=== PATIENT | female | born 1965 | race Caucasian/White ===

== ENCOUNTER 2018-02-24 09:19 | Inpatient (IN) | payer SELFPAY ==
[2018-02-24] MEDS ORDERED: NORMAL SALINE 1000 ML 2,000 ML IV ONE (09:58)
[2018-02-24 10:05] LABS: APPEARANCE,URINE CLOUDY; BILIRUBIN,URINE NEGATIVE (NEGATIVE); GLUCOSE, URINE NEGATIVE (NEGATIVE); KETONES,URINE NEGATIVE (NEGATIVE); LEUKOCYTE ESTERASE,URINE MODERATE (NEGATIVE); NITRITE,URINE POSITIVE (NEGATIVE); PROTEIN,URINE NEGATIVE (NEGATIVE); URINE SPECIFIC GRAVITY 1.016
[2018-02-24 10:06] LABS: COLOR,URINE YELLOW
--- NOTE | 2018-02-24 10:29 | RADIOLOGY REPORT (SQ) ---
EXAM DESCRIPTION: CHEST SINGLE VIEW COMPLETED DATE/TIME: 02/24/2018 10:13 am REASON FOR STUDY: Dizziness COMPARISON: None. EXAM PARAMETERS: NUMBER OF VIEWS: One view. TECHNIQUE: Single frontal radiographic view of the chest acquired. RADIATION DOSE: NA LIMITATIONS: None. FINDINGS: LUNGS AND PLEURA: No opacities, masses or pneumothorax. No pleural effusion. MEDIASTINUM AND HILAR STRUCTURES: No masses. Contour normal. HEART AND VASCULAR STRUCTURES: Heart normal in size. Normal vasculature. BONES: No acute findings. HARDWARE: None in the chest. OTHER: No other significant finding. IMPRESSION: NO ACUTE RADIOGRAPHIC FINDING IN THE CHEST. TECHNICAL DOCUMENTATION: JOB ID: [id number] [employer]- All Rights Reserved Reading location - IP/workstation name: [email or web address]
[2018-02-24 10:33] LABS: HEMATOCRIT 17.6 % (36.0-47.0); MEAN CORPUSCULAR HEMOGLOBIN 47.7 pg (27.0-33.4); MEAN CORPUSCULAR HGB CONC 34.6 g/dL (32.0-36.0); PLATELET COUNT 104 10^3/uL (150-450); RED BLOOD COUNT 1.27 10^6/uL (3.72-5.28); RED CELL DISTRIBUTION WIDTH 18.1 % (11.5-14.0); WHITE BLOOD COUNT 4.2 10^3/uL (4.0-10.5)
[2018-02-24 10:40] LABS: HEMOGLOBIN 6.1 g/dL (12.0-15.5); MEAN CORPUSCULAR VOLUME 138 fl (80-97)
[2018-02-24 10:42] LABS: ALANINE AMINOTRANSFERASE 24 U/L (9-52); ALBUMIN 3.4 g/dL (3.5-5.0); ALKALINE PHOSPHATASE 86 U/L (38-126); ANION GAP 8 (5-19); ASPARTATE AMINO TRANSFERASE 50 U/L (14-36); BILIRUBIN,TOTAL 1.9 mg/dL (0.2-1.3); BLOOD UREA NITROGEN 33 mg/dL (7-20); CALCIUM 9.3 mg/dL (8.4-10.2); CARBON DIOXIDE 28 mmol/L (22-30); CHLORIDE 105 mmol/L (98-107); GLUCOSE 117 mg/dL (75-110); POTASSIUM 4.2 mmol/L (3.6-5.0); SODIUM 141.4 mmol/L (137-145)
[2018-02-24 10:43] LABS: ALCOHOL < 10 mg/dL (NONE DETECTED)
[2018-02-24] MEDS ORDERED: NORMAL SALINE 250 ML IV PRN ×2 (10:49)
[2018-02-24] MEDS ORDERED: CEFTRIAXONE INJ 1000 MG VIAL IV ONE (10:50)
--- NOTE | 2018-02-24 10:51 | ER Document Report ---
ED Dizziness/Weakness - General Chief Complaint: General Weakness Stated Complaint: DEHYDRATED/PAINFUL TO WALK Time Seen by Provider: 02/24/18 09:56 - HPI Notes: Patient is a 52-year-old female that presents to the emergency department for chief complaint of fatigue. Patient states she drinks a significant amount of alcohol daily. She is not sure how many glasses of wine she is drinking. Patient endorses over the last 6-7 days she has been so fatigued she has been a unable to stand up. She denies any lightheadedness and near syncope but states she feels too tired to move. She is having friends move her into a chair and assist her around the house. She denies any fall with head injury. She denies any black or bloody stools. She denies any nausea, vomiting, abdominal pain, and numbness. Patient does states she has intermittent chest pain. The pain has been on and off for the last 10 years. She states it lasts for 1-2 seconds at a time and then completely resolves. She denies any change in her chest pain recently compared to over the last 10 years. She has no known history of CAD and denies any history of stress test. Patient lives in [place] and is here visiting with no primary care in the area. She denies history of GI bleeding in the past or ever needing a blood transfusion. Past Medical History: Negative Past Surgical History: Negative Social History: Heavy daily alcohol abuse. Denies drugs and tobacco use. Family History: Reviewed and noncontributory for presenting illness Allergies: Reviewed, see documented allergy list. REVIEW OF SYSTEMS: CONSTITUTIONAL : Fatigue No fever No chills No diaphoresis No recent illness EENT: No vision changes No congestion No sore throat CARDIOVASCULAR: chest pain No palpitations RESPIRATORY: No shortness of breath No cough No difficulty breathing GASTROINTESTINAL: No abdominal pain No nausea No vomiting No diarrhea GENITOURINARY: No dysuria No hematuria No difficulty urinating MUSCULOSKELETAL: No back pain No leg pain No arm pain SKIN: No rashes No lesions LYMPHATIC: No swollen, enlarged glands. NEUROLOGICAL: No lightheadedness No headache No weakness No paresthesias PSYCHIATRIC: No anxiety No depression PHYSICAL EXAMINATION: Vital signs reviewed, nursing noted reviewed. GENERAL: Well-appearing, well-nourished and in no acute distress. HEAD: Atraumatic, normocephalic. EYES: extraocular movements intact, sclera anicteric, conjunctival paler ENT: nares patent, oropharynx clear without exudates. Dry mucous membranes. NECK: Normal range of motion, supple without lymphadenopathy LUNGS: Breath sounds clear to auscultation bilaterally and equal. No wheezes rales or rhonchi. HEART: Regular rate and rhythm without murmurs ABDOMEN: Soft, nontender, normoactive bowel sounds. No rebound, guarding, or rigidity. No masses appreciated. EXTREMITIES: Nontender, good range of motion, no pitting or edema. NEUROLOGICAL: No focal neurological deficits. Moves all extremities spontaneously Motor and sensory grossly intact on exam. PSYCH: Normal mood, normal affect. SKIN: Warm, Dry, normal turgor, pale Past Medical History - Social History Smoking Status: Never Smoker Family History: Reviewed & Not Pertinent Physical Exam - Vital signs Vitals: Temp Pulse Resp BP Pulse Ox 97.4 F 97 16 62/48 L 91 L 02/24/18 09:40 02/24/18 09:40 02/24/18 09:40 02/24/18 09:40 02/24/18 09:40 Course - Re-evaluation Re-evalutation: 02/24/18 11:14 Vitals reviewed. Nursing notes reviewed. Patient is not tachycardic but does have mild hypotension. She was started on IV hydration which improved her blood pressure. She states she has chronically low blood pressure and usually is in the 90s. She is not feeling lightheaded or near syncopal. Patient's hemoglobin is 6 and she will be started on packed red blood cells transfusion. Rectal exam shows brown stool, Hemoccult is pending. Urinalysis is positive for infection. Patient started on IV Rocephin. Lactate and blood cultures have been obtained and are pending. 02/24/18 12:29 Patient reevaluated. Her blood pressure has been low however she is mentating appropriately. Patient's blood pressure is currently 83/61 and she is not feeling lightheaded. Her heart rate is 74. She has no signs of active bleeding. Blood transfusion has not yet been initiated, we are still waiting on type and screen. Patient is Hemoccult negative. Her anemia is likely related to chronic disease from her alcoholism. Patient's lactate is normal and she is not septic. She did receive antibiotics. She will be admitted to the ICU for her anemia with low blood pressures. Case discussed with Yon Salcido [facility] who accepted admission. Patient in agreement with this plan. Laboratory 02/24/18 02/24/18 02/24/18 08:30 08:30 09:55 WBC 4.2 RBC 1.27 L Hgb 6.1 L Hct 17.6 L MCV 138 H MCH 47.7 H MCHC 34.6 RDW 18.1 H Plt Count 104 L Total Counted 100 Seg Neutrophils % Not Reportable Seg Neuts % (Manual) 24 L Lymphocytes % Not Reportable Lymphocytes % (Manual) 67 H Monocytes % Not Reportable Monocytes % (Manual) 3 Eosinophils % Not Reportable Eosinophils % (Manual) 5 Basophils % Not Reportable Basophils % (Manual) 1 Absolute Neutrophils Not Reportable Abs Neuts (Manual) 1.0 L Absolute Lymphocytes Not Reportable Abs Lymphs (Manual) 2.8 Absolute Monocytes Not Reportable Abs Monocytes (Manual) 0.1 Absolute Eosinophils Not Reportable Absolute Eos (Manual) 0.2 Absolute Basophils Not Reportable Abs Basophils (Manual) 0.0 Hypersegmented Neuts PRESENT Toxic Granulation 2+ Toxic Vacuolation PRESENT Platelet Comment DECREASED Hypochromasia SLIGHT Poikilocytosis 2+ Macrocytosis 4+ Target Cells SLIGHT Tear Drop Cells SLIGHT Ovalocytes 2+ Sodium Potassium Chloride Carbon Dioxide Anion Gap BUN Creatinine Est GFR ( Amer) Est GFR (Non-Af Amer) Glucose Lactic Acid Calcium Total Bilirubin Direct Bilirubin Neonat Total Bilirubin Neonat Direct Bilirubin Neonat Indirect Bili AST ALT Alkaline Phosphatase Ammonia Troponin I Total Protein Albumin Urine Color YELLOW Urine Appearance CLOUDY Urine pH 6.0 Ur Specific Macy 1.016 Urine Protein NEGATIVE Urine Glucose (UA) NEGATIVE Urine Ketones NEGATIVE Urine Blood NEGATIVE Urine Nitrite POSITIVE H Urine Bilirubin NEGATIVE Urine Urobilinogen 4.0 H Ur Leukocyte Esterase MODERATE H Urine WBC (Auto) 21 Urine RBC (Auto) 1 U Hyaline Cast (Auto) 1 Urine Bacteria (Auto) 3+ Squamous Epi Cells Auto <1 Urine Mucus (Auto) RARE Urine Ascorbic Acid NEGATIVE Stool Occult Blood Urine Opiates Screen NEGATIVE Urine Methadone Screen NEGATIVE Ur Barbiturates Screen NEGATIVE Ur Phencyclidine Scrn NEGATIVE Ur Amphetamines Screen NEGATIVE U Benzodiazepines Scrn NEGATIVE Urine Cocaine Screen NEGATIVE U Marijuana (THC) Screen NEGATIVE Serum Alcohol Crossmatch 02/24/18 02/24/18 02/24/18 09:55 09:55 09:55 WBC RBC Hgb Hct MCV MCH MCHC RDW Plt Count Total Counted Seg Neutrophils % Seg Neuts % (Manual) Lymphocytes % Lymphocytes % (Manual) Monocytes % Monocytes % (Manual) Eosinophils % Eosinophils % (Manual) Basophils % Basophils % (Manual) Absolute Neutrophils Abs Neuts (Manual) Absolute Lymphocytes Abs Lymphs (Manual) Absolute Monocytes Abs Monocytes (Manual) Absolute Eosinophils Absolute Eos (Manual) Absolute Basophils Abs Basophils (Manual) Hypersegmented Neuts Toxic Granulation Toxic Vacuolation Platelet Comment Hypochromasia Poikilocytosis Macrocytosis Target Cells Tear Drop Cells Ovalocytes Sodium 141.4 Potassium 4.2 Chloride 105 Carbon Dioxide 28 Anion Gap 8 BUN 33 H Creatinine 0.95 Est GFR ( Amer) > 60 Est GFR (Non-Af Amer) > 60 Glucose 117 H Lactic Acid 1.6 Calcium 9.3 Total Bilirubin 1.9 H Direct Bilirubin 1.0 H Neonat Total Bilirubin Not Reportable Neonat Direct Bilirubin Not Reportable Neonat Indirect Bili Not Reportable AST 50 H ALT 24 Alkaline Phosphatase 86 Ammonia Troponin I < 0.012 Total Protein 7.0 Albumin 3.4 L Urine Color Urine Appearance Urine pH Ur Specific Macy Urine Protein Urine Glucose (UA) Urine Ketones Urine Blood Urine Nitrite Urine Bilirubin Urine Urobilinogen Ur Leukocyte Esterase Urine WBC (Auto) Urine RBC (Auto) U Hyaline Cast (Auto) Urine Bacteria (Auto) Squamous Epi Cells Auto Urine Mucus (Auto) Urine Ascorbic Acid Stool Occult Blood Urine Opiates Screen Urine Methadone Screen Ur Barbiturates Screen Ur Phencyclidine Scrn Ur Amphetamines Screen U Benzodiazepines Scrn Urine Cocaine Screen U Marijuana (THC) Screen Serum Alcohol < 10 Crossmatch 02/24/18 02/24/18 02/24/18 11:08 11:08 11:15 WBC RBC Hgb Hct MCV MCH MCHC RDW Plt Count Total Counted Seg Neutrophils % Seg Neuts % (Manual) Lymphocytes % Lymphocytes % (Manual) Monocytes % Monocytes % (Manual) Eosinophils % Eosinophils % (Manual) Basophils % Basophils % (Manual) Absolute Neutrophils Abs Neuts (Manual) Absolute Lymphocytes Abs Lymphs (Manual) Absolute Monocytes Abs Monocytes (Manual) Absolute Eosinophils Absolute Eos (Manual) Absolute Basophils Abs Basophils (Manual) Hypersegmented Neuts Toxic Granulation Toxic Vacuolation Platelet Comment Hypochromasia Poikilocytosis Macrocytosis Target Cells Tear Drop Cells Ovalocytes Sodium Potassium Chloride Carbon Dioxide Anion Gap BUN Creatinine Est GFR ( Amer) Est GFR (Non-Af Amer) Glucose Lactic Acid Calcium Total Bilirubin Direct Bilirubin Neonat Total Bilirubin Neonat Direct Bilirubin Neonat Indirect Bili AST ALT Alkaline Phosphatase Ammonia < 8.7 L Troponin I Total Protein Albumin Urine Color Urine Appearance Urine pH Ur Specific Macy Urine Protein Urine Glucose (UA) Urine Ketones Urine Blood Urine Nitrite Urine Bilirubin Urine Urobilinogen Ur Leukocyte Esterase Urine WBC (Auto) Urine RBC (Auto) U Hyaline Cast (Auto) Urine Bacteria (Auto) Squamous Epi Cells Auto Urine Mucus (Auto) Urine Ascorbic Acid Stool Occult Blood NEGATIVE Urine Opiates Screen Urine Methadone Screen Ur Barbiturates Screen Ur Phencyclidine Scrn Ur Amphetamines Screen U Benzodiazepines Scrn Urine Cocaine Screen U Marijuana (THC) Screen Serum Alcohol Crossmatch See Detail Chest X-Ray 02/24/18 09:59 IMPRESSION: NO ACUTE RADIOGRAPHIC FINDING IN THE CHEST. - Vital Signs Vital signs: Temp Pulse Resp BP Pulse Ox 97.4 F 97 16 62/48 L 91 L 02/24/18 09:40 02/24/18 09:40 02/24/18 09:40 02/24/18 09:40 02/24/18 09:40 - Laboratory Result Diagrams: 02/24/18 09:55 02/24/18 09:55 Laboratory results interpreted by me: 02/24/18 02/24/18 02/24/18 08:30 09:55 09:55 RBC 1.27 L Hgb 6.1 L Hct 17.6 L MCV 138 H MCH 47.7 H RDW 18.1 H Plt Count 104 L Seg Neuts % (Manual) 24 L Lymphocytes % (Manual) 67 H Abs Neuts (Manual) 1.0 L BUN 33 H Glucose 117 H Total Bilirubin 1.9 H Direct Bilirubin 1.0 H AST 50 H Ammonia Albumin 3.4 L Urine Nitrite POSITIVE H Urine Urobilinogen 4.0 H Ur Leukocyte Esterase MODERATE H Crossmatch 02/24/18 02/24/18 11:08 11:15 RBC Hgb Hct MCV MCH RDW Plt Count Seg Neuts % (Manual) Lymphocytes % (Manual) Abs Neuts (Manual) BUN Glucose Total Bilirubin Direct Bilirubin AST Ammonia < 8.7 L Albumin Urine Nitrite Urine Urobilinogen Ur Leukocyte Esterase Crossmatch See Detail Critical Care Note - Critical Care Note Total time excluding time spent on procedures (mins): 45 Comments: Anemia with hypotension, management of hemodynamics. Required blood transfusion. Admitted to ICU. Scheduled for further cardiovascular decompensation. Discharge - Discharge Clinical Impression: Anemia Qualifiers: Anemia type: other cause Other causes of anemia: other cause, not classified Qualified Code(s): D64.89 - Other specified anemias UTI (urinary tract infection) Qualifiers: Urinary tract infection type: site unspecified Hematuria presence: without hematuria Qualified Code(s): N39.0 - Urinary tract infection, site not specified Fatigue Qualifiers: Fatigue type: unspecified Qualified Code(s): R53.83 - Other fatigue Condition: Stable Disposition: ADMITTED INPATIENT Admitting Provider: Hospitalist Unit Admitted: ICU
[2018-02-24 11:05] LABS: ABSOLUTE LYMPHOCYTES# (MANUAL) 2.8 10^3/uL (0.5-4.7); ABSOLUTE MONOCYTES # (MANUAL) 0.1 10^3/uL (0.1-1.4); BASOPHILS % (MANUAL) 1 % (0-2); EOSINOPHILS % (MANUAL) 5 % (0-6); LYMPHOCYTES % (MANUAL) 67 % (13-45); MONOCYTES % (MANUAL) 3 % (3-13); SEGMENTED NEUTROPHILS % (MAN) 24 % (42-78); TOTAL CELLS COUNTED 100
[2018-02-24 11:06] LABS: OVALOCYTES 2+; POIKILOCYTOSIS 2+; TARGET CELLS SLIGHT; TEAR DROP CELLS SLIGHT; TOXIC GRANULATION 2+; TOXIC VACUOLATION PRESENT
[2018-02-24 11:07] LABS: HYPERSEGMENTED NEUTROPHILS PRESENT; HYPOCHROMASIA SLIGHT; PLATELET COMMENT DECREASED
[2018-02-24 11:19] LABS: URINE AMPHETAMINES SCREEN NEGATIVE; URINE BARBITURATES SCREEN NEGATIVE; URINE BENZODIAZEPINES SCREEN NEGATIVE; URINE COCAINE SCREEN NEGATIVE; URINE MARIJUANA (THC) SCREEN NEGATIVE; URINE METHADONE SCREEN NEGATIVE; URINE PHENCYCLIDINE SCREEN NEGATIVE
--- NOTE | 2018-02-24 13:19 | EKG REPORT ---
SEVERITY:- DEFECTIVE ECG - SINUS RHYTHM 67 BASELINE TERMORS : Confirmed by: Lazaro Galvez MD 24-Feb-2018 13:19:28
[2018-02-24 14:05] LABS: INTERNATIONAL RATION (INR) 1.35; PROTHROMBIN TIME 17.4 SEC (11.4-15.4)
[2018-02-24 14:15] LABS: ABSOLUTE RETICS # 0.033 10^6/uL (0.028-0.122); RETICULOCYTE COUNT (AUTO) 2.61 % (0.66-2.85)
[2018-02-24] MEDS ORDERED: LORAZEPAM 1 MG TABLET PO SCH (14:15)
[2018-02-24] MEDS: LORAZEPAM 1 MG TABLET PO SCH ×2 (15:18→21:56)
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
[2018-02-24] MEDS: FOLIC ACID 1 MG TABLET PO SCH (15:46)
[2018-02-24] MEDS: NORMAL SALINE 100 ML with PANTOPRAZOLE SODIUM 80 MG IV PRN ×2 (15:46)
[2018-02-24] MEDS: PIPERACILLIN SODIUM/TAZOBACTAM 4.5 GM in NORMAL SALINE 100 ML IV SCH ×2 (17:30→21:53)
[2018-02-24] MEDS: MAGNESIUM SULFATE/D5W 1 GM/100 ML RTUPB IV SCH ×2 (18:00→20:21)
[2018-02-24 18:15] LABS: FOLATE 3.59 ng/mL (>2.76)
--- NOTE | 2018-02-24 19:03 | EKG REPORT ---
SEVERITY:- BORDERLINE ECG - SINUS RHYTHM BORDERLINE R WAVE PROGRESSION, ANTERIOR LEADS BORDERLINE T ABNORMALITIES, ANT-LAT LEADS : Confirmed by: Lazaro aGlvez MD 24-Feb-2018 19:02:20
[2018-02-24] MEDS ORDERED: MAGNESIUM SULFATE/D5W 1 GM/100 ML RTUPB IV ONE (20:12)
[2018-02-24 20:15] LABS: HEMATOCRIT 21.6 % (36.0-47.0); MEAN CORPUSCULAR HEMOGLOBIN 39.9 pg (27.0-33.4); MEAN CORPUSCULAR HGB CONC 35.4 g/dL (32.0-36.0); RED BLOOD COUNT 1.92 10^6/uL (3.72-5.28); RED CELL DISTRIBUTION WIDTH 31.3 % (11.5-14.0)
[2018-02-24] MEDS: THIAMINE HCL 500 MG in NORMAL SALINE 250 ML IV SCH (20:25)
[2018-02-24 20:29] LABS: MEAN CORPUSCULAR VOLUME 113 fl (80-97)
[2018-02-24 20:32] LABS: PLATELET COUNT 59 10^3/uL (150-450)
[2018-02-24 20:34] LABS: HEMOGLOBIN 7.7 g/dL (12.0-15.5)
[2018-02-25] MEDS: NORMAL SALINE 100 ML with PANTOPRAZOLE SODIUM 80 MG IV PRN ×4 (00:35→10:06)
[2018-02-25] MEDS: THIAMINE HCL 500 MG in NORMAL SALINE 250 ML IV SCH ×3 (01:42→19:28)
[2018-02-25] MEDS: PIPERACILLIN SODIUM/TAZOBACTAM 4.5 GM in NORMAL SALINE 100 ML IV SCH ×4 (04:00→21:33)
[2018-02-25 04:12] LABS: HEMATOCRIT 24.9 % (36.0-47.0); HEMOGLOBIN 8.8 g/dL (12.0-15.5); MEAN CORPUSCULAR HEMOGLOBIN 38.3 pg (27.0-33.4); MEAN CORPUSCULAR HGB CONC 35.3 g/dL (32.0-36.0); RED CELL DISTRIBUTION WIDTH 29.5 % (11.5-14.0); WHITE BLOOD COUNT 4.1 10^3/uL (4.0-10.5)
[2018-02-25 04:13] LABS: INTERNATIONAL RATION (INR) 1.33; PROTHROMBIN TIME 17.1 SEC (11.4-15.4)
[2018-02-25 04:16] LABS: PLATELET COUNT 58 10^3/uL (150-450)
[2018-02-25 04:17] LABS: MEAN CORPUSCULAR VOLUME 108 fl (80-97)
[2018-02-25] MEDS: ACETAMINOPHEN 325 MG TABLET PO PRN (04:22)
[2018-02-25] MEDS: LORAZEPAM INJ 2 MG/1 ML VIAL IV PRN ×2 (04:22→23:30)
[2018-02-25 04:27] LABS: ANION GAP 8 (5-19); BLOOD UREA NITROGEN 23 mg/dL (7-20); CALCIUM 8.3 mg/dL (8.4-10.2); CARBON DIOXIDE 25 mmol/L (22-30); CHLORIDE 110 mmol/L (98-107); GLUCOSE 93 mg/dL (75-110); POTASSIUM 3.5 mmol/L (3.6-5.0); SODIUM 142.5 mmol/L (137-145)
[2018-02-25] MEDS: LORAZEPAM 1 MG TABLET PO SCH ×3 (06:34→21:32)
[2018-02-25] MEDS ORDERED: POTASSIUM CHLORIDE 10 MEQ CAPSULE.ER PO ONE (06:57)
--- NOTE | 2018-02-25 08:50 | RADIOLOGY REPORT (SQ) ---
EXAM DESCRIPTION: U/S ABDOMEN LIMITED W/O DOP COMPLETED DATE/TIME: 02/25/2018 6:29 am REASON FOR STUDY: elevated LFTs COMPARISON: None. TECHNIQUE: Dynamic and static grayscale images acquired of the abdomen and recorded on PACS. Additio nal selected color Doppler and spectral images recorded. LIMITATIONS: Study is limited somewhat due to overlying bowel gas. FINDINGS: PANCREAS: The pancreas was not well visualized due to overlying bowel gas. LIVER: Echotexture is coarse with increased echogenicity consistent with fatty infiltration. LIVER VASCULATURE: Normal directional flow of the main portal vein. GALLBLADDER: Gallbladder could not visualized. ULTRASOUND-DETECTED BETH'S SIGN: Negative. INTRAHEPATIC DUCTS AND COMMON DUCT: Intrahepatic ducts normal caliber. The common bile duct is promi nent. No filling defects. INFERIOR VENA CAVA: Normal flow. AORTA: No aneurysm. RIGHT KIDNEY: 10.4 cm in length Normal echogenicity. No solid or suspicious masses. No hydrone phrosis. No calcifications. PERITONEAL AND RIGHT PLEURAL SPACE: No ascites or effusions. OTHER: No other significant finding. IMPRESSION: Limited study as noted above. Gallbladder was not visualized. FATTY INFILTRATION OF TH E LIVER. Other findings as noted above TECHNICAL DOCUMENTATION: JOB ID: [id number] [employer]- All Rights Reserved Reading location - IP/workstation name: [email or web address]
[2018-02-25 09:26] LABS: HEMATOCRIT 27.9 % (36.0-47.0); HEMOGLOBIN 9.9 g/dL (12.0-15.5); MEAN CORPUSCULAR HGB CONC 35.7 g/dL (32.0-36.0); MEAN CORPUSCULAR VOLUME 109 fl (80-97); RED BLOOD COUNT 2.55 10^6/uL (3.72-5.28); RED CELL DISTRIBUTION WIDTH 31.2 % (11.5-14.0); WHITE BLOOD COUNT 4.2 10^3/uL (4.0-10.5)
[2018-02-25 09:40] LABS: ALANINE AMINOTRANSFERASE 22 U/L (9-52); ALBUMIN 2.9 g/dL (3.5-5.0); ALKALINE PHOSPHATASE 68 U/L (38-126); ASPARTATE AMINO TRANSFERASE 41 U/L (14-36); BILIRUBIN,DIRECT 1.4 mg/dL (0.0-0.4); BILIRUBIN,TOTAL 2.8 mg/dL (0.2-1.3); TOTAL PROTEIN 6.1 g/dL (6.3-8.2)
[2018-02-25] MEDS: 1/2 NORMAL SALINE 1,000 ML IV PRN ×2 (09:53→22:28)
[2018-02-25 10:01] LABS: PLATELET COUNT 61 10^3/uL (150-450)
[2018-02-25] MEDS: FOLIC ACID 1 MG TABLET PO SCH (10:02)
[2018-02-25] MEDS ORDERED: POTASSIUM CHLORIDE 20 MEQ/50 ML RTU IV ONE (10:15)
[2018-02-25 12:19] LABS: PATH REVIEW PATHOLOGIST REVIEWED
--- NOTE | 2018-02-25 16:26 | PDOC PROGRESS REPORT ---
Subjective Progress Note for:: 02/25/18 Subjective:: Ms. Mora was found to be sleeping in bed on assessment. The patient eventually awoke to verbal and tactile stimulation. The patient expressed much gratitude to the nursing and medical staff for helping her. The patient also stated that she "wanted to know what happened, damnit". The patient denied any pain, shortness of breath, fever or chills. Reason For Visit: ANEMIA,HYPOTENSION,UTI Physical Exam Vital Signs: Temp Pulse Resp BP Pulse Ox 98.1 F 59 L 16 106/70 95 02/25/18 06:00 02/25/18 03:26 02/25/18 06:04 02/25/18 06:04 02/25/18 06:04 Intake & Output 02/23/18 02/24/18 02/25/18 23:59 23:59 23:59 Intake Total 3495 823 Output Total 100 Balance 3395 823 Weight 59.3 kg General appearance: PRESENT: no acute distress, disheveled Head exam: PRESENT: atraumatic, normocephalic Eye exam: PRESENT: conjunctiva pink, scleral icterus, other - right pupil noted to be larger than left pupil. Both pupils are reactive. Sluggish accomidation noted. Ear exam: PRESENT: normal external ear exam Mouth exam: PRESENT: dry mucosa, neck supple, tongue midline Teeth exam: PRESENT: poor dentation Neck exam: PRESENT: full ROM Respiratory exam: PRESENT: rhonchi - Pt does still have rhoncorus breath sounds ; however, this has improved compared to admission. Cardiovascular exam: PRESENT: +S1, +S2 Pulses: PRESENT: normal radial pulses, +1 pedal pulses bilateral Vascular exam: PRESENT: normal capillary refill GI/Abdominal exam: PRESENT: normal bowel sounds, soft Rectal exam: PRESENT: deferred Musculoskeletal exam: PRESENT: full ROM Neurological exam: PRESENT: altered, awake, oriented to person Psychiatric exam: PRESENT: unusual affect Skin exam: PRESENT: abrasion, jaundice, warm Additional comments: Patient had received ativan prior to assessment. The patient was unable to answer any sort of complex or detailed questions, but did attempt to participate in the examination and interview. Results Laboratory Results: 02/25/18 03:53 02/25/18 03:53 02/24/18 02/25/18 02/25/18 20:00 03:53 03:53 WBC 4.0 4.1 RBC 1.92 L 2.30 L Hgb 7.7 L 8.8 L Hct 21.6 L 24.9 L MCV 113 H D 108 H D MCH 39.9 H 38.3 H MCHC 35.4 35.3 RDW 31.3 H 29.5 H Plt Count 59 L 58 L Sodium 142.5 Potassium 3.5 L Chloride 110 H Carbon Dioxide 25 Anion Gap 8 BUN 23 H Creatinine 1.00 Est GFR ( Amer) > 60 Est GFR (Non-Af Amer) 58 L Glucose 93 Calcium 8.3 L Impressions: Chest X-Ray 02/24/18 09:59 IMPRESSION: NO ACUTE RADIOGRAPHIC FINDING IN THE CHEST. Assessment & Plan - Diagnosis (1) Anemia Qualifiers: Anemia type: other cause Is this a current diagnosis for this admission?: Yes Plan: Further classification could not be entirly worked up as sample that was drawn on ED admission hemolysed and new sample could not be obtained due to blood transfusion. Ferrtin level was able to be obtained, which was high. Possible anemia of chronic disease. Patient was typed and screened in ED. Transfuse 2 units of PRBC was given after admission to the ICU and CBC rechecked. Due to H/ H still being low, the patient received an additional unit, making it the patient's third unit of PRBCs. Will repeat CBC. Protonix gtt continued. Will repeat labs in AM. If drop in H&H noted after transfusion of third unit, will consult surgery for further evaluation and work-up of bleeding source. (2) Hypotension Is this a current diagnosis for this admission?: Yes Plan: Most likely secondary to the above. Patient received 2L NS bolus in ED. The patient has recieved at total of three units PRBCs. Repeat CBC pending. Blood cultures pending. Blood pressures have been stable after receiving blood infusion. Will continue to monitor. (3) UTI (urinary tract infection) Qualifiers: Urinary tract infection type: site unspecified Hematuria presence: without hematuria Qualified Code(s): N39.0 - Urinary tract infection, site not specified Is this a current diagnosis for this admission?: Yes Plan: Patient received 1 gram IV rocephin in ED. Patient now receiving IV zosyn. Urine culture pending. (4) Alcohol dependence, continuous Is this a current diagnosis for this admission?: Yes Plan: Toxicology resulted serum alcohol less less than 10. MCV on admission was 138. [place] protocol. Obtain magnesium level. IV thiamine. PO Folic acid. After acute issues have been resolved, encourage patient to stop using alcohol. High suspicion of cirrhosis. RUQ US obtained. Fatty infiltration of liver noted in US report. (5) Metabolic encephalopathy Is this a current diagnosis for this admission?: Yes Plan: Mostly likely secondary to the above. TSH was within an acceptable range. Unfortunately, B12 could not be obtained due to hemolysed blood sample prior to blood transfusion. Ammonia was less than 8.7. Toxicology was negative. Treat UTI. (6) Tobacco abuse Is this a current diagnosis for this admission?: Yes Plan: After acute issues have resolved, educate patient to stop smoking. (7) Paroxysmal atrial fibrillation Is this a current diagnosis for this admission?: Yes Plan: EKG obtained on admission and then repeated. Patient to be admitted to the ICU and monitored continuously. At time of assessment remote telemetry revealed sinus bradycardia. Defer anticoagulation given the patient's profound anemia with hypovolemia. (8) Do not resuscitate Is this a current diagnosis for this admission?: Yes Plan: The patient has voiced her wishes for a natural and understand that DNR does not mean that she will not be treated. (9) LFTs abnormal Is this a current diagnosis for this admission?: Yes Plan: RUQ ultrasound showed fatty infiltration in liver. LFTs ordered, will continue to follow. (10) Hypokalemia Is this a current diagnosis for this admission?: Yes Plan: Magnesium and potassium repleated yesterday by IV administration. Repeat magnesium was satisfactory. Patient is still hypokalemic. Repleated with PO potassium. Will repeat labs in AM. - Time Time Spent with patient: Time spent with the patient including review of records, assessment and formulation of plan was 20 mins. Medications reviewed and adjusted accordingly: Yes Anticipated discharge: Home Within: within 36 hours - Plan Summary Plan Summary: Pending patient's hemodynamic stability and whether or not the patient's H&H results are stable, the patient may be able to move out of ICU. I discussed the patient with her boyfriend, Guicho. The patient designated him the parts counter sales person upon admission. According to Guicho, the patient has been "going downhill all year". He stated she did not like hospitals and healthcare. Both of them had suspicion of cirrhosis.
[2018-02-25] MEDS ORDERED: THIAMINE HCL INJ 200 MG/2 ML VIAL ONE (19:03)
[2018-02-25] MEDS: PANTOPRAZOLE SODIUM 40 MG VIAL IV SCH (21:33)
[2018-02-26] MEDS: THIAMINE HCL 500 MG in NORMAL SALINE 250 ML IV SCH ×3 (02:17→18:40)
[2018-02-26] MEDS: PIPERACILLIN SODIUM/TAZOBACTAM 4.5 GM in NORMAL SALINE 100 ML IV SCH ×3 (04:11→15:13)
[2018-02-26] MEDS: LORAZEPAM 1 MG TABLET PO SCH ×3 (05:41→21:25)
[2018-02-26] MEDS: ACETAMINOPHEN 325 MG TABLET PO PRN (05:49)
[2018-02-26 07:29] LABS: ALANINE AMINOTRANSFERASE 20 U/L (9-52); ALBUMIN 2.6 g/dL (3.5-5.0); ALKALINE PHOSPHATASE 61 U/L (38-126); ANION GAP 12 (5-19); ASPARTATE AMINO TRANSFERASE 36 U/L (14-36); BILIRUBIN,DIRECT 1.2 mg/dL (0.0-0.4); BILIRUBIN,TOTAL 2.3 mg/dL (0.2-1.3); BLOOD UREA NITROGEN 18 mg/dL (7-20); CALCIUM 8.4 mg/dL (8.4-10.2); CARBON DIOXIDE 21 mmol/L (22-30); CHLORIDE 111 mmol/L (98-107); GLUCOSE 80 mg/dL (75-110); HEMATOCRIT 24.9 % (36.0-47.0); MEAN CORPUSCULAR HEMOGLOBIN 39.9 pg (27.0-33.4); MEAN CORPUSCULAR HGB CONC 36.2 g/dL (32.0-36.0); MEAN CORPUSCULAR VOLUME 110 fl (80-97); POTASSIUM 3.8 mmol/L (3.6-5.0); RED BLOOD COUNT 2.26 10^6/uL (3.72-5.28); RED CELL DISTRIBUTION WIDTH 29.7 % (11.5-14.0); SODIUM 143.7 mmol/L (137-145); TOTAL PROTEIN 5.7 g/dL (6.3-8.2); WHITE BLOOD COUNT 4.4 10^3/uL (4.0-10.5)
[2018-02-26 07:51] LABS: PLATELET COUNT 51 10^3/uL (150-450)
[2018-02-26] MEDS: PANTOPRAZOLE SODIUM 40 MG VIAL IV SCH ×2 (09:45→21:25)
[2018-02-26] MEDS: FOLIC ACID 1 MG TABLET PO SCH (09:45)
[2018-02-26] MEDS: 1/2 NORMAL SALINE 1,000 ML IV PRN (15:53)
--- NOTE | 2018-02-26 16:27 | PDOC PROGRESS REPORT ---
Subjective Progress Note for:: 02/26/18 Subjective:: Patient to be found lying in bed, sleeping. Patient woke to verbal and tactile stimulation. When asked how she was feeling the patient stated, "eight". When asked if she was in pain the patient did not answer and went back to sleep. Subjective information difficult to obtain due to patient's inability or disinterest to participate in interview/examination; however, the patient does follow simple commands. Brief history: The patient is a 52-year-old female with a past medical history of significant alcohol abuse and cirrhosis. Patient was brought into the emergency department due to preceding weakness and confusion. She was found to be profoundly anemic and required 3 units of packed red blood cells for transfusion. The patient who has no children verbally designated her boyfriend in [place] as her surrogate decision-maker. The patient made it clear that she does not like healthcare and would want a natural and minimal procedures. The patient and all status waxed and waned during this admission but overall this afternoon she sees improved in comparison. Patient was found to have a UTI and was covered with Zosyn for 2 days before transitioning back to Rocephin. Reason For Visit: ANEMIA,HYPOTENSION,UTI Physical Exam Vital Signs: Temp Pulse Resp BP Pulse Ox 98.3 F 66 12 103/64 97 02/26/18 03:38 02/26/18 03:38 02/26/18 03:38 02/26/18 03:38 02/26/18 03:38 Intake & Output 02/24/18 02/25/18 02/26/18 23:59 23:59 23:59 Intake Total 3495 2983 474 Output Total 100 0 0 Balance 3395 2983 474 Weight 59.3 kg 61.4 kg General appearance: PRESENT: no acute distress, disheveled, thin Head exam: PRESENT: atraumatic, normocephalic Eye exam: PRESENT: conjunctiva pink, conjunctiva pale, EOMI, scleral icterus, other - right pupil size greater than left pupil size. This has been presented since admission. Pupils are round and reactive to light. Accomidation is slow, but present. Ear exam: PRESENT: normal external ear exam Mouth exam: PRESENT: dry mucosa Teeth exam: PRESENT: poor dentation Neck exam: PRESENT: full ROM - Supple Respiratory exam: PRESENT: rhonchi - Left lower posterior and later lobe during inspiration., symmetrical, unlabored Cardiovascular exam: PRESENT: +S1, +S2, other - Sinus rhythm. Pulses: PRESENT: +1 pedal pulses bilateral, other - + 1 radial pulses palpated. Vascular exam: PRESENT: normal capillary refill GI/Abdominal exam: PRESENT: normal bowel sounds, soft, other - Non tender with palapation. Rectal exam: PRESENT: deferred Extremities exam: PRESENT: full ROM, other - No edema. Musculoskeletal exam: PRESENT: full ROM Neurological exam: PRESENT: altered, oriented to person Psychiatric exam: PRESENT: flat affect, unusual affect Skin exam: PRESENT: jaundice, warm, other - Scabed over abrasion noted to right lower left leg. Dressing in place. Results Laboratory Results: 02/26/18 06:13 02/26/18 06:13 02/25/18 02/25/18 02/26/18 09:03 09:03 06:13 WBC 4.2 4.4 RBC 2.55 L 2.26 L Hgb 9.9 L 9.0 L Hct 27.9 L 24.9 L MCV 109 H 110 H MCH 39.0 H 39.9 H MCHC 35.7 36.2 H RDW 31.2 H 29.7 H Plt Count 61 L 51 L Sodium Potassium Chloride Carbon Dioxide Anion Gap BUN Creatinine Est GFR ( Amer) Est GFR (Non-Af Amer) Glucose Calcium Magnesium 2.1 Total Bilirubin 2.8 H AST 41 H ALT 22 Alkaline Phosphatase 68 Total Protein 6.1 L Albumin 2.9 L 02/26/18 06:13 WBC RBC Hgb Hct MCV MCH MCHC RDW Plt Count Sodium 143.7 Potassium 3.8 Chloride 111 H Carbon Dioxide 21 L Anion Gap 12 BUN 18 Creatinine 0.96 Est GFR ( Amer) > 60 Est GFR (Non-Af Amer) > 60 Glucose 80 Calcium 8.4 Magnesium 1.8 Total Bilirubin 2.3 H AST 36 ALT 20 Alkaline Phosphatase 61 Total Protein 5.7 L Albumin 2.6 L Impressions: Chest X-Ray 02/24/18 09:59 IMPRESSION: NO ACUTE RADIOGRAPHIC FINDING IN THE CHEST. Abdomen Ultrasound 02/25/18 00:00 IMPRESSION: Limited study as noted above. Gallbladder was not visualized. FATTY INFILTRATION OF THE LIVER. Other findings as noted above Assessment & Plan - Diagnosis (1) UTI (urinary tract infection) Qualifiers: Urinary tract infection type: site unspecified Hematuria presence: without hematuria Qualified Code(s): N39.0 - Urinary tract infection, site not specified Is this a current diagnosis for this admission?: Yes Plan: Patient's antibiotics will be changed to IV rocpehin. Urine culture shows pansensitive E.Coli. (2) Anemia Qualifiers: Anemia type: other cause Is this a current diagnosis for this admission?: Yes Plan: Further classification could not be entirely worked up as sample that was drawn on ED admission hemolysed and new sample could not be obtained due to blood transfusion. Ferrtin level was able to be obtained, which was high. Possible anemia of chronic disease. Patient was typed and screened in ED. Transfuse 2 units of PRBC was given after admission to the ICU and CBC rechecked. Due to H/ H still being low, the patient received an additional unit, making it the patient's third unit of PRBCs. CBC repeated with stable H/H. Protonix gtt transitioned to IV protonix Q12H. Will repeat labs in AM. She had no evidence of overt bleed. (3) Alcoholic cirrhosis Qualifiers: Ascites presence: unspecified Qualified Code(s): K70.30 - Alcoholic cirrhosis of liver without ascites Is this a current diagnosis for this admission?: Yes Plan: Patient states that she has been diagnosed with this in the past. Boyfriend is aware of this. (4) Hypotension Is this a current diagnosis for this admission?: Yes Plan: Most likely secondary to the above. The patient has recieved at total of three units PRBCs. Blood cultures have shown no growth so far. Urine cultures positive for E.Coli, which is pansensitive. On IV rocephin. IFV 1/2 NS with 20 KCL at 75 ml/hr. Blood pressures have been stable after receiving blood infusion. Will continue to monitor. (5) Alcohol dependence, continuous Is this a current diagnosis for this admission?: Yes Plan: Toxicology resulted serum alcohol less less than 10. MCV on admission was 138. CIWA protocol. IV thiamine. PO Folic acid. Encourage patient to stop using alcohol. High suspicion of cirrhosis. RUQ US obtained. Fatty infiltration of liver noted in US report. (6) Metabolic encephalopathy Is this a current diagnosis for this admission?: Yes Plan: Possibly an element of alcohol withdrawal as well. The patient has been on high dose and 500 mg IV every 8 hours for 3 days. Mostly likely secondary to the above. TSH was within an acceptable range. Unfortunately, B12 could not be obtained due to hemolysed blood sample prior to blood transfusion. Ammonia was less than 8.7. Toxicology was negative. Treat UTI. (7) Paroxysmal atrial fibrillation Is this a current diagnosis for this admission?: Yes Plan: EKG obtained on admission and then repeated. At time of assessment remote telemetry revealed sinus rhythm. Rate and rhythm the past 24 hours have been acceptable. Defer anticoagulation given the patient's profound anemia. (8) Hypokalemia Is this a current diagnosis for this admission?: Yes Plan: Magnesium was replaced. Stable. Will repeat labs in AM. (9) Tobacco abuse Is this a current diagnosis for this admission?: Yes Plan: Educate patient to stop smoking. (10) Do not resuscitate Is this a current diagnosis for this admission?: Yes Plan: The patient has voiced her wishes for a natural and understand that DNR does not mean that she will not be treated. - Time Time Spent with patient: Time spent with the patient including review of records, assessment, formulation of plan of care and phone update with patient's boyfriend, [place], was 35 mins. Time Spent with patient: 35 or more minutes Medications reviewed and adjusted accordingly: Yes Anticipated discharge: Home Within: within 36 hours
[2018-02-26] MEDS ORDERED: CEFTRIAXONE INJ 1000 MG VIAL ONE (21:25)
[2018-02-26] MEDS: POTASSI CL 20 MEQ/1/2NS 1L 20 MEQ/1,000 ML RTUINJ IV PRN (21:25)
[2018-02-26] MEDS: CEFTRIAXONE SODIUM 1,000 MG in DEXTROSE 5%-WATER 50 ML IV SCH (21:42)
[2018-02-27] MEDS: THIAMINE HCL 500 MG in NORMAL SALINE 250 ML IV SCH ×2 (01:10→11:07)
[2018-02-27] MEDS: LORAZEPAM 1 MG TABLET PO SCH ×3 (05:39→22:30)
[2018-02-27] MEDS: PANTOPRAZOLE SODIUM 40 MG VIAL IV SCH ×2 (11:06→22:31)
[2018-02-27] MEDS: FOLIC ACID 1 MG TABLET PO SCH (11:07)
[2018-02-27] MEDS: POTASSI CL 20 MEQ/1/2NS 1L 20 MEQ/1,000 ML RTUINJ IV PRN (11:14)
[2018-02-27] MEDS: LORAZEPAM INJ 2 MG/1 ML VIAL IV PRN (15:18)
--- NOTE | 2018-02-27 17:11 | PDOC PROGRESS REPORT ---
Subjective Progress Note for:: 02/27/18 Subjective:: No adverse events overnight. She was a little bit tremulous when I saw her but not excessively so. She was disoriented and asked if I could get her an application for a permanent driving license. Reason For Visit: ANEMIA,HYPOTENSION,UTI Physical Exam Vital Signs: Temp Pulse Resp BP Pulse Ox 98.2 F 69 20 117/81 99 02/27/18 16:00 02/27/18 16:00 02/27/18 16:00 02/27/18 16:00 02/27/18 16:00 Intake & Output 02/26/18 02/27/18 02/28/18 06:59 06:59 06:59 Intake Total 2634 3415 1000 Output Total 0 50 Balance 2634 3365 1000 Weight 61.4 kg 64 kg General appearance: PRESENT: cooperative, disheveled, mild distress, thin Eye exam: PRESENT: scleral icterus Respiratory exam: PRESENT: clear to auscultation jake, symmetrical, unlabored. ABSENT: chest wall tenderness, rales, rhonchi, tachypnea, wheezes Cardiovascular exam: PRESENT: RRR, +S1, +S2. ABSENT: diastolic murmur, systolic murmur GI/Abdominal exam: PRESENT: normal bowel sounds, soft. ABSENT: distended, guarding, rebound, tenderness Extremities exam: ABSENT: clubbing Musculoskeletal exam: ABSENT: tenderness Neurological exam: PRESENT: alert, altered, oriented to person. ABSENT: oriented to place, oriented to time, oriented to situation Skin exam: PRESENT: jaundice Results Laboratory Results: 02/26/18 06:13 02/26/18 06:13 Impressions: Chest X-Ray 02/24/18 09:59 IMPRESSION: NO ACUTE RADIOGRAPHIC FINDING IN THE CHEST. Abdomen Ultrasound 02/25/18 00:00 IMPRESSION: Limited study as noted above. Gallbladder was not visualized. FATTY INFILTRATION OF THE LIVER. Other findings as noted above Assessment & Plan - Diagnosis (1) Metabolic encephalopathy Is this a current diagnosis for this admission?: Yes Plan: She has a urinary tract infection is being treated. Her ammonia level is not elevated. I do not know what her baseline mental status is. We are keeping a close eye on her for withdrawal. (2) Alcohol dependence, continuous Is this a current diagnosis for this admission?: Yes Plan: She is on medication for withdrawal. (3) Alcoholic cirrhosis Qualifiers: Ascites presence: without ascites Qualified Code(s): K70.30 - Alcoholic cirrhosis of liver without ascites Is this a current diagnosis for this admission?: Yes Plan: I do not know how much of a role this is playing in her mental status, but her ammonia levels not elevated. watching her closely for signs of liver decompensation. - Time Time Spent with patient: 25-34 minutes
[2018-02-27] MEDS ORDERED: CEFTRIAXONE 1 GM/D5W RTU 1 GM/50 ML RTUPB IV SCH (22:00)
[2018-02-27] MEDS: CEFTRIAXONE SODIUM 1,000 MG in DEXTROSE 5%-WATER 50 ML IV SCH (22:31)
[2018-02-28] MEDS: POTASSI CL 20 MEQ/1/2NS 1L 20 MEQ/1,000 ML RTUINJ IV PRN ×2 (01:33→14:30)
[2018-02-28] MEDS: LORAZEPAM INJ 2 MG/1 ML VIAL IV PRN ×2 (03:10→09:24)
[2018-02-28] MEDS: LORAZEPAM 1 MG TABLET PO SCH ×3 (05:42→22:21)
[2018-02-28] MEDS: PANTOPRAZOLE SODIUM 40 MG VIAL IV SCH (09:26)
[2018-02-28] MEDS: FOLIC ACID 1 MG TABLET PO SCH (09:27)
--- NOTE | 2018-02-28 11:03 | PDOC PROGRESS REPORT ---
Subjective Progress Note for:: 02/28/18 Subjective:: Ms. Mora is a 52 year-old women who has a history of atrial fibrillation and alcohol dependency. The patient stated that she presented to the ED today because she had not left the house in over one year and she is bored. When asked specifically if the patient came to the ED for any medical reason the patient states that she did not come to the ED for any reason other than being bored. The patient denies having any chest pain, heart fluttering or heart palpitations. The patient denies any landry loss of blood, including not bloody or coffee ground colored vomit, no black, tarry or bright red stools. Post- menopausal without bleeding in 10 years. Admits to taking ibuprofen three times a day. The patient denies any abdominal pain, but did state that she has some abdominal cramping from time to time. The patient also admits to having feelings of heart burn. The patient denies any falls or recent traumas. The patient stated that she drinks about of a large bottle of wine each day, with her last drink being approximately one week ago. The patient also admits to smoking less than one pack of cigarettes per day. In the ED, labs were obtained and the patient was found to be anemic with a hemoglobin of 6.1. The patient was typed and crossed. Chest x-ray obtained, which was negative for any acute processes. The patient was also found to be profoundly hypotension with a BP reading of 62/48 and was given 2L NS bolus. 12 lead EKG revealed that the patient is in atrial fibrillation with a controlled rate. Blood cultures drawn and pending. Urine sample should positive leukocytes and nitrites, urine culture pending. The patient was given 1 gram IV rocephin. Toxicology was negative and serum alcohol less than 10. Occult stool was negative for blood. 02/28/2018. No acute events overnight. Patient is comfortably resting in her bed in no acute distress patient is awake however very inattentive, and different and disoriented, she moves all her extremities and cranial nerves seems to be intact by observation however she does not follow any commands. When addressed she just looks another way without being any attention. Reason For Visit: ANEMIA,HYPOTENSION,UTI Physical Exam Vital Signs: Temp Pulse Resp BP Pulse Ox 97.8 F 84 17 120/85 99 02/28/18 08:00 02/28/18 08:00 02/28/18 08:00 02/28/18 08:00 02/28/18 08:00 Intake & Output 02/27/18 02/28/18 03/01/18 06:59 06:59 06:59 Intake Total 3415 2775 Output Total 50 160 Balance 3365 2615 Weight 64 kg 63.6 kg General appearance: PRESENT: no acute distress Cardiovascular exam: PRESENT: RRR. ABSENT: diastolic murmur, rubs, systolic murmur Pulses: PRESENT: normal dorsalis pedis pul GI/Abdominal exam: PRESENT: normal bowel sounds, soft. ABSENT: distended, guarding, mass, organolmegaly, rebound, tenderness Neurological exam: PRESENT: alert, awake, CN II-XII grossly intact, other - Patient is awake, moves all extremities however does not follow any commands.. ABSENT: motor sensory deficit Results Laboratory Results: 02/26/18 06:13 02/26/18 06:13 Impressions: Chest X-Ray 02/24/18 09:59 IMPRESSION: NO ACUTE RADIOGRAPHIC FINDING IN THE CHEST. Abdomen Ultrasound 02/25/18 00:00 IMPRESSION: Limited study as noted above. Gallbladder was not visualized. FATTY INFILTRATION OF THE LIVER. Other findings as noted above Assessment & Plan - Diagnosis (1) Wernicke-Korsakoff syndrome (alcoholic) Is this a current diagnosis for this admission?: Yes Plan: Likely due to thiamine and positive autoimmune deficiency due to history of alcohol abuse. B12 level on admission 347, folic acid 3.59, TSH 1.87. Started on thiamine, B12, folic acid daily. Supportive measures. (2) Metabolic encephalopathy Is this a current diagnosis for this admission?: Yes Plan: Multifactorial. Likely due to Warnicke encephalopathy, alcohol withdrawal and UTI. (3) Megaloblastic anemia due to alcoholism Is this a current diagnosis for this admission?: Yes Plan: Secondary to alcohol abuse and nutritional deficiency. Pathology positive for megaloblastic anemia. B12 level 347 which may not be reliable due to being an acute phase reactant. Folic acid 3.59, TSH 1.87, ferritin 409. Status 2 PRBC on admission. Continue supportive transfusion. Start on B12, folic acid, thiamine. (4) Alcohol dependence, continuous Is this a current diagnosis for this admission?: Yes Plan: Continue DT prophylaxis. (5) Tobacco abuse Is this a current diagnosis for this admission?: Yes Plan: Start on nicotine patch. (6) UTI (urinary tract infection) Qualifiers: Urinary tract infection type: site unspecified Hematuria presence: without hematuria Qualified Code(s): N39.0 - Urinary tract infection, site not specified Is this a current diagnosis for this admission?: Yes Plan: Due to E. coli pansensitive. Day 4 of IV antibiotics. DC antibiotics. (7) Hepatic steatosis Is this a current diagnosis for this admission?: Yes Plan: Likely secondary to alcohol abuse. Was advised on quitting alcohol. Outpatient GI follow-up.
[2018-02-28] MEDS: CYANOCOBALAMIN (VITAMIN B-12) INJ 1000 MCG/1 ML VIAL IM SCH (13:13)
[2018-02-28] MEDS: THIAMINE HCL 100 MG TABLET PO SCH (18:37)
[2018-03-01] MEDS: LORAZEPAM 1 MG TABLET PO SCH ×3 (05:47→21:00)
[2018-03-01 06:58] LABS: ABSOLUTE EOSINOPHILS # (AUTO) 0.2 10^3/uL (0.0-0.6); ABSOLUTE LYMPHOCYTES (AUTO) 1.3 10^3/uL (0.5-4.7); ABSOLUTE MONOCYTES (AUTO) 0.9 10^3/uL (0.1-1.4); ABSOLUTE NEUT (AUTO) 5.9 10^3/uL (1.7-8.2); BASOPHILS % (AUTO) 0.3 % (0-2); EOSINOPHILS % (AUTO) 2.1 % (0-6); HEMATOCRIT 23.9 % (36.0-47.0); HEMOGLOBIN 8.4 g/dL (12.0-15.5); LYMPHOCYTES % (AUTO) 15.5 % (13-45); MEAN CORPUSCULAR HEMOGLOBIN 39.3 pg (27.0-33.4); MEAN CORPUSCULAR HGB CONC 34.9 g/dL (32.0-36.0); MONOCYTES % (AUTO) 10.7 % (3-13); RED BLOOD COUNT 2.13 10^6/uL (3.72-5.28); RED CELL DISTRIBUTION WIDTH 29.3 % (11.5-14.0); SEGMENTED NEUTROPHILS % (AUTO) 71.4 % (42-78); TOTAL CELLS COUNTED % (AUTO) 100 %; WHITE BLOOD COUNT 8.2 10^3/uL (4.0-10.5)
[2018-03-01 07:15] LABS: ALANINE AMINOTRANSFERASE 20 U/L (9-52); ALBUMIN 2.5 g/dL (3.5-5.0); ALKALINE PHOSPHATASE 65 U/L (38-126); ANION GAP 9 (5-19); ASPARTATE AMINO TRANSFERASE 26 U/L (14-36); BILIRUBIN,DIRECT 0.7 mg/dL (0.0-0.4); BILIRUBIN,TOTAL 1.4 mg/dL (0.2-1.3); BLOOD UREA NITROGEN 10 mg/dL (7-20); CALCIUM 8.5 mg/dL (8.4-10.2); CARBON DIOXIDE 18 mmol/L (22-30); CHLORIDE 111 mmol/L (98-107); GLUCOSE 80 mg/dL (75-110); POTASSIUM 4.2 mmol/L (3.6-5.0); SODIUM 138.3 mmol/L (137-145); TOTAL PROTEIN 5.7 g/dL (6.3-8.2)
[2018-03-01 07:28] LABS: MEAN CORPUSCULAR VOLUME 112 fl (80-97)
[2018-03-01 07:29] LABS: PLATELET COUNT 75 10^3/uL (150-450)
[2018-03-01 07:32] LABS: ANISOCYTOSIS 3+; BURR CELLS SLIGHT; OVALOCYTES 1+; PLATELET COMMENT DECREASED; POIKILOCYTOSIS 1+; SCHISTOCYTES 1+
[2018-03-01 09:35] LABS: PATH REVIEW PATHOLOGIST REVIEWED
[2018-03-01] MEDS: FOLIC ACID 1 MG TABLET PO SCH (11:27)
[2018-03-01] MEDS: CYANOCOBALAMIN (VITAMIN B-12) INJ 1000 MCG/1 ML VIAL IM SCH (11:27)
--- NOTE | 2018-03-01 12:48 | PDOC PROGRESS REPORT ---
Subjective Progress Note for:: 03/01/18 Subjective:: Ms. Mora is a 52 year-old women who has a history of atrial fibrillation and alcohol dependency. The patient stated that she presented to the ED today because she had not left the house in over one year and she is bored. When asked specifically if the patient came to the ED for any medical reason the patient states that she did not come to the ED for any reason other than being bored. The patient denies having any chest pain, heart fluttering or heart palpitations. The patient denies any landry loss of blood, including not bloody or coffee ground colored vomit, no black, tarry or bright red stools. Post- menopausal without bleeding in 10 years. Admits to taking ibuprofen three times a day. The patient denies any abdominal pain, but did state that she has some abdominal cramping from time to time. The patient also admits to having feelings of heart burn. The patient denies any falls or recent traumas. The patient stated that she drinks about of a large bottle of wine each day, with her last drink being approximately one week ago. The patient also admits to smoking less than one pack of cigarettes per day. In the ED, labs were obtained and the patient was found to be anemic with a hemoglobin of 6.1. The patient was typed and crossed. Chest x-ray obtained, which was negative for any acute processes. The patient was also found to be profoundly hypotension with a BP reading of 62/48 and was given 2L NS bolus. 12 lead EKG revealed that the patient is in atrial fibrillation with a controlled rate. Blood cultures drawn and pending. Urine sample should positive leukocytes and nitrites, urine culture pending. The patient was given 1 gram IV rocephin. Toxicology was negative and serum alcohol less than 10. Occult stool was negative for blood. 02/28/2018. No acute events overnight. Patient is comfortably resting in her bed in no acute distress patient is awake however very inattentive, indifferent and disoriented, she moves all her extremities and cranial nerves seems to be intact by observation however she does not follow any commands. When addressed she just looks another way without being any attention. 03/01/2018. Acute events overnight. Unchanged mental status except for having less hallucinations. Patient still inattentive and indifferent. Awake and alert but ignores questions. Reason For Visit: ANEMIA,HYPOTENSION,UTI Physical Exam Vital Signs: Temp Pulse Resp BP Pulse Ox 98.4 F 81 16 126/75 H 98 03/01/18 07:43 03/01/18 07:43 03/01/18 07:43 03/01/18 07:43 03/01/18 07:43 Intake & Output 02/28/18 03/01/18 03/02/18 06:59 06:59 06:59 Intake Total 2775 2761 Output Total 160 50 Balance 2615 2711 Weight 63.6 kg 66 kg General appearance: PRESENT: no acute distress, well-developed, well-nourished Respiratory exam: PRESENT: clear to auscultation jake. ABSENT: rales, rhonchi, wheezes Cardiovascular exam: PRESENT: RRR. ABSENT: diastolic murmur, rubs, systolic murmur GI/Abdominal exam: PRESENT: normal bowel sounds, soft. ABSENT: distended, guarding, mass, organolmegaly, rebound, tenderness Extremities exam: PRESENT: full ROM. ABSENT: calf tenderness, clubbing, pedal edema Neurological exam: PRESENT: awake, CN II-XII grossly intact - Intact by observation. Psychiatric exam: PRESENT: unusual affect Skin exam: PRESENT: dry, intact, warm. ABSENT: cyanosis, rash Results Laboratory Results: 03/01/18 05:44 03/01/18 05:44 03/01/18 03/01/18 05:44 05:44 WBC 8.2 RBC 2.13 L Hgb 8.4 L Hct 23.9 L MCV 112 H MCH 39.3 H MCHC 34.9 RDW 29.3 H Plt Count 75 L Seg Neutrophils % 71.4 Lymphocytes % 15.5 Monocytes % 10.7 Eosinophils % 2.1 Basophils % 0.3 Absolute Neutrophils 5.9 Absolute Lymphocytes 1.3 Absolute Monocytes 0.9 Absolute Eosinophils 0.2 Absolute Basophils 0.0 Sodium 138.3 Potassium 4.2 Chloride 111 H Carbon Dioxide 18 L Anion Gap 9 BUN 10 Creatinine 0.71 Est GFR ( Amer) > 60 Est GFR (Non-Af Amer) > 60 Glucose 80 Calcium 8.5 Total Bilirubin 1.4 H AST 26 ALT 20 Alkaline Phosphatase 65 Total Protein 5.7 L Albumin 2.5 L Impressions: Chest X-Ray 02/24/18 09:59 IMPRESSION: NO ACUTE RADIOGRAPHIC FINDING IN THE CHEST. Abdomen Ultrasound 02/25/18 00:00 IMPRESSION: Limited study as noted above. Gallbladder was not visualized. FATTY INFILTRATION OF THE LIVER. Other findings as noted above Assessment & Plan - Diagnosis (1) Wernicke-Korsakoff syndrome (alcoholic) Is this a current diagnosis for this admission?: Yes Plan: Likely due to thiamine and positive autoimmune deficiency due to history of alcohol abuse. B12 level on admission 347, folic acid 3.59, TSH 1.87. Started on thiamine, B12, folic acid daily. Pending brain MRI. Supportive measures. (2) Metabolic encephalopathy Is this a current diagnosis for this admission?: Yes Plan: Multifactorial. Likely due to Warnicke encephalopathy, alcohol withdrawal and UTI. (3) Megaloblastic anemia due to alcoholism Is this a current diagnosis for this admission?: Yes Plan: Secondary to alcohol abuse and nutritional deficiency. Pathology positive for megaloblastic anemia. B12 level 347 which may not be reliable due to being an acute phase reactant. Folic acid 3.59, TSH 1.87, ferritin 409. Status 2 PRBC on admission. Continue supportive transfusion. Start on B12, folic acid, thiamine. (4) Alcohol dependence, continuous Is this a current diagnosis for this admission?: Yes Plan: Continue DT prophylaxis. (5) Tobacco abuse Is this a current diagnosis for this admission?: Yes Plan: Start on nicotine patch. (6) UTI (urinary tract infection) Qualifiers: Urinary tract infection type: site unspecified Hematuria presence: without hematuria Qualified Code(s): N39.0 - Urinary tract infection, site not specified Is this a current diagnosis for this admission?: Yes Plan: Due to E. coli pansensitive. Day 4 of IV antibiotics. DC antibiotics. (7) Hepatic steatosis Is this a current diagnosis for this admission?: Yes Plan: Likely secondary to alcohol abuse. Was advised on quitting alcohol. Outpatient GI follow-up.
--- NOTE | 2018-03-01 14:54 | RADIOLOGY REPORT (SQ) ---
EXAM DESCRIPTION: MRI HEAD WITHOUT COMPLETED DATE/TIME: 03/01/2018 2:21 pm REASON FOR STUDY: Rule out Warnicke encephalopathy altered level of consciousness COMPARISON: None. TECHNIQUE: Multiplanar imaging includes non-contrasted T1, T2, FLAIR, and diffusion with ADC map seq uences. Images stored on PACS. LIMITATIONS: Motion artifact on multiple pulse sequences FINDINGS: Study is degraded by patient motion artifact. Motion attenuation sequences were utilized. No MR evidence of acute large territory ischemic change, acute intracranial hemorrhage, mass effect, or midline shift. No abnormal FLAIR signal in the medial thalamus or brainstem to suggest Wernicke encephalopathy at th is time. IMPRESSION: No acute findings. Very limited study EVIDENCE OF ACUTE STROKE: NO. TECHNICAL DOCUMENTATION: JOB ID: [id number] [employer]- All Rights Reserved Reading location - IP/workstation name: [email or web address]
[2018-03-01] MEDS: THIAMINE HCL 100 MG TABLET PO SCH (17:51)
[2018-03-01] MEDS: POTASSI CL 20 MEQ/1/2NS 1L 20 MEQ/1,000 ML RTUINJ IV PRN (18:30)
[2018-03-01] MEDS: ACETAMINOPHEN 325 MG TABLET PO PRN (21:00)
[2018-03-02] MEDS: LORAZEPAM 1 MG TABLET PO SCH ×3 (05:50→21:32)
[2018-03-02] MEDS: POTASSI CL 20 MEQ/1/2NS 1L 20 MEQ/1,000 ML RTUINJ IV PRN ×2 (07:26→21:36)
[2018-03-02] MEDS: FOLIC ACID 1 MG TABLET PO SCH (09:31)
[2018-03-02] MEDS: CYANOCOBALAMIN (VITAMIN B-12) INJ 1000 MCG/1 ML VIAL IM SCH (09:32)
[2018-03-02] MEDS: NICOTINE 7 MG/24 HR PATCH.TD24 TD SCH (09:32)
--- NOTE | 2018-03-02 11:38 | PDOC PROGRESS REPORT ---
Subjective Progress Note for:: 03/02/18 Subjective:: Ms. Mora is a 52 year-old women who has a history of atrial fibrillation and alcohol dependency. The patient stated that she presented to the ED today because she had not left the house in over one year and she is bored. When asked specifically if the patient came to the ED for any medical reason the patient states that she did not come to the ED for any reason other than being bored. The patient denies having any chest pain, heart fluttering or heart palpitations. The patient denies any landry loss of blood, including not bloody or coffee ground colored vomit, no black, tarry or bright red stools. Post- menopausal without bleeding in 10 years. Admits to taking ibuprofen three times a day. The patient denies any abdominal pain, but did state that she has some abdominal cramping from time to time. The patient also admits to having feelings of heart burn. The patient denies any falls or recent traumas. The patient stated that she drinks about of a large bottle of wine each day, with her last drink being approximately one week ago. The patient also admits to smoking less than one pack of cigarettes per day. In the ED, labs were obtained and the patient was found to be anemic with a hemoglobin of 6.1. The patient was typed and crossed. Chest x-ray obtained, which was negative for any acute processes. The patient was also found to be profoundly hypotension with a BP reading of 62/48 and was given 2L NS bolus. 12 lead EKG revealed that the patient is in atrial fibrillation with a controlled rate. Blood cultures drawn and pending. Urine sample should positive leukocytes and nitrites, urine culture pending. The patient was given 1 gram IV rocephin. Toxicology was negative and serum alcohol less than 10. Occult stool was negative for blood. 02/28/2018. No acute events overnight. Patient is comfortably resting in her bed in no acute distress patient is awake however very inattentive, indifferent and disoriented, she moves all her extremities and cranial nerves seems to be intact by observation however she does not follow any commands. When addressed she just looks another way without being any attention. 03/01/2018. No acute events overnight. Unchanged mental status except for having less hallucinations. Patient still inattentive and indifferent. Awake and alert but ignores questions. 03/02/2018. No acute events overnight. On my encounter patient is comfortably resting in her bed enjoying her breakfast. Patient has significant improvement of her encephalopathy she is able to hold a conversation she is alert and oriented x2 and she stating that she is here because of alcohol intoxication. She has not any bowel movement since yesterday otherwise she is denying any fever, nausea, vomiting, diarrhea, or any urinary symptoms. She is not hallucinating anymore. During that she is living with her [id number] however she could not provide me with her name or phone number. Reason For Visit: ANEMIA,HYPOTENSION,UTI Physical Exam Vital Signs: Temp Pulse Resp BP Pulse Ox 97.8 F 73 20 119/89 H 98 03/02/18 11:31 03/02/18 11:31 03/02/18 11:31 03/02/18 11:31 03/02/18 11:31 Intake & Output 03/01/18 03/02/18 03/03/18 06:59 06:59 06:59 Intake Total 2761 240 970 Output Total 50 Balance 2711 240 970 Weight 66 kg 66.9 kg General appearance: PRESENT: no acute distress, well-developed, well-nourished Respiratory exam: PRESENT: clear to auscultation jake. ABSENT: rales, rhonchi, wheezes Cardiovascular exam: PRESENT: RRR. ABSENT: diastolic murmur, rubs, systolic murmur GI/Abdominal exam: PRESENT: normal bowel sounds, soft. ABSENT: distended, guarding, mass, organolmegaly, rebound, tenderness Neurological exam: PRESENT: alert, awake, oriented to person, oriented to time, oriented to situation, CN II-XII grossly intact. ABSENT: motor sensory deficit Results Laboratory Results: 03/01/18 05:44 03/01/18 05:44 Impressions: Chest X-Ray 02/24/18 09:59 IMPRESSION: NO ACUTE RADIOGRAPHIC FINDING IN THE CHEST. Abdomen Ultrasound 02/25/18 00:00 IMPRESSION: Limited study as noted above. Gallbladder was not visualized. FATTY INFILTRATION OF THE LIVER. Other findings as noted above Head MRI 03/01/18 00:00 IMPRESSION: No acute findings. Very limited study EVIDENCE OF ACUTE STROKE: NO. Assessment & Plan - Diagnosis (1) Wernicke-Korsakoff syndrome (alcoholic) Is this a current diagnosis for this admission?: Yes Plan: Improving. Likely due to thiamine and positive autoimmune deficiency due to history of alcohol abuse. B12 level on admission 347, folic acid 3.59, TSH 1.87. Started on thiamine, B12, folic acid daily. 03/01/2018 MRI brain done but not optimal. Did not show any acute abnormalities. Pending brain MRI. Supportive measures. If mental status recover patient can be safely discharged home or preferably to a rehab center for alcohol abuse. (2) Metabolic encephalopathy Is this a current diagnosis for this admission?: Yes Plan: Improving. Multifactorial. Likely due to Warnicke encephalopathy, alcohol withdrawal and UTI. (3) Megaloblastic anemia due to alcoholism Is this a current diagnosis for this admission?: Yes Plan: Secondary to alcohol abuse and nutritional deficiency. Pathology positive for megaloblastic anemia. B12 level 347 which may not be reliable due to being an acute phase reactant. Folic acid 3.59, TSH 1.87, ferritin 409. Status 2 PRBC on admission. Continue supportive transfusion. Start on B12, folic acid, thiamine. (4) Alcohol dependence, continuous Is this a current diagnosis for this admission?: Yes Plan: Continue DT prophylaxis. (5) Tobacco abuse Is this a current diagnosis for this admission?: Yes Plan: Start on nicotine patch. (6) UTI (urinary tract infection) Qualifiers: Urinary tract infection type: site unspecified Hematuria presence: without hematuria Qualified Code(s): N39.0 - Urinary tract infection, site not specified Is this a current diagnosis for this admission?: Yes Plan: Due to E. coli pansensitive. Day 4 of IV antibiotics. DC antibiotics. (7) Hepatic steatosis Is this a current diagnosis for this admission?: Yes Plan: Likely secondary to alcohol abuse. Was advised on quitting alcohol. Outpatient GI follow-up.
[2018-03-02] MEDS: THIAMINE HCL 100 MG TABLET PO SCH (17:10)
[2018-03-03 05:56] LABS: ABSOLUTE EOSINOPHILS # (AUTO) 0.3 10^3/uL (0.0-0.6); ABSOLUTE LYMPHOCYTES (AUTO) 1.4 10^3/uL (0.5-4.7); ABSOLUTE MONOCYTES (AUTO) 1.3 10^3/uL (0.1-1.4); ABSOLUTE NEUT (AUTO) 8.5 10^3/uL (1.7-8.2); BASOPHILS % (AUTO) 0.4 % (0-2); EOSINOPHILS % (AUTO) 2.5 % (0-6); HEMATOCRIT 24.3 % (36.0-47.0); HEMOGLOBIN 8.3 g/dL (12.0-15.5); LYMPHOCYTES % (AUTO) 11.9 % (13-45); MEAN CORPUSCULAR HEMOGLOBIN 38.8 pg (27.0-33.4); MEAN CORPUSCULAR HGB CONC 34.1 g/dL (32.0-36.0); MEAN CORPUSCULAR VOLUME 114 fl (80-97); MONOCYTES % (AUTO) 11.4 % (3-13); PLATELET COUNT 133 10^3/uL (150-450); RED BLOOD COUNT 2.13 10^6/uL (3.72-5.28); RED CELL DISTRIBUTION WIDTH 28.1 % (11.5-14.0); SEGMENTED NEUTROPHILS % (AUTO) 73.8 % (42-78); TOTAL CELLS COUNTED % (AUTO) 100 %; WHITE BLOOD COUNT 11.4 10^3/uL (4.0-10.5)
[2018-03-03 06:19] LABS: ALANINE AMINOTRANSFERASE 20 U/L (9-52); ALBUMIN 2.7 g/dL (3.5-5.0); ALKALINE PHOSPHATASE 74 U/L (38-126); ANION GAP 10 (5-19); ASPARTATE AMINO TRANSFERASE 33 U/L (14-36); BILIRUBIN,DIRECT 0.8 mg/dL (0.0-0.4); BILIRUBIN,TOTAL 1.5 mg/dL (0.2-1.3); BLOOD UREA NITROGEN 10 mg/dL (7-20); CALCIUM 8.7 mg/dL (8.4-10.2); CARBON DIOXIDE 18 mmol/L (22-30); CHLORIDE 111 mmol/L (98-107); GLUCOSE 73 mg/dL (75-110); POTASSIUM 4.7 mmol/L (3.6-5.0); SODIUM 139.1 mmol/L (137-145)
[2018-03-03] MEDS: LORAZEPAM 1 MG TABLET PO SCH ×2 (06:21→13:05)
[2018-03-03] MEDS: POTASSI CL 20 MEQ/1/2NS 1L 20 MEQ/1,000 ML RTUINJ IV PRN ×2 (06:23→09:55)
[2018-03-03 06:29] LABS: ANISOCYTOSIS 3+; BURR CELLS SLIGHT; OVALOCYTES SLIGHT; PLATELET COMMENT DECREASED; POIKILOCYTOSIS SLIGHT; TEAR DROP CELLS SLIGHT; TOXIC GRANULATION SLIGHT
[2018-03-03] MEDS: CYANOCOBALAMIN (VITAMIN B-12) INJ 1000 MCG/1 ML VIAL IM SCH (09:24)
[2018-03-03] MEDS: FOLIC ACID 1 MG TABLET PO SCH (09:24)
[2018-03-03] MEDS: NICOTINE 7 MG/24 HR PATCH.TD24 TD SCH (09:24)
[2018-03-03] MEDS ORDERED: BENZTROPINE MESYLATE 1 MG TABLET PO ONE (13:30)
[2018-03-03] MEDS: THIAMINE HCL 100 MG TABLET PO SCH (17:16)
--- NOTE | 2018-03-03 17:40 | PDOC PROGRESS REPORT ---
Subjective Progress Note for:: 03/03/18 Subjective:: Ms. Mora is a 52 year-old women who has a history of atrial fibrillation and alcohol dependency. The patient stated that she presented to the ED today because she had not left the house in over one year and she is bored. When asked specifically if the patient came to the ED for any medical reason the patient states that she did not come to the ED for any reason other than being bored. The patient denies having any chest pain, heart fluttering or heart palpitations. The patient denies any landry loss of blood, including not bloody or coffee ground colored vomit, no black, tarry or bright red stools. Post- menopausal without bleeding in 10 years. Admits to taking ibuprofen three times a day. The patient denies any abdominal pain, but did state that she has some abdominal cramping from time to time. The patient also admits to having feelings of heart burn. The patient denies any falls or recent traumas. The patient stated that she drinks about of a large bottle of wine each day, with her last drink being approximately one week ago. The patient also admits to smoking less than one pack of cigarettes per day. In the ED, labs were obtained and the patient was found to be anemic with a hemoglobin of 6.1. The patient was typed and crossed. Chest x-ray obtained, which was negative for any acute processes. The patient was also found to be profoundly hypotension with a BP reading of 62/48 and was given 2L NS bolus. 12 lead EKG revealed that the patient is in atrial fibrillation with a controlled rate. Blood cultures drawn and pending. Urine sample should positive leukocytes and nitrites, urine culture pending. The patient was given 1 gram IV rocephin. Toxicology was negative and serum alcohol less than 10. Occult stool was negative for blood. 02/28/2018. No acute events overnight. Patient is comfortably resting in her bed in no acute distress patient is awake however very inattentive, indifferent and disoriented, she moves all her extremities and cranial nerves seems to be intact by observation however she does not follow any commands. When addressed she just looks another way without being any attention. 03/01/2018. No acute events overnight. Unchanged mental status except for having less hallucinations. Patient still inattentive and indifferent. Awake and alert but ignores questions. 03/02/2018. No acute events overnight. On my encounter patient is comfortably resting in her bed enjoying her breakfast. Patient has significant improvement of her encephalopathy she is able to hold a conversation she is alert and oriented x2 and she stating that she is here because of alcohol intoxication. She has not any bowel movement since yesterday otherwise she is denying any fever, nausea, vomiting, diarrhea, or any urinary symptoms. She is not hallucinating anymore. During that she is living with her [id number] however she could not provide me with her name or phone number. 03/03/2018. No acute events overnight. On my encounter patient is resting comfortably in her bed in no apparent distress she answers most of my questions appropriately but also she says that she is hallucinating and seeing animals. All of so noted that she has a resting tremor which raises a question of Parkinson disease with hallucination or Lewy body dementia unfortunately no prior history available. Unfortunately no neurology consult available which patient may greatly benefit from an evaluation. Reason For Visit: ANEMIA,HYPOTENSION,UTI Physical Exam Vital Signs: Temp Pulse Resp BP Pulse Ox 98.0 F 87 14 115/70 99 03/03/18 15:50 03/03/18 15:50 03/03/18 15:50 03/03/18 15:50 03/03/18 15:50 Intake & Output 03/02/18 03/03/18 03/04/18 06:59 06:59 06:59 Intake Total 240 3758 537 Output Total 2 Balance 240 3756 537 Weight 66.9 kg 67.7 kg General appearance: PRESENT: no acute distress, well-developed, well-nourished Respiratory exam: PRESENT: clear to auscultation jake. ABSENT: rales, rhonchi, wheezes Cardiovascular exam: PRESENT: RRR. ABSENT: diastolic murmur, rubs, systolic murmur Extremities exam: PRESENT: full ROM. ABSENT: calf tenderness, clubbing, pedal edema Neurological exam: PRESENT: alert, awake, oriented to person, oriented to place , CN II-XII grossly intact, other - Resting tremor.. ABSENT: motor sensory deficit Psychiatric exam: PRESENT: flat affect Results Laboratory Results: 03/03/18 05:16 03/03/18 05:16 03/03/18 03/03/18 05:16 05:16 WBC 11.4 H RBC 2.13 L Hgb 8.3 L Hct 24.3 L MCV 114 H MCH 38.8 H MCHC 34.1 RDW 28.1 H Plt Count 133 L Seg Neutrophils % 73.8 Lymphocytes % 11.9 L Monocytes % 11.4 Eosinophils % 2.5 Basophils % 0.4 Absolute Neutrophils 8.5 H Absolute Lymphocytes 1.4 Absolute Monocytes 1.3 Absolute Eosinophils 0.3 Absolute Basophils 0.0 Sodium 139.1 Potassium 4.7 Chloride 111 H Carbon Dioxide 18 L Anion Gap 10 BUN 10 Creatinine 0.77 Est GFR ( Amer) > 60 Est GFR (Non-Af Amer) > 60 Glucose 73 L Calcium 8.7 Total Bilirubin 1.5 H AST 33 ALT 20 Alkaline Phosphatase 74 Total Protein 6.0 L Albumin 2.7 L Impressions: Chest X-Ray 02/24/18 09:59 IMPRESSION: NO ACUTE RADIOGRAPHIC FINDING IN THE CHEST. Abdomen Ultrasound 02/25/18 00:00 IMPRESSION: Limited study as noted above. Gallbladder was not visualized. FATTY INFILTRATION OF THE LIVER. Other findings as noted above Head MRI 03/01/18 00:00 IMPRESSION: No acute findings. Very limited study EVIDENCE OF ACUTE STROKE: NO. Assessment & Plan - Diagnosis (1) Hallucination Is this a current diagnosis for this admission?: Yes Plan: Patient is having auditory and visual hallucinations. She has been here for 7 days unlikely this is due to alcohol intoxication. She also have resting tremor, cogwheel rigidity, flat affect which question of possible neuro degenerative disorder such as Lewy body dementia or Parkinson with hallucinations. Pain MRI not optimal due to motion artifact however no acute abnormalities was observed. Unfortunately neurology consult not available if patient has oxygenation persist try to transfer to a tertiary care where she could be seen by neurologist. (2) Wernicke-Korsakoff syndrome (alcoholic) Is this a current diagnosis for this admission?: Yes Plan: Mild improvement. Likely due to thiamine and positive autoimmune deficiency due to history of alcohol abuse. B12 level on admission 347, folic acid 3.59, TSH 1.87. Started on thiamine, B12, folic acid daily. 03/01/2018 MRI brain done but not optimal. Did not show any acute abnormalities. Supportive measures. (3) Metabolic encephalopathy Is this a current diagnosis for this admission?: Yes Plan: Improving. Multifactorial. Likely due to Warnicke encephalopathy, alcohol withdrawal and UTI. (4) Megaloblastic anemia due to alcoholism Is this a current diagnosis for this admission?: Yes Plan: Secondary to alcohol abuse and nutritional deficiency. Pathology positive for megaloblastic anemia. B12 level 347 which may not be reliable due to being an acute phase reactant. Folic acid 3.59, TSH 1.87, ferritin 409. Status 2 PRBC on admission. Continue supportive transfusion. Start on B12, folic acid, thiamine. (5) Alcohol dependence, continuous Is this a current diagnosis for this admission?: Yes Plan: Continue DT prophylaxis. (6) Tobacco abuse Is this a current diagnosis for this admission?: Yes Plan: Start on nicotine patch. (7) UTI (urinary tract infection) Qualifiers: Urinary tract infection type: site unspecified Hematuria presence: without hematuria Qualified Code(s): N39.0 - Urinary tract infection, site not specified Is this a current diagnosis for this admission?: Yes Plan: Due to E. coli pansensitive. Day 4 of IV antibiotics. DC antibiotics. (8) Hepatic steatosis Is this a current diagnosis for this admission?: Yes Plan: Likely secondary to alcohol abuse. Was advised on quitting alcohol. Outpatient GI follow-up.
[2018-03-04] MEDS: POTASSI CL 20 MEQ/1/2NS 1L 20 MEQ/1,000 ML RTUINJ IV PRN ×2 (01:13→17:15)
[2018-03-04 05:19] LABS: ABSOLUTE EOSINOPHILS # (AUTO) 0.2 10^3/uL (0.0-0.6); ABSOLUTE LYMPHOCYTES (AUTO) 1.4 10^3/uL (0.5-4.7); ABSOLUTE NEUT (AUTO) 8.1 10^3/uL (1.7-8.2); ABSOLUTE RETICS # 0.033 10^6/uL (0.028-0.122); BASOPHILS % (AUTO) 0.4 % (0-2); EOSINOPHILS % (AUTO) 2.2 % (0-6); HEMATOCRIT 23.5 % (36.0-47.0); HEMOGLOBIN 8.2 g/dL (12.0-15.5); LYMPHOCYTES % (AUTO) 12.9 % (13-45); MEAN CORPUSCULAR HEMOGLOBIN 39.2 pg (27.0-33.4); MEAN CORPUSCULAR HGB CONC 34.9 g/dL (32.0-36.0); MEAN CORPUSCULAR VOLUME 112 fl (80-97); MONOCYTES % (AUTO) 9.2 % (3-13); PLATELET COUNT 159 10^3/uL (150-450); RED BLOOD COUNT 2.09 10^6/uL (3.72-5.28); RED CELL DISTRIBUTION WIDTH 27.6 % (11.5-14.0); RETICULOCYTE COUNT (AUTO) 1.59 % (0.66-2.85); SEGMENTED NEUTROPHILS % (AUTO) 75.3 % (42-78); TOTAL CELLS COUNTED % (AUTO) 100 %; WHITE BLOOD COUNT 10.7 10^3/uL (4.0-10.5)
[2018-03-04 05:32] LABS: ALANINE AMINOTRANSFERASE 21 U/L (9-52); ALBUMIN 2.5 g/dL (3.5-5.0); ALKALINE PHOSPHATASE 75 U/L (38-126); ANION GAP 13 (5-19); ASPARTATE AMINO TRANSFERASE 38 U/L (14-36); BILIRUBIN,DIRECT 0.7 mg/dL (0.0-0.4); BILIRUBIN,TOTAL 1.2 mg/dL (0.2-1.3); BLOOD UREA NITROGEN 9 mg/dL (7-20); CALCIUM 8.6 mg/dL (8.4-10.2); CARBON DIOXIDE 18 mmol/L (22-30); CHLORIDE 111 mmol/L (98-107); GLUCOSE 77 mg/dL (75-110); IRON(TIBC) 36.1 ug/dL (37-170); POTASSIUM 4.3 mmol/L (3.6-5.0); SODIUM 141.7 mmol/L (137-145); TOTAL PROTEIN 5.8 g/dL (6.3-8.2)
[2018-03-04 06:01] LABS: BURR CELLS SLIGHT; POIKILOCYTOSIS SLIGHT
[2018-03-04 06:02] LABS: ANISOCYTOSIS 4+; HYPOCHROMASIA 2+; PLATELET COMMENT ADEQUATE
[2018-03-04 06:38] LABS: FOLATE 9.78 ng/mL (>2.76)
[2018-03-04] MEDS: ACETAMINOPHEN 325 MG TABLET PO PRN ×2 (08:54→21:54)
[2018-03-04] MEDS: CYANOCOBALAMIN (VITAMIN B-12) INJ 1000 MCG/1 ML VIAL IM SCH (09:08)
[2018-03-04] MEDS: FOLIC ACID 1 MG TABLET PO SCH (09:08)
[2018-03-04] MEDS: NICOTINE 7 MG/24 HR PATCH.TD24 TD SCH (09:09)
[2018-03-04] MEDS ORDERED: HALOPERIDOL 1 MG TABLET PO ONE (10:00)
[2018-03-04] MEDS ORDERED: BENZTROPINE MESYLATE 1 MG TABLET PO ONE (10:00)
--- NOTE | 2018-03-04 16:14 | PDOC PROGRESS REPORT ---
Subjective Progress Note for:: 03/04/18 Subjective:: Ms. Mora is a 52 year-old women who has a history of atrial fibrillation and alcohol dependency. The patient stated that she presented to the ED today because she had not left the house in over one year and she is bored. When asked specifically if the patient came to the ED for any medical reason the patient states that she did not come to the ED for any reason other than being bored. The patient denies having any chest pain, heart fluttering or heart palpitations. The patient denies any landry loss of blood, including not bloody or coffee ground colored vomit, no black, tarry or bright red stools. Post- menopausal without bleeding in 10 years. Admits to taking ibuprofen three times a day. The patient denies any abdominal pain, but did state that she has some abdominal cramping from time to time. The patient also admits to having feelings of heart burn. The patient denies any falls or recent traumas. The patient stated that she drinks about of a large bottle of wine each day, with her last drink being approximately one week ago. The patient also admits to smoking less than one pack of cigarettes per day. In the ED, labs were obtained and the patient was found to be anemic with a hemoglobin of 6.1. The patient was typed and crossed. Chest x-ray obtained, which was negative for any acute processes. The patient was also found to be profoundly hypotension with a BP reading of 62/48 and was given 2L NS bolus. 12 lead EKG revealed that the patient is in atrial fibrillation with a controlled rate. Blood cultures drawn and pending. Urine sample should positive leukocytes and nitrites, urine culture pending. The patient was given 1 gram IV rocephin. Toxicology was negative and serum alcohol less than 10. Occult stool was negative for blood. 02/28/2018. No acute events overnight. Patient is comfortably resting in her bed in no acute distress patient is awake however very inattentive, indifferent and disoriented, she moves all her extremities and cranial nerves seems to be intact by observation however she does not follow any commands. When addressed she just looks another way without being any attention. 03/01/2018. No acute events overnight. Unchanged mental status except for having less hallucinations. Patient still inattentive and indifferent. Awake and alert but ignores questions. 03/02/2018. No acute events overnight. On my encounter patient is comfortably resting in her bed enjoying her breakfast. Patient has significant improvement of her encephalopathy she is able to hold a conversation she is alert and oriented x2 and she stating that she is here because of alcohol intoxication. She has not any bowel movement since yesterday otherwise she is denying any fever, nausea, vomiting, diarrhea, or any urinary symptoms. She is not hallucinating anymore. During that she is living with her [id number] however she could not provide me with her name or phone number. 03/03/2018. No acute events overnight. On my encounter patient is resting comfortably in her bed in no apparent distress she answers most of my questions appropriately but also she says that she is hallucinating and seeing animals. All of so noted that she has a resting tremor which raises the question of Parkinson disease with hallucination or Lewy body dementia. Unfortunately no neurology consult available which patient may greatly benefit from an evaluation. 03/04/2018. No acute events overnight as per nursing staff patient still hallucinating constantly and sometimes trying to get out of bed. On my encounter patient is comfortably resting in her bed however she is not engaging and indifferent to some of the question. She is alert and oriented x2, she still thinks it is February 12. When asked about hallucinations she denies it but when she was reminded of it she says yes I remember that I am hallucinating. She is also complaining of generalized achy joint pains. On my examination there is a focal neurological deficit however she is too unsteady to check for gait abnormalities. She is denying any fever, nausea, vomiting, diarrhea, chest pain, no constipation or any urinary symptoms. Reason For Visit: ANEMIA,HYPOTENSION,UTI Physical Exam Vital Signs: Temp Pulse Resp BP Pulse Ox 97.4 F 79 16 117/82 100 03/04/18 07:43 03/04/18 07:43 03/04/18 07:43 03/04/18 07:43 03/04/18 07:43 Intake & Output 03/03/18 03/04/18 03/05/18 06:59 06:59 06:59 Intake Total 3758 1537 Output Total 2 Balance 3756 1537 Weight 67.7 kg 67.1 kg General appearance: PRESENT: no acute distress, well-developed, well-nourished Head exam: PRESENT: atraumatic, normocephalic Respiratory exam: PRESENT: clear to auscultation jake. ABSENT: rales, rhonchi, wheezes Cardiovascular exam: PRESENT: RRR. ABSENT: diastolic murmur, rubs, systolic murmur GI/Abdominal exam: PRESENT: normal bowel sounds, soft. ABSENT: distended, guarding, mass, organolmegaly, rebound, tenderness Extremities exam: PRESENT: full ROM. ABSENT: calf tenderness, clubbing, pedal edema Neurological exam: PRESENT: alert, altered, awake, oriented to person, oriented to place, CN II-XII grossly intact, motor sensory deficit Skin exam: PRESENT: dry, intact, warm. ABSENT: cyanosis, rash Results Laboratory Results: 03/04/18 04:41 03/04/18 04:41 03/03/18 03/04/18 03/04/18 20:40 04:41 04:41 WBC 10.7 H RBC 2.09 L Hgb 8.2 L Hct 23.5 L MCV 112 H MCH 39.2 H MCHC 34.9 RDW 27.6 H Plt Count 159 Seg Neutrophils % 75.3 Lymphocytes % 12.9 L Monocytes % 9.2 Eosinophils % 2.2 Basophils % 0.4 Absolute Neutrophils 8.1 Absolute Lymphocytes 1.4 Absolute Monocytes 1.0 Absolute Eosinophils 0.2 Absolute Basophils 0.0 Retic Count (auto) 1.59 Absolute Retic 0.033 Sodium 141.7 Potassium 4.3 Chloride 111 H Carbon Dioxide 18 L Anion Gap 13 BUN 9 Creatinine 0.75 Est GFR ( Amer) > 60 Est GFR (Non-Af Amer) > 60 Glucose 77 Calcium 8.6 Iron 36.1 L TIBC 174 L % Saturation 21 Ferritin 512.00 H Total Bilirubin 1.2 AST 38 H ALT 21 Alkaline Phosphatase 75 Total Protein 5.8 L Albumin 2.5 L Vitamin B12 > 1000.0 H Folate 9.78 Stool Occult Blood NEGATIVE Impressions: Chest X-Ray 02/24/18 09:59 IMPRESSION: NO ACUTE RADIOGRAPHIC FINDING IN THE CHEST. Abdomen Ultrasound 02/25/18 00:00 IMPRESSION: Limited study as noted above. Gallbladder was not visualized. FATTY INFILTRATION OF THE LIVER. Other findings as noted above Head MRI 03/01/18 00:00 IMPRESSION: No acute findings. Very limited study EVIDENCE OF ACUTE STROKE: NO. Assessment & Plan - Diagnosis (1) Hallucination Is this a current diagnosis for this admission?: Yes Plan: Patient is having auditory and visual hallucinations. She has been here for 8 days unlikely this is due to alcohol intoxication unlikely due to this is due to alcohol intoxication. She also have resting tremor, cogwheel rigidity, flat affect which question of possible neuro degenerative disorder such as Lewy body dementia or Parkinson with hallucinations. Pain MRI not optimal due to motion artifact however no acute abnormalities was observed. Unfortunately neurology consult not available if patient has oxygenation persist try to transfer to a tertiary care where she could be seen by neurologist. (2) Wernicke-Korsakoff syndrome (alcoholic) Is this a current diagnosis for this admission?: Yes Plan: Mild improvement. Likely due to thiamine and positive autoimmune deficiency due to history of alcohol abuse. B12 level on admission 347, folic acid 3.59, TSH 1.87. Started on thiamine, B12, folic acid daily. 03/01/2018 MRI brain done but not optimal. Did not show any acute abnormalities. Supportive measures. (3) Metabolic encephalopathy Is this a current diagnosis for this admission?: Yes Plan: Multifactorial. Likely due to Warnicke encephalopathy/neurodegenerative disorder. Unlikely this is alcohol withdrawal or UTI. UTI was successfully treated with IV antibiotics and she is already in the 8 of admission. (4) Megaloblastic anemia due to alcoholism Is this a current diagnosis for this admission?: Yes Plan: Secondary to alcohol abuse and nutritional deficiency. Pathology positive for megaloblastic anemia. B12 level 347 which may not be reliable due to being an acute phase reactant. Folic acid 3.59, TSH 1.87. Hemoccult negative. Iron panel suggestive of anemia of chronic disease. Status 2 PRBC on admission. Continue supportive transfusion. Start on B12, folic acid, thiamine. (5) Alcohol dependence, continuous Is this a current diagnosis for this admission?: Yes Plan: Continue DT prophylaxis. (6) Tobacco abuse Is this a current diagnosis for this admission?: Yes Plan: Start on nicotine patch. (7) UTI (urinary tract infection) Qualifiers: Urinary tract infection type: site unspecified Hematuria presence: without hematuria Qualified Code(s): N39.0 - Urinary tract infection, site not specified Is this a current diagnosis for this admission?: Yes Plan: Due to E. coli pansensitive. Day 4 of IV antibiotics. DC antibiotics. (8) Hepatic steatosis Is this a current diagnosis for this admission?: Yes Plan: Likely secondary to alcohol abuse. Was advised on quitting alcohol. Outpatient GI follow-up.
[2018-03-04] MEDS: THIAMINE HCL 100 MG TABLET PO SCH (17:15)
[2018-03-05] MEDS: POTASSI CL 20 MEQ/1/2NS 1L 20 MEQ/1,000 ML RTUINJ IV PRN ×2 (05:58→22:10)
--- NOTE | 2018-03-05 09:25 | PDOC PROGRESS REPORT ---
Subjective Progress Note for:: 03/05/18 Subjective:: Ms. Mora is a 52 year-old women who has a history of atrial fibrillation and alcohol dependency. The patient stated that she presented to the ED today because she had not left the house in over one year and she is bored. When asked specifically if the patient came to the ED for any medical reason the patient states that she did not come to the ED for any reason other than being bored. The patient denies having any chest pain, heart fluttering or heart palpitations. The patient denies any landry loss of blood, including not bloody or coffee ground colored vomit, no black, tarry or bright red stools. Post- menopausal without bleeding in 10 years. Admits to taking ibuprofen three times a day. The patient denies any abdominal pain, but did state that she has some abdominal cramping from time to time. The patient also admits to having feelings of heart burn. The patient denies any falls or recent traumas. The patient stated that she drinks about of a large bottle of wine each day, with her last drink being approximately one week ago. The patient also admits to smoking less than one pack of cigarettes per day. In the ED, labs were obtained and the patient was found to be anemic with a hemoglobin of 6.1. The patient was typed and crossed. Chest x-ray obtained, which was negative for any acute processes. The patient was also found to be profoundly hypotension with a BP reading of 62/48 and was given 2L NS bolus. 12 lead EKG revealed that the patient is in atrial fibrillation with a controlled rate. Blood cultures drawn and pending. Urine sample should positive leukocytes and nitrites, urine culture pending. The patient was given 1 gram IV rocephin. Toxicology was negative and serum alcohol less than 10. Occult stool was negative for blood. 02/28/2018. No acute events overnight. Patient is comfortably resting in her bed in no acute distress patient is awake however very inattentive, indifferent and disoriented, she moves all her extremities and cranial nerves seems to be intact by observation however she does not follow any commands. When addressed she just looks another way without being any attention. 03/01/2018. No acute events overnight. Unchanged mental status except for having less hallucinations. Patient still inattentive and indifferent. Awake and alert but ignores questions. 03/02/2018. No acute events overnight. On my encounter patient is comfortably resting in her bed enjoying her breakfast. Patient has significant improvement of her encephalopathy she is able to hold a conversation she is alert and oriented x2 and she stating that she is here because of alcohol intoxication. She has not any bowel movement since yesterday otherwise she is denying any fever, nausea, vomiting, diarrhea, or any urinary symptoms. She is not hallucinating anymore. During that she is living with her [id number] however she could not provide me with her name or phone number. 03/03/2018. No acute events overnight. On my encounter patient is resting comfortably in her bed in no apparent distress she answers most of my questions appropriately but also she says that she is hallucinating and seeing animals. All of so noted that she has a resting tremor which raises the question of Parkinson disease with hallucination or Lewy body dementia. Unfortunately no neurology consult available which patient may greatly benefit from an evaluation. 03/04/2018. No acute events overnight as per nursing staff patient still hallucinating constantly and sometimes trying to get out of bed. On my encounter patient is comfortably resting in her bed however she is not engaging and indifferent to some of the question. She is alert and oriented x2, she still thinks it is February 12. When asked about hallucinations she denies it but when she was reminded of it she says yes I remember that I am hallucinating. She is also complaining of generalized achy joint pains. On my examination there is a focal neurological deficit however she is too unsteady to check for gait abnormalities. She is denying any fever, nausea, vomiting, diarrhea, chest pain, no constipation or any urinary symptoms. 03/05/2018. No acute events overnight. As per nursing staff patient has been hallucinating all night otherwise she has been stable. On my encounter patient is comfortably sitting in her bed in no apparent distress and having her breakfast. She stating that she is still hallucinating and on physical examination she is still not engaging and indifferent. She knows her name but she thinks she is living in [place] and this is 2016. She still has resting and intention tremor. Plan is to transfer her to tertiary center where she could be hopefully seen by neurology if not possible the next plan will be to transfer her to inpatient rehab but unfortunately patient is not funded which will make this a difficult option. We will consult discharge planning. Received physical therapy on 03/02/2000 p 18 and sniff rehab has been recommended. She has been normotensive, afebrile, pulse rate within normal limits, saturating 100% on room air, she is still has anemia likely anemia is stable, CBC within normal limits. Reason For Visit: ANEMIA,HYPOTENSION,UTI Physical Exam Vital Signs: Temp Pulse Resp BP Pulse Ox 97.8 F 84 12 118/71 100 03/05/18 07:32 03/05/18 07:32 03/05/18 07:32 03/05/18 07:32 03/05/18 07:32 Intake & Output 03/04/18 03/05/18 03/06/18 06:59 06:59 06:59 Intake Total 1537 2356 Balance 1537 2356 Weight 67.1 kg 68.3 kg General appearance: PRESENT: no acute distress, well-developed, well-nourished Head exam: PRESENT: atraumatic, normocephalic Respiratory exam: PRESENT: clear to auscultation jake. ABSENT: rales, rhonchi, wheezes Cardiovascular exam: PRESENT: RRR. ABSENT: diastolic murmur, rubs, systolic murmur Extremities exam: PRESENT: full ROM. ABSENT: calf tenderness, clubbing, pedal edema Neurological exam: PRESENT: alert, awake, oriented to person, CN II-XII grossly intact, motor sensory deficit Psychiatric exam: PRESENT: unusual affect Focused psych exam: PRESENT: restlessness Results Impressions: Chest X-Ray 02/24/18 09:59 IMPRESSION: NO ACUTE RADIOGRAPHIC FINDING IN THE CHEST. Abdomen Ultrasound 02/25/18 00:00 IMPRESSION: Limited study as noted above. Gallbladder was not visualized. FATTY INFILTRATION OF THE LIVER. Other findings as noted above Head MRI 03/01/18 00:00 IMPRESSION: No acute findings. Very limited study EVIDENCE OF ACUTE STROKE: NO. Assessment & Plan - Diagnosis (1) Hallucination Is this a current diagnosis for this admission?: Yes Plan: Patient is having auditory and visual hallucinations. She has been here for 9 days unlikely this is due to alcohol intoxication unlikely due to this is due to alcohol intoxication. She also have resting tremor, cogwheel rigidity, flat affect which raise question of possible neuro degenerative disorder such as Lewy body dementia or Parkinson with hallucinations. Pain MRI not optimal due to motion artifact however no acute abnormalities was observed. Unfortunately neurology consult not available if patient has oxygenation persist try to transfer to a tertiary care where she could be seen by neurologist. (2) Wernicke-Korsakoff syndrome (alcoholic) Is this a current diagnosis for this admission?: Yes Plan: Mild improvement. Likely due to thiamine and positive autoimmune deficiency due to history of alcohol abuse. B12 level on admission 347, folic acid 3.59, TSH 1.87. Started on thiamine, B12, folic acid daily. 03/01/2018 MRI brain done but not optimal. Did not show any acute abnormalities. Supportive measures. (3) Metabolic encephalopathy Is this a current diagnosis for this admission?: Yes Plan: Multifactorial. Likely due to Warnicke encephalopathy/possible neurodegenerative disorder such as lower body dementia or Parkinson's with hallucinations. Unlikely this is alcohol withdrawal or UTI. UTI was successfully treated with IV antibiotics and she is already in the 8 of admission. (4) Megaloblastic anemia due to alcoholism Is this a current diagnosis for this admission?: Yes Plan: Secondary to alcohol abuse and nutritional deficiency. Pathology positive for megaloblastic anemia. B12 level 347 which may not be reliable due to being an acute phase reactant. Folic acid 3.59, TSH 1.87. Hemoccult negative. Low iron with normal iron stores. Could be a combination of iron deficiency anemia and megaloblastic anemia. Hemoglobin today is 7.8. Transfuse another unit. Status post a transfusion on admission, 1 unit and transfusion today. Total of 3 units of hemoglobin since admission. Start on B12, folic acid, thiamine and ferrous sulfate. (5) Alcohol dependence, continuous Is this a current diagnosis for this admission?: Yes Plan: Continue DT prophylaxis. (6) Tobacco abuse Is this a current diagnosis for this admission?: Yes Plan: Start on nicotine patch. (7) UTI (urinary tract infection) Qualifiers: Urinary tract infection type: site unspecified Hematuria presence: without hematuria Qualified Code(s): N39.0 - Urinary tract infection, site not specified Is this a current diagnosis for this admission?: Yes Plan: Due to E. coli pansensitive. Day 4 of IV antibiotics. DC antibiotics. (8) Hepatic steatosis Is this a current diagnosis for this admission?: Yes Plan: Likely secondary to alcohol abuse. Was advised on quitting alcohol. Outpatient GI follow-up.
[2018-03-05 09:32] LABS: ALANINE AMINOTRANSFERASE 25 U/L (9-52); ALBUMIN 2.7 g/dL (3.5-5.0); ALKALINE PHOSPHATASE 81 U/L (38-126); ANION GAP 11 (5-19); ASPARTATE AMINO TRANSFERASE 56 U/L (14-36); BILIRUBIN,DIRECT 0.6 mg/dL (0.0-0.4); BILIRUBIN,TOTAL 1.3 mg/dL (0.2-1.3); BLOOD UREA NITROGEN 8 mg/dL (7-20); CALCIUM 8.7 mg/dL (8.4-10.2); CARBON DIOXIDE 18 mmol/L (22-30); CHLORIDE 112 mmol/L (98-107); GLUCOSE 78 mg/dL (75-110); POTASSIUM 4.4 mmol/L (3.6-5.0); SODIUM 141.4 mmol/L (137-145)
[2018-03-05] MEDS: FOLIC ACID 1 MG TABLET PO SCH (09:34)
[2018-03-05] MEDS: NICOTINE 7 MG/24 HR PATCH.TD24 TD SCH (09:35)
[2018-03-05] MEDS: CYANOCOBALAMIN (VITAMIN B-12) INJ 1000 MCG/1 ML VIAL IM SCH (09:35)
[2018-03-05 09:42] LABS: ABSOLUTE BASOPHILS # (AUTO) 0.1 10^3/uL (0.0-0.2); ABSOLUTE EOSINOPHILS # (AUTO) 0.2 10^3/uL (0.0-0.6); ABSOLUTE LYMPHOCYTES (AUTO) 1.2 10^3/uL (0.5-4.7); BASOPHILS % (AUTO) 0.6 % (0-2); EOSINOPHILS % (AUTO) 2.1 % (0-6); HEMATOCRIT 22.4 % (36.0-47.0); LYMPHOCYTES % (AUTO) 11.3 % (13-45); MEAN CORPUSCULAR HEMOGLOBIN 39.6 pg (27.0-33.4); MEAN CORPUSCULAR HGB CONC 34.9 g/dL (32.0-36.0); MEAN CORPUSCULAR VOLUME 113 fl (80-97); MONOCYTES % (AUTO) 9.9 % (3-13); PLATELET COUNT 177 10^3/uL (150-450); RED BLOOD COUNT 1.97 10^6/uL (3.72-5.28); RED CELL DISTRIBUTION WIDTH 27.9 % (11.5-14.0); SEGMENTED NEUTROPHILS % (AUTO) 76.1 % (42-78); TOTAL CELLS COUNTED % (AUTO) 100 %; WHITE BLOOD COUNT 10.5 10^3/uL (4.0-10.5)
[2018-03-05 10:03] LABS: HEMOGLOBIN 7.8 g/dL (12.0-15.5)
[2018-03-05 10:14] LABS: ANISOCYTOSIS 3+
[2018-03-05 10:15] LABS: BURR CELLS 1+; OVALOCYTES SLIGHT; PLATELET COMMENT ADEQUATE; POIKILOCYTOSIS 1+
[2018-03-05] MEDS: FERROUS SULFATE 325 MG TABLET PO SCH (13:53)
[2018-03-05] MEDS: THIAMINE HCL 100 MG TABLET PO SCH (17:47)
[2018-03-05 18:06] LABS: HEMATOCRIT 25.7 % (36.0-47.0); MEAN CORPUSCULAR HEMOGLOBIN 37.6 pg (27.0-33.4); MEAN CORPUSCULAR HGB CONC 35.1 g/dL (32.0-36.0); RED CELL DISTRIBUTION WIDTH 27.9 % (11.5-14.0); WHITE BLOOD COUNT 10.8 10^3/uL (4.0-10.5)
[2018-03-05 18:07] LABS: MEAN CORPUSCULAR VOLUME 107 fl (80-97)
[2018-03-05 18:24] LABS: PLATELET COUNT 176 10^3/uL (150-450)
[2018-03-05] MEDS: LORAZEPAM INJ 2 MG/1 ML VIAL IV PRN (22:10)
[2018-03-06 05:52] LABS: ABSOLUTE BASOPHILS # (AUTO) 0.1 10^3/uL (0.0-0.2); ABSOLUTE EOSINOPHILS # (AUTO) 0.2 10^3/uL (0.0-0.6); ABSOLUTE LYMPHOCYTES (AUTO) 1.7 10^3/uL (0.5-4.7); ABSOLUTE NEUT (AUTO) 5.3 10^3/uL (1.7-8.2); BASOPHILS % (AUTO) 1.1 % (0-2); EOSINOPHILS % (AUTO) 2.8 % (0-6); HEMATOCRIT 25.2 % (36.0-47.0); HEMOGLOBIN 8.8 g/dL (12.0-15.5); LYMPHOCYTES % (AUTO) 20.5 % (13-45); MEAN CORPUSCULAR HEMOGLOBIN 37.4 pg (27.0-33.4); MEAN CORPUSCULAR HGB CONC 34.9 g/dL (32.0-36.0); MEAN CORPUSCULAR VOLUME 107 fl (80-97); PLATELET COUNT 161 10^3/uL (150-450); RED BLOOD COUNT 2.35 10^6/uL (3.72-5.28); RED CELL DISTRIBUTION WIDTH 27.8 % (11.5-14.0); SEGMENTED NEUTROPHILS % (AUTO) 63.6 % (42-78); TOTAL CELLS COUNTED % (AUTO) 100 %; WHITE BLOOD COUNT 8.4 10^3/uL (4.0-10.5)
[2018-03-06 06:14] LABS: ALANINE AMINOTRANSFERASE 28 U/L (9-52); ALBUMIN 2.3 g/dL (3.5-5.0); ALKALINE PHOSPHATASE 66 U/L (38-126); ANION GAP 9 (5-19); ASPARTATE AMINO TRANSFERASE 58 U/L (14-36); BILIRUBIN,DIRECT 0.6 mg/dL (0.0-0.4); BILIRUBIN,TOTAL 1.1 mg/dL (0.2-1.3); BLOOD UREA NITROGEN 7 mg/dL (7-20); CALCIUM 8.4 mg/dL (8.4-10.2); CARBON DIOXIDE 18 mmol/L (22-30); CHLORIDE 115 mmol/L (98-107); GLUCOSE 82 mg/dL (75-110); POTASSIUM 4.7 mmol/L (3.6-5.0); SODIUM 141.8 mmol/L (137-145); TOTAL PROTEIN 5.5 g/dL (6.3-8.2)
[2018-03-06 07:06] LABS: ANISOCYTOSIS 3+; BURR CELLS 3+; HELMET CELLS SLIGHT; OVALOCYTES 2+; PLATELET COMMENT ADEQUATE; POIKILOCYTOSIS 3+; TEAR DROP CELLS 1+; TOXIC GRANULATION 1+; TOXIC VACUOLATION PRESENT
--- NOTE | 2018-03-06 09:48 | PDOC PROGRESS REPORT ---
Subjective Progress Note for:: 03/06/18 Subjective:: Ms. Mora is a 52 year-old women who has a history of atrial fibrillation and alcohol dependency. The patient stated that she presented to the ED today because she had not left the house in over one year and she is bored. When asked specifically if the patient came to the ED for any medical reason the patient states that she did not come to the ED for any reason other than being bored. The patient denies having any chest pain, heart fluttering or heart palpitations. The patient denies any landry loss of blood, including not bloody or coffee ground colored vomit, no black, tarry or bright red stools. Post- menopausal without bleeding in 10 years. Admits to taking ibuprofen three times a day. The patient denies any abdominal pain, but did state that she has some abdominal cramping from time to time. The patient also admits to having feelings of heart burn. The patient denies any falls or recent traumas. The patient stated that she drinks about of a large bottle of wine each day, with her last drink being approximately one week ago. The patient also admits to smoking less than one pack of cigarettes per day. In the ED, labs were obtained and the patient was found to be anemic with a hemoglobin of 6.1. The patient was typed and crossed. Chest x-ray obtained, which was negative for any acute processes. The patient was also found to be profoundly hypotension with a BP reading of 62/48 and was given 2L NS bolus. 12 lead EKG revealed that the patient is in atrial fibrillation with a controlled rate. Blood cultures drawn and pending. Urine sample should positive leukocytes and nitrites, urine culture pending. The patient was given 1 gram IV rocephin. Toxicology was negative and serum alcohol less than 10. Occult stool was negative for blood. 02/28/2018. No acute events overnight. Patient is comfortably resting in her bed in no acute distress patient is awake however very inattentive, indifferent and disoriented, she moves all her extremities and cranial nerves seems to be intact by observation however she does not follow any commands. When addressed she just looks another way without being any attention. 03/01/2018. No acute events overnight. Unchanged mental status except for having less hallucinations. Patient still inattentive and indifferent. Awake and alert but ignores questions. 03/02/2018. No acute events overnight. On my encounter patient is comfortably resting in her bed enjoying her breakfast. Patient has significant improvement of her encephalopathy she is able to hold a conversation she is alert and oriented x2 and she stating that she is here because of alcohol intoxication. She has not any bowel movement since yesterday otherwise she is denying any fever, nausea, vomiting, diarrhea, or any urinary symptoms. She is not hallucinating anymore. During that she is living with her [id number] however she could not provide me with her name or phone number. 03/03/2018. No acute events overnight. On my encounter patient is resting comfortably in her bed in no apparent distress she answers most of my questions appropriately but also she says that she is hallucinating and seeing animals. All of so noted that she has a resting tremor which raises the question of Parkinson disease with hallucination or Lewy body dementia. Unfortunately no neurology consult available which patient may greatly benefit from an evaluation. 03/04/2018. No acute events overnight as per nursing staff patient still hallucinating constantly and sometimes trying to get out of bed. On my encounter patient is comfortably resting in her bed however she is not engaging and indifferent to some of the question. She is alert and oriented x2, she still thinks it is February 12. When asked about hallucinations she denies it but when she was reminded of it she says yes I remember that I am hallucinating. She is also complaining of generalized achy joint pains. On my examination there is a focal neurological deficit however she is too unsteady to check for gait abnormalities. She is denying any fever, nausea, vomiting, diarrhea, chest pain, no constipation or any urinary symptoms. 03/05/2018. No acute events overnight. As per nursing staff patient has been hallucinating all night otherwise she has been stable. On my encounter patient is comfortably sitting in her bed in no apparent distress and having her breakfast. She stating that she is still hallucinating and on physical examination she is still not engaging and indifferent. She knows her name but she thinks she is living in [place] and this is 2016. She still has resting and intention tremor. Plan is to transfer her to tertiary center where she could be hopefully seen by neurology if not possible the next plan will be to transfer her to inpatient rehab but unfortunately patient is not funded which will make this a difficult option. We will consult discharge planning. Received physical therapy on 03/02/2000 p 18 and sniff rehab has been recommended. She has been normotensive, afebrile, pulse rate within normal limits, saturating 100% on room air, she is still has anemia likely anemia is stable, CBC within normal limits. 03/06/2018. At the beginning of the night patient was hallucinating and agitated while trying to try to get out of bed, she was given 2 mg of Ativan and she has been sleeping since then. On my encounter patient is alert oriented x1, still hallucinating but answers my questions appropriately. Denies any fever, chills, nausea, vomiting, diarrhea or constipation. Reason For Visit: ANEMIA,HYPOTENSION,UTI Physical Exam Vital Signs: Temp Pulse Resp BP Pulse Ox 97.4 F 80 20 108/72 99 03/06/18 07:36 03/06/18 07:36 03/06/18 07:36 03/06/18 07:36 03/06/18 07:36 Intake & Output 03/05/18 03/06/18 03/07/18 06:59 06:59 06:59 Intake Total 2356 1536 Balance 2356 1536 Weight 68.3 kg 68.2 kg General appearance: PRESENT: no acute distress, well-developed, well-nourished Head exam: PRESENT: atraumatic, normocephalic Respiratory exam: PRESENT: clear to auscultation jake. ABSENT: rales, rhonchi, wheezes GI/Abdominal exam: PRESENT: normal bowel sounds, soft. ABSENT: distended, guarding, mass, organolmegaly, rebound, tenderness Neurological exam: PRESENT: alert, awake, oriented to person, CN II-XII grossly intact, motor sensory deficit Results Laboratory Results: 03/06/18 05:28 03/06/18 05:28 03/05/18 03/05/18 03/05/18 08:29 08:29 11:15 WBC 10.5 RBC 1.97 L Hgb 7.8 L Hct 22.4 L MCV 113 H MCH 39.6 H MCHC 34.9 RDW 27.9 H Plt Count 177 Seg Neutrophils % 76.1 Lymphocytes % 11.3 L Monocytes % 9.9 Eosinophils % 2.1 Basophils % 0.6 Absolute Neutrophils 8.0 Absolute Lymphocytes 1.2 Absolute Monocytes 1.0 Absolute Eosinophils 0.2 Absolute Basophils 0.1 Sodium 141.4 Potassium 4.4 Chloride 112 H Carbon Dioxide 18 L Anion Gap 11 BUN 8 Creatinine 0.72 Est GFR ( Amer) > 60 Est GFR (Non-Af Amer) > 60 Glucose 78 Calcium 8.7 Total Bilirubin 1.3 AST 56 H ALT 25 Alkaline Phosphatase 81 Total Protein 6.0 L Albumin 2.7 L Stool Occult Blood NEGATIVE Blood Type Antibody Screen 03/05/18 03/05/18 03/06/18 11:20 17:58 05:28 WBC 10.8 H 8.4 RBC 2.40 L 2.35 L Hgb 9.0 L 8.8 L Hct 25.7 L 25.2 L MCV 107 H D 107 H MCH 37.6 H 37.4 H MCHC 35.1 34.9 RDW 27.9 H 27.8 H Plt Count 176 161 Seg Neutrophils % 63.6 Lymphocytes % 20.5 Monocytes % 12.0 Eosinophils % 2.8 Basophils % 1.1 Absolute Neutrophils 5.3 Absolute Lymphocytes 1.7 Absolute Monocytes 1.0 Absolute Eosinophils 0.2 Absolute Basophils 0.1 Sodium Potassium Chloride Carbon Dioxide Anion Gap BUN Creatinine Est GFR ( Amer) Est GFR (Non-Af Amer) Glucose Calcium Total Bilirubin AST ALT Alkaline Phosphatase Total Protein Albumin Stool Occult Blood Blood Type O POSITIVE Antibody Screen NEGATIVE 03/06/18 05:28 WBC RBC Hgb Hct MCV MCH MCHC RDW Plt Count Seg Neutrophils % Lymphocytes % Monocytes % Eosinophils % Basophils % Absolute Neutrophils Absolute Lymphocytes Absolute Monocytes Absolute Eosinophils Absolute Basophils Sodium 141.8 Potassium 4.7 Chloride 115 H Carbon Dioxide 18 L Anion Gap 9 BUN 7 Creatinine 0.76 Est GFR ( Amer) > 60 Est GFR (Non-Af Amer) > 60 Glucose 82 Calcium 8.4 Total Bilirubin 1.1 AST 58 H ALT 28 Alkaline Phosphatase 66 Total Protein 5.5 L Albumin 2.3 L Stool Occult Blood Blood Type Antibody Screen Impressions: Chest X-Ray 02/24/18 09:59 IMPRESSION: NO ACUTE RADIOGRAPHIC FINDING IN THE CHEST. Abdomen Ultrasound 02/25/18 00:00 IMPRESSION: Limited study as noted above. Gallbladder was not visualized. FATTY INFILTRATION OF THE LIVER. Other findings as noted above Head MRI 03/01/18 00:00 IMPRESSION: No acute findings. Very limited study EVIDENCE OF ACUTE STROKE: NO. Assessment & Plan - Diagnosis (1) Hallucination Is this a current diagnosis for this admission?: Yes Plan: Patient is having auditory and visual hallucinations. She has been here for 10 days unlikely this is due to alcohol intoxication unlikely due to this is due to alcohol intoxication. She also have resting tremor, cogwheel rigidity, flat affect which raise question of possible neuro degenerative disorder such as Lewy body dementia or Parkinson with hallucinations. Brain MRI not optimal due to motion artifact however no acute abnormalities was observed. I talked to Dr. Beltran neurologist from [facility] he stated that it would be hard to say for sure if patient has any underlying neurodegenerative disorder without any pre-hospital history. Unfortunately patient does not have a family and according to the boyfriend he has stated that she was alert and oriented before hospitalization however I have not been able to talk to him myself. Dr Beltran the next thing to do would be a LP and EEG to rule out any underlying meningitis or seizure. He also mentioned that she will not be transferred under under neurology care but we could attempt to transfer under hospitalist care to another hospital where a neurology could be consulted. Order EEG and lumbar puncture. (2) Wernicke-Korsakoff syndrome (alcoholic) Is this a current diagnosis for this admission?: Yes Plan: Mild improvement. Likely due to thiamine and positive autoimmune deficiency due to history of alcohol abuse. B12 level on admission 347, folic acid 3.59, TSH 1.87. Started on thiamine, B12, folic acid daily. 03/01/2018 MRI brain done but not optimal. Did not show any acute abnormalities. Supportive measures. (3) Metabolic encephalopathy Is this a current diagnosis for this admission?: Yes Plan: Multifactorial. Likely due to Warnicke encephalopathy/possible neurodegenerative disorder such as lower body dementia or Parkinson's with hallucinations. Unlikely this is alcohol withdrawal or UTI. UTI was successfully treated with IV antibiotics and she is already in the 8 of admission. (4) Megaloblastic anemia due to alcoholism Is this a current diagnosis for this admission?: Yes Plan: Secondary to alcohol abuse and nutritional deficiency. Pathology positive for megaloblastic anemia. B12 level 347 which may not be reliable due to being an acute phase reactant. Folic acid 3.59, TSH 1.87. Hemoccult negative. Low iron with normal iron stores. Could be a combination of iron deficiency anemia and megaloblastic anemia. Status post a transfusion on admission 3 PRBC since admission. Continue B12, folic acid, thiamine and ferrous sulfate. Vitals: SBP 99-135, afebrile, RR 12-16, HR 75-102, SPO2 99% RA Labs: WBC 8.4, HBG 8.8, platelet 161, sodium 141.8, potassium 4.7, anion gap 9, creatinine 0.76 Weight: 68.2 kg up 8 kg from admission. (5) Alcohol dependence, continuous Is this a current diagnosis for this admission?: Yes Plan: Continue DT prophylaxis. (6) Tobacco abuse Is this a current diagnosis for this admission?: Yes Plan: Start on nicotine patch. (7) UTI (urinary tract infection) Qualifiers: Urinary tract infection type: site unspecified Hematuria presence: without hematuria Qualified Code(s): N39.0 - Urinary tract infection, site not specified Is this a current diagnosis for this admission?: Yes Plan: Due to E. coli pansensitive. Day 4 of IV antibiotics. DC antibiotics. (8) Hepatic steatosis Is this a current diagnosis for this admission?: Yes Plan: Likely secondary to alcohol abuse. Was advised on quitting alcohol. Outpatient GI follow-up.
[2018-03-06] MEDS: FOLIC ACID 1 MG TABLET PO SCH (09:49)
[2018-03-06] MEDS: NICOTINE 7 MG/24 HR PATCH.TD24 TD SCH (09:49)
[2018-03-06] MEDS: FERROUS SULFATE 325 MG TABLET PO SCH (09:49)
[2018-03-06] MEDS: CYANOCOBALAMIN (VITAMIN B-12) INJ 1000 MCG/1 ML VIAL IM SCH (09:49)
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
[2018-03-06] MEDS: DEXTROSE 5%-WATER 1000 ML 1,000 ML with POTASSIUM CHLORIDE 20 MEQ IV PRN ×2 (14:38)
[2018-03-06] MEDS: THIAMINE HCL 100 MG TABLET PO SCH (18:59)
[2018-03-06] MEDS: LORAZEPAM INJ 2 MG/1 ML VIAL IV PRN (20:12)
[2018-03-07] MEDS: LORAZEPAM INJ 2 MG/1 ML VIAL IV PRN ×2 (00:11→21:26)
[2018-03-07 06:20] LABS: INTERNATIONAL RATION (INR) 1.23; PROTHROMBIN TIME 16.1 SEC (11.4-15.4)
[2018-03-07 06:33] LABS: ABSOLUTE BASOPHILS # (AUTO) 0.1 10^3/uL (0.0-0.2); ABSOLUTE EOSINOPHILS # (AUTO) 0.2 10^3/uL (0.0-0.6); ABSOLUTE LYMPHOCYTES (AUTO) 1.5 10^3/uL (0.5-4.7); ABSOLUTE MONOCYTES (AUTO) 0.8 10^3/uL (0.1-1.4); ABSOLUTE NEUT (AUTO) 4.5 10^3/uL (1.7-8.2); BASOPHILS % (AUTO) 1.4 % (0-2); EOSINOPHILS % (AUTO) 3.2 % (0-6); HEMATOCRIT 24.6 % (36.0-47.0); HEMOGLOBIN 8.5 g/dL (12.0-15.5); LYMPHOCYTES % (AUTO) 20.7 % (13-45); MEAN CORPUSCULAR HEMOGLOBIN 36.9 pg (27.0-33.4); MEAN CORPUSCULAR HGB CONC 34.4 g/dL (32.0-36.0); MEAN CORPUSCULAR VOLUME 107 fl (80-97); MONOCYTES % (AUTO) 11.7 % (3-13); PLATELET COUNT 161 10^3/uL (150-450); RED BLOOD COUNT 2.29 10^6/uL (3.72-5.28); RED CELL DISTRIBUTION WIDTH 27.4 % (11.5-14.0); TOTAL CELLS COUNTED % (AUTO) 100 %; WHITE BLOOD COUNT 7.1 10^3/uL (4.0-10.5)
[2018-03-07 06:44] LABS: ALANINE AMINOTRANSFERASE 29 U/L (9-52); ALBUMIN 2.3 g/dL (3.5-5.0); ALKALINE PHOSPHATASE 67 U/L (38-126); ANION GAP 9 (5-19); ASPARTATE AMINO TRANSFERASE 65 U/L (14-36); BILIRUBIN,DIRECT 0.3 mg/dL (0.0-0.4); BILIRUBIN,TOTAL 0.7 mg/dL (0.2-1.3); BLOOD UREA NITROGEN 7 mg/dL (7-20); CALCIUM 8.5 mg/dL (8.4-10.2); CARBON DIOXIDE 16 mmol/L (22-30); CHLORIDE 116 mmol/L (98-107); GLUCOSE 88 mg/dL (75-110); POTASSIUM 4.6 mmol/L (3.6-5.0); SODIUM 141.3 mmol/L (137-145); TOTAL PROTEIN 5.4 g/dL (6.3-8.2)
[2018-03-07 06:54] LABS: ANISOCYTOSIS 3+; BURR CELLS 2+; OVALOCYTES 2+; POIKILOCYTOSIS 3+; SCHISTOCYTES 1+; TEAR DROP CELLS 1+; TOXIC GRANULATION SLIGHT; TOXIC VACUOLATION PRESENT
[2018-03-07 06:55] LABS: PLATELET COMMENT ADEQUATE
--- NOTE | 2018-03-07 08:09 | PDOC PROGRESS REPORT ---
Subjective Progress Note for:: 03/07/18 Subjective:: Hemoglobin stable, no acute changes overnight Reason For Visit: ENCEPHALOPATHY,UTI Physical Exam Vital Signs: Temp Pulse Resp BP Pulse Ox 97.9 F 73 17 111/89 H 99 03/07/18 04:16 03/07/18 04:16 03/07/18 04:16 03/07/18 04:16 03/07/18 04:16 Intake & Output 03/06/18 03/07/18 03/08/18 06:59 06:59 06:59 Intake Total 1536 1390 Output Total 0 Balance 1536 1390 Weight 68.2 kg 68.6 kg General appearance: PRESENT: no acute distress, well-developed, well-nourished Head exam: PRESENT: atraumatic, normocephalic Eye exam: PRESENT: conjunctiva pink, EOMI, PERRLA. ABSENT: scleral icterus Ear exam: PRESENT: normal external ear exam Mouth exam: PRESENT: moist, tongue midline Neck exam: ABSENT: carotid bruit, JVD, lymphadenopathy, thyromegaly Respiratory exam: PRESENT: clear to auscultation jake. ABSENT: rales, rhonchi, wheezes Cardiovascular exam: PRESENT: RRR. ABSENT: diastolic murmur, rubs, systolic murmur Pulses: PRESENT: normal dorsalis pedis pul Vascular exam: PRESENT: normal capillary refill GI/Abdominal exam: PRESENT: normal bowel sounds, soft. ABSENT: distended, guarding, mass, organolmegaly, rebound, tenderness Rectal exam: PRESENT: deferred Extremities exam: PRESENT: full ROM. ABSENT: calf tenderness, clubbing, pedal edema Neurological exam: PRESENT: alert, awake, oriented to person, oriented to place , oriented to time, oriented to situation, CN II-XII grossly intact. ABSENT: motor sensory deficit Psychiatric exam: PRESENT: appropriate affect, normal mood. ABSENT: homicidal ideation, suicidal ideation Skin exam: PRESENT: dry, intact, warm. ABSENT: cyanosis, rash Results Laboratory Results: 03/07/18 05:39 03/07/18 05:39 03/07/18 03/07/18 05:39 05:39 WBC 7.1 RBC 2.29 L Hgb 8.5 L Hct 24.6 L MCV 107 H MCH 36.9 H MCHC 34.4 RDW 27.4 H Plt Count 161 Seg Neutrophils % 63.0 Lymphocytes % 20.7 Monocytes % 11.7 Eosinophils % 3.2 Basophils % 1.4 Absolute Neutrophils 4.5 Absolute Lymphocytes 1.5 Absolute Monocytes 0.8 Absolute Eosinophils 0.2 Absolute Basophils 0.1 Sodium 141.3 Potassium 4.6 Chloride 116 H Carbon Dioxide 16 L Anion Gap 9 BUN 7 Creatinine 0.82 Est GFR ( Amer) > 60 Est GFR (Non-Af Amer) > 60 Glucose 88 Calcium 8.5 Total Bilirubin 0.7 AST 65 H ALT 29 Alkaline Phosphatase 67 Total Protein 5.4 L Albumin 2.3 L Impressions: Chest X-Ray 02/24/18 09:59 IMPRESSION: NO ACUTE RADIOGRAPHIC FINDING IN THE CHEST. Abdomen Ultrasound 02/25/18 00:00 IMPRESSION: Limited study as noted above. Gallbladder was not visualized. FATTY INFILTRATION OF THE LIVER. Other findings as noted above Head MRI 03/01/18 00:00 IMPRESSION: No acute findings. Very limited study EVIDENCE OF ACUTE STROKE: NO. Assessment & Plan - Diagnosis (1) Anemia Qualifiers: Anemia type: other cause Other causes of anemia: nutritional, other megaloblastic Qualified Code(s): D53.1 - Other megaloblastic anemias, not elsewhere classified Is this a current diagnosis for this admission?: Yes Plan: Hemoglobin stable, anemia of chronic disease secondary to cirrhosis most likely , alcohol toxicity, would transfuse if hemoglobin gets under 7 but otherwise would only monitor. - Time Time Spent with patient: 35 or more minutes - Inpatient Certification Based on my medical assessment, after consideration of the patient's comorbidities, presenting symptoms, or acuity I expect that the services needed warrant INPATIENT care.: Yes I certify that my determination is in accordance with my understanding of Medicare's requirements for reasonable and necessary INPATIENT services [42 CFR 412.3e].: Yes Medical Necessity: Risk of Complication if Not Cared For in Hospital
--- NOTE | 2018-03-07 09:59 | PDOC PROGRESS REPORT ---
Subjective Progress Note for:: 03/07/18 Subjective:: Ms. Mora is a 52 year-old women who has a history of atrial fibrillation and alcohol dependency. The patient stated that she presented to the ED today because she had not left the house in over one year and she is bored. When asked specifically if the patient came to the ED for any medical reason the patient states that she did not come to the ED for any reason other than being bored. The patient denies having any chest pain, heart fluttering or heart palpitations. The patient denies any landry loss of blood, including not bloody or coffee ground colored vomit, no black, tarry or bright red stools. Post- menopausal without bleeding in 10 years. Admits to taking ibuprofen three times a day. The patient denies any abdominal pain, but did state that she has some abdominal cramping from time to time. The patient also admits to having feelings of heart burn. The patient denies any falls or recent traumas. The patient stated that she drinks about of a large bottle of wine each day, with her last drink being approximately one week ago. The patient also admits to smoking less than one pack of cigarettes per day. In the ED, labs were obtained and the patient was found to be anemic with a hemoglobin of 6.1. The patient was typed and crossed. Chest x-ray obtained, which was negative for any acute processes. The patient was also found to be profoundly hypotension with a BP reading of 62/48 and was given 2L NS bolus. 12 lead EKG revealed that the patient is in atrial fibrillation with a controlled rate. Blood cultures drawn and pending. Urine sample should positive leukocytes and nitrites, urine culture pending. The patient was given 1 gram IV rocephin. Toxicology was negative and serum alcohol less than 10. Occult stool was negative for blood. 02/28/2018. No acute events overnight. Patient is comfortably resting in her bed in no acute distress patient is awake however very inattentive, indifferent and disoriented, she moves all her extremities and cranial nerves seems to be intact by observation however she does not follow any commands. When addressed she just looks another way without being any attention. 03/01/2018. No acute events overnight. Unchanged mental status except for having less hallucinations. Patient still inattentive and indifferent. Awake and alert but ignores questions. 03/02/2018. No acute events overnight. On my encounter patient is comfortably resting in her bed enjoying her breakfast. Patient has significant improvement of her encephalopathy she is able to hold a conversation she is alert and oriented x2 and she stating that she is here because of alcohol intoxication. She has not any bowel movement since yesterday otherwise she is denying any fever, nausea, vomiting, diarrhea, or any urinary symptoms. She is not hallucinating anymore. During that she is living with her [id number] however she could not provide me with her name or phone number. 03/03/2018. No acute events overnight. On my encounter patient is resting comfortably in her bed in no apparent distress she answers most of my questions appropriately but also she says that she is hallucinating and seeing animals. All of so noted that she has a resting tremor which raises the question of Parkinson disease with hallucination or Lewy body dementia. Unfortunately no neurology consult available which patient may greatly benefit from an evaluation. 03/04/2018. No acute events overnight as per nursing staff patient still hallucinating constantly and sometimes trying to get out of bed. On my encounter patient is comfortably resting in her bed however she is not engaging and indifferent to some of the question. She is alert and oriented x2, she still thinks it is February 12. When asked about hallucinations she denies it but when she was reminded of it she says yes I remember that I am hallucinating. She is also complaining of generalized achy joint pains. On my examination there is a focal neurological deficit however she is too unsteady to check for gait abnormalities. She is denying any fever, nausea, vomiting, diarrhea, chest pain, no constipation or any urinary symptoms. 03/05/2018. No acute events overnight. As per nursing staff patient has been hallucinating all night otherwise she has been stable. On my encounter patient is comfortably sitting in her bed in no apparent distress and having her breakfast. She stating that she is still hallucinating and on physical examination she is still not engaging and indifferent. She knows her name but she thinks she is living in [place] and this is 2016. She still has resting and intention tremor. Plan is to transfer her to tertiary center where she could be hopefully seen by neurology if not possible the next plan will be to transfer her to inpatient rehab but unfortunately patient is not funded which will make this a difficult option. We will consult discharge planning. Received physical therapy on 03/02/2000 p 18 and sniff rehab has been recommended. She has been normotensive, afebrile, pulse rate within normal limits, saturating 100% on room air, she is still has anemia likely anemia is stable, CBC within normal limits. 03/06/2018. At the beginning of the night patient was hallucinating and agitated while trying to try to get out of bed, she was given 2 mg of Ativan and she has been sleeping since then. On my encounter patient is alert oriented x1, still hallucinating but answers my questions appropriately. Denies any fever, chills, nausea, vomiting, diarrhea or constipation. 03/07/2018. Overnight patient has been trying to get out of bed and still hallucinating. She was given 1 dose of benzos and slept all night. On my encounter patient is in no apparent distress and getting her EEG. She is telling me that she had a great night sleep and she is alert oriented oriented x2 still thinks that Jayden Gonzalez is the president. Denies any fever, chills, nausea, vomiting, diarrhea, constipation, shortness of breath or any chest pain. Reason For Visit: ENCEPHALOPATHY,UTI Physical Exam Vital Signs: Temp Pulse Resp BP Pulse Ox 97.9 F 73 17 111/89 H 99 03/07/18 04:16 03/07/18 04:16 03/07/18 04:16 03/07/18 04:16 03/07/18 04:16 Intake & Output 03/06/18 03/07/18 03/08/18 06:59 06:59 06:59 Intake Total 1536 1390 Output Total 0 Balance 1536 1390 Weight 68.2 kg 68.6 kg Results Laboratory Results: 03/07/18 05:39 03/07/18 05:39 03/07/18 03/07/18 05:39 05:39 WBC 7.1 RBC 2.29 L Hgb 8.5 L Hct 24.6 L MCV 107 H MCH 36.9 H MCHC 34.4 RDW 27.4 H Plt Count 161 Seg Neutrophils % 63.0 Lymphocytes % 20.7 Monocytes % 11.7 Eosinophils % 3.2 Basophils % 1.4 Absolute Neutrophils 4.5 Absolute Lymphocytes 1.5 Absolute Monocytes 0.8 Absolute Eosinophils 0.2 Absolute Basophils 0.1 Sodium 141.3 Potassium 4.6 Chloride 116 H Carbon Dioxide 16 L Anion Gap 9 BUN 7 Creatinine 0.82 Est GFR ( Amer) > 60 Est GFR (Non-Af Amer) > 60 Glucose 88 Calcium 8.5 Total Bilirubin 0.7 AST 65 H ALT 29 Alkaline Phosphatase 67 Total Protein 5.4 L Albumin 2.3 L Impressions: Chest X-Ray 02/24/18 09:59 IMPRESSION: NO ACUTE RADIOGRAPHIC FINDING IN THE CHEST. Abdomen Ultrasound 02/25/18 00:00 IMPRESSION: Limited study as noted above. Gallbladder was not visualized. FATTY INFILTRATION OF THE LIVER. Other findings as noted above Head MRI 03/01/18 00:00 IMPRESSION: No acute findings. Very limited study EVIDENCE OF ACUTE STROKE: NO. Assessment & Plan - Diagnosis (1) Hallucination Is this a current diagnosis for this admission?: Yes Plan: Patient is having auditory and visual hallucinations. She has been here for 11 days unlikely this is due to alcohol intoxication unlikely due to this is due to alcohol intoxication. Brain MRI not optimal due to motion artifact however no acute abnormalities was observed. Getting EEG and lumbar puncture today. If EEG and lumbar puncture inconclusive plan would be to patient transfer patient to inpatient rehab or SNIF I talked to Dr. Beltran neurologist from [facility] he stated that it would be hard to say for sure if patient has any underlying neurodegenerative disorder without any pre-hospital history. Unfortunately patient does not have a family and according to the boyfriend he has stated that she was alert and oriented before hospitalization however I have not been able to talk to him myself. Also mentioned that she will not be transferred under under neurology care but we could attempt to transfer under hospitalist care to another hospital where a neurology could be consulted. (2) Wernicke-Korsakoff syndrome (alcoholic) Is this a current diagnosis for this admission?: Yes Plan: Mild improvement. Likely due to thiamine and positive autoimmune deficiency due to history of alcohol abuse. B12 level on admission 347, folic acid 3.59, TSH 1.87. Started on thiamine, B12, folic acid daily. Lumbar puncture and EEG done today. Pending results 03/01/2018 MRI brain done but not optimal. Did not show any acute abnormalities. Supportive measures. (3) Metabolic encephalopathy Is this a current diagnosis for this admission?: Yes Plan: Multifactorial. Likely due to Warnicke encephalopathy/possible neurodegenerative disorder such as lower body dementia or Parkinson's with hallucinations. Unlikely this is alcohol withdrawal or UTI. UTI was successfully treated with IV antibiotics and she is already in the 11 days of admission. Lumbar puncture and EEG done today. Pending results (4) Megaloblastic anemia due to alcoholism Is this a current diagnosis for this admission?: Yes Plan: Secondary to alcohol abuse and nutritional deficiency. Pathology positive for megaloblastic anemia. B12 level 347 which may not be reliable due to being an acute phase reactant. Folic acid 3.59, TSH 1.87. Hemoccult negative. Low iron with normal iron stores. Could be a combination of iron deficiency anemia and megaloblastic anemia. Status post a transfusion on admission 3 PRBC since admission. Continue B12, folic acid, thiamine and ferrous sulfate. Vitals: SBP 123-97, temperature 97.9, pulse 73-101, SPO2 99% on RA Labs: WBC 7.1, Hgb 8.5, MCV 107, platelet 161 Weight: 68.2 kg up 8 kg from admission. (5) Alcohol dependence, continuous Is this a current diagnosis for this admission?: Yes Plan: Continue DT prophylaxis. (6) Tobacco abuse Is this a current diagnosis for this admission?: Yes Plan: Start on nicotine patch. (7) UTI (urinary tract infection) Qualifiers: Urinary tract infection type: site unspecified Hematuria presence: without hematuria Qualified Code(s): N39.0 - Urinary tract infection, site not specified Is this a current diagnosis for this admission?: Yes Plan: Due to E. coli pansensitive. Day 4 of IV antibiotics. DC antibiotics. (8) Hepatic steatosis Is this a current diagnosis for this admission?: Yes Plan: Likely secondary to alcohol abuse. Was advised on quitting alcohol. Outpatient GI follow-up.
[2018-03-07] MEDS: FERROUS SULFATE 325 MG TABLET PO SCH (11:14)
[2018-03-07] MEDS: FOLIC ACID 1 MG TABLET PO SCH (11:14)
[2018-03-07] MEDS: NICOTINE 7 MG/24 HR PATCH.TD24 TD SCH (11:29)
[2018-03-07] MEDS: CYANOCOBALAMIN (VITAMIN B-12) INJ 1000 MCG/1 ML VIAL IM SCH (11:29)
[2018-03-07] MEDS: DEXTROSE 5%-WATER 1000 ML 1,000 ML with POTASSIUM CHLORIDE 20 MEQ IV PRN ×2 (11:33)
--- NOTE | 2018-03-07 13:59 | RADIOLOGY REPORT (SQ) ---
EXAM DESCRIPTION: LUMBAR PUNCTURE; FLUORO/NEEDLE PLACEMENT/SPINE COMPLETED DATE/TIME: 03/07/2018 1:36 pm REASON FOR STUDY: MEGALOBLASTIC ANEMIA, ETOH ENCEPHALOPATHY; ENCEPHALOPATHY COMPARISON: None. FLUOROSCOPY TIME: 7 seconds 2 digital radiographic images saved to PACS. TECHNIQUE: Fluoroscopic guided lumbar puncture. LIMITATIONS: None. PROCEDURE: After written consent and assessment were obtained, the patient was brought into the fluo roscopy room and placed prone on the table. The patient's lower back was prepped in a sterile fashio n and an entry site was selected under live fluoroscopic guidance. The entry site was anesthetized wi th 4 mL of 1% lidocaine. A 22 gauge needle was advanced through the skin and into the thecal sac at t he right paracentral L3-4 level. After approximately 8 ml was drained, the needle was removed and a sterile bandage was placed of the site. Specimens were sent to the lab for testing. A fluoroscopic spot image was saved to PACS confirming level access. FINDINGS: Clear CSF, normal opening pressure 15 cm of water IMPRESSION: Lumbar puncture under fluoroscopy. No immediate complication. COMMENT: Patient medication list reviewed: Yes- Quality ID# [id number]:Eligible professional attests to doc umenting in the medical record they obtained, updated, or reviewed the patient's current medications. . Quality ID 145: Final reports for procedures using fluoroscopy that document radiation exposure eldon hugo, or exposure time and number of fluorographic images (if radiation exposure indices are not avail able) TECHNICAL DOCUMENTATION: JOB ID: [id number] [employer]- All Rights Reserved Reading location - IP/workstation name: [email or web address]
--- NOTE | 2018-03-07 13:59 | RADIOLOGY REPORT (SQ) ---
EXAM DESCRIPTION: LUMBAR PUNCTURE; FLUORO/NEEDLE PLACEMENT/SPINE COMPLETED DATE/TIME: 03/07/2018 1:36 pm REASON FOR STUDY: MEGALOBLASTIC ANEMIA, ETOH ENCEPHALOPATHY; ENCEPHALOPATHY COMPARISON: None. FLUOROSCOPY TIME: 7 seconds 2 digital radiographic images saved to PACS. TECHNIQUE: Fluoroscopic guided lumbar puncture. LIMITATIONS: None. PROCEDURE: After written consent and assessment were obtained, the patient was brought into the fluo roscopy room and placed prone on the table. The patient's lower back was prepped in a sterile fashio n and an entry site was selected under live fluoroscopic guidance. The entry site was anesthetized wi th 4 mL of 1% lidocaine. A 22 gauge needle was advanced through the skin and into the thecal sac at t he right paracentral L3-4 level. After approximately 8 ml was drained, the needle was removed and a sterile bandage was placed of the site. Specimens were sent to the lab for testing. A fluoroscopic spot image was saved to PACS confirming level access. FINDINGS: Clear CSF, normal opening pressure 15 cm of water IMPRESSION: Lumbar puncture under fluoroscopy. No immediate complication. COMMENT: Patient medication list reviewed: Yes- Quality ID# [id number]:Eligible professional attests to doc umenting in the medical record they obtained, updated, or reviewed the patient's current medications. . Quality ID 145: Final reports for procedures using fluoroscopy that document radiation exposure eldon hugo, or exposure time and number of fluorographic images (if radiation exposure indices are not avail able) TECHNICAL DOCUMENTATION: JOB ID: [id number] [employer]- All Rights Reserved Reading location - IP/workstation name: [facility]-[email or web address]
[2018-03-07 14:17] LABS: COLOR TUBE 1 COLORLESS; COLOR TUBE 2 COLORLESS; COLOR TUBE 3 RED; CSF TUBE NUMBER 2
[2018-03-07 14:18] LABS: APPEARANCE TUBE 1 CLEAR; APPEARANCE TUBE 2 CLEAR; APPEARANCE TUBE 3 HAZY; CSF TOTAL VOLUME 2.3 CC; VOLUME TUBE 3 0.3 CC
[2018-03-07 14:19] LABS: RED BLOOD CELL,CSF 5 /uL (0-10)
[2018-03-07 14:20] LABS: WHITE BLOOD CELL,CSF 3 /uL (0-5)
[2018-03-07 14:28] LABS: GLUCOSE,CSF 51 mg/dL (40-70); PROTEIN,CSF 50 mg/dL (12-60)
[2018-03-07 15:00] LABS: H. INFLUENZAE TYPE B AG NEGATIVE (NEGATIVE); S. PNEUMONIAE AG NEGATIVE (NEGATIVE); STREP. GROUP B AG NEGATIVE (NEGATIVE)
[2018-03-07] MEDS: THIAMINE HCL 100 MG TABLET PO SCH (17:41)
[2018-03-08] MEDS: LORAZEPAM INJ 2 MG/1 ML VIAL IV PRN (01:38)
[2018-03-08 05:33] LABS: ABSOLUTE BASOPHILS # (AUTO) 0.1 10^3/uL (0.0-0.2); ABSOLUTE EOSINOPHILS # (AUTO) 0.2 10^3/uL (0.0-0.6); ABSOLUTE LYMPHOCYTES (AUTO) 1.5 10^3/uL (0.5-4.7); ABSOLUTE MONOCYTES (AUTO) 0.9 10^3/uL (0.1-1.4); ABSOLUTE NEUT (AUTO) 4.2 10^3/uL (1.7-8.2); EOSINOPHILS % (AUTO) 3.2 % (0-6); HEMATOCRIT 25.7 % (36.0-47.0); HEMOGLOBIN 8.9 g/dL (12.0-15.5); LYMPHOCYTES % (AUTO) 22.3 % (13-45); MEAN CORPUSCULAR HEMOGLOBIN 37.3 pg (27.0-33.4); MEAN CORPUSCULAR HGB CONC 34.7 g/dL (32.0-36.0); MEAN CORPUSCULAR VOLUME 107 fl (80-97); MONOCYTES % (AUTO) 12.6 % (3-13); PLATELET COUNT 149 10^3/uL (150-450); RED BLOOD COUNT 2.39 10^6/uL (3.72-5.28); RED CELL DISTRIBUTION WIDTH 27.7 % (11.5-14.0); SEGMENTED NEUTROPHILS % (AUTO) 60.9 % (42-78); TOTAL CELLS COUNTED % (AUTO) 100 %; WHITE BLOOD COUNT 6.8 10^3/uL (4.0-10.5)
[2018-03-08 06:23] LABS: ANISOCYTOSIS 2+; BURR CELLS SLIGHT; OVALOCYTES SLIGHT; PLATELET COMMENT DECREASED; POIKILOCYTOSIS SLIGHT
--- NOTE | 2018-03-08 08:14 | EEG PRO FEE REPORT ---
EEG INTERPRETATION [id number] RO[facility]#: 319 ORDER#: [id number] DATE OF STUDY: 03/07/2018 : 1965 REFERRING MD: DEION LYON M.D. MEDICATIONS: Tylenol, Vitamin B12 injections, Feosol, Folvite, Ativan, Nicoderm, Thiamine History This is a 52 year old right handed woman admitted with anemia, UTI, fatigue with a history of atrial fibrillation and alcoholism. This EEG was requested for altered mental status and possible seizures. EEG Interpretation This greater than one hour EEG was recorded in the awake and drowsy states. The EEG was impaired by significant muscle artifact throughout most of the recording. The awake EEG was briefly visualized and characterized by a well organized background without a definite posterior dominant rhythm. The remainder of the background consisted of a mix of alpha and theta activity. Drowsiness was characterized by slowing of the background rhythms. Photic stimulation resulted in no significant changes. The EKG showed a regular rhythm briefly but was not visible due to significant artifact throughout much of the recording. EEG Classification 1. Generalized background slowing 2. Technically poor study EEG Impression This EEG is abnormal. The generalized background slowing is consistent with diffuse cerebral dysfunction. However, this study was severely limited due to significant artifact. INTERPRETING PHYSICIAN: NATALIE CONTRERAS M.D. /: KOBE TT: [id number] ID: [id number] /: [id number] TD: [id number] JOB: [id number] cc:Fareed SANDOVAL M.D. LUTF SROUSH, M.D. > MTDD
[2018-03-08] MEDS: FERROUS SULFATE 325 MG TABLET PO SCH (10:11)
[2018-03-08] MEDS: FOLIC ACID 1 MG TABLET PO SCH (10:11)
[2018-03-08] MEDS: DEXTROSE 5%-WATER 1000 ML 1,000 ML with POTASSIUM CHLORIDE 20 MEQ IV PRN ×2 (10:11)
[2018-03-08] MEDS: NICOTINE 7 MG/24 HR PATCH.TD24 TD SCH (10:11)
[2018-03-08] MEDS: CYANOCOBALAMIN (VITAMIN B-12) 1,000 MCG TABLET PO SCH (10:11)
[2018-03-08] MEDS ORDERED: LORAZEPAM INJ 2 MG/1 ML VIAL IV PRN (14:05)
--- NOTE | 2018-03-08 14:14 | PDOC PROGRESS REPORT ---
Subjective Progress Note for:: 03/08/18 Subjective:: The patient is a 52-year-old female with a past medical history of atrial fibrillation and alcohol dependence who was admitted 02/24/2018 for anemia, hypotension, UTI, and metabolic encephalopathy. The patient is seen on morning rounds. She is found resting in bed comfortably on room air. She is awake and alert to self only. She speaks in non-sensible sentences and is repetitive; does not follow commands. ROS is limited secondary to mental status; however, patient does deny pain, difficulty breathing, and nausea. She appears to be comfortable and is not in any acute distress. No concerns per nursing. Reason For Visit: ENCEPHALOPATHY,UTI Physical Exam Vital Signs: Temp Pulse Resp BP Pulse Ox 97.3 F 72 16 117/85 100 03/07/18 23:32 03/08/18 11:00 03/08/18 11:00 03/08/18 11:00 03/08/18 11:00 Intake & Output 03/07/18 03/08/18 03/09/18 06:59 06:59 06:59 Intake Total 1390 1625 1050 Output Total 0 Balance 1390 1625 1050 Weight 68.6 kg 67.7 kg General appearance: PRESENT: no acute distress, thin, well-developed, well- nourished Head exam: PRESENT: atraumatic, normocephalic Eye exam: PRESENT: conjunctiva pink, EOMI, PERRLA. ABSENT: scleral icterus Ear exam: PRESENT: normal external ear exam Mouth exam: PRESENT: moist, tongue midline Neck exam: ABSENT: carotid bruit, JVD, lymphadenopathy, thyromegaly Respiratory exam: PRESENT: clear to auscultation jake, symmetrical, unlabored. ABSENT: rales, rhonchi, wheezes Cardiovascular exam: PRESENT: RRR. ABSENT: diastolic murmur, rubs, systolic murmur Pulses: PRESENT: normal dorsalis pedis pul Vascular exam: PRESENT: normal capillary refill GI/Abdominal exam: PRESENT: normal bowel sounds, soft. ABSENT: distended, guarding, mass, organolmegaly, rebound, tenderness Rectal exam: PRESENT: deferred Extremities exam: ABSENT: calf tenderness, clubbing, pedal edema Neurological exam: PRESENT: alert, awake, oriented to person, CN II-XII grossly intact. ABSENT: oriented to place, oriented to time, oriented to situation, motor sensory deficit Skin exam: PRESENT: dry, intact, warm. ABSENT: cyanosis, rash Results Laboratory Results: 03/08/18 04:44 03/07/18 05:39 03/07/18 03/07/18 03/07/18 13:25 13:25 13:25 WBC RBC Hgb Hct MCV MCH MCHC RDW Plt Count Seg Neutrophils % Lymphocytes % Monocytes % Eosinophils % Basophils % Absolute Neutrophils Absolute Lymphocytes Absolute Monocytes Absolute Eosinophils Absolute Basophils Fluid Tube Number 2 CSF Volume 2.3 CSF WBC 3 CSF RBC 5 CSF Color (1) COLORLESS CSF Appearance (1) CLEAR CSF Color (2) COLORLESS CSF Appearance (2) CLEAR CSF Color (3) RED CSF Appearance (3) HAZY CSF Color (4) CSF Appearance (4) CSF Comment CSF CULTURE ORDERED CSF Glucose CSF Total Protein PEP Cancelled CSF Total Protein CSF Prealbumin Cancelled CSF Albumin Cancelled CSF Xkelq-8-Wxioitws Cancelled CSF Bwijl-0-Stplvbba Cancelled CSF Beta Globulin Cancelled CSF Gamma Globulin Cancelled CSF PEP M-Ja Cancelled 03/07/18 03/08/18 13:25 04:44 WBC 6.8 RBC 2.39 L Hgb 8.9 L Hct 25.7 L MCV 107 H MCH 37.3 H MCHC 34.7 RDW 27.7 H Plt Count 149 L Seg Neutrophils % 60.9 Lymphocytes % 22.3 Monocytes % 12.6 Eosinophils % 3.2 Basophils % 1.0 Absolute Neutrophils 4.2 Absolute Lymphocytes 1.5 Absolute Monocytes 0.9 Absolute Eosinophils 0.2 Absolute Basophils 0.1 Fluid Tube Number CSF Volume CSF WBC CSF RBC CSF Color (1) CSF Appearance (1) CSF Color (2) CSF Appearance (2) CSF Color (3) CSF Appearance (3) CSF Color (4) CSF Appearance (4) CSF Comment CSF Glucose 51 CSF Total Protein PEP CSF Total Protein 50 CSF Prealbumin CSF Albumin CSF Mvhgw-0-Guljeoja CSF Tdxew-9-Htipsqww CSF Beta Globulin CSF Gamma Globulin CSF PEP M-Ja 03/03/18 09:35 Blood Blood Culture - Final NO GROWTH IN 5 DAYS 03/03/18 09:46 Blood Blood Culture - Final NO GROWTH IN 5 DAYS Impressions: Chest X-Ray 02/24/18 09:59 IMPRESSION: NO ACUTE RADIOGRAPHIC FINDING IN THE CHEST. Abdomen Ultrasound 02/25/18 00:00 IMPRESSION: Limited study as noted above. Gallbladder was not visualized. FATTY INFILTRATION OF THE LIVER. Other findings as noted above Head MRI 03/01/18 00:00 IMPRESSION: No acute findings. Very limited study EVIDENCE OF ACUTE STROKE: NO. Guidance Fluoroscopy 03/07/18 00:00 IMPRESSION: Lumbar puncture under fluoroscopy. No immediate complication. Lumbar Puncture 03/07/18 09:00 IMPRESSION: Lumbar puncture under fluoroscopy. No immediate complication. Assessment & Plan - Diagnosis (1) Megaloblastic anemia due to alcoholism Is this a current diagnosis for this admission?: Yes Plan: Secondary to alcohol abuse and nutritional deficiency. Iron and TIBC both low, B12 level 347, Folic acid 3.59, folate 9.78 TSH 1.87. Occult stools negative x3 Now status post transfusion of 4 units packed red blood cells. Hemoglobin appears stable and trending up; 8.9 today The patient is placed on B12, folic acid, thiamine, multivitamin and iron supplements. Registered dietitian is consulted; appreciate their assistance. (2) Hallucination Is this a current diagnosis for this admission?: Yes Plan: Unclear etiology; underlying mental health disorder versus neurodegenerative disorder. Likely Wenicke-korsakoff. Patient continues to have auditory and visual hallucinations. She has been here for 12 days; it is unlikely to be related to alcohol intoxication/ withdrawal. She has had an extensive workup including a brain MRI which was suboptimal but did not show acute abnormalities Negative HIV, RPR. HSV pending Negative UDS and serum EtOH EEG was technically poor secondary to artifact; does demonstrate generalized background slowing consistent with diffuse cerebral dysfunction. LP completed 02/05/2018; Gram stain and cultures have no growth at 1 day. No evidence of active infection; afebrile, normal WBC The previous provider spoke with neurologist at [facility]; he stated that it would be difficult to diagnose any underlying neuro degenerative disorders without prehospital history. Unfortunately, the patient does not have a reliable family member or friend to provide this background information. Noted that the patient continues to receive IV Ativan 1-2 times daily for agitation; will decrease from 1 mg to 0.5 mg IV every 4 hours as needed. (3) Alcohol dependence, continuous Is this a current diagnosis for this admission?: Yes Plan: Continue multivitamin, thiamine, folic acid, ferrous sulfate supplementation. Registered dietitian is consulted. Discharge planning is consulted. (4) Hepatic steatosis Is this a current diagnosis for this admission?: Yes Plan: Secondary to alcohol abuse. Outpatient GI follow-up. (5) Metabolic encephalopathy Is this a current diagnosis for this admission?: Yes Plan: Multifactorial. Likely due to Warnicke encephalopathy/possible neurodegenerative disorder such as lower body dementia or Parkinson's with hallucinations. Evaluation and plan as above. (6) Tobacco abuse Is this a current diagnosis for this admission?: Yes Plan: Smoking cessation is advised; nicotine replacement therapies are provided. (7) UTI (urinary tract infection) Qualifiers: Urinary tract infection type: site unspecified Hematuria presence: without hematuria Qualified Code(s): N39.0 - Urinary tract infection, site not specified Is this a current diagnosis for this admission?: Yes Plan: Resolved. Patient received 4-day course of IV antibiotics for pansensitive E. coli. (8) Wernicke-Korsakoff syndrome (alcoholic) Is this a current diagnosis for this admission?: Yes Plan: Likely secondary to thiamine and folic acid deficiency in the setting of chronic alcoholism. 03/01/2018 MRI brain done but not optimal. Did not show any acute abnormalities. B12 level on admission 347, folic acid 3.59, TSH 1.87. Continue on thiamine, B12, folic acid daily. Fall, aspiration precautions. Discharge planning is consulted; will require SNF for snf placement. - Time Time Spent with patient: 15-24 minutes Anticipated discharge: SNF - Will require long-term placement. Within: when bed available
[2018-03-08] MEDS: THIAMINE HCL 100 MG TABLET PO SCH (17:14)
[2018-03-09] MEDS: DEXTROSE 5%-WATER 1000 ML 1,000 ML with POTASSIUM CHLORIDE 20 MEQ IV PRN ×2 (09:09)
[2018-03-09] MEDS: FOLIC ACID 1 MG TABLET PO SCH (09:10)
[2018-03-09] MEDS: FERROUS SULFATE 325 MG TABLET PO SCH (09:10)
[2018-03-09] MEDS: CYANOCOBALAMIN (VITAMIN B-12) 1,000 MCG TABLET PO SCH (09:10)
[2018-03-09] MEDS: NICOTINE 7 MG/24 HR PATCH.TD24 TD SCH (09:10)
[2018-03-09] MEDS: MULTIVITAMIN TABLET PO SCH (09:11)
[2018-03-09] MEDS ORDERED: THIAMINE HCL 100 MG in NORMAL SALINE 50 ML IV SCH (10:00)
[2018-03-09] MEDS ORDERED: THIAMINE HCL 100 MG TABLET PO SCH (10:00)
--- NOTE | 2018-03-09 12:47 | PROGRESS NOTE E ---
Progress Note NAME: LAUREANO WOOD : 1965 AGE: 52Y DATE: 03/09/2018 ROOM: 319 SUBJECTIVE: The patient is lying in bed. The patient mumbles and says things nonsensically. The patient is unable to voice any particular concerns. There have been no reported episodes of vomiting nor diarrhea. The patient has been afebrile, her blood pressure has been in a good range, and the patient is unable to voice any concerns. REVIEW OF SYSTEMS: Unobtainable. MEDICATIONS: Reviewed. OBJECTIVE: GENERAL: The patient is a 52-year-old female who is awake, alert, unable to fully assess orientation. She does not appear to be distressed. VITAL SIGNS: As follows: Temperature is 97.3, pulse 61, respirations 14, blood pressure is 122/78, oxygen saturation 99% on room air. SKIN: Warm, dry. No rash. She is not diaphoretic. HEENT: Her pupils are reactive. No evidence of JVP. CARDIOVASCULAR: Heart is regular. There is no murmur or rub. CHEST: Clear, symmetrical, unlabored. ABDOMEN: Soft, nontender. EXTREMITIES: No clubbing, cyanosis, edema. PSYCHIATRIC: Unable to fully assess. DIAGNOSTICS: Lab values are as follows. Hematology obtained on 03/08/2018: WBCs are 6.8, hemoglobin is 8.9, hematocrit is 25.7, platelet count is 249,000. Chemistry obtained on 03/07/2018: Sodium is 141, potassium 4.6, chloride is 116, carbon dioxide 16, BUN 7, creatinine is 0.82, glucose 88, calcium is 8.5, bilirubin 0.7, AST 65, ALT is 29, alk phos 67, total protein 5.4, albumin 2.3. IMPRESSION AND PLAN: 1. 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 Will transition the patient for yet another cycle of high-dose thiamine as the patient is not taking p.o. and follow. 2. URINARY TRACT INFECTION. The patient completed treatment for pansensitive E. coli. 3. ALCOHOL DEPENDENCY, CONTINUOUS. The patient's MCV was 138 on admission. Does not appear she is in withdrawal at this time. 4. ALCOHOLIC CIRRHOSIS. The patient was diagnosed with this in the past and has evidence of significant steatosis on current imaging. 5. MEGALOBLASTIC ANEMIA DUE TO ALCOHOLISM. The patient has been appropriately supplemented. 6. PAROXYSMAL ATRIAL FIBRILLATION. Anticoagulation has been deferred given the patient's profound anemia. The patient is currently rate controlled. 7. HYPOKALEMIA. This was replaced. 8. HYPOMAGNESEMIA. This has been replaced. 9. TOBACCO DEPENDENCY, CONTINUOUS. The patient did receive nicotine patch. DISPOSITION: THE PATIENT IS A DO NOT RESUSCITATE/DO NOT INTUBATE. Pending the patient's symptomatology and diagnostic findings, will re-evaluate in the a.m. The patient has been downgraded to a medical bed. Time spent on this followup, including assessment/plan, physical examination, patient education, review of records, is 40 minutes. DICTATING PHYSICIAN: VIRGINIE FORD NP [id number] PHY#: [id number] ID: [id number] JOB#: [id number] ACCT: [id number] cc: >
[2018-03-09] MEDS: THIAMINE HCL 500 MG in NORMAL SALINE 250 ML IV SCH ×2 (14:30→21:20)
[2018-03-09 22:36] LABS: HSV I DNA Negative (Negative)
[2018-03-10] MEDS: DEXTROSE 5%-WATER 1000 ML 1,000 ML with POTASSIUM CHLORIDE 20 MEQ IV PRN ×2 (03:19)
[2018-03-10] MEDS: THIAMINE HCL 500 MG in NORMAL SALINE 250 ML IV SCH ×3 (06:29→21:38)
[2018-03-10 07:41] LABS: HSV II DNA Negative (Negative)
[2018-03-10] MEDS: MULTIVITAMIN TABLET PO SCH (10:37)
[2018-03-10] MEDS: NICOTINE 7 MG/24 HR PATCH.TD24 TD SCH (10:37)
[2018-03-10] MEDS: FERROUS SULFATE 325 MG TABLET PO SCH (10:37)
[2018-03-10] MEDS: CYANOCOBALAMIN (VITAMIN B-12) 1,000 MCG TABLET PO SCH (10:37)
[2018-03-10] MEDS: FOLIC ACID 1 MG TABLET PO SCH (10:37)
--- NOTE | 2018-03-10 13:47 | PROGRESS NOTE E ---
Progress Note NAME: LAUREANO WOOD : 1965 AGE: 52Y DATE: 03/10/2018 ROOM: 430 SUBJECTIVE: The patient is lying in bed. The patient is awake. She is somewhat conversational. I asked the patient the year; she said "18." I asked the patient who the president was; she said "18." I asked the patient where she was, and she said "Outside a marathon." The patient denies any pain. Appears relatively comfortable at this time. OBJECTIVE: VITAL SIGNS: Temperature is 97.6, pulse 73, respirations 17, blood pressure 130/84, oxygen saturation 100% on room air. SKIN: Warm and dry. No rash. Not diaphoretic. HEENT: Pupils are reactive. Conjunctivae are pink. No evidence of JVP. CVS: Heart is regular. No rub. CHEST: Clear. Symmetrical. Unlabored. ABDOMEN: Soft, nontender. EXTREMITIES: There is no edema. PSYCHIATRIC: The patient is generally confused. DIAGNOSTICS: Lab values are as follows: Hematology obtained on 03/08/2018: WBC 6.8, hemoglobin is 8.9, hematocrit is 25.7, platelet count is 149,000. Chemistry obtained on 03/07/2018: Sodium is 141, potassium 4.6, chloride is 116, carbon dioxide 16, BUN 7, creatinine 0.2, glucose 88, calcium is 8.5. Bilirubin 0.7, AST 65, ALT is 29, alk phos 67, total protein 5.4, albumin 2.3. IMPRESSION AND PLAN: 1. WERNICKE'S VERSUS KORSAKOFF DEMENTIA. The patient has been transitioned back to IV high dose thiamine, as she is not taking p.o. very well. Will follow. 2. ESCHERICHIA COLI URINARY TRACT INFECTION. Treatment completed. 3. ALCOHOL DEPENDENCY, CONTINUOUS. MCV was 138 on admission. Does not appear to be in withdrawal. 4. ALCOHOLIC CIRRHOSIS. The patient was diagnosed with this in the past. She does have evidence of significant steatosis on current imaging. 5. MEGABLASTIC ANEMIA DUE TO ALCOHOLISM. The patient has been supplemented and transfused a total of 3 units. 6. PAROXYSMAL ATRIAL FIBRILLATION. Anticoagulation has been deferred, given the patient's profound anemia, currently rate-controlled. 7. HYPOKALEMIA. This was replaced. 8. HYPOMAGNESEMIA. This is being replaced. 9. TOBACCO DEPENDENCY, CONTINUOUS. The patient can have a p.r.n. nicotine patch. DISPOSITION: The patient is DO NOT RESUSCITATE/DO NOT INTUBATE. Pending patient's symptomatology and diagnostic findings, will reevaluate in the a.m. Will call again and discuss the case with Neurology. The patient has had a pretty exhaustive workup. Pending further recommendations, will then consult Psych for competency evaluation. ADDENDUM: Called and discussed the case with [facility] Neurology. No further work-up is recommended at this time. Agreeable to #1. Time spent on this followup, including assessment, plan, physical examination, patient education and review of records, is 35 minutes. DICTATING PHYSICIAN: VIRGINIE FORD NP [id number] PHY#: [id number] ID: [id number] JOB#: [id number] ACCT: [id number] cc: > MTDD
[2018-03-11] MEDS: DEXTROSE 5%-WATER 1000 ML 1,000 ML with POTASSIUM CHLORIDE 20 MEQ IV PRN ×2 (01:02)
[2018-03-11] MEDS: THIAMINE HCL 500 MG in NORMAL SALINE 250 ML IV SCH ×3 (05:55→23:08)
[2018-03-11] MEDS: FERROUS SULFATE 325 MG TABLET PO SCH (11:57)
[2018-03-11] MEDS: FOLIC ACID 1 MG TABLET PO SCH (11:57)
[2018-03-11] MEDS: MULTIVITAMIN TABLET PO SCH (11:57)
[2018-03-11] MEDS: NICOTINE 7 MG/24 HR PATCH.TD24 TD SCH (11:57)
[2018-03-11] MEDS: CYANOCOBALAMIN (VITAMIN B-12) 1,000 MCG TABLET PO SCH (11:58)
[2018-03-11] MEDS ORDERED: TAMSULOSIN HCL 0.4 MG CAP.SR.24H PO ONE (12:00)
[2018-03-11 12:16] LABS: HEMOGLOBIN 8.3 g/dL (12.0-15.5); MEAN CORPUSCULAR HEMOGLOBIN 36.9 pg (27.0-33.4); MEAN CORPUSCULAR HGB CONC 34.4 g/dL (32.0-36.0); MEAN CORPUSCULAR VOLUME 107 fl (80-97); PLATELET COUNT 122 10^3/uL (150-450); RED BLOOD COUNT 2.24 10^6/uL (3.72-5.28); RED CELL DISTRIBUTION WIDTH 26.3 % (11.5-14.0); WHITE BLOOD COUNT 6.8 10^3/uL (4.0-10.5)
[2018-03-11 12:36] LABS: ANION GAP 7 (5-19); BLOOD UREA NITROGEN 9 mg/dL (7-20); CALCIUM 8.5 mg/dL (8.4-10.2); CARBON DIOXIDE 19 mmol/L (22-30); CHLORIDE 114 mmol/L (98-107); GLUCOSE 82 mg/dL (75-110); POTASSIUM 5.2 mmol/L (3.6-5.0)
[2018-03-11] MEDS ORDERED: MAGNESIUM SULFATE 4 GM/100 ML RTUPB IV ONE (15:30)
--- NOTE | 2018-03-11 19:47 | PROGRESS NOTE E ---
Progress Note NAME: LAUREANO WOOD : 1965 AGE: 52Y DATE: 03/11/2018 ROOM: 430 SUBJECTIVE: The patient is currently lying in bed. The patient states, "I just had a 20 minute conversation with you and I don't why you are mad with me." This is the first time that I have entered the room today. The patient denies any symptoms, but I do not know how reliable this is. The patient has had some urinary retention, which has required in and out catheterization twice in the last 24 hours. The patient has been afebrile. Her blood pressures have been in a good range and the patient does not voice any other concerns at this time. REVIEW OF SYSTEMS: The rest of the review of systems is negative. MEDICATIONS: Have been reviewed. OBJECTIVE: GENERAL: The patient is a 52-year-old female who is awake, alert, unable to fully assess oriented. Does not appear to be distressed. VITAL SIGNS: Temperature is 98.2, pulse 98, respirations 14, blood pressure is 114/60, oxygen saturation is 98% on room air. SKIN: Warm and dry. No rash. She is not diaphoretic. HEENT: Pupils equal, round, and reactive to light and accommodation. Conjunctivae are pink. No evidence of JVP. CARDIOVASCULAR: Heart is regular, no rub. CHEST: Clear, symmetrical, unlabored. ABDOMEN: Has a mildly palpable bladder but she is quite thin. EXTREMITIES: No clubbing, cyanosis, edema. PSYCHIATRIC: The patient is the same as she has been for about the past 10 days. DIAGNOSTICS: Lab values are as follows - Hematology obtained on 03/08/2018; WBC is 6.8, hemoglobin 8.9, hematocrit is 25.7, platelet count is 149,000. Chemistry obtained on 03/07/2018; sodium is 141, potassium 4.6, chloride is 116, carbon dioxide is 16, BUN 7, creatinine is 0.82, glucose 88, calcium is 8.5. IMPRESSION AND PLAN: 1. WERNICKE'S VERSUS A KORSAKOFF'S DEMENTIA. The patient continues on high dose thiamine. I had a lengthy discussion with neurology at [facility] and it does appear this may be the patient's new baseline. No further workup has been recommended at this time. Only recommendation has been for continued supportive therapy and will have the patient evaluated for competency given she is going to be a placement issue. 2. E. COLI URINARY TRACT INFECTION. Treatment has been completed. 3. ALCOHOL DEPENDENCY CONTINUOUS. The patient's MCV was 138 on admission. She is no longer in alcohol withdrawal. 4. ALCOHOLIC CIRRHOSIS. The patient stated she was diagnosed with this in the past. The patient does have a significant steatosis on current imaging. 5. MEGALOBLASTIC ANEMIA DUE TO ALCOHOLISM. The patient had to be transfused a total of 3 units of packed red blood cells. 6. PAROXYSMAL ATRIAL FIBRILLATION. Anticoagulation has been deferred given the patient's profound anemia. She is currently rate controlled. 7. HYPOKALEMIA. This was replaced. 8. HYPOMAGNESEMIA. This was replaced. 9. TOBACCO DEPENDENCY CONTINUOUS. Continue on p.r.n. nicotine patch. CODE STATUS: The patient is a DNR/DNI. DISPOSITION: Depending on the patient's symptomatology and diagnostic findings will reevaluate as needed. TIME SPENT: On this follow up, including assessment and plan, physical examination, patient education, review of records is 35 minutes. DICTATING PHYSICIAN: VIRGINIE FORD NP [id number] PHY#: [id number] ID: [id number] JOB#: [id number] ACCT: [id number] cc: > MTDD
[2018-03-12] MEDS: TAMSULOSIN HCL 0.4 MG CAP.SR.24H PO SCH ×2 (07:41→17:26)
[2018-03-12] MEDS: NICOTINE 7 MG/24 HR PATCH.TD24 TD SCH (09:15)
[2018-03-12] MEDS: THIAMINE HCL 500 MG in NORMAL SALINE 250 ML IV SCH (09:15)
[2018-03-12] MEDS: FOLIC ACID 1 MG TABLET PO SCH (09:15)
[2018-03-12] MEDS: MULTIVITAMIN TABLET PO SCH (09:15)
[2018-03-12] MEDS: CYANOCOBALAMIN (VITAMIN B-12) 1,000 MCG TABLET PO SCH (09:15)
[2018-03-12] MEDS: FERROUS SULFATE 325 MG TABLET PO SCH (09:15)
[2018-03-12 13:52] LABS: ANION GAP 8 (5-19); BLOOD UREA NITROGEN 9 mg/dL (7-20); CALCIUM 8.7 mg/dL (8.4-10.2); CARBON DIOXIDE 17 mmol/L (22-30); CHLORIDE 114 mmol/L (98-107); GLUCOSE 76 mg/dL (75-110); POTASSIUM 4.7 mmol/L (3.6-5.0); SODIUM 138.7 mmol/L (137-145)
[2018-03-12] MEDS: THIAMINE HCL 100 MG TABLET PO SCH (17:26)
--- NOTE | 2018-03-12 20:12 | PROGRESS NOTE E ---
Progress Note NAME: LAUREANO WOOD : 1965 AGE: 52Y DATE: 03/12/2018 ROOM: 430 SUBJECTIVE: The patient is lying in bed. She is awake, alert, unable to really articulate any symptoms. The patient herself denies any pain. The patient did require a Will insertion given the urinary retention assumed from her immobility and the patient is unable to articulate any concerns. BRIEF HISTORY: The patient is a 52-year-old female with a past medical history of chronic alcoholism. The patient presented to the emergency department and was found to be profoundly anemia. As the patient's stay has been complicated by her persistent encephalopathy. The patient initially had a pansensitive E. coli urinary tract infection which responded very well to ceftriaxone and she has completed treatment for this. The patient has had an extensive workup, which has included LP, MRI of the brain, as well as EEG. 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 Currently awaiting psychiatric input on this case as well. The patient's stay has been complicated by her immobility which has subsequently led to some urinary retention. The patient did have consecutive bladder scans with high volumes of urine and the patient has required Will catheter insertion. I have started Flomax and on the can remove Will and resume voiding trials, possibly. It does need to be noted that when the patient initially presented her mental status was better than it was now. The patient was 24 hours from her last drink and although had a bizarre affect she was able to answer most questions appropriately including year, president, her address, date of , and so forth. At this time the patient is not able to do that, she just mutters nonsensically. REVIEW OF SYSTEMS: Unobtainable. MEDICATIONS: Have been reviewed. OBJECTIVE: GENERAL: The patient is a 52-year-old female who is awake, alert, unable to fully assess orientation. She does not appear to be distressed. VITAL SIGNS: Temperature is 97.5, pulse 93, respirations 20, blood pressure is 131/70, oxygen saturation is 98% on room air. SKIN: Warm and dry. No rash. She is not diaphoretic. HEENT: Pupils are reactive. Conjunctivae are pink. No JVP. CARDIOVASCULAR: Heart is regular. There is no rub. CHEST: Clear, symmetrical, unlabored. ABDOMEN: Soft, nontender. EXTREMITIES: There is no edema. DIAGNOSTICS: Lab values are as follows - Hematology obtained on 03/11/2018; WBC is 6.8, hemoglobin 8.3, hematocrit is 24.0, platelet count is 123,000. Chemistry obtained on 03/11/2018; sodium is 140, potassium 5.2, chloride is 114, carbon dioxide 19, BUN 9, creatinine is 0.97, glucose 82, calcium is 8.5, magnesium is 0.9. IMPRESSION AND PLAN: 1. 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 The patient is again on a cycle of high dose thiamine. Had a lengthy discussion with [facility]. The only part of this workup that is pending is psychiatric input. At this time the patient is going to be evaluated for competency as she is going to be a placement issue. She has no family. No children. All she has is a boyfriend who can no longer take care of her. 2. E. COLI URINARY TRACT INFECTION. Treatment has been completed. 3. ALCOHOL DEPENDENCY CONTINUOUS. MCV was 138 on admission, the patient is no longer in alcohol withdrawal. 4. ALCOHOLIC CIRRHOSIS. The patient stated that this was a diagnosis in the past. The patient has significant steatosis on current imaging. 5. MEGALOBLASTIC ANEMIA DUE TO ALCOHOLISM. The patient had to be transfused a total of 3 units of packed red blood cells. 6. PAROXYSMAL ATRIAL FIBRILLATION. Anticoagulation has been deferred given the patient's profound anemia. She is rate controlled. 7. HYPOKALEMIA. This was replaced. 8. HYPOMAGNESEMIA. This is being repleted. Repeat chemistry is pending. 9. TOBACCO DEPENDENCY CONTINUOUS. Will continue p.r.n. nicotine patch. 10. URINARY RETENTION. The patient's Will was placed on 03/11/2018. The patient was started on Flomax and possibly can begin voiding trials either on 03/19/2018. Most likely this is due to the patient's complete immobility. CODE STATUS: The patient is a DO NOT RESUSCITATE/DO NOT INTUBATE. DISPOSITION: Depending on the patient's symptomatology and diagnostic findings will reevaluate in the a.m. TIME SPENT: On this follow up, including assessment and plan, physical examination, patient education, review of records is 35 minutes. DICTATING PHYSICIAN: VIRGINIE FORD NP [id number] PHY#: [id number] [id number] JOB#: [id number] ACCT: [id number] cc: >
[2018-03-13] MEDS: THIAMINE HCL 100 MG TABLET PO SCH ×2 (09:31→17:32)
[2018-03-13] MEDS: FOLIC ACID 1 MG TABLET PO SCH (09:31)
[2018-03-13] MEDS: NICOTINE 7 MG/24 HR PATCH.TD24 TD SCH (09:31)
[2018-03-13] MEDS: FERROUS SULFATE 325 MG TABLET PO SCH (09:31)
[2018-03-13] MEDS: CYANOCOBALAMIN (VITAMIN B-12) 1,000 MCG TABLET PO SCH (09:31)
[2018-03-13] MEDS: MULTIVITAMIN TABLET PO SCH (09:31)
--- NOTE | 2018-03-13 16:51 | PDOC PROGRESS REPORT ---
Subjective Progress Note for:: 03/13/18 Subjective:: No adverse events overnight. Vital signs been stable. Her appetite has been poor. She did not eat any of her breakfast. She has had no behavioral disturbances. Reason For Visit: ENCEPHALOPATHY,UTI Physical Exam Vital Signs: Temp Pulse Resp BP Pulse Ox 97.9 F 89 24 H 126/72 H 95 03/13/18 08:02 03/13/18 08:02 03/13/18 08:02 03/13/18 08:02 03/13/18 08:02 Intake & Output 03/12/18 03/13/18 03/14/18 06:59 06:59 06:59 Intake Total 910 355 Output Total 2250 1850 Balance -1340 -1495 Weight 68.6 kg 66.3 kg General appearance: PRESENT: no acute distress, cooperative, disheveled Respiratory exam: PRESENT: clear to auscultation jake, symmetrical, unlabored. ABSENT: rales, rhonchi, tachypnea, wheezes Cardiovascular exam: PRESENT: RRR, +S1, +S2 Vascular exam: PRESENT: normal capillary refill GI/Abdominal exam: PRESENT: normal bowel sounds, soft. ABSENT: distended, guarding, rebound, tenderness Extremities exam: ABSENT: clubbing, pedal edema Musculoskeletal exam: PRESENT: normal inspection. ABSENT: deformity Neurological exam: PRESENT: awake - Drowsy but arousable, oriented to person. ABSENT: oriented to place, oriented to time, oriented to situation Psychiatric exam: PRESENT: flat affect Skin exam: PRESENT: other - Her skin has a grayish yellow hue and she has an odd smell about her Results Laboratory Results: 03/11/18 11:58 03/12/18 12:34 Impressions: Chest X-Ray 02/24/18 09:59 IMPRESSION: NO ACUTE RADIOGRAPHIC FINDING IN THE CHEST. Abdomen Ultrasound 02/25/18 00:00 IMPRESSION: Limited study as noted above. Gallbladder was not visualized. FATTY INFILTRATION OF THE LIVER. Other findings as noted above Head MRI 03/01/18 00:00 IMPRESSION: No acute findings. Very limited study EVIDENCE OF ACUTE STROKE: NO. Guidance Fluoroscopy 03/07/18 00:00 IMPRESSION: Lumbar puncture under fluoroscopy. No immediate complication. Lumbar Puncture 03/07/18 09:00 IMPRESSION: Lumbar puncture under fluoroscopy. No immediate complication. Assessment & Plan - Diagnosis (1) Metabolic encephalopathy Is this a current diagnosis for this admission?: Yes (2) Alcohol dependence, continuous Is this a current diagnosis for this admission?: Yes (3) Alcoholic cirrhosis Qualifiers: Ascites presence: without ascites Qualified Code(s): K70.30 - Alcoholic cirrhosis of liver without ascites Is this a current diagnosis for this admission?: Yes
[2018-03-13] MEDS: TAMSULOSIN HCL 0.4 MG CAP.SR.24H PO SCH (17:32)
[2018-03-14] MEDS: MULTIVITAMIN TABLET PO SCH (09:29)
[2018-03-14] MEDS: NICOTINE 7 MG/24 HR PATCH.TD24 TD SCH (09:29)
[2018-03-14] MEDS: THIAMINE HCL 100 MG TABLET PO SCH ×2 (09:29→17:25)
[2018-03-14] MEDS: FOLIC ACID 1 MG TABLET PO SCH (09:29)
[2018-03-14] MEDS: CYANOCOBALAMIN (VITAMIN B-12) 1,000 MCG TABLET PO SCH (09:29)
[2018-03-14] MEDS: FERROUS SULFATE 325 MG TABLET PO SCH (09:32)
[2018-03-14] MEDS: TAMSULOSIN HCL 0.4 MG CAP.SR.24H PO SCH (17:25)
--- NOTE | 2018-03-14 18:45 | PDOC PROGRESS REPORT ---
Subjective Progress Note for:: 03/14/18 Subjective:: No adverse events overnight. She was apparently a little bit combative this morning and would not take her medications. When I came into the room to see her she had all of her close off and was messing with the blood pressure cuff that was attached to the bed rail. She told me that she wanted to get up and wander around because she has a "lot of leeway." Reason For Visit: ENCEPHALOPATHY,UTI Physical Exam Vital Signs: Temp Pulse Resp BP Pulse Ox 98.9 F 84 18 112/68 93 03/13/18 15:53 03/13/18 15:53 03/13/18 15:53 03/13/18 15:53 03/13/18 15:53 Intake & Output 03/13/18 03/14/18 03/15/18 06:59 06:59 06:59 Intake Total 355 455 Output Total 1850 1000 Balance -1495 -545 Weight 66.3 kg General appearance: PRESENT: no acute distress, cooperative, disheveled, fetor hepaticus readily apparent Respiratory exam: PRESENT: clear to auscultation jake, symmetrical, unlabored. ABSENT: rales, rhonchi, tachypnea, wheezes Cardiovascular exam: PRESENT: RRR, +S1, +S2 Vascular exam: PRESENT: normal capillary refill GI/Abdominal exam: PRESENT: normal bowel sounds, soft. ABSENT: distended, guarding, rebound, tenderness Extremities exam: ABSENT: clubbing, pedal edema Musculoskeletal exam: PRESENT: normal inspection. ABSENT: deformity Neurological exam: PRESENT: awake - awake, oriented to person. ABSENT: oriented to place, oriented to time, oriented to situation Psychiatric exam: PRESENT: flat affect Skin exam: PRESENT: other - Her skin has a grayish yellow hue Results Laboratory Results: 03/11/18 11:58 03/12/18 12:34 Impressions: Chest X-Ray 02/24/18 09:59 IMPRESSION: NO ACUTE RADIOGRAPHIC FINDING IN THE CHEST. Abdomen Ultrasound 02/25/18 00:00 IMPRESSION: Limited study as noted above. Gallbladder was not visualized. FATTY INFILTRATION OF THE LIVER. Other findings as noted above Head MRI 03/01/18 00:00 IMPRESSION: No acute findings. Very limited study EVIDENCE OF ACUTE STROKE: NO. Guidance Fluoroscopy 03/07/18 00:00 IMPRESSION: Lumbar puncture under fluoroscopy. No immediate complication. Lumbar Puncture 03/07/18 09:00 IMPRESSION: Lumbar puncture under fluoroscopy. No immediate complication. Assessment & Plan - Diagnosis (1) Metabolic encephalopathy Is this a current diagnosis for this admission?: Yes Plan: She has a urinary tract infection is being treated. Her ammonia level is not elevated. I do not know what her baseline mental status is but I suspect this is it. We are keeping a close eye on her for withdrawal but I do think she is far enough away from her last drink that it is not much of a concern at this time. (2) Alcohol dependence, continuous Is this a current diagnosis for this admission?: Yes Plan: She is on medication for withdrawal. (3) Alcoholic cirrhosis Qualifiers: Ascites presence: without ascites Qualified Code(s): K70.30 - Alcoholic cirrhosis of liver without ascites Is this a current diagnosis for this admission?: Yes Plan: I do not know how much of a role this is playing in her mental status, but her ammonia levels not elevated. watching her closely for signs of liver decompensation. She has been getting thiamine but I do not think her mental status is going to get any better. - Time Time Spent with patient: 15-24 minutes
[2018-03-15] MEDS: FOLIC ACID 1 MG TABLET PO SCH (09:49)
[2018-03-15] MEDS: MULTIVITAMIN TABLET PO SCH (09:49)
[2018-03-15] MEDS: NICOTINE 7 MG/24 HR PATCH.TD24 TD SCH (09:49)
[2018-03-15] MEDS: THIAMINE HCL 100 MG TABLET PO SCH ×2 (09:49→17:02)
[2018-03-15] MEDS: CYANOCOBALAMIN (VITAMIN B-12) 1,000 MCG TABLET PO SCH (09:49)
[2018-03-15] MEDS: FERROUS SULFATE 325 MG TABLET PO SCH (09:49)
[2018-03-15] MEDS: TAMSULOSIN HCL 0.4 MG CAP.SR.24H PO SCH (17:02)
--- NOTE | 2018-03-15 20:01 | PDOC PROGRESS REPORT ---
Subjective Progress Note for:: 03/15/18 Subjective:: She had taken off all her clothes and kept Trying to pull the sheets and blankets off of herself. She is not eating. She is refusing all of her medications. She is not allowing any blood test to be drawn but will intermittently allow us to check her vital signs. She will sometimes get hostile if staff gets too close to her. She does not display this type of behavior all the time. Reason For Visit: ENCEPHALOPATHY,UTI Physical Exam Vital Signs: Temp Pulse Resp BP Pulse Ox 97.3 F 60 17 128/68 H 98 03/15/18 07:33 03/15/18 07:33 03/15/18 07:33 03/15/18 07:33 03/15/18 07:33 Intake & Output 03/14/18 03/15/18 03/16/18 06:59 06:59 06:59 Intake Total 455 50 Output Total 1000 410 320 Balance -545 -360 -320 Weight 65.1 kg General appearance: PRESENT: no acute distress, disheveled, thin, other - Fetor hepaticus. ABSENT: cooperative Skin exam: PRESENT: other - Grayish yellow in color Results Laboratory Results: 03/11/18 11:58 03/12/18 12:34 Impressions: Chest X-Ray 02/24/18 09:59 IMPRESSION: NO ACUTE RADIOGRAPHIC FINDING IN THE CHEST. Abdomen Ultrasound 02/25/18 00:00 IMPRESSION: Limited study as noted above. Gallbladder was not visualized. FATTY INFILTRATION OF THE LIVER. Other findings as noted above Head MRI 03/01/18 00:00 IMPRESSION: No acute findings. Very limited study EVIDENCE OF ACUTE STROKE: NO. Guidance Fluoroscopy 03/07/18 00:00 IMPRESSION: Lumbar puncture under fluoroscopy. No immediate complication. Lumbar Puncture 03/07/18 09:00 IMPRESSION: Lumbar puncture under fluoroscopy. No immediate complication. Assessment & Plan - Diagnosis (1) Metabolic encephalopathy Is this a current diagnosis for this admission?: Yes Plan: She has a urinary tract infection is being treated. Her ammonia level is not elevated. I do not know what her baseline mental status is but I suspect this is it. We are keeping a close eye on her for withdrawal but I do think she is far enough away from her last drink that it is not much of a concern at this time. (2) Alcohol dependence, continuous Is this a current diagnosis for this admission?: Yes Plan: She is through any sort of withdrawal. (3) Alcoholic cirrhosis Qualifiers: Ascites presence: without ascites Qualified Code(s): K70.30 - Alcoholic cirrhosis of liver without ascites Is this a current diagnosis for this admission?: Yes Plan: I do not know how much of a role this is playing in her mental status, but her ammonia levels not elevated. watching her closely for signs of liver decompensation. She has been getting thiamine but I do not think her mental status is going to get any better. (4) Alcoholic Korsakoff syndrome Is this a current diagnosis for this admission?: Yes Plan: She is gotten high-dose thiamine for some time with no real response to it. I think her mental status is at its baseline now. We are awaiting Medicaid approval so we can seek long-term placement. - Time Time Spent with patient: 15-24 minutes
[2018-03-16] MEDS: NICOTINE 7 MG/24 HR PATCH.TD24 TD SCH (09:01)
[2018-03-16] MEDS: MULTIVITAMIN TABLET PO SCH (09:01)
[2018-03-16] MEDS: FOLIC ACID 1 MG TABLET PO SCH (09:01)
[2018-03-16] MEDS: FERROUS SULFATE 325 MG TABLET PO SCH (09:01)
[2018-03-16] MEDS: CYANOCOBALAMIN (VITAMIN B-12) 1,000 MCG TABLET PO SCH (09:02)
[2018-03-16] MEDS: THIAMINE HCL 100 MG TABLET PO SCH ×2 (09:02→17:00)
[2018-03-16] MEDS: TAMSULOSIN HCL 0.4 MG CAP.SR.24H PO SCH (17:00)
--- NOTE | 2018-03-16 22:45 | PDOC PROGRESS REPORT ---
Subjective Progress Note for:: 03/16/18 Subjective:: Resting in bed. Does not appear to be in acute distress. Limited interaction today. Reason For Visit: ENCEPHALOPATHY,UTI Physical Exam Vital Signs: Temp Pulse Resp BP Pulse Ox 97.1 F 59 L 16 88/47 L 91 L 03/16/18 16:47 03/16/18 16:47 03/16/18 16:47 03/16/18 16:47 03/16/18 16:47 Intake & Output 03/15/18 03/16/18 03/17/18 06:59 06:59 06:59 Intake Total 50 50 740 Output Total 410 545 200 Balance -360 -495 540 Weight 65.1 kg 62.3 kg General appearance: PRESENT: no acute distress, thin, other - Very frail Head exam: PRESENT: atraumatic, normocephalic Respiratory exam: PRESENT: symmetrical, unlabored. ABSENT: accessory muscle use, rales, rhonchi, tachypnea, wheezes Cardiovascular exam: PRESENT: RRR, +S1, +S2 GI/Abdominal exam: PRESENT: normal bowel sounds, soft. ABSENT: tenderness Neurological exam: PRESENT: awake, other - Not verbalize or interact much during this encounter Psychiatric exam: PRESENT: flat affect Results Laboratory Results: 03/11/18 11:58 03/12/18 12:34 02/24/18 09:55 Troponin I < 0.012 Impressions: Chest X-Ray 02/24/18 09:59 IMPRESSION: NO ACUTE RADIOGRAPHIC FINDING IN THE CHEST. Abdomen Ultrasound 02/25/18 00:00 IMPRESSION: Limited study as noted above. Gallbladder was not visualized. FATTY INFILTRATION OF THE LIVER. Other findings as noted above Head MRI 03/01/18 00:00 IMPRESSION: No acute findings. Very limited study EVIDENCE OF ACUTE STROKE: NO. Guidance Fluoroscopy 03/07/18 00:00 IMPRESSION: Lumbar puncture under fluoroscopy. No immediate complication. Lumbar Puncture 03/07/18 09:00 IMPRESSION: Lumbar puncture under fluoroscopy. No immediate complication. Assessment & Plan - Diagnosis (1) Metabolic encephalopathy Is this a current diagnosis for this admission?: Yes Plan: This is likely from the her chronic alcoholism. She was not very interactive today. This may be her new baseline. (2) Alcoholic Korsakoff syndrome Is this a current diagnosis for this admission?: Yes Plan: She has had aggressive thiamine treatment. There was no significant improvement. She will need long-term placement. (3) Alcoholic cirrhosis Qualifiers: Ascites presence: without ascites Qualified Code(s): K70.30 - Alcoholic cirrhosis of liver without ascites Is this a current diagnosis for this admission?: Yes Plan: She does not have ascites. She does not have an elevated ammonia level. This is likely her baseline. - Time Time Spent with patient: 15-24 minutes Anticipated discharge: SNF
--- NOTE | 2018-03-17 09:21 | PDOC PROGRESS REPORT ---
Subjective Progress Note for:: 03/17/18 Subjective:: Resting in bed. She appears somewhat tremulous today. She is still somnolent. Reason For Visit: ENCEPHALOPATHY,UTI Physical Exam Vital Signs: Temp Pulse Resp BP Pulse Ox 96.3 F L 89 22 H 159/97 H 94 03/17/18 00:00 03/17/18 00:00 03/17/18 00:00 03/17/18 00:00 03/17/18 00:00 Intake & Output 03/16/18 03/17/18 03/18/18 06:59 06:59 06:59 Intake Total 50 740 Output Total 545 950 Balance -495 -210 Weight 62.3 kg 62 kg General appearance: PRESENT: no acute distress, thin, other - Tremulous Respiratory exam: PRESENT: symmetrical, unlabored. ABSENT: accessory muscle use, prolonged expiratory phas, rales, rhonchi, wheezes Cardiovascular exam: PRESENT: RRR, +S1, +S2 GI/Abdominal exam: PRESENT: normal bowel sounds, soft. ABSENT: tenderness Musculoskeletal exam: PRESENT: other - Decreased muscle mass Neurological exam: PRESENT: altered - Lethargic Psychiatric exam: PRESENT: flat affect Focused psych exam: PRESENT: catatonic Skin exam: PRESENT: dry, normal color, warm Results Laboratory Results: 03/11/18 11:58 03/12/18 12:34 02/24/18 09:55 Troponin I < 0.012 Impressions: Chest X-Ray 02/24/18 09:59 IMPRESSION: NO ACUTE RADIOGRAPHIC FINDING IN THE CHEST. Abdomen Ultrasound 02/25/18 00:00 IMPRESSION: Limited study as noted above. Gallbladder was not visualized. FATTY INFILTRATION OF THE LIVER. Other findings as noted above Head MRI 03/01/18 00:00 IMPRESSION: No acute findings. Very limited study EVIDENCE OF ACUTE STROKE: NO. Guidance Fluoroscopy 03/07/18 00:00 IMPRESSION: Lumbar puncture under fluoroscopy. No immediate complication. Lumbar Puncture 03/07/18 09:00 IMPRESSION: Lumbar puncture under fluoroscopy. No immediate complication. Assessment & Plan - Diagnosis (1) Metabolic encephalopathy Is this a current diagnosis for this admission?: Yes Plan: Likely the result of chronic alcohol use. This is probably her new baseline. It is unlikely that she is experiencing withdrawal since we have monitored her (2) Alcoholic Korsakoff syndrome Is this a current diagnosis for this admission?: Yes Plan: Ongoing B vitamins and folic acid (3) Alcoholic cirrhosis Qualifiers: Ascites presence: without ascites Qualified Code(s): K70.30 - Alcoholic cirrhosis of liver without ascites Is this a current diagnosis for this admission?: Yes Plan: Recheck serum chemistries today including ammonia level to see if these have changed at all with her change in mental status. - Time Time Spent with patient: 15-24 minutes Medications reviewed and adjusted accordingly: Yes
[2018-03-17 10:40] LABS: HEMATOCRIT 23.3 % (36.0-47.0); HEMOGLOBIN 8.1 g/dL (12.0-15.5); MEAN CORPUSCULAR HEMOGLOBIN 36.5 pg (27.0-33.4); MEAN CORPUSCULAR HGB CONC 34.8 g/dL (32.0-36.0); MEAN CORPUSCULAR VOLUME 105 fl (80-97); PLATELET COUNT 105 10^3/uL (150-450); RED BLOOD COUNT 2.22 10^6/uL (3.72-5.28); RED CELL DISTRIBUTION WIDTH 25.5 % (11.5-14.0); WHITE BLOOD COUNT 13.4 10^3/uL (4.0-10.5)
[2018-03-17 11:00] LABS: ALANINE AMINOTRANSFERASE 35 U/L (9-52); ALBUMIN 2.4 g/dL (3.5-5.0); ALKALINE PHOSPHATASE 70 U/L (38-126); ASPARTATE AMINO TRANSFERASE 89 U/L (14-36); BILIRUBIN,DIRECT 0.3 mg/dL (0.0-0.4); BILIRUBIN,TOTAL 0.5 mg/dL (0.2-1.3)
[2018-03-17] MEDS: CYANOCOBALAMIN (VITAMIN B-12) 1,000 MCG TABLET PO SCH (12:57)
[2018-03-17] MEDS: FERROUS SULFATE 325 MG TABLET PO SCH (12:57)
[2018-03-17] MEDS: FOLIC ACID 1 MG TABLET PO SCH (12:57)
[2018-03-17] MEDS: MULTIVITAMIN TABLET PO SCH (12:58)
[2018-03-17] MEDS: THIAMINE HCL 100 MG TABLET PO SCH ×2 (12:58→17:36)
[2018-03-17] MEDS: NICOTINE 7 MG/24 HR PATCH.TD24 TD SCH (12:58)
[2018-03-17] MEDS: TAMSULOSIN HCL 0.4 MG CAP.SR.24H PO SCH (17:36)
[2018-03-18 09:08] LABS: WEST NILE VIRUS RNA PCR RSLT Negative (.)
[2018-03-18] MEDS: CYANOCOBALAMIN (VITAMIN B-12) 1,000 MCG TABLET PO SCH ×2 (09:25→14:05)
[2018-03-18] MEDS: MULTIVITAMIN TABLET PO SCH ×2 (09:26→14:05)
[2018-03-18] MEDS: THIAMINE HCL 100 MG TABLET PO SCH ×3 (09:26→18:57)
[2018-03-18] MEDS: FERROUS SULFATE 325 MG TABLET PO SCH ×2 (09:26→10:04)
[2018-03-18] MEDS: FOLIC ACID 1 MG TABLET PO SCH ×2 (09:26→10:00)
[2018-03-18] MEDS: NICOTINE 7 MG/24 HR PATCH.TD24 TD SCH (14:02)
[2018-03-18] MEDS: HALOPERIDOL LACTATE INJ 5 MG/1 ML VIAL IM PRN (14:38)
--- NOTE | 2018-03-18 15:42 | PSYCHOLOGICAL NOTE ---
Psych Note - Psych Note Date seen by psych provider: 03/11/18 Time seen by psych provider: 14:09 Psych Note: Reason for Consult: Capacity Ms. Mora is a 52 year-old women who has a history of atrial fibrillation and alcohol dependency. Patient received evaluation for capacity on 03/11/2018. At this time she lacked capacity. Full report will be submitted.
--- NOTE | 2018-03-18 16:32 | PDOC PROGRESS REPORT ---
Subjective Progress Note for:: 03/18/18 Subjective:: Psychologically the patient is hallucinating today. She is quite agitated earlier. She in fact refused to let me examine her. Reason For Visit: ENCEPHALOPATHY,UTI Physical Exam Vital Signs: Temp Pulse Resp BP Pulse Ox 97.6 F 61 18 128/60 H 99 03/18/18 08:00 03/18/18 08:00 03/18/18 08:00 03/18/18 08:00 03/18/18 08:00 Intake & Output 03/17/18 03/18/18 03/19/18 06:59 06:59 06:59 Intake Total 740 0 Output Total 950 300 Balance -210 -300 Weight 62 kg 61.4 kg General appearance: PRESENT: no acute distress, thin, other - The patient refused any hands on examination.. ABSENT: cooperative Head exam: PRESENT: atraumatic, normocephalic Musculoskeletal exam: PRESENT: other - Decreased muscle mass Neurological exam: PRESENT: alert, awake. ABSENT: oriented to person, oriented to place, oriented to time, oriented to situation Psychiatric exam: PRESENT: flat affect Focused psych exam: PRESENT: delusional Results Laboratory Results: 03/17/18 10:27 03/12/18 12:34 02/24/18 09:55 Troponin I < 0.012 Impressions: Chest X-Ray 02/24/18 09:59 IMPRESSION: NO ACUTE RADIOGRAPHIC FINDING IN THE CHEST. Abdomen Ultrasound 02/25/18 00:00 IMPRESSION: Limited study as noted above. Gallbladder was not visualized. FATTY INFILTRATION OF THE LIVER. Other findings as noted above Head MRI 03/01/18 00:00 IMPRESSION: No acute findings. Very limited study EVIDENCE OF ACUTE STROKE: NO. Guidance Fluoroscopy 03/07/18 00:00 IMPRESSION: Lumbar puncture under fluoroscopy. No immediate complication. Lumbar Puncture 03/07/18 09:00 IMPRESSION: Lumbar puncture under fluoroscopy. No immediate complication. Assessment & Plan - Diagnosis (1) Metabolic encephalopathy Is this a current diagnosis for this admission?: Yes Plan: The patient is worse today. There is no obvious change in her condition. I will check labs. Her white cell count did go up and so I will look for possible infection. She clearly is hallucinating. (2) Alcoholic Korsakoff syndrome Is this a current diagnosis for this admission?: Yes Plan: Continue current regimen. (3) Alcoholic cirrhosis Qualifiers: Ascites presence: without ascites Qualified Code(s): K70.30 - Alcoholic cirrhosis of liver without ascites Is this a current diagnosis for this admission?: Yes Plan: No acute changes. The patient has been refusing liquids and food. I am starting IV fluids and I will check laboratory studies. - Time Time Spent with patient: 15-24 minutes Medications reviewed and adjusted accordingly: Yes
[2018-03-18] MEDS: DEXTROSE 5%-NORMAL SALINE 1,000 ML IV PRN (18:56)
[2018-03-18] MEDS: TAMSULOSIN HCL 0.4 MG CAP.SR.24H PO SCH (18:57)
[2018-03-19 04:10] LABS: ABSOLUTE BASOPHILS # (AUTO) 0.1 10^3/uL (0.0-0.2); ABSOLUTE EOSINOPHILS # (AUTO) 0.2 10^3/uL (0.0-0.6); ABSOLUTE LYMPHOCYTES (AUTO) 1.7 10^3/uL (0.5-4.7); ABSOLUTE MONOCYTES (AUTO) 0.8 10^3/uL (0.1-1.4); ABSOLUTE NEUT (AUTO) 6.1 10^3/uL (1.7-8.2); BASOPHILS % (AUTO) 0.6 % (0-2); EOSINOPHILS % (AUTO) 2.5 % (0-6); HEMATOCRIT 24.1 % (36.0-47.0); HEMOGLOBIN 8.2 g/dL (12.0-15.5); LYMPHOCYTES % (AUTO) 18.8 % (13-45); MEAN CORPUSCULAR HEMOGLOBIN 36.1 pg (27.0-33.4); MEAN CORPUSCULAR VOLUME 106 fl (80-97); MONOCYTES % (AUTO) 8.8 % (3-13); PLATELET COUNT 100 10^3/uL (150-450); RED BLOOD COUNT 2.27 10^6/uL (3.72-5.28); RED CELL DISTRIBUTION WIDTH 25.2 % (11.5-14.0); SEGMENTED NEUTROPHILS % (AUTO) 69.3 % (42-78); TOTAL CELLS COUNTED % (AUTO) 100 %; WHITE BLOOD COUNT 8.8 10^3/uL (4.0-10.5)
[2018-03-19 04:28] LABS: ALANINE AMINOTRANSFERASE 41 U/L (9-52); ALBUMIN 2.6 g/dL (3.5-5.0); ALKALINE PHOSPHATASE 66 U/L (38-126); ANION GAP 7 (5-19); ANISOCYTOSIS 3+; ASPARTATE AMINO TRANSFERASE 78 U/L (14-36); BILIRUBIN,DIRECT 0.5 mg/dL (0.0-0.4); BILIRUBIN,TOTAL 0.8 mg/dL (0.2-1.3); BLOOD UREA NITROGEN 17 mg/dL (7-20); BURR CELLS 2+; CALCIUM 8.4 mg/dL (8.4-10.2); CARBON DIOXIDE 24 mmol/L (22-30); CHLORIDE 116 mmol/L (98-107); GLUCOSE 106 mg/dL (75-110); HELMET CELLS SLIGHT; OVALOCYTES 2+; PHOSPHORUS 3.3 mg/dL (2.5-4.5); PLATELET COMMENT ADEQUATE; POIKILOCYTOSIS 3+; POTASSIUM 3.6 mmol/L (3.6-5.0); SODIUM 147.3 mmol/L (137-145); TARGET CELLS 1+; TEAR DROP CELLS 1+; TOTAL PROTEIN 5.7 g/dL (6.3-8.2); TOXIC GRANULATION 1+
[2018-03-19] MEDS: DEXTROSE 5%-NORMAL SALINE 1,000 ML IV PRN (04:40)
[2018-03-19] MEDS: NICOTINE 7 MG/24 HR PATCH.TD24 TD SCH (10:00)
[2018-03-19] MEDS: MAGNESIUM OXIDE 400 MG TABLET PO SCH ×2 (13:57→19:30)
[2018-03-19] MEDS: CYANOCOBALAMIN (VITAMIN B-12) 1,000 MCG TABLET PO SCH (13:59)
[2018-03-19] MEDS: FERROUS SULFATE 325 MG TABLET PO SCH (13:59)
[2018-03-19] MEDS: MULTIVITAMIN TABLET PO SCH (13:59)
[2018-03-19] MEDS: THIAMINE HCL 100 MG TABLET PO SCH (13:59)
[2018-03-19] MEDS: FOLIC ACID 1 MG TABLET PO SCH (13:59)
[2018-03-19] MEDS: ACETAMINOPHEN 325 MG TABLET PO PRN (13:59)
--- NOTE | 2018-03-19 15:23 | PDOC PROGRESS REPORT ---
Subjective Progress Note for:: 03/19/18 Subjective:: The patient is a 52-year-old female with a past medical history of atrial fibrillation and alcohol dependence who was admitted 02/24/2018 for anemia, hypotension, UTI, and metabolic encephalopathy. The patient is seen on morning rounds. She is found resting in bed comfortably on room air. She is awake and alert to self only. She speaks in non-sensible sentences; does not follow commands. ROS is limited secondary to mental status. No concerns per nursing. Reason For Visit: ENCEPHALOPATHY,UTI Physical Exam Vital Signs: Temp Pulse Resp BP Pulse Ox 98.4 F 60 18 111/70 98 03/19/18 12:00 03/19/18 12:00 03/19/18 12:00 03/19/18 12:00 03/19/18 12:00 Intake & Output 03/18/18 03/19/18 03/20/18 06:59 06:59 06:59 Intake Total 0 1718 Output Total 300 400 Balance -300 1318 Weight 61.4 kg 61.7 kg General appearance: PRESENT: no acute distress, thin, well-developed Head exam: PRESENT: atraumatic, normocephalic Eye exam: PRESENT: conjunctiva pink, EOMI, PERRLA. ABSENT: scleral icterus Ear exam: PRESENT: normal external ear exam Mouth exam: PRESENT: moist, tongue midline Neck exam: ABSENT: carotid bruit, JVD, lymphadenopathy, thyromegaly Respiratory exam: PRESENT: clear to auscultation jake, symmetrical, unlabored. ABSENT: rales, rhonchi, wheezes Cardiovascular exam: PRESENT: RRR. ABSENT: diastolic murmur, rubs, systolic murmur Rectal exam: PRESENT: deferred Extremities exam: PRESENT: full ROM - Spontaneous movements of all extremities but does not participate in exam. ABSENT: calf tenderness, clubbing, pedal edema Neurological exam: PRESENT: alert, awake, oriented to person, CN II-XII grossly intact, other - Word salad. ABSENT: motor sensory deficit Psychiatric exam: PRESENT: appropriate affect, normal mood. ABSENT: homicidal ideation, suicidal ideation Focused psych exam: PRESENT: other - Appears to have intermittent visual hallucinations Skin exam: PRESENT: dry, intact, warm. ABSENT: cyanosis, rash Results Laboratory Results: 03/19/18 03:48 03/19/18 03:48 03/19/18 03/19/18 03:48 03:48 WBC 8.8 RBC 2.27 L Hgb 8.2 L Hct 24.1 L MCV 106 H MCH 36.1 H MCHC 34.0 RDW 25.2 H Plt Count 100 L Seg Neutrophils % 69.3 Lymphocytes % 18.8 Monocytes % 8.8 Eosinophils % 2.5 Basophils % 0.6 Absolute Neutrophils 6.1 Absolute Lymphocytes 1.7 Absolute Monocytes 0.8 Absolute Eosinophils 0.2 Absolute Basophils 0.1 Sodium 147.3 H Potassium 3.6 Chloride 116 H Carbon Dioxide 24 Anion Gap 7 BUN 17 Creatinine 0.88 Est GFR ( Amer) > 60 Est GFR (Non-Af Amer) > 60 Glucose 106 Calcium 8.4 Phosphorus 3.3 Magnesium 1.4 L Total Bilirubin 0.8 AST 78 H ALT 41 Alkaline Phosphatase 66 Total Protein 5.7 L Albumin 2.6 L 02/24/18 09:55 Troponin I < 0.012 Impressions: Chest X-Ray 02/24/18 09:59 IMPRESSION: NO ACUTE RADIOGRAPHIC FINDING IN THE CHEST. Abdomen Ultrasound 02/25/18 00:00 IMPRESSION: Limited study as noted above. Gallbladder was not visualized. FATTY INFILTRATION OF THE LIVER. Other findings as noted above Head MRI 03/01/18 00:00 IMPRESSION: No acute findings. Very limited study EVIDENCE OF ACUTE STROKE: NO. Guidance Fluoroscopy 03/07/18 00:00 IMPRESSION: Lumbar puncture under fluoroscopy. No immediate complication. Lumbar Puncture 03/07/18 09:00 IMPRESSION: Lumbar puncture under fluoroscopy. No immediate complication. Assessment & Plan - Diagnosis (1) Megaloblastic anemia due to alcoholism Is this a current diagnosis for this admission?: Yes Plan: Secondary to alcohol abuse and nutritional deficiency; hemoglobin is stable at 8.2 Iron and TIBC both low, B12 level 347, Folic acid 3.59, folate 9.78 TSH 1.87. Occult stools negative x3 Now status post transfusion of 4 units PRBCs earlier this admission Continue B12, folic acid, thiamine, multivitamin and iron supplements. Registered dietitian is consulted; appreciate their assistance. (2) Wernicke-Korsakoff syndrome (alcoholic) Is this a current diagnosis for this admission?: Yes Plan: 03/01/2018 MRI brain done but not optimal. Did not show any acute abnormalities. B12 level on admission 347, folic acid 3.59, TSH 1.87. Continue on thiamine, B12, folic acid daily. Fall, aspiration precautions. Discharge planning is consulted; will require SNF for buttermaker placement. (3) Hallucination Is this a current diagnosis for this admission?: Yes Plan: Secondary to acute metabolic encephalopathy in the setting of Korsakoff syndrome. Patient continues to have auditory and visual hallucinations. S She has had an extensive workup including a brain MRI which was suboptimal but did not show acute abnormalities Negative HIV, RPR, HSV Negative UDS and serum EtOH EEG was technically poor secondary to artifact; does demonstrate generalized background slowing consistent with diffuse cerebral dysfunction. LP completed 02/05/2018; Gram stain and cultures were negative. No evidence of active infection; afebrile, normal WBC A previous provider spoke with neurologist at [facility]; he stated that it would be difficult to diagnose any underlying neuro degenerative disorders without prehospital history. Unfortunately, the patient does not have a reliable family member or friend to provide this background information. The patient is no longer receiving benzodiazepines; scheduled Zyprexa with Haldol IM for acute agitation. Psychiatry has been consulted; have determined that the patient lacks capacity. Discharge planning is consulted to assist with difficult disposition. Provide for patient safety; fall precautions. (4) Metabolic encephalopathy Is this a current diagnosis for this admission?: Yes Plan: Multifactorial. Likely due to alcoholic Korsakoff syndrome. Evaluation and plan as above. (5) Alcohol dependence, continuous Is this a current diagnosis for this admission?: Yes Plan: Continue multivitamin, thiamine, folic acid, ferrous sulfate supplementation. Registered dietitian is consulted. Discharge planning is consulted. (6) Hepatic steatosis Is this a current diagnosis for this admission?: Yes Plan: Secondary to alcohol abuse. Outpatient GI follow-up. (7) Tobacco abuse Is this a current diagnosis for this admission?: Yes Plan: Smoking cessation is advised; nicotine replacement therapies are provided. (8) UTI (urinary tract infection) Qualifiers: Urinary tract infection type: site unspecified Hematuria presence: without hematuria Qualified Code(s): N39.0 - Urinary tract infection, site not specified Is this a current diagnosis for this admission?: Yes Plan: Resolved. (9) Alcoholic cirrhosis Qualifiers: Ascites presence: without ascites Qualified Code(s): K70.30 - Alcoholic cirrhosis of liver without ascites Is this a current diagnosis for this admission?: Yes Plan: Stable; no acute changes. The patient has been refusing medications, all liquids and food. We will continue maintenance IV fluids. Will supplement thiamine, folic acid via banana bag nightly. - Time Time Spent with patient: 15-24 minutes Medications reviewed and adjusted accordingly: Yes Anticipated discharge: SNF Within: when bed available
[2018-03-19 17:00] LABS: APPEARANCE,URINE SLIGHTLY-CLOUDY; BILIRUBIN,URINE NEGATIVE (NEGATIVE); COLOR,URINE YELLOW; GLUCOSE, URINE NEGATIVE (NEGATIVE); KETONES,URINE NEGATIVE (NEGATIVE); LEUKOCYTE ESTERASE,URINE SMALL (NEGATIVE); NITRITE,URINE NEGATIVE (NEGATIVE); PROTEIN,URINE 30 mg/dL (NEGATIVE); URINE SPECIFIC GRAVITY 1.016; UROBILINOGEN,URINE NEGATIVE mg/dL (<2.0)
[2018-03-19] MEDS: PREDNISONE 20 MG TABLET PO SCH (19:30)
[2018-03-19] MEDS: NORMAL SALINE 1000 ML 1,000 ML with POTASSIUM CHLORIDE 20 MEQ, MAGNESIUM SULFATE 8 MEQ,... IV SCH ×5 (19:30)
[2018-03-19] MEDS: OLANZAPINE 2.5 MG TABLET PO SCH (19:30)
[2018-03-19] MEDS: TAMSULOSIN HCL 0.4 MG CAP.SR.24H PO SCH (19:31)
[2018-03-20 05:49] LABS: HEMATOCRIT 25.9 % (36.0-47.0); HEMOGLOBIN 8.7 g/dL (12.0-15.5); MEAN CORPUSCULAR HEMOGLOBIN 35.8 pg (27.0-33.4); MEAN CORPUSCULAR HGB CONC 33.8 g/dL (32.0-36.0); MEAN CORPUSCULAR VOLUME 106 fl (80-97); PLATELET COUNT 116 10^3/uL (150-450); RED BLOOD COUNT 2.45 10^6/uL (3.72-5.28); RED CELL DISTRIBUTION WIDTH 25.2 % (11.5-14.0); WHITE BLOOD COUNT 7.3 10^3/uL (4.0-10.5)
[2018-03-20 06:01] LABS: ANION GAP 7 (5-19); BLOOD UREA NITROGEN 15 mg/dL (7-20); CALCIUM 8.6 mg/dL (8.4-10.2); CARBON DIOXIDE 24 mmol/L (22-30); CHLORIDE 116 mmol/L (98-107); GLUCOSE 115 mg/dL (75-110); PHOSPHORUS 3.7 mg/dL (2.5-4.5); POTASSIUM 4.1 mmol/L (3.6-5.0); SODIUM 146.5 mmol/L (137-145)
[2018-03-20] MEDS: NICOTINE 7 MG/24 HR PATCH.TD24 TD SCH (10:03)
[2018-03-20] MEDS: PREDNISONE 20 MG TABLET PO SCH (10:04)
[2018-03-20] MEDS: OLANZAPINE 2.5 MG TABLET PO SCH (10:04)
[2018-03-20] MEDS: FERROUS SULFATE 325 MG TABLET PO SCH (10:04)
[2018-03-20] MEDS: MAGNESIUM OXIDE 400 MG TABLET PO SCH (10:04)
--- NOTE | 2018-03-20 13:23 | PDOC PROGRESS REPORT ---
Subjective Progress Note for:: 03/20/18 Subjective:: The patient is a 52-year-old female with a past medical history of atrial fibrillation and alcohol dependence who was admitted 02/24/2018 for anemia, hypotension, UTI, and metabolic encephalopathy. The patient is seen on morning rounds. She is found resting in bed comfortably on room air. She is awake and alert to self only. She speaks in non-sensible sentences; does not follow commands, then spontaneously says, "I don't want to eat that." ROS is limited secondary to mental status. No concerns per nursing. Reason For Visit: ENCEPHALOPATHY,UTI Physical Exam Vital Signs: Temp Pulse Resp BP Pulse Ox 97.2 F 81 22 H 110/80 100 03/20/18 11:18 03/20/18 11:18 03/20/18 11:18 03/20/18 11:18 03/20/18 11:18 Intake & Output 03/19/18 03/20/18 03/21/18 06:59 06:59 06:59 Intake Total 1718 2156 Output Total 400 595 Balance 1318 1561 Weight 61.7 kg 75.2 kg General appearance: PRESENT: no acute distress, thin, well-developed, well- nourished Head exam: PRESENT: atraumatic, normocephalic Eye exam: PRESENT: conjunctiva pink, EOMI, PERRLA. ABSENT: scleral icterus Ear exam: PRESENT: normal external ear exam Mouth exam: PRESENT: moist, tongue midline Respiratory exam: PRESENT: clear to auscultation jake, symmetrical, unlabored. ABSENT: rales, rhonchi, wheezes Cardiovascular exam: PRESENT: RRR. ABSENT: diastolic murmur, rubs, systolic murmur Pulses: PRESENT: normal dorsalis pedis pul GI/Abdominal exam: PRESENT: normal bowel sounds, soft. ABSENT: distended, guarding, mass, organolmegaly, rebound, tenderness Rectal exam: PRESENT: deferred Extremities exam: PRESENT: full ROM - pontaneous movements of all extremities but does not participate in exam. ABSENT: calf tenderness, clubbing, pedal edema Neurological exam: PRESENT: alert, awake, oriented to person, CN II-XII grossly intact. ABSENT: oriented to place, oriented to time, oriented to situation, motor sensory deficit Skin exam: PRESENT: dry, intact, warm. ABSENT: cyanosis, rash Results Laboratory Results: 03/20/18 04:24 03/20/18 04:24 03/19/18 03/20/18 03/20/18 15:45 04:24 04:24 WBC 7.3 RBC 2.45 L Hgb 8.7 L Hct 25.9 L MCV 106 H MCH 35.8 H MCHC 33.8 RDW 25.2 H Plt Count 116 L Sodium 146.5 H Potassium 4.1 Chloride 116 H Carbon Dioxide 24 Anion Gap 7 BUN 15 Creatinine 0.86 Est GFR ( Amer) > 60 Est GFR (Non-Af Amer) > 60 Glucose 115 H Calcium 8.6 Phosphorus 3.7 Magnesium 1.9 Urine Color YELLOW Urine Appearance SLIGHTLY-CLOUDY Urine pH 7.0 Ur Specific Pierce 1.016 Urine Protein 30 H Urine Glucose (UA) NEGATIVE Urine Ketones NEGATIVE Urine Blood SMALL H Urine Nitrite NEGATIVE Ur Leukocyte Esterase SMALL H Urine WBC (Auto) 17 Urine RBC (Auto) 2 02/24/18 09:55 Troponin I < 0.012 Impressions: Chest X-Ray 02/24/18 09:59 IMPRESSION: NO ACUTE RADIOGRAPHIC FINDING IN THE CHEST. Abdomen Ultrasound 02/25/18 00:00 IMPRESSION: Limited study as noted above. Gallbladder was not visualized. FATTY INFILTRATION OF THE LIVER. Other findings as noted above Head MRI 03/01/18 00:00 IMPRESSION: No acute findings. Very limited study EVIDENCE OF ACUTE STROKE: NO. Guidance Fluoroscopy 03/07/18 00:00 IMPRESSION: Lumbar puncture under fluoroscopy. No immediate complication. Lumbar Puncture 03/07/18 09:00 IMPRESSION: Lumbar puncture under fluoroscopy. No immediate complication. Assessment & Plan - Diagnosis (1) Megaloblastic anemia due to alcoholism Is this a current diagnosis for this admission?: Yes Plan: Secondary to alcohol abuse and nutritional deficiency; hemoglobin is stable at 8.7 Iron and TIBC both low, B12 level 347, Folic acid 3.59, folate 9.78 TSH 1.87. Occult stools negative x3 Now status post transfusion of 4 units PRBCs earlier this admission Continue B12, folic acid, thiamine, multivitamin and iron supplements. Registered dietitian is consulted; appreciate their assistance. (2) Wernicke-Korsakoff syndrome (alcoholic) Is this a current diagnosis for this admission?: Yes Plan: 03/01/2018 MRI brain done but not optimal. Did not show any acute abnormalities. B12 level on admission 347, folic acid 3.59, TSH 1.87. Continue on thiamine, B12, folic acid daily. Fall, aspiration precautions. Discharge planning is consulted; will require SNF for rn long term care placement. (3) Hallucination Is this a current diagnosis for this admission?: Yes Plan: Secondary to acute metabolic encephalopathy in the setting of Korsakoff syndrome. Patient continues to have auditory and visual hallucinations. She has had an extensive workup including a brain MRI which was suboptimal but did not show acute abnormalities Negative HIV, RPR, HSV Negative UDS and serum EtOH EEG was technically poor secondary to artifact; does demonstrate generalized background slowing consistent with diffuse cerebral dysfunction. LP completed 02/05/2018; Gram stain and cultures were negative. No evidence of active infection; afebrile, normal WBC A previous provider spoke with neurologist at [facility]; he stated that it would be difficult to diagnose any underlying neuro degenerative disorders without prehospital history. Unfortunately, the patient does not have a reliable family member or friend to provide this background information. The patient is no longer receiving benzodiazepines; scheduled Zyprexa with Haldol IM for acute agitation. Psychiatry has been consulted; have determined that the patient lacks capacity. Discharge planning is consulted to assist with difficult disposition. Provide for patient safety; fall precautions. (4) Metabolic encephalopathy Is this a current diagnosis for this admission?: Yes Plan: Multifactorial. Likely due to alcoholic Korsakoff syndrome. Evaluation and plan as above. (5) Alcohol dependence, continuous Is this a current diagnosis for this admission?: Yes Plan: Continue multivitamin, thiamine, folic acid, ferrous sulfate supplementation. Registered dietitian is consulted. Discharge planning is consulted. (6) Tobacco abuse Is this a current diagnosis for this admission?: Yes Plan: Smoking cessation is advised; nicotine replacement therapies are provided. (7) UTI (urinary tract infection) Qualifiers: Urinary tract infection type: site unspecified Hematuria presence: without hematuria Qualified Code(s): N39.0 - Urinary tract infection, site not specified Is this a current diagnosis for this admission?: Yes Plan: Resolved. (8) Alcoholic cirrhosis Qualifiers: Ascites presence: without ascites Qualified Code(s): K70.30 - Alcoholic cirrhosis of liver without ascites Is this a current diagnosis for this admission?: Yes Plan: Stable; no acute changes. The patient has been refusing medications, all liquids and food. We will continue maintenance IV fluids. Will supplement thiamine, folic acid via banana bag nightly. - Time Time Spent with patient: Less than 15 minutes Medications reviewed and adjusted accordingly: Yes Anticipated discharge: Home Within: when bed available - Needs snf palcement
[2018-03-20] MEDS: TAMSULOSIN HCL 0.4 MG CAP.SR.24H PO SCH (17:15)
[2018-03-20] MEDS: NORMAL SALINE 1000 ML 1,000 ML with POTASSIUM CHLORIDE 20 MEQ, MAGNESIUM SULFATE 8 MEQ,... IV SCH ×5 (17:15)
[2018-03-20] MEDS ORDERED: PREDNISOLONE SOD PHOS 15 MG/5 ML ORAL SYRING ONE (17:59)
[2018-03-20] MEDS ORDERED: PREDNISOLONE SOD PHOS 15 MG/5 ML ORAL SYRING PO SCH (18:00)
[2018-03-20] MEDS: MIRTAZAPINE 15 MG TABLET PO SCH (21:07)
[2018-03-21 05:41] LABS: BLOOD UREA NITROGEN 17 mg/dL (7-20); CALCIUM 8.7 mg/dL (8.4-10.2); GLUCOSE 99 mg/dL (75-110); POTASSIUM 4.2 mmol/L (3.6-5.0)
[2018-03-21 05:46] LABS: ANION GAP 5 (5-19); CARBON DIOXIDE 24 mmol/L (22-30); CHLORIDE 117 mmol/L (98-107); SODIUM 146.3 mmol/L (137-145)
[2018-03-21 08:59] LABS: HEMATOCRIT 22.9 % (36.0-47.0); MEAN CORPUSCULAR HGB CONC 33.2 g/dL (32.0-36.0); MEAN CORPUSCULAR VOLUME 105 fl (80-97); PLATELET COUNT 105 10^3/uL (150-450); RED BLOOD COUNT 2.17 10^6/uL (3.72-5.28)
[2018-03-21 09:27] LABS: HEMOGLOBIN 7.6 g/dL (12.0-15.5)
[2018-03-21] MEDS ORDERED: COSYNTROPIN INJ 0.25 MG VIAL IV ONE (09:30)
[2018-03-21] MEDS ORDERED: CEFTRIAXONE SODIUM 1,000 MG in DEXTROSE 5%-WATER 50 ML IV SCH (10:00)
[2018-03-21] MEDS ORDERED: CEFTRIAXONE 1 GM/D5W RTU 1 GM/50 ML RTUPB IV SCH (10:00)
[2018-03-21] MEDS: OLANZAPINE 2.5 MG TABLET PO SCH (10:06)
[2018-03-21] MEDS: NICOTINE 7 MG/24 HR PATCH.TD24 TD SCH (10:07)
[2018-03-21] MEDS: FERROUS SULFATE 325 MG TABLET PO SCH (10:07)
[2018-03-21] MEDS ORDERED: PREDNISOLONE SOD PHOS 15 MG/5 ML ORAL SYRING PO SCH (11:30)
[2018-03-21] MEDS: AMOXICILLIN TRIHYD 250 MG/5 ML SUSP 80 ML PO SCH ×2 (12:40→21:27)
[2018-03-21] MEDS ORDERED: NORMAL SALINE 250 ML IV PRN ×2 (13:28)
[2018-03-21] MEDS ORDERED: HYDROCORTISONE SOD SUCCINATE INJ/PF 100 MG/2 ML SDV IV ONE (14:30)
[2018-03-21] MEDS: SODIUM CHLORIDE NASAL SPRAY 44 ML NASL SCH ×2 (15:08→21:28)
--- NOTE | 2018-03-21 15:56 | PDOC PROGRESS REPORT ---
Subjective Progress Note for:: 03/21/18 Subjective:: The patient is a 52-year-old female with a past medical history of atrial fibrillation and alcohol dependence who was admitted 02/24/2018 for anemia, hypotension, UTI, and metabolic encephalopathy. The patient is seen on morning rounds. She is found resting in bed comfortably on room air. She is awake and alert to self only. She answers a few questions appropriately; tells me she is cold and that she has a runny nose. She continues to talk, but her words become incomprehensible. ROS is limited secondary to mental status. She appears to be comfortable and not in any acute distress. No concerns per nursing; does report that she continues to eat only a few bites at each meals with strong encouragement and prompting. Reason For Visit: ENCEPHALOPATHY,UTI Physical Exam Vital Signs: Temp Pulse Resp BP Pulse Ox 97.8 F 71 20 93/56 L 96 03/21/18 11:28 03/21/18 11:28 03/21/18 11:28 03/21/18 11:28 03/21/18 11:28 Intake & Output 03/20/18 03/21/18 03/22/18 06:59 06:59 06:59 Intake Total 2156 1141 387 Output Total 595 550 Balance 1561 591 387 Weight 75.2 kg General appearance: PRESENT: no acute distress, thin, well-developed Head exam: PRESENT: atraumatic, normocephalic Eye exam: PRESENT: conjunctiva pink, EOMI, PERRLA. ABSENT: scleral icterus Ear exam: PRESENT: normal external ear exam Mouth exam: PRESENT: moist, tongue midline Neck exam: ABSENT: carotid bruit, JVD, lymphadenopathy, thyromegaly Respiratory exam: PRESENT: clear to auscultation jake, symmetrical, unlabored. ABSENT: rales, rhonchi, wheezes Cardiovascular exam: PRESENT: RRR, +S1, +S2. ABSENT: diastolic murmur, rubs, systolic murmur Pulses: PRESENT: normal dorsalis pedis pul GI/Abdominal exam: PRESENT: normal bowel sounds, soft. ABSENT: distended, guarding, mass, organolmegaly, rebound, tenderness Rectal exam: PRESENT: deferred Extremities exam: PRESENT: full ROM. ABSENT: calf tenderness, clubbing, pedal edema Neurological exam: PRESENT: alert, awake, oriented to person, CN II-XII grossly intact, other - Incoherent speech. ABSENT: oriented to place, oriented to time, oriented to situation, motor sensory deficit Psychiatric exam: PRESENT: appropriate affect, normal mood. ABSENT: homicidal ideation, suicidal ideation Skin exam: PRESENT: dry, intact, warm. ABSENT: cyanosis, rash Results Laboratory Results: 03/21/18 08:44 03/21/18 04:36 03/21/18 03/21/18 03/21/18 04:36 08:44 08:44 WBC 8.0 RBC 2.17 L Hgb 7.6 L Hct 22.9 L MCV 105 H MCH 35.0 H MCHC 33.2 RDW 25.0 H Plt Count 105 L Sodium 146.3 H Potassium 4.2 Chloride 117 H Carbon Dioxide 24 Anion Gap 5 BUN 17 Creatinine 0.77 Est GFR ( Amer) > 60 Est GFR (Non-Af Amer) > 60 Glucose 99 Lactic Acid 0.6 L Calcium 8.7 Blood Type Antibody Screen 03/21/18 13:42 WBC RBC Hgb Hct MCV MCH MCHC RDW Plt Count Sodium Potassium Chloride Carbon Dioxide Anion Gap BUN Creatinine Est GFR ( Amer) Est GFR (Non-Af Amer) Glucose Lactic Acid Calcium Blood Type O POSITIVE Antibody Screen NEGATIVE 03/19/18 02:57 Catheterized Urine Urine Culture - Final Enterococcus Faecalis(Group D) 02/24/18 09:55 Troponin I < 0.012 Impressions: Chest X-Ray 02/24/18 09:59 IMPRESSION: NO ACUTE RADIOGRAPHIC FINDING IN THE CHEST. Abdomen Ultrasound 02/25/18 00:00 IMPRESSION: Limited study as noted above. Gallbladder was not visualized. FATTY INFILTRATION OF THE LIVER. Other findings as noted above Head MRI 03/01/18 00:00 IMPRESSION: No acute findings. Very limited study EVIDENCE OF ACUTE STROKE: NO. Guidance Fluoroscopy 03/07/18 00:00 IMPRESSION: Lumbar puncture under fluoroscopy. No immediate complication. Lumbar Puncture 03/07/18 09:00 IMPRESSION: Lumbar puncture under fluoroscopy. No immediate complication. 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 Currently 7.6 Iron and TIBC both low, B12 level 347, Folic acid 3.59, folate 9.78 TSH 1.87. Occult stools negative x3 Now status post transfusion of 4 units PRBCs earlier this admission An additional 1 unit of PRBCs is ordered. Continue B12, folic acid, thiamine, multivitamin and iron supplements. Registered dietitian is consulted; appreciate their assistance. (2) Wernicke-Korsakoff syndrome (alcoholic) Is this a current diagnosis for this admission?: Yes Plan: 03/01/2018 MRI brain done but not optimal. Did not show any acute abnormalities. B12 level on admission 347, folic acid 3.59, TSH 1.87. Continue on thiamine, B12, folic acid daily. Fall, aspiration precautions. Discharge planning is consulted; will require SNF for terminal superintendent placement. (3) Hallucination Is this a current diagnosis for this admission?: Yes Plan: Appears improved; less report of emotional disturbance/anxiety regarding hallucinations per nursing. Secondary to acute metabolic encephalopathy in the setting of Korsakoff syndrome. Patient continues to have auditory and visual hallucinations. She has had an extensive workup including a brain MRI which was suboptimal but did not show acute abnormalities Negative HIV, RPR, HSV Negative UDS and serum EtOH EEG was technically poor secondary to artifact; does demonstrate generalized background slowing consistent with diffuse cerebral dysfunction. LP completed 02/05/2018; Gram stain and cultures were negative. No evidence of active infection; afebrile, normal WBC Continue Zyprexa 2.5 mg daily. Haldol 2 mg IM every 4 hours. Of note, the patient has been started on IV hydrocortisone for adrenal insufficiency; side effect may include steroid psychosis. Psychiatry has been consulted; have determined that the patient lacks capacity. Discharge planning is consulted to assist with difficult disposition. Provide for patient safety; fall precautions. (4) Metabolic encephalopathy Is this a current diagnosis for this admission?: Yes Plan: Multifactorial. Likely due to alcoholic Korsakoff syndrome and adrenal insufficiency. Evaluation and plan as above. (5) Alcohol dependence, continuous Is this a current diagnosis for this admission?: Yes Plan: Continue multivitamin, thiamine, folic acid, ferrous sulfate supplementation. Registered dietitian is consulted. Discharge planning is consulted. (6) Tobacco abuse Is this a current diagnosis for this admission?: Yes Plan: Smoking cessation is advised; nicotine replacement therapies are provided. (7) UTI (urinary tract infection) Qualifiers: Urinary tract infection type: site unspecified Hematuria presence: without hematuria Qualified Code(s): N39.0 - Urinary tract infection, site not specified Is this a current diagnosis for this admission?: Yes Plan: Recurrent. Urinalysis (03/19/2018) slightly suggestive of UTI. Urine culture (03/19/2018) >100,000 colonies of enterococcus. Will catheter is removed; monitor for urinary retention. The patient is placed on amoxicillin 500 mg/10mL's; liquid preparation chosen for increased patient compliance. Day #1 Continue IV fluids; encourage p.o. fluids. (8) Alcoholic cirrhosis Qualifiers: Ascites presence: without ascites Qualified Code(s): K70.30 - Alcoholic cirrhosis of liver without ascites Is this a current diagnosis for this admission?: Yes Plan: Stable; no acute changes. The patient has been refusing medications, all liquids and food. We will continue maintenance IV fluids. Will supplement thiamine, folic acid via banana bag nightly. (9) Hypothermia Is this a current diagnosis for this admission?: Yes Plan: The patient was noted to be hypothermic overnight (95.7 rectal). Likely secondary to a combination of adrenal insufficiency and acute illness (UTI). Patient does not appear to be septic. WBCs are normal, lactic acid normal. Urinalysis and urine culture are suggestive of urinary tract infection. She is placed on a Feng hugger. Amoxicillin as above. Have started IV hydrocortisone for adrenal insufficiency. (10) Adrenal insufficiency Is this a current diagnosis for this admission?: Yes Plan: Random cortisol (midnight) 9.86. Cosyntropin stimulating test is low at 16.3; indicates adrenal insufficiency. TSH is normal at 1.87 Prolactin was normal at 9.314 PTH is normal at 22.3. She is provided IV hydrocortisone 100 mg x1. Start hydrocortisone IV 50 mg every 8 hours; continue until vital signs stabilize (temperature regulation, normotensive) and patient is able to tolerate p.o. food/medications consistently. - Time Time Spent with patient: 25-34 minutes Medications reviewed and adjusted accordingly: Yes Anticipated discharge: SNF - Long-term care
[2018-03-21] MEDS: NORMAL SALINE 1000 ML 1,000 ML with POTASSIUM CHLORIDE 20 MEQ, MAGNESIUM SULFATE 8 MEQ,... IV SCH ×5 (18:48)
[2018-03-21] MEDS: TAMSULOSIN HCL 0.4 MG CAP.SR.24H PO SCH (18:48)
[2018-03-21 20:49] LABS: HEMATOCRIT 27.4 % (36.0-47.0); HEMOGLOBIN 9.3 g/dL (12.0-15.5); MEAN CORPUSCULAR HEMOGLOBIN 34.7 pg (27.0-33.4); MEAN CORPUSCULAR VOLUME 102 fl (80-97); PLATELET COUNT 107 10^3/uL (150-450); RED BLOOD COUNT 2.68 10^6/uL (3.72-5.28); RED CELL DISTRIBUTION WIDTH 25.7 % (11.5-14.0); WHITE BLOOD COUNT 9.9 10^3/uL (4.0-10.5)
[2018-03-21] MEDS: MIRTAZAPINE 15 MG TABLET PO SCH (21:28)
[2018-03-21] MEDS: HYDROCORTISONE SOD SUCCINATE INJ/PF 100 MG/2 ML SDV IV SCH (21:28)
[2018-03-22] MEDS: HALOPERIDOL LACTATE INJ 5 MG/1 ML VIAL IM PRN (03:48)
[2018-03-22] MEDS: HYDROCORTISONE SOD SUCCINATE INJ/PF 100 MG/2 ML SDV IV SCH ×3 (06:02→21:49)
[2018-03-22] MEDS: AMOXICILLIN TRIHYD 250 MG/5 ML SUSP 80 ML PO SCH ×3 (06:02→21:50)
[2018-03-22] MEDS: FERROUS SULFATE 325 MG TABLET PO SCH (10:46)
[2018-03-22] MEDS: OLANZAPINE 2.5 MG TABLET PO SCH (10:47)
[2018-03-22] MEDS: NICOTINE 7 MG/24 HR PATCH.TD24 TD SCH (10:47)
[2018-03-22] MEDS: SODIUM CHLORIDE NASAL SPRAY 44 ML NASL SCH ×4 (10:54→21:51)
--- NOTE | 2018-03-22 16:50 | PDOC PROGRESS REPORT ---
Subjective Progress Note for:: 03/22/18 Subjective:: The patient is a 52-year-old female with a past medical history of atrial fibrillation and alcohol dependence who was admitted 02/24/2018 for anemia, hypotension, UTI, and metabolic encephalopathy. Ms Mora is resting comfortably in bed at the time of my evaluation. She is AAO to self and month. She is pleasant and does recall my name at the end of the evaluations. She gives me facts about her when prompted/questioned, though its not certain if these are factual or confabulated. Nursing does not report any concerns. She continues to eat only small amounts of her food, and has been encouraged to increase po intake. She is agreeable to trying to increase po intake. She denies F/C/SOB/CP or any other acute issues. She does seem to be hallucinating, as she asks me if the two kittens laying on her bed can stay with her in the room. For a moment she strokes the air almost as if petting a cat. Reason For Visit: ENCEPHALOPATHY,UTI Physical Exam Vital Signs: Temp Pulse Resp BP Pulse Ox 97.6 F 54 L 19 119/58 L 97 03/22/18 12:13 03/22/18 12:13 03/22/18 12:13 03/22/18 12:13 03/22/18 12:13 Intake & Output 03/21/18 03/22/18 03/23/18 06:59 06:59 06:59 Intake Total 1141 2483 Output Total 550 Balance 591 2483 General appearance: PRESENT: no acute distress, disheveled, other - unkept Head exam: PRESENT: atraumatic Ear exam: PRESENT: normal external ear exam Mouth exam: PRESENT: moist, tongue midline Teeth exam: PRESENT: poor dentation Respiratory exam: PRESENT: clear to auscultation jake. ABSENT: rales, rhonchi, wheezes Cardiovascular exam: PRESENT: RRR. ABSENT: diastolic murmur, rubs, systolic murmur GI/Abdominal exam: PRESENT: soft - not TTP or distended. no hepatomegaly apperciated Rectal exam: PRESENT: deferred Extremities exam: PRESENT: pedal edema - 1+ BLLE Neurological exam: PRESENT: alert, altered, awake, oriented to person - gait not assessed Psychiatric exam: PRESENT: unusual affect, other - flat/blunted but pleasant. VH of kittens. Results Laboratory Results: 03/21/18 20:25 03/21/18 04:36 03/21/18 03/21/18 13:42 20:25 WBC 9.9 RBC 2.68 L Hgb 9.3 L Hct 27.4 L MCV 102 H MCH 34.7 H MCHC 34.0 RDW 25.7 H Plt Count 107 L Blood Type O POSITIVE Antibody Screen NEGATIVE 02/24/18 09:55 Troponin I < 0.012 Impressions: Chest X-Ray 02/24/18 09:59 IMPRESSION: NO ACUTE RADIOGRAPHIC FINDING IN THE CHEST. Abdomen Ultrasound 02/25/18 00:00 IMPRESSION: Limited study as noted above. Gallbladder was not visualized. F ATTY INFILTRATION OF THE LIVER. Other findings as noted above Head MRI 03/01/18 00:00 IMPRESSION: No acute findings. Very limited study EVIDENCE OF ACUTE STROKE: NO. Guidance Fluoroscopy 03/07/18 00:00 IMPRESSION: Lumbar puncture under fluoroscopy. No immediate complication. Lumbar Puncture 03/07/18 09:00 IMPRESSION: Lumbar puncture under fluoroscopy. No immediate complication. Assessment & Plan - Diagnosis (1) Adrenal insufficiency Is this a current diagnosis for this admission?: Yes (2) Alcohol dependence, continuous Is this a current diagnosis for this admission?: Yes (3) Alcoholic Korsakoff syndrome Is this a current diagnosis for this admission?: Yes (4) Alcoholic cirrhosis Qualifiers: Ascites presence: without ascites Qualified Code(s): K70.30 - Alcoholic cirrhosis of liver without ascites Is this a current diagnosis for this admission?: Yes (5) Do not resuscitate Is this a current diagnosis for this admission?: Yes (6) Hallucination Is this a current diagnosis for this admission?: Yes (7) Megaloblastic anemia due to alcoholism Is this a current diagnosis for this admission?: Yes (8) Metabolic encephalopathy Is this a current diagnosis for this admission?: Yes (9) Paroxysmal atrial fibrillation Is this a current diagnosis for this admission?: Yes (10) UTI (urinary tract infection) Qualifiers: Urinary tract infection type: site unspecified Hematuria presence: without hematuria Qualified Code(s): N39.0 - Urinary tract infection, site not specified Is this a current diagnosis for this admission?: Yes (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) Is this a current diagnosis for this admission?: Yes - Time Time Spent with patient: 25-34 minutes Medications reviewed and adjusted accordingly: Yes - Inpatient Certification Based on my medical assessment, after consideration of the patient's comorbidities, presenting symptoms, or acuity I expect that the services needed warrant INPATIENT care.: Yes I certify that my determination is in accordance with my understanding of Medicare's requirements for reasonable and necessary INPATIENT services [42 CFR 412.3e].: Yes - Plan Summary Plan Summary: (1) Megaloblastic anemia due to alcoholism Is this a current diagnosis for this admission?: Yes Plan: -Suspected to be secondary to alcohol abuse and nutritional deficiency; no acute signs of bleeding -Iron and TIBC both low, Normal tsh, b12, and folate -Occult stools negative x3 -s/p 5u PRBC. Last was 03/21. Hgb currently 9.3 -Continue B12, folic acid, thiamine, multivitamin and iron supplements. -RD involved. -monitoring (2) Wernicke-Korsakoff syndrome (alcoholic) Is this a current diagnosis for this admission?: Yes Plan: -03/01/2018 MRI brain done but not optimal. Did not show any acute abnormalities. -normal b12, folate, tsh -Continue on thiamine, B12, folic acid daily. -Fall and aspiration precautions. -Discharge planning involved. will require SNF for washery engineer placement. (3) Hallucination Is this a current diagnosis for this admission?: Yes Plan: -Appears to have improved; less report of emotional disturbance/anxiety regarding hallucinations per nursing. -Secondary to acute metabolic encephalopathy in the setting of Korsakoff syndrome. She has reported auditory and visual hallucinations. -She's had an extensive workup including a brain MRI which was suboptimal but did not show acute abnormalities -Negative HIV, RPR, HSV, UDS and serum EtOH -EEG was technically poor secondary to artifact; does demonstrate generalized background slowing consistent with diffuse cerebral dysfunction. -LP completed 02/05/2018; Gram stain and cultures were negative. -No evidence of active infection -Continue Zyprexa 2.5 mg daily. -Haldol 2 mg IM every 4 hours. -Of note, the patient has been started on IV hydrocortisone for adrenal insufficiency; side effect may include steroid psychosis. -Psychiatry reports she does not have capacity. discharge planning involved. (4) Metabolic encephalopathy Is this a current diagnosis for this admission?: Yes Plan: -Multifactorial. Likely due to alcoholic Korsakoff syndrome and adrenal insufficiency. Evaluation and plan as above. (5) Alcohol dependence, continuous Is this a current diagnosis for this admission?: Yes Plan: -Outside of window for acute issues (ie: seizure). Continue multivitamin, thiamine, folic acid, ferrous sulfate supplementation. (6) Tobacco abuse Is this a current diagnosis for this admission?: Yes Plan: -Smoking cessation has been advised; nicotine replacement therapies are provided. (7) UTI (urinary tract infection) Qualifiers: Urinary tract infection type: site unspecified Hematuria presence: without hematuria Qualified Code(s): N39.0 - Urinary tract infection, site not specified Is this a current diagnosis for this admission?: Yes Plan: -Recurrent. -Urine culture (03/19/2018) >100,000 colonies of enterococcus. -7 day course of amox started 03/21 -Will catheter is removed; monitor for urinary retention. -liquid preparation chosen for increased patient compliance -Continue IV fluids; encourage p.o. fluids. (8) Alcoholic cirrhosis Qualifiers: Ascites presence: without ascites Qualified Code(s): K70.30 - Alcoholic cirrhosis of liver without ascites Is this a current diagnosis for this admission?: Yes Plan: -Stable; no acute changes. -The patient has been refusing medications, all liquids and food. -We will continue maintenance IV fluids and vitamin supplementation. (9) Hypothermia Is this a current diagnosis for this admission?: Yes Plan: -improved/resolved -noted on 03/20-03/21 (95.7 rectal). Likely secondary to a combination of adrenal insufficiency and acute illness (UTI). Patient does not appear to be septic. Normal WBC and lactate -Feng esqueda. -Amoxicillin as above. -IV hydrocortisone for adrenal insufficiency. (10) Adrenal insufficiency Is this a current diagnosis for this admission?: Yes Plan: -Random cortisol (midnight) 9.86. Cosyntropin stimulating test is low at 16.3; indicates adrenal insufficiency. -TSH is normal at 1.87. Prolactin was normal at 9.314. PTH is normal at 22.3. Started off with IV hydrocortisone 100 mg x1, and has since moved to hydrocortisone IV 50 mg every 8 hours; continue until vital signs stabilize (temperature regulation, normotensive) and patient is able to tolerate p.o. food /medications consistently.
[2018-03-22] MEDS: TAMSULOSIN HCL 0.4 MG CAP.SR.24H PO SCH (17:40)
[2018-03-22] MEDS: NORMAL SALINE 1000 ML 1,000 ML with POTASSIUM CHLORIDE 20 MEQ, MAGNESIUM SULFATE 8 MEQ,... IV SCH ×5 (17:40)
[2018-03-22] MEDS: MIRTAZAPINE 15 MG TABLET PO SCH (21:50)
[2018-03-23] MEDS: AMOXICILLIN TRIHYD 250 MG/5 ML SUSP 80 ML PO SCH ×3 (05:46→21:58)
[2018-03-23] MEDS: HYDROCORTISONE SOD SUCCINATE INJ/PF 100 MG/2 ML SDV IV SCH ×3 (05:46→21:57)
[2018-03-23 06:30] LABS: ABSOLUTE MONOCYTES (AUTO) 0.5 10^3/uL (0.1-1.4); ABSOLUTE NEUT (AUTO) 7.2 10^3/uL (1.7-8.2); BASOPHILS % (AUTO) 0.1 % (0-2); HEMATOCRIT 24.9 % (36.0-47.0); HEMOGLOBIN 8.4 g/dL (12.0-15.5); LYMPHOCYTES % (AUTO) 11.7 % (13-45); MEAN CORPUSCULAR HEMOGLOBIN 34.5 pg (27.0-33.4); MEAN CORPUSCULAR HGB CONC 33.5 g/dL (32.0-36.0); MEAN CORPUSCULAR VOLUME 103 fl (80-97); MONOCYTES % (AUTO) 5.9 % (3-13); PLATELET COUNT 104 10^3/uL (150-450); RED BLOOD COUNT 2.42 10^6/uL (3.72-5.28); RED CELL DISTRIBUTION WIDTH 25.5 % (11.5-14.0); SEGMENTED NEUTROPHILS % (AUTO) 82.3 % (42-78); TOTAL CELLS COUNTED % (AUTO) 100 %; WHITE BLOOD COUNT 8.7 10^3/uL (4.0-10.5)
[2018-03-23 06:39] LABS: ANISOCYTOSIS 2+; HYPOCHROMASIA SLIGHT; PLATELET COMMENT ADEQUATE; POIKILOCYTOSIS SLIGHT; POLYCHROMASIA SLIGHT; TARGET CELLS SLIGHT
[2018-03-23 06:40] LABS: BURR CELLS SLIGHT; TEAR DROP CELLS SLIGHT
[2018-03-23] MEDS: SODIUM CHLORIDE NASAL SPRAY 44 ML NASL SCH ×4 (07:21→22:00)
[2018-03-23] MEDS: FERROUS SULFATE 325 MG TABLET PO SCH (10:08)
[2018-03-23] MEDS: OLANZAPINE 2.5 MG TABLET PO SCH (10:08)
[2018-03-23] MEDS: NICOTINE 7 MG/24 HR PATCH.TD24 TD SCH (10:08)
[2018-03-23 13:45] LABS: HEMATOCRIT 25.6 % (36.0-47.0); HEMOGLOBIN 8.6 g/dL (12.0-15.5); MEAN CORPUSCULAR HEMOGLOBIN 34.8 pg (27.0-33.4); MEAN CORPUSCULAR HGB CONC 33.6 g/dL (32.0-36.0); MEAN CORPUSCULAR VOLUME 104 fl (80-97); PLATELET COUNT 107 10^3/uL (150-450); RED BLOOD COUNT 2.47 10^6/uL (3.72-5.28); RED CELL DISTRIBUTION WIDTH 25.3 % (11.5-14.0)
[2018-03-23 13:56] LABS: BLOOD UREA NITROGEN 29 mg/dL (7-20); CALCIUM 9.2 mg/dL (8.4-10.2); CARBON DIOXIDE 25 mmol/L (22-30); CHLORIDE 117 mmol/L (98-107); GLUCOSE 108 mg/dL (75-110); POTASSIUM 3.7 mmol/L (3.6-5.0)
[2018-03-23 14:02] LABS: ANION GAP 4 (5-19); SODIUM 146.1 mmol/L (137-145)
[2018-03-23 14:19] LABS: ABSOLUTE LYMPHOCYTES# (MANUAL) 1.6 10^3/uL (0.5-4.7); ABSOLUTE MONOCYTES # (MANUAL) 0.1 10^3/uL (0.1-1.4); ABSOLUTE NEUTROPHILS# (MANUAL) 7.3 10^3/uL (1.7-8.2); BASOPHILS % (MANUAL) 0 % (0-2); EOSINOPHILS % (MANUAL) 0 % (0-6); LYMPHOCYTES % (MANUAL) 18 % (13-45); MONOCYTES % (MANUAL) 1 % (3-13); PLATELET COMMENT DECREASED; SEGMENTED NEUTROPHILS % (MAN) 81 % (42-78); TOTAL CELLS COUNTED 100; TOXIC GRANULATION 2+; TOXIC VACUOLATION PRESENT
[2018-03-23 14:20] LABS: OVALOCYTES 1+; POIKILOCYTOSIS 1+; POLYCHROMASIA 1+
--- NOTE | 2018-03-23 15:48 | PDOC PROGRESS REPORT ---
Subjective Progress Note for:: 03/23/18 Subjective:: The patient is a 52-year-old female with a past medical history of atrial fibrillation and alcohol dependence who was admitted 02/24/2018 for anemia, hypotension, UTI, and metabolic encephalopathy. Ms Mora seems to be more tired today than yesterday. Nursing confirms she was active this am. her boyfriend came to visit her, and reports a long standing heavy use of etoh by the patient. nursing also confirms she seems to be acting her "usual." she continues to have VH (primarily regarding cats). they do not appear distressing to her. her appetite is still limited. her vs appear stable, and no systemic symptoms of infection are apparent as she continues to be on AMOX for her UTI per c/s. Reason For Visit: ENCEPHALOPATHY,UTI Physical Exam Vital Signs: Temp Pulse Resp BP Pulse Ox 97.5 F 58 L 15 116/55 L 96 03/23/18 15:23 03/23/18 15:23 03/23/18 15:23 03/23/18 15:23 03/23/18 15:23 Intake & Output 03/22/18 03/23/18 03/24/18 06:59 06:59 06:59 Intake Total 2483 1459 Balance 2483 1459 General appearance: PRESENT: no acute distress, disheveled, thin Head exam: PRESENT: atraumatic, normocephalic Eye exam: PRESENT: PERRLA Ear exam: PRESENT: normal external ear exam Mouth exam: PRESENT: moist, neck supple, tongue midline Teeth exam: PRESENT: poor dentation Respiratory exam: PRESENT: unlabored, other - good air flow BL Cardiovascular exam: PRESENT: RRR, +S1, +S2 Pulses: PRESENT: normal dorsalis pedis pul Vascular exam: PRESENT: normal capillary refill GI/Abdominal exam: PRESENT: normal bowel sounds, soft. ABSENT: distended, guarding, mass, organolmegaly, rebound, tenderness Rectal exam: PRESENT: deferred Neurological exam: PRESENT: alert, altered, awake, oriented to person, CN II-XII grossly intact Psychiatric exam: PRESENT: flat affect, unusual affect Results Laboratory Results: 03/23/18 13:27 03/23/18 13:27 03/23/18 03/23/18 03/23/18 04:53 13:27 13:27 WBC 8.7 9.0 RBC 2.42 L 2.47 L Hgb 8.4 L 8.6 L Hct 24.9 L 25.6 L MCV 103 H 104 H MCH 34.5 H 34.8 H MCHC 33.5 33.6 RDW 25.5 H 25.3 H Plt Count 104 L 107 L Seg Neutrophils % 82.3 H Not Reportable Lymphocytes % 11.7 L Not Reportable Monocytes % 5.9 Not Reportable Eosinophils % 0.0 Not Reportable Basophils % 0.1 Not Reportable Absolute Neutrophils 7.2 Not Reportable Absolute Lymphocytes 1.0 Not Reportable Absolute Monocytes 0.5 Not Reportable Absolute Eosinophils 0.0 Not Reportable Absolute Basophils 0.0 Not Reportable Sodium 146.1 H Potassium 3.7 Chloride 117 H Carbon Dioxide 25 Anion Gap 4 L BUN 29 H Creatinine 0.77 Est GFR ( Amer) > 60 Est GFR (Non-Af Amer) > 60 Glucose 108 Calcium 9.2 02/24/18 09:55 Troponin I < 0.012 Impressions: Chest X-Ray 02/24/18 09:59 IMPRESSION: NO ACUTE RADIOGRAPHIC FINDING IN THE CHEST. Abdomen Ultrasound 02/25/18 00:00 IMPRESSION: Limited study as noted above. Gallbladder was not visualized. FATTY INFILTRATION OF THE LIVER. Other findings as noted above Head MRI 03/01/18 00:00 IMPRESSION: No acute findings. Very limited study EVIDENCE OF ACUTE STROKE: NO. Guidance Fluoroscopy 03/07/18 00:00 IMPRESSION: Lumbar puncture under fluoroscopy. No immediate complication. Lumbar Puncture 03/07/18 09:00 IMPRESSION: Lumbar puncture under fluoroscopy. No immediate complication. Assessment & Plan - Diagnosis (1) Adrenal insufficiency Is this a current diagnosis for this admission?: Yes (2) Alcohol dependence, continuous Is this a current diagnosis for this admission?: Yes (3) Alcoholic Korsakoff syndrome Is this a current diagnosis for this admission?: Yes (4) Alcoholic cirrhosis Qualifiers: Ascites presence: without ascites Qualified Code(s): K70.30 - Alcoholic cirrhosis of liver without ascites Is this a current diagnosis for this admission?: Yes (5) Do not resuscitate Is this a current diagnosis for this admission?: Yes (6) Hallucination Is this a current diagnosis for this admission?: Yes (7) Megaloblastic anemia due to alcoholism Is this a current diagnosis for this admission?: Yes (8) Metabolic encephalopathy Is this a current diagnosis for this admission?: Yes (9) Paroxysmal atrial fibrillation Is this a current diagnosis for this admission?: Yes (10) UTI (urinary tract infection) Qualifiers: Urinary tract infection type: site unspecified Hematuria presence: without hematuria Qualified Code(s): N39.0 - Urinary tract infection, site not specified Is this a current diagnosis for this admission?: Yes (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) Is this a current diagnosis for this admission?: Yes - Time Time Spent with patient: 15-24 minutes Medications reviewed and adjusted accordingly: Yes - Inpatient Certification Based on my medical assessment, after consideration of the patient's comorbidities, presenting symptoms, or acuity I expect that the services needed warrant INPATIENT care.: Yes I certify that my determination is in accordance with my understanding of Medic are's requirements for reasonable and necessary INPATIENT services [42 CFR 412.3e].: Yes - Plan Summary Plan Summary: (1) Megaloblastic anemia due to alcoholism Is this a current diagnosis for this admission?: Yes Plan: -Suspected to be secondary to alcohol abuse and nutritional deficiency; no acute signs of bleeding -Iron and TIBC both low, Normal tsh, b12, and folate -Occult stools negative x3 -s/p 5u PRBC. Last was 03/21. Hgb currently 9.3 -Continue B12, folic acid, thiamine, multivitamin and iron supplements. -RD involved. -monitoring (2) Wernicke-Korsakoff syndrome (alcoholic) Is this a current diagnosis for this admission?: Yes Plan: -03/01/2018 MRI brain done but not optimal. Did not show any acute abnormal ities. -normal b12, folate, tsh -Continue on thiamine, B12, folic acid daily. -Fall and aspiration precautions. -Discharge planning involved. will require SNF for buttermaker helper placement. (3) Hallucination Is this a current diagnosis for this admission?: Yes Plan: -Appears to have improved since earlier in admission; less report of emotional disturbance/anxiety regarding hallucinations per nursing. -Secondary to acute metabolic encephalopathy in the setting of Korsakoff syndrome. She has reported auditory and visual hallucinations. -She's had an extensive workup including a brain MRI which was suboptimal but did not show acute abnormalities -Negative HIV, RPR, HSV, UDS and serum EtOH. Chem labs WNL -EEG was technically poor secondary to artifact; does demonstrate generalized background slowing consistent with diffuse cerebral dysfunction. -LP completed 02/05/2018; Gram stain and cultures were negative. -No evidence of active infection -Continue Zyprexa 2.5 mg daily. -Haldol 2 mg IM every 4 hours. -Of note, the patient has been started on IV hydrocortisone for adrenal insufficiency; side effect may include steroid psychosis. -Psychiatry reports she does not have capacity. -discharge planning involved. (4) Metabolic encephalopathy Is this a current diagnosis for this admission?: Yes Plan: -Multifactorial. Likely due to alcoholic Korsakoff syndrome and adrenal insufficiency. Evaluation and plan as above. (5) Alcohol dependence, continuous. Long standing. Heavy. Chronic. Is this a current diagnosis for this admission?: Yes Plan: -Outside of window for acute issues (ie: seizure). Continue multivitamin, thiamine, folic acid, ferrous sulfate supplementation. (6) Tobacco abuse Is this a current diagnosis for this admission?: Yes Plan: -Smoking cessation has been advised; nicotine replacement therapies are provided. (7) UTI (urinary tract infection) Qualifiers: Urinary tract infection type: site unspecified Hematuria presence: without hematuria Qualified Code(s): N39.0 - Urinary tract infection, site not specified Is this a current diagnosis for this admission?: Yes Plan: -Recurrent issue. -Urine culture (03/19/2018) >100,000 colonies of enterococcus. -7 day course of amox started 03/21 -Will catheter is removed; monitor for urinary retention. -liquid preparation chosen for increased patient compliance -Continue IV fluids; encourage p.o. fluids. (8) Alcoholic cirrhosis Qualifiers: Ascites presence: without ascites Qualified Code(s): K70.30 - Alcoholic cirrhosis of liver without ascites Is this a current diagnosis for this admission?: Yes Plan: -Stable; no acute changes. -The patient has been refusing medications, all liquids and food. -We will continue maintenance IV fluids and vitamin supplementation. (9) Hypothermia Is this a current diagnosis for this admission?: Yes Plan: -improved/resolved -noted on 03/20-03/21 (95.7 rectal). Likely secondary to a combination of adrenal insufficiency and acute illness (UTI). Patient does not appear to be septic. Normal WBC and lactate -Feng esqueda. -Amoxicillin as above. -IV hydrocortisone for adrenal insufficiency. (10) Adrenal insufficiency Is this a current diagnosis for this admission?: Yes Plan: -Random cortisol (midnight) 9.86. Cosyntropin stimulating test is low at 16.3; indicates adrenal insufficiency. -TSH is normal at 1.87. Prolactin was normal at 9.314. PTH is normal at 22.3. -Started with IV hydrocortisone 100 mg x1, and has since moved to hydrocortisone IV 50 mg every 8 hours; continue until vital signs stabilize (temperature regulation, normotensive) and patient is able to tolerate p.o. food/medications consistently.
[2018-03-23] MEDS: TAMSULOSIN HCL 0.4 MG CAP.SR.24H PO SCH (17:49)
[2018-03-23] MEDS: NORMAL SALINE 1000 ML 1,000 ML with POTASSIUM CHLORIDE 20 MEQ, MAGNESIUM SULFATE 8 MEQ,... IV SCH ×5 (17:49)
[2018-03-23] MEDS: MIRTAZAPINE 15 MG TABLET PO SCH (21:57)
[2018-03-23] MEDS: HALOPERIDOL LACTATE INJ 5 MG/1 ML VIAL IM PRN (22:08)
[2018-03-24] MEDS: HYDROCORTISONE SOD SUCCINATE INJ/PF 100 MG/2 ML SDV IV SCH ×3 (05:51→22:42)
[2018-03-24] MEDS: NICOTINE 7 MG/24 HR PATCH.TD24 TD SCH (10:45)
[2018-03-24] MEDS: FERROUS SULFATE 325 MG TABLET PO SCH (10:45)
[2018-03-24] MEDS: OLANZAPINE 2.5 MG TABLET PO SCH (10:47)
[2018-03-24] MEDS: SODIUM CHLORIDE NASAL SPRAY 44 ML NASL SCH ×4 (10:48→22:43)
[2018-03-24] MEDS: AMOXICILLIN TRIHYD 250 MG/5 ML SUSP 80 ML PO SCH ×3 (10:53→22:43)
--- NOTE | 2018-03-24 18:12 | PDOC PROGRESS REPORT ---
Subjective Progress Note for:: 03/24/18 Subjective:: The patient is a 52-year-old female with a past medical history of atrial fibrillation and alcohol dependence who was admitted 02/24/2018 for anemia, hypotension, UTI, and metabolic encephalopathy. Ms Mora continues to seem confused. She is not very interactive this morning. It appears that she has been agitated and even aggressive at times towards nursing staff in the past 24-48 hours. Her sodium level continues to trend up so we will start IV fluids. Vital signs overall appears stable. case management continues to work on placement. No concerns reported by nursing. Reason For Visit: ENCEPHALOPATHY,UTI Physical Exam Vital Signs: Temp Pulse Resp BP Pulse Ox 97.4 F 42 L 17 141/78 H 98 03/24/18 16:13 03/24/18 16:13 03/24/18 16:13 03/24/18 16:13 03/24/18 16:13 Intake & Output 03/23/18 03/24/18 03/25/18 06:59 06:59 06:59 Intake Total 1459 1407 Output Total 1075 Balance 1459 332 Weight 65.7 kg General appearance: PRESENT: no acute distress, disheveled Head exam: PRESENT: atraumatic, normocephalic Eye exam: PRESENT: conjunctiva pink, EOMI, PERRLA. ABSENT: scleral icterus Ear exam: PRESENT: normal external ear exam Teeth exam: PRESENT: poor dentation Respiratory exam: PRESENT: clear to auscultation jake Cardiovascular exam: PRESENT: RRR, +S1, +S2 Pulses: PRESENT: normal dorsalis pedis pul GI/Abdominal exam: PRESENT: normal bowel sounds, soft. ABSENT: distended, guarding, mass, organolmegaly, rebound, tenderness Rectal exam: PRESENT: deferred Extremities exam: PRESENT: +1 edema - Bilateral lower extremities. Neurological exam: PRESENT: alert, awake, other - No obvious defects. Psychiatric exam: PRESENT: unusual affect Skin exam: PRESENT: other - Right upper extremity ecchymosis. Results Laboratory Results: 03/23/18 13:27 03/23/18 13:27 02/24/18 09:55 Troponin I < 0.012 Impressions: Chest X-Ray 02/24/18 09:59 IMPRESSION: NO ACUTE RADIOGRAPHIC FINDING IN THE CHEST. Abdomen Ultrasound 02/25/18 00:00 IMPRESSION: Limited study as noted above. Gallbladder was not visualized. FATTY INFILTRATION OF THE LIVER. Other findings as noted above Head MRI 03/01/18 00:00 IMPRESSION: No acute findings. Very limited study EVIDENCE OF ACUTE STROKE: NO. Guidance Fluoroscopy 03/07/18 00:00 IMPRESSION: Lumbar puncture under fluoroscopy. No immediate complication. Lumbar Puncture 03/07/18 09:00 IMPRESSION: Lumbar puncture under fluoroscopy. No immediate complication. Assessment & Plan - Diagnosis (1) Adrenal insufficiency Is this a current diagnosis for this admission?: Yes (2) Alcohol dependence, continuous Is this a current diagnosis for this admission?: Yes (3) Alcoholic Korsakoff syndrome Is this a current diagnosis for this admission?: Yes (4) Alcoholic cirrhosis Qualifiers: Ascites presence: without ascites Qualified Code(s): K70.30 - Alcoholic cirrhosis of liver without ascites Is this a current diagnosis for this admission?: Yes (5) Do not resuscitate Is this a current diagnosis for this admission?: Yes (6) Hallucination Is this a current diagnosis for this admission?: Yes (7) Megaloblastic anemia due to alcoholism Is this a current diagnosis for this admission?: Yes (8) Metabolic encephalopathy Is this a current diagnosis for this admission?: Yes (9) Paroxysmal atrial fibrillation Is this a current diagnosis for this admission?: Yes (10) UTI (urinary tract infection) Qualifiers: Urinary tract infection type: site unspecified Hematuria presence: without hematuria Qualified Code(s): N39.0 - Urinary tract infection, site not specified Is this a current diagnosis for this admission?: Yes (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) Is this a current diagnosis for this admission?: Yes (12) Urinary retention Is this a current diagnosis for this admission?: Yes - Plan Summary Plan Summary: (1) Megaloblastic anemia due to alcoholism Is this a current diagnosis for this admission?: Yes Plan: -no acute signs of bleeding -Iron and TIBC were low on admission, Normal tsh, b12, and folate -Occult stools negative x3 -s/p 5u PRBC. Last was 03/21. Hgb holding in 8-10 range -Continue B12, folic acid, thiamine, multivitamin and iron supplements. -RD involved. -monitoring (2) Wernicke-Korsakoff syndrome (alcoholic) Is this a current diagnosis for this admission?: Yes Plan: -03/01/2018 MRI brain done but not optimal. Did not show any acute abnormalities. -normal b12, folate, tsh -Continue on thiamine, B12, folic acid daily. -Fall and aspiration precautions. -Discharge planning involved. will require SNF for snf placement. (3) Hallucinations Is this a current diagnosis for this admission?: Yes Plan: -Appears to have improved since earlier in admission; less report of emotional disturbance/anxiety regarding hallucinations per nursing. -Secondary to acute metabolic encephalopathy in the setting of Korsakoff syndrome. She has reported auditory and visual hallucinations. -She's had an extensive workup including a brain MRI which was suboptimal but did not show acute abnormalities -Negative HIV, RPR, HSV, UDS and serum EtOH. Chem labs WNL -EEG was technically poor secondary to artifact; does demonstrate generalized background slowing consistent with diffuse cerebral dysfunction. -LP completed 02/05/2018; Gram stain and cultures were negative. -No vidence of active infection -Continue Zyprexa 2.5 mg daily. -Haldol 2 mg IM every 4 hours. -Of note, the patient has been started on IV hydrocortisone for adrenal insufficiency; side effect may include steroid psychosis. -Psychiatry reports she does not have capacity. -discharge planning involved. (4) Metabolic encephalopathy Is this a current diagnosis for this admission?: Yes Plan: -Multifactorial. Suspected to be due to alcoholic Korsakoff syndrome and adrenal insufficiency. Evaluation and plan as above. (5) Alcohol dependence, continuous. Long standing. Heavy. Chronic. Is this a current diagnosis for this admission?: Yes Plan: -Outside of window for acute issues (ie: seizure). Continue multivitamin, thiamine, folic acid, ferrous sulfate supplementation. (6) Tobacco abuse Is this a current diagnosis for this admission?: Yes Plan: -Smoking cessation has been advised; nicotine replacement therapies are provided. (7) UTI (urinary tract infection) Qualifiers: Urinary tract infection type: site unspecified Hematuria presence: without hematuria Qualified Code(s): N39.0 - Urinary tract infection, site not specified Is this a current diagnosis for this admission?: Yes Plan: -Recurrent issue. -Urine culture (03/19/2018) >100,000 colonies of enterococcus. -7 day course of amox started 03/21 -Marshall catheter is removed; monitor for urinary retention. -liquid preparation chosen for increased patient compliance -Continue IV fluids; encourage p.o. fluids. (8) Alcoholic cirrhosis Qualifiers: Ascites presence: without ascites Qualified Code(s): K70.30 - Alcoholic cirrhosis of liver without ascites Is this a current diagnosis for this admission?: Yes Plan: -Stable; no acute changes. -The patient has been refusing medications, all liquids and food. -We will continue maintenance IV fluids and vitamin supplementation. (9) Hypothermia Is this a current diagnosis for this admission?: Yes Plan: -improved/resolved -noted on 03/20-03/21 (95.7 rectal). Likely secondary to a combination of adrenal insufficiency and acute illness (UTI). Patient does not appear to be septic. -IV hydrocortisone for adrenal insufficiency. (10) Adrenal insufficiency Is this a current diagnosis for this admission?: Yes Plan: -Random cortisol (midnight) 9.86. Cosyntropin stimulating test is low at 16.3; indicates adrenal insufficiency. -TSH is normal at 1.87. Prolactin was normal at 9.314. PTH is normal at 22.3. -Started with IV hydrocortisone 100 mg x1, and has since moved to hydrocortisone IV 50 mg every 8 hours; continue until vital signs stabilize (temperature regulation, normotensive) and patient is able to tolerate p.o. food/medications consistently. (11) Urinary Retention -continues to be an intermittent issue. Will not replace marshall at this time due ongoing tx for UTI. -conitnue with bladder scans and straight caths or pur-wick catheter if available (12) hypernatremia -Suspect dehydration. Start IV fluids. Disposition:patient has limited resources and limited options. Case management continues to work on placement.
[2018-03-24] MEDS: NORMAL SALINE 1000 ML 1,000 ML with POTASSIUM CHLORIDE 20 MEQ, MAGNESIUM SULFATE 8 MEQ,... IV SCH ×5 (18:57)
[2018-03-24] MEDS: TAMSULOSIN HCL 0.4 MG CAP.SR.24H PO SCH (18:57)
[2018-03-24] MEDS: MIRTAZAPINE 15 MG TABLET PO SCH (22:42)
[2018-03-25] MEDS: HYDROCORTISONE SOD SUCCINATE INJ/PF 100 MG/2 ML SDV IV SCH ×3 (05:09→21:11)
[2018-03-25] MEDS: AMOXICILLIN TRIHYD 250 MG/5 ML SUSP 80 ML PO SCH ×3 (05:10→21:13)
[2018-03-25] MEDS: NORMAL SALINE 1000 ML 1,000 ML IV PRN ×2 (05:28→05:32)
[2018-03-25 06:37] LABS: ABSOLUTE LYMPHOCYTES (AUTO) 1.1 10^3/uL (0.5-4.7); ABSOLUTE MONOCYTES (AUTO) 0.4 10^3/uL (0.1-1.4); ABSOLUTE NEUT (AUTO) 5.8 10^3/uL (1.7-8.2); BASOPHILS % (AUTO) 0.5 % (0-2); HEMATOCRIT 25.9 % (36.0-47.0); HEMOGLOBIN 8.8 g/dL (12.0-15.5); LYMPHOCYTES % (AUTO) 14.5 % (13-45); MEAN CORPUSCULAR HEMOGLOBIN 35.2 pg (27.0-33.4); MEAN CORPUSCULAR HGB CONC 33.9 g/dL (32.0-36.0); MEAN CORPUSCULAR VOLUME 104 fl (80-97); MONOCYTES % (AUTO) 5.1 % (3-13); PLATELET COUNT 113 10^3/uL (150-450); RED BLOOD COUNT 2.49 10^6/uL (3.72-5.28); RED CELL DISTRIBUTION WIDTH 25.2 % (11.5-14.0); SEGMENTED NEUTROPHILS % (AUTO) 79.9 % (42-78); TOTAL CELLS COUNTED % (AUTO) 100 %; WHITE BLOOD COUNT 7.3 10^3/uL (4.0-10.5)
[2018-03-25 07:08] LABS: ANION GAP 6 (5-19); BLOOD UREA NITROGEN 34 mg/dL (7-20); CALCIUM 9.1 mg/dL (8.4-10.2); CARBON DIOXIDE 23 mmol/L (22-30); CHLORIDE 119 mmol/L (98-107); GLUCOSE 112 mg/dL (75-110); POTASSIUM 3.9 mmol/L (3.6-5.0); SODIUM 147.8 mmol/L (137-145)
[2018-03-25 07:16] LABS: ANISOCYTOSIS 3+; OVALOCYTES SLIGHT; PLATELET COMMENT DECREASED; POIKILOCYTOSIS SLIGHT
[2018-03-25] MEDS: SODIUM CHLORIDE NASAL SPRAY 44 ML NASL SCH ×4 (09:16→21:28)
[2018-03-25] MEDS: OLANZAPINE 2.5 MG TABLET PO SCH (09:16)
[2018-03-25] MEDS: NICOTINE 7 MG/24 HR PATCH.TD24 TD SCH (09:16)
[2018-03-25] MEDS: FERROUS SULFATE 325 MG TABLET PO SCH (09:16)
[2018-03-25] MEDS: 1/2 NORMAL SALINE 1,000 ML IV PRN ×2 (09:19→20:58)
--- NOTE | 2018-03-25 14:51 | EKG REPORT ---
SEVERITY:- BORDERLINE ECG - SINUS BRADYCARDIA BORDERLINE T ABNORMALITIES, ANT-LAT LEADS : Confirmed by: Edgar Goldstein 25-Mar-2018 14:51:11
--- NOTE | 2018-03-25 16:03 | PDOC PROGRESS REPORT ---
Subjective Progress Note for:: 03/25/18 Subjective:: The patient is a 52-year-old female with a past medical history of atrial fibrillation and alcohol dependence who was admitted 02/24/2018 for anemia, hypotension, UTI, and metabolic encephalopathy. Ms Mora is more interactive today, however she remains non-comprehensible. Nursing reports she is about at her baseline. Her strength is good in her bilateral upper extremities, but either she does not understand or is weak in her bilateral lower extremities. Attempts were made to elicit use out of all 4 extremities. She mumbles during much of the evaluation. She does follow commands at times. No nystagmus is noted. No recent reports of agitation per nursing. She seems to have slept well last night. She continues to display little in regards to appetite/food. Reason For Visit: ENCEPHALOPATHY,UTI Physical Exam Vital Signs: Temp Pulse Resp BP Pulse Ox 97.4 F 43 L 16 140/67 H 97 03/25/18 11:41 03/25/18 11:41 03/25/18 11:41 03/25/18 11:41 03/25/18 11:41 Intake & Output 03/24/18 03/25/18 03/26/18 06:59 06:59 06:59 Intake Total 1407 1059 1000 Output Total 1075 200 Balance 226 340 2658 Weight 65.7 kg 65.7 kg General appearance: PRESENT: no acute distress, thin Head exam: PRESENT: atraumatic, normocephalic Eye exam: PRESENT: conjunctiva pink, EOMI, PERRLA. ABSENT: scleral icterus Ear exam: PRESENT: normal external ear exam Mouth exam: PRESENT: moist, tongue midline Respiratory exam: PRESENT: other - Good airflow bilaterally. No wheeze or crackles or rhonchi appreciated. Cardiovascular exam: PRESENT: RRR - Bradycardia Pulses: PRESENT: normal dorsalis pedis pul Vascular exam: PRESENT: normal capillary refill GI/Abdominal exam: PRESENT: normal bowel sounds, soft. ABSENT: distended, guarding, mass, organolmegaly, rebound, tenderness Rectal exam: PRESENT: deferred Extremities exam: PRESENT: other - 1+ bilateral lower extremity edema. Neurological exam: PRESENT: alert, altered, awake, other - Gait not assessed Results Laboratory Results: 03/25/18 06:23 03/25/18 06:23 12/03/25/18 03/25/18 06:23 06:23 06:23 WBC 7.3 RBC 2.49 L Hgb 8.8 L Hct 25.9 L MCV 104 H MCH 35.2 H MCHC 33.9 RDW 25.2 H Plt Count 113 L Seg Neutrophils % 79.9 H Lymphocytes % 14.5 Monocytes % 5.1 Eosinophils % 0.0 Basophils % 0.5 Absolute Neutrophils 5.8 Absolute Lymphocytes 1.1 Absolute Monocytes 0.4 Absolute Eosinophils 0.0 Absolute Basophils 0.0 Sodium 147.8 H Potassium 3.9 Chloride 119 H Carbon Dioxide 23 Anion Gap 6 BUN 34 H Creatinine 0.69 Est GFR ( Amer) > 60 Est GFR (Non-Af Amer) > 60 Glucose 112 H Calcium 9.1 Magnesium 2.3 Ammonia 12.8 02/24/18 09:55 Troponin I < 0.012 Impressions: Chest X-Ray 02/24/18 09:59 IMPRESSION: NO ACUTE RADIOGRAPHIC FINDING IN THE CHEST. Abdomen Ultrasound 02/25/18 00:00 IMPRESSION: Limited study as noted above. Gallbladder was not visualized. FATTY INFILTRATION OF THE LIVER. Other findings as noted above Head MRI 03/01/18 00:00 IMPRESSION: No acute findings. Very limited study EVIDENCE OF ACUTE STROKE: NO. Guidance Fluoroscopy 03/07/18 00:00 IMPRESSION: Lumbar puncture under fluoroscopy. No immediate complication. Lumbar Puncture 03/07/18 09:00 IMPRESSION: Lumbar puncture under fluoroscopy. No immediate complication. Assessment & Plan - Diagnosis (1) Adrenal insufficiency Is this a current diagnosis for this admission?: Yes (2) Alcohol dependence, continuous Is this a current diagnosis for this admission?: Yes (3) Alcoholic Korsakoff syndrome Is this a current diagnosis for this admission?: Yes (4) Alcoholic cirrhosis Qualifiers: Ascites presence: without ascites Qualified Code(s): K70.30 - Alcoholic cirrhosis of liver without ascites Is this a current diagnosis for this admission?: Yes (5) Do not resuscitate Is this a current diagnosis for this admission?: Yes (6) Hallucination Is this a current diagnosis for this admission?: Yes (7) Megaloblastic anemia due to alcoholism Is this a current diagnosis for this admission?: Yes (8) Metabolic encephalopathy Is this a current diagnosis for this admission?: Yes (9) Paroxysmal atrial fibrillation Is this a current diagnosis for this admission?: Yes (10) UTI (urinary tract infection) Qualifiers: Urinary tract infection type: site unspecified Hematuria presence: without hematuria Qualified Code(s): N39.0 - Urinary tract infection, site not specified Is this a current diagnosis for this admission?: Yes (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) Is this a current diagnosis for this admission?: Yes (12) Urinary retention Is this a current diagnosis for this admission?: Yes - Time Time Spent with patient: 25-34 minutes Medications reviewed and adjusted accordingly: Yes - Inpatient Certification Based on my medical assessment, after consideration of the patient's comorbidities, presenting symptoms, or acuity I expect that the services needed warrant INPATIENT care.: Yes I certify that my determination is in accordance with my understanding of Medicare's requirements for reasonable and necessary INPATIENT services [42 CFR 412.3e].: Yes - Plan Summary Plan Summary: Megaloblastic anemia due to alcoholism Is this a current diagnosis for this admission?: Yes Plan: -no acute signs of bleeding. Occult stools negative x3 -Iron and TIBC were low on admission, Normal tsh, b12, and folate -s/p 5u PRBC. Last was 03/21. Hgb holding in 8-10 range -Continue B12, folic acid, thiamine, multivitamin and iron supplements. -RD involved. -monitoring Wernicke-Korsakoff syndrome (alcoholic)/Hallucinations Is this a current diagnosis for this admission?: Yes Plan: -03/01/2018 MRI brain done but not optimal. Did not show any acute abnormalities. -normal b12, folate, tsh. Continue on thiamine, B12, folic acid daily. -Fall and aspiration precautions. -Discharge planning involved. 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 -Secondary to acute metabolic encephalopathy in the setting of Korsakoff syndrome. She has reported auditory and visual hallucinations. -She's had an extensive workup including a brain MRI which was suboptimal but did not show acute abnormalities -Negative HIV, RPR, HSV, UDS and serum EtOH. Chem labs WNL -EEG was technically poor secondary to artifact; does demonstrate generalized background slowing consistent with diffuse cerebral dysfunction. -LP completed 02/05/2018; Gram stain and cultures were negative. No evidence of active infection -Continue Zyprexa 2.5 mg daily and Haldol 2 mg IM every 4 hours prn -Of note, the patient has been started on IV hydrocortisone for adrenal insufficiency; side effect may include steroid psychosis. -Psychiatry reports she does not have capacity. Metabolic encephalopathy Is this a current diagnosis for this admission?: Yes Plan: -Multifactorial. Suspected to be due to alcoholic Korsakoff syndrome and adrenal insufficiency. Evaluation and plan as above. Alcohol dependence, continuous. Long standing. Heavy. Chronic. Tobacco abuse Is this a current diagnosis for this admission?: Yes Plan: -Outside of window for acute issues (ie: seizure). Continue multivitamin, thiamine, folic acid, ferrous sulfate supplementation. - Smoking cessation unable to be provided. UTI (urinary tract infection) Qualifiers: Urinary tract infection type: site unspecified Hematuria presence: without hematuria Qualified Code(s): N39.0 - Urinary tract infection, site not specified Is this a current diagnosis for this admission?: Yes Plan: -Recurrent issue. -Urine culture (03/19/2018) >100,000 colonies of enterococcus. -7 day course of amox started 03/21 -Marshall catheter is removed; monitor for urinary retention. Alcoholic cirrhosis Qualifiers: Ascites presence: without ascites Qualified Code(s): K70.30 - Alcoholic cirrhosis of liver without ascites Is this a current diagnosis for this admission?: Yes Plan: -Stable; no acute changes. -The patient has been refusing medications, all liquids and food. -We will continue maintenance IV fluids and vitamin supplementation. Adrenal insufficiency Is this a current diagnosis for this admission?: Yes Plan: -Random cortisol (midnight) 9.86. Cosyntropin stimulating test is low at 16.3; indicates adrenal insufficiency. -TSH is normal at 1.87. Prolactin was normal at 9.314. PTH is normal at 22.3. -Started with IV hydrocortisone 100 mg x1, and has since moved to hydrocortisone IV 50 mg every 8 hours; continue until vital signs stabilize (temperature regulation, normotensive) and patient is able to tolerate p.o. food/medications consistently. -Likely the cause of hypothermia. Body temperature has been in acceptable range over the past few days. Urinary Retention -continues to be an intermittent issue. Will not replace marshall at this time due ongoing tx for UTI. -continue with bladder scans and straight caths or pur-wick catheter if available -Patient did have a spontaneous void in the last 24 hours. hypernatremia -Suspect dehydration secondary to poor oral intake -Increase IV fluids to 125 cc an hour and change to half-normal saline. Bradycardia -Asymptomatic. May be related to adrenal insufficiency. Nursing to get EKG next time she has a run in the 40s to evaluate for heart block Disposition:patient has limited resources and limited options. Case management continues to work on placement. If patient continues to demonstrate little interest in eating, we will have to consider insertion of an NGT or PEG tube to provide nutrition.
[2018-03-25] MEDS: TAMSULOSIN HCL 0.4 MG CAP.SR.24H PO SCH (17:05)
[2018-03-25] MEDS: THIAMINE HCL 100 MG TABLET PO SCH (17:05)
[2018-03-25] MEDS: MIRTAZAPINE 15 MG TABLET PO SCH (21:12)
[2018-03-26] MEDS: HYDROCORTISONE SOD SUCCINATE INJ/PF 100 MG/2 ML SDV IV SCH ×3 (05:27→22:09)
[2018-03-26] MEDS: AMOXICILLIN TRIHYD 250 MG/5 ML SUSP 80 ML PO SCH ×3 (05:27→22:09)
[2018-03-26] MEDS: 1/2 NORMAL SALINE 1,000 ML IV PRN (05:29)
[2018-03-26 05:53] LABS: HEMATOCRIT 25.3 % (36.0-47.0); HEMOGLOBIN 8.7 g/dL (12.0-15.5); MEAN CORPUSCULAR HEMOGLOBIN 35.8 pg (27.0-33.4); MEAN CORPUSCULAR HGB CONC 34.3 g/dL (32.0-36.0); MEAN CORPUSCULAR VOLUME 105 fl (80-97); PLATELET COUNT 132 10^3/uL (150-450); RED BLOOD COUNT 2.42 10^6/uL (3.72-5.28); RED CELL DISTRIBUTION WIDTH 25.3 % (11.5-14.0); WHITE BLOOD COUNT 8.6 10^3/uL (4.0-10.5)
[2018-03-26 06:12] LABS: ANION GAP 6 (5-19); BLOOD UREA NITROGEN 37 mg/dL (7-20); CALCIUM 8.9 mg/dL (8.4-10.2); CARBON DIOXIDE 22 mmol/L (22-30); CHLORIDE 116 mmol/L (98-107); GLUCOSE 106 mg/dL (75-110); POTASSIUM 3.4 mmol/L (3.6-5.0); SODIUM 143.9 mmol/L (137-145)
[2018-03-26] MEDS: SODIUM CHLORIDE NASAL SPRAY 44 ML NASL SCH ×4 (08:55→22:10)
[2018-03-26] MEDS: THIAMINE HCL 100 MG TABLET PO SCH ×2 (09:52→17:52)
[2018-03-26] MEDS: FOLIC ACID 1 MG TABLET PO SCH (09:52)
[2018-03-26] MEDS: MULTIVITAMIN TABLET PO SCH (09:52)
[2018-03-26] MEDS: NICOTINE 7 MG/24 HR PATCH.TD24 TD SCH (09:52)
[2018-03-26] MEDS: FERROUS SULFATE 325 MG TABLET PO SCH (09:52)
[2018-03-26] MEDS: CYANOCOBALAMIN (VITAMIN B-12) 1,000 MCG TABLET PO SCH (09:52)
[2018-03-26] MEDS: OLANZAPINE 2.5 MG TABLET PO SCH (09:54)
--- NOTE | 2018-03-26 14:54 | PDOC PROGRESS REPORT ---
Subjective Progress Note for:: 03/26/18 Subjective:: The patient is a 52-year-old female with a past medical history of atrial fibrillation and alcohol dependence who was admitted 02/24/2018 for anemia, hypotension, UTI, and metabolic encephalopathy. Ms Mora is more interactive today than she has been in the previous 3 days. She seems to be confabulating. She engages in conversation, but her answers are realistic, but do not seem to be accurate. She also has signs of ophthalmic plegia. Appears to be a cranial nerve palsy. Gait has still not been assessed. She does have spontaneous movement of all 4 extremities. Strength is good in all 4 extremities. She continues to straight appetite. She is unable to provide any useful information. She is also hallucinating. She continues to require straight cath with elevated bladder scan values. No overt signs of systemic infection. Seems to be resting comfortably. Reason For Visit: ENCEPHALOPATHY,UTI Physical Exam Vital Signs: Temp Pulse Resp BP Pulse Ox 97.3 F 65 16 139/75 H 95 03/26/18 11:20 03/26/18 07:00 03/26/18 11:20 03/26/18 11:20 03/26/18 07:00 Intake & Output 03/25/18 03/26/18 03/27/18 06:59 06:59 06:59 Intake Total 1059 3120 Output Total 200 600 Balance 859 2520 Weight 65.7 kg 65.7 kg General appearance: PRESENT: no acute distress, thin, other - Unkept Head exam: PRESENT: atraumatic, normocephalic Eye exam: PRESENT: conjunctiva pink, EOMI, PERRLA, other - Cranial nerve palsy. ABSENT: scleral icterus Ear exam: PRESENT: normal external ear exam Mouth exam: PRESENT: moist, tongue midline Teeth exam: PRESENT: poor dentation Neck exam: ABSENT: carotid bruit, JVD, lymphadenopathy, thyromegaly Respiratory exam: PRESENT: clear to auscultation jake. ABSENT: rales, rhonchi, wheezes Cardiovascular exam: PRESENT: diastolic murmur, RRR, systolic murmur. ABSENT: r ubs Pulses: PRESENT: normal dorsalis pedis pul Vascular exam: PRESENT: normal capillary refill GI/Abdominal exam: PRESENT: normal bowel sounds, soft. ABSENT: distended, guarding, mass, organolmegaly, rebound, tenderness Rectal exam: PRESENT: deferred Extremities exam: PRESENT: full ROM, other - 1-2+ bilateral lower extremity edema. ABSENT: calf tenderness, clubbing, pedal edema Musculoskeletal exam: PRESENT: full ROM, normal inspection Neurological exam: PRESENT: alert, altered, awake. ABSENT: motor sensory deficit Psychiatric exam: PRESENT: normal mood, unusual affect. ABSENT: homicidal i deation, suicidal ideation Skin exam: PRESENT: dry, intact, warm, other - Upper right extremity ecchymosis. circumferential in nature. ABSENT: cyanosis, rash Results Laboratory Results: 03/26/18 04:30 03/26/18 04:30 03/26/18 03/26/18 03/26/18 04:30 04:30 04:30 WBC 8.6 RBC 2.42 L Hgb 8.7 L Hct 25.3 L MCV 105 H MCH 35.8 H MCHC 34.3 RDW 25.3 H Plt Count 132 L Sodium 143.9 Potassium 3.4 L Chloride 116 H Carbon Dioxide 22 Anion Gap 6 BUN 37 H Creatinine 0.65 Est GFR ( Amer) > 60 Est GFR (Non-Af Amer) > 60 Glucose 106 Calcium 8.9 TSH 1.97 02/24/18 09:55 Troponin I < 0.012 Impressions: Chest X-Ray 02/24/18 09:59 IMPRESSION: NO ACUTE RADIOGRAPHIC FINDING IN THE CHEST. Abdomen Ultrasound 02/25/18 00:00 IMPRESSION: Limited study as noted above. Gallbladder was not visualized. FATTY INFILTRATION OF THE LIVER. Other findings as noted above Head MRI 03/01/18 00:00 IMPRESSION: No acute findings. Very limited study EVIDENCE OF ACUTE STROKE: NO. Guidance Fluoroscopy 03/07/18 00:00 IMPRESSION: Lumbar puncture under fluoroscopy. No immediate complication. Lumbar Puncture 03/07/18 09:00 IMPRESSION: Lumbar puncture under fluoroscopy. No immediate complication. Assessment & Plan - Diagnosis (1) Adrenal insufficiency Is this a current diagnosis for this admission?: Yes (2) Alcohol dependence, continuous Is this a current diagnosis for this admission?: Yes (3) Alcoholic Korsakoff syndrome Is this a current diagnosis for this admission?: Yes (4) Alcoholic cirrhosis Qualifiers: Ascites presence: without ascites Qualified Code(s): K70.30 - Alcoholic cirrhosis of liver without ascites Is this a current diagnosis for this admission?: Yes (5) Do not resuscitate Is this a current diagnosis for this admission?: Yes (6) Hallucination Is this a current diagnosis for this admission?: Yes (7) Megaloblastic anemia due to alcoholism Is this a current diagnosis for this admission?: Yes (8) Metabolic encephalopathy Is this a current diagnosis for this admission?: Yes (9) Paroxysmal atrial fibrillation Is this a current diagnosis for this admission?: Yes (10) UTI (urinary tract infection) Qualifiers: Urinary tract infection type: site unspecified Hematuria presence: without hematuria Qualified Code(s): N39.0 - Urinary tract infection, site not specified Is this a current diagnosis for this admission?: Yes (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) Is this a current diagnosis for this admission?: Yes (12) Urinary retention Is this a current diagnosis for this admission?: Yes - Time Time Spent with patient: 25-34 minutes - Inpatient Certification Based on my medical assessment, after consideration of the patient's comorbidities, presenting symptoms, or acuity I expect that the services needed warrant INPATIENT care.: Yes I certify that my determination is in accordance with my understanding of Medicare's requirements for reasonable and necessary INPATIENT services [42 CFR 412.3e].: Yes - Plan Summary Plan Summary: Plan Summary: Megaloblastic anemia due to alcoholism Is this a current diagnosis for this admission?: Yes Plan: -monitoring -no acute signs of bleeding. Occult stools negative x3 -Iron and TIBC were low on admission, Normal tsh, b12, and folate -s/p 5u PRBC. Last was 03/21. Hgb holding in 8-10 range -Continue B12, folic acid, thiamine, multivitamin and iron supplements. RD involved. Wernicke-Korsakoff syndrome (alcoholic)/Hallucinations Is this a current diagnosis for this admission?: Yes Plan: -Continue on thiamine, B12, folic acid daily. Fall and aspiration precautions. -Discharge planning involved. will require SNF for terminal block assembler placement. -Secondary to acute metabolic encephalopathy in the setting of Korsakoff synd mani. She has reported auditory and visual hallucinations. -She's had an extensive workup including: Negative HIV, RPR, HSV, UDS and serum EtOH. Chem labs WNL. EEG was technically poor secondary to artifact; does demonstrate generalized background slowing consistent with diffuse cerebral dysfunction. 03/01/MRI brain done but not optimal. Did not show any acute abnormalities. -normal b12, folate, tsh. LP completed 02/05/2018; Gram stain and cultures were negative. No evidence of active infection -Continue Zyprexa 2.5 mg daily and Haldol 2 mg IM every 4 hours prn -Of note, the patient has been started on IV hydrocortisone for adrenal insufficiency; side effect may include steroid psychosis. -Psychiatry reports she does not have capacity. Metabolic encephalopathy Is this a current diagnosis for this admission?: Yes Plan: -Multifactorial. Suspected to be due to alcoholic Korsakoff syndrome and adrenal insufficiency. Evaluation and plan as above. Alcohol dependence, continuous. Long standing. Heavy. Chronic. Tobacco abuse Is this a current diagnosis for this admission?: Yes Plan: -Outside of window for acute issues (ie: seizure). Continue multivitamin, thiamine, folic acid, ferrous sulfate supplementation. - Smoking cessation unable to be provided. UTI (urinary tract infection) Qualifiers: Urinary tract infection type: site unspecified Hematuria presence: without hematuria Qualified Code(s): N39.0 - Urinary tract infection, site not specified Is this a current diagnosis for this admission?: Yes Plan: -Recurrent issue. -Urine culture (03/19/2018) >100,000 colonies of enterococcus. 7 day course of amox started 03/21 -Marshall catheter is removed; continue bladder scans with straight cath instructions for results over 350 cc. If straight cath continues to be needed, consideration will need to be given to reinsert Marshall upon completion UTI treatment. Alcoholic cirrhosis Qualifiers: Ascites presence: without ascites Qualified Code(s): K70.30 - Alcoholic cirrhosis of liver without ascites Is this a current diagnosis for this admission?: Yes Plan: -Stable; no acute changes. We will continue judicious maintenance IV fluids, and vitamin supplementation. Adrenal insufficiency Is this a current diagnosis for this admission?: Yes Plan: -Random cortisol (midnight) 9.86. Cosyntropin stimulating test is low at 16.3; indicates adrenal insufficiency. -TSH is normal at 1.87. Prolactin was normal at 9.314. PTH is normal at 22.3. -Started with IV hydrocortisone 100 mg x1, and has since moved to hydrocortisone IV 50 mg every 8 hours; continue until vital signs stabilize (temperature regulation, normotensive) and patient is able to tolerate p.o. food/medications consistently. -Likely the cause of hypothermia. Body temperature has been in acceptable range over the past few days. Urinary Retention -continues to be an intermittent issue. Will not replace marshall at this time due ongoing tx for UTI. -continue with bladder scans and straight caths or pur-wick catheter if available -Patient did have a spontaneous void on 03/25 hypernatremia/hypokalemia -Suspect dehydration secondary to poor oral intake. Judiciously giving IVF. Sodium is back within normal limits. Decrease 1/2 normal saline to 85 cc an hour -Oral potassium 20 mEq x2 doses. Check mag. Bradycardia -Asymptomatic. May be related to adrenal insufficiency. Nursing to get EKG next time she has a run in the 40s to evaluate for heart block Disposition:patient has limited resources and limited options. Case management continues to work on placement. If patient continues to demonstrate little inte rest in eating, we will have to consider insertion of an NGT or PEG tube to provide nutrition.
[2018-03-26] MEDS: TAMSULOSIN HCL 0.4 MG CAP.SR.24H PO SCH (17:52)
[2018-03-26] MEDS: POTASSIUM CHLORIDE 10 MEQ CAPSULE.ER PO SCH (22:09)
[2018-03-26] MEDS: MIRTAZAPINE 15 MG TABLET PO SCH (22:10)
[2018-03-26] MEDS ORDERED: AMOXICILLIN TRIHYD 250 MG/5 ML SUSP 80 ML ONE (23:35)
[2018-03-27 06:02] LABS: HEMOGLOBIN 8.9 g/dL (12.0-15.5); MEAN CORPUSCULAR HEMOGLOBIN 35.5 pg (27.0-33.4); MEAN CORPUSCULAR VOLUME 104 fl (80-97); PLATELET COUNT 135 10^3/uL (150-450); RED CELL DISTRIBUTION WIDTH 25.2 % (11.5-14.0)
[2018-03-27 06:25] LABS: ALANINE AMINOTRANSFERASE 32 U/L (9-52); ALBUMIN 2.7 g/dL (3.5-5.0); ALKALINE PHOSPHATASE 59 U/L (38-126); ANION GAP 7 (5-19); ASPARTATE AMINO TRANSFERASE 52 U/L (14-36); BILIRUBIN,DIRECT 0.4 mg/dL (0.0-0.4); BILIRUBIN,TOTAL 0.6 mg/dL (0.2-1.3); BLOOD UREA NITROGEN 34 mg/dL (7-20); CALCIUM 8.7 mg/dL (8.4-10.2); CARBON DIOXIDE 24 mmol/L (22-30); CHLORIDE 111 mmol/L (98-107); GLUCOSE 107 mg/dL (75-110); POTASSIUM 3.2 mmol/L (3.6-5.0); SODIUM 141.9 mmol/L (137-145); TOTAL PROTEIN 5.6 g/dL (6.3-8.2)
[2018-03-27] MEDS: HYDROCORTISONE SOD SUCCINATE INJ/PF 100 MG/2 ML SDV IV SCH ×3 (06:34→22:23)
[2018-03-27] MEDS: AMOXICILLIN TRIHYD 250 MG/5 ML SUSP 80 ML PO SCH ×3 (06:34→22:25)
[2018-03-27] MEDS: 1/2 NORMAL SALINE 1,000 ML IV PRN ×2 (06:36→21:23)
[2018-03-27] MEDS: SODIUM CHLORIDE NASAL SPRAY 44 ML NASL SCH ×4 (08:37→22:24)
[2018-03-27] MEDS: NICOTINE 7 MG/24 HR PATCH.TD24 TD SCH (10:11)
[2018-03-27] MEDS: CYANOCOBALAMIN (VITAMIN B-12) 1,000 MCG TABLET PO SCH (10:14)
[2018-03-27] MEDS: FERROUS SULFATE 325 MG TABLET PO SCH (10:14)
[2018-03-27] MEDS: THIAMINE HCL 100 MG TABLET PO SCH ×2 (10:14→17:54)
[2018-03-27] MEDS: MULTIVITAMIN TABLET PO SCH (10:14)
[2018-03-27] MEDS: POTASSIUM CHLORIDE 10 MEQ CAPSULE.ER PO SCH (10:14)
[2018-03-27] MEDS: OLANZAPINE 2.5 MG TABLET PO SCH (10:18)
[2018-03-27] MEDS: MAGNESIUM SULFATE/D5W 1 GM/100 ML RTUPB IV SCH ×2 (12:49→14:51)
[2018-03-27] MEDS ORDERED: POTASSIUM CHLORIDE 20 MEQ/15 ML UDCUP PO ONE (13:00)
[2018-03-27] MEDS ORDERED: POTASSIUM CHLORIDE 10 MEQ CAPSULE.ER PO SCH (15:00)
--- NOTE | 2018-03-27 15:41 | PDOC PROGRESS REPORT ---
Subjective Progress Note for:: 03/27/18 Subjective:: The patient is a 52-year-old female with a past medical history of atrial fibrillation and alcohol dependence who was admitted 02/24/2018 for anemia, hypotension, UTI, and metabolic encephalopathy. Ms Mora again communicates well to me today. Her answers are however inappropriate. She answers quickly. It seems to be consistent with confabulation. She is oriented to herself, but nothing beyond that. She continues to have a slow heart rate in the 30s and 40s. She continues to remain asymptomatic during these time periods. Blood pressure remains just slightly higher than recommended. O2 saturations continue to be 9% and she sits on room air. Patient has no complaints. Nursing reports no other concerns Reason For Visit: ENCEPHALOPATHY,UTI Physical Exam Vital Signs: Temp Pulse Resp BP Pulse Ox 97.4 F 43 L 14 144/77 H 99 03/27/18 11:12 03/27/18 11:12 03/27/18 11:12 03/27/18 11:12 03/27/18 11:12 Intake & Output 03/26/18 03/27/18 03/28/18 06:59 06:59 06:59 Intake Total 3120 1316 200 Output Total 600 600 Balance 2520 716 200 Weight 65.7 kg General appearance: PRESENT: no acute distress, disheveled, thin Head exam: PRESENT: atraumatic, normocephalic Eye exam: PRESENT: PERRLA, other - Intermittently bilateral ocular movement pauses during H test. Ear exam: PRESENT: normal external ear exam Mouth exam: PRESENT: moist, tongue midline Teeth exam: PRESENT: poor dentation Respiratory exam: PRESENT: clear to auscultation jake Cardiovascular exam: PRESENT: bradycardia, +S1, +S2, other Pulses: PRESENT: normal dorsalis pedis pul Vascular exam: PRESENT: normal capillary refill GI/Abdominal exam: PRESENT: normal bowel sounds, soft. ABSENT: distended, guarding, mass, organolmegaly, rebound, tenderness Rectal exam: PRESENT: deferred Extremities exam: PRESENT: +1 edema, other - Bilateral lower extremities. Musculoskeletal exam: PRESENT: full ROM, normal inspection Neurological exam: PRESENT: alert, altered, awake, oriented to person, other - Gait not assessed Psychiatric exam: PRESENT: flat affect - Blunted., unusual affect Focused psych exam: PRESENT: other - Possible confabulation. Skin exam: PRESENT: other - Ecchymosis right upper extremity. Results Laboratory Results: 03/27/18 04:08 03/27/18 04:08 03/27/18 03/27/18 04:08 04:08 WBC 8.0 RBC 2.50 L Hgb 8.9 L Hct 26.0 L MCV 104 H MCH 35.5 H MCHC 34.0 RDW 25.2 H Plt Count 135 L Sodium 141.9 Potassium 3.2 L Chloride 111 H Carbon Dioxide 24 Anion Gap 7 BUN 34 H Creatinine 0.68 Est GFR ( Amer) > 60 Est GFR (Non-Af Amer) > 60 Glucose 107 Calcium 8.7 Magnesium 1.7 Total Bilirubin 0.6 AST 52 H ALT 32 Alkaline Phosphatase 59 Total Protein 5.6 L Albumin 2.7 L 02/24/18 09:55 Troponin I < 0.012 Impressions: Chest X-Ray 02/24/18 09:59 IMPRESSION: NO ACUTE RADIOGRAPHIC FINDING IN THE CHEST. Abdomen Ultrasound 02/25/18 00:00 IMPRESSION: Limited study as noted above. Gallbladder was not visualized. FATTY INFILTRATION OF THE LIVER. Other findings as noted above Head MRI 03/01/18 00:00 IMPRESSION: No acute findings. Very limited study EVIDENCE OF ACUTE STROKE: NO. Guidance Fluoroscopy 03/07/18 00:00 IMPRESSION: Lumbar puncture under fluoroscopy. No immediate complication. Lumbar Puncture 03/07/18 09:00 IMPRESSION: Lumbar puncture under fluoroscopy. No immediate complication. Assessment & Plan - Diagnosis (1) Adrenal insufficiency Is this a current diagnosis for this admission?: Yes (2) Alcohol dependence, continuous Is this a current diagnosis for this admission?: Yes (3) Alcoholic Korsakoff syndrome Is this a current diagnosis for this admission?: Yes (4) Alcoholic cirrhosis Qualifiers: Ascites presence: without ascites Qualified Code(s): K70.30 - Alcoholic cirrhosis of liver without ascites Is this a current diagnosis for this admission?: Yes (5) Do not resuscitate Is this a current diagnosis for this admission?: Yes (6) Hallucination Is this a current diagnosis for this admission?: Yes (7) Megaloblastic anemia due to alcoholism Is this a current diagnosis for this admission?: Yes (8) Metabolic encephalopathy Is this a current diagnosis for this admission?: Yes (9) Paroxysmal atrial fibrillation Is this a current diagnosis for this admission?: Yes (10) UTI (urinary tract infection) Qualifiers: Urinary tract infection type: site unspecified Hematuria presence: without hematuria Qualified Code(s): N39.0 - Urinary tract infection, site not specified Is this a current diagnosis for this admission?: Yes (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) Is this a current diagnosis for this admission?: Yes (12) Urinary retention Is this a current diagnosis for this admission?: Yes - Time Time Spent with patient: 25-34 minutes Medications reviewed and adjusted accordingly: Yes - Inpatient Certification Based on my medical assessment, after consideration of the patient's comorbidities, presenting symptoms, or acuity I expect that the services needed warrant INPATIENT care.: Yes I certify that my determination is in accordance with my understanding of Medicare's requirements for reasonable and necessary INPATIENT services [42 CFR 412.3e].: Yes - Plan Summary Plan Summary: Megaloblastic anemia due to alcoholism Is this a current diagnosis for this admission?: Yes Plan: -monitoring -no acute signs of bleeding. Occult stools negative x3 -Iron and TIBC were low on admission, Normal tsh, b12, and folate -s/p 5u PRBC. Last was 03/21. Hgb holding in 8-10 range -Continue B12, folic acid, thiamine, multivitamin and iron supplements. RD involved. Wernicke-Korsakoff syndrome (alcoholic)/Hallucinations Is this a current diagnosis for this admission?: Yes Plan: -Continue on thiamine, B12, folic acid daily. Fall and aspiration precautions. -Discharge planning involved. will require SNF for date pitter placement. -Secondary to acute metabolic encephalopathy in the setting of Korsakoff syndrome. She has reported auditory and visual hallucinations. -She's had an extensive workup including: Negative HIV, RPR, HSV, UDS and serum EtOH. Chem labs WNL. EEG was technically poor secondary to artifact; does demonstrate generalized background slowing consistent with diffuse cerebral dysfunction. 03/01/MRI brain done but not optimal. Did not show any acute abnormalities. -normal b12, folate, tsh. LP completed 02/05/2018; Gram stain and cultures were negative. No evidence of active infection. Heavy metal screen ordered for completeness. -Continue Zyprexa 2.5 mg daily and Haldol 2 mg IM every 4 hours prn -Of note, the patient has been started on IV hydrocortisone for adrenal insufficiency; side effect may include steroid psychosis. -Psychiatry reports she does not have capacity. Metabolic encephalopathy Is this a current diagnosis for this admission?: Yes Plan: -Multifactorial. Suspected to be due to alcoholic Korsakoff syndrome and adrena l insufficiency. Evaluation and plan as above. Alcohol dependence, continuous. Long standing. Heavy. Chronic. Tobacco abuse Is this a current diagnosis for this admission?: Yes Plan: -Outside of window for acute issues (ie: seizure). Continue multivitamin, thiamine, folic acid, ferrous sulfate supplementation. - Smoking cessation unable to be provided. UTI (urinary tract infection) Qualifiers: Urinary tract infection type: site unspecified Hematuria presence: without hematuria Qualified Code(s): N39.0 - Urinary tract infection, site not specified Is this a current diagnosis for this admission?: Yes Plan: -Recurrent issue. -Urine culture (03/19/2018) >100,000 colonies of enterococcus. 7 day course of amox started 03/21 -Marshall catheter has been removed; continue bladder scans with straight cath instructions for results over 350 cc. If straight cath continues to be needed, consideration will need to be given to reinsert Marshall upon completion UTI treatment. Alcoholic cirrhosis Qualifiers: Ascites presence: without ascites Qualified Code(s): K70.30 - Alcoholic cirrhosis of liver without ascites Is this a current diagnosis for this admission?: Yes Plan: -Stable; no acute changes. We will continue judicious maintenance IV fluids, and vitamin supplementation. Adrenal insufficiency Is this a current diagnosis for this admission?: Yes Plan: -Random cortisol (midnight) 9.86. Cosyntropin stimulating test is low at 16.3; indicates adrenal insufficiency. -TSH is normal at 1.87. Prolactin was normal at 9.314. PTH is normal at 22.3. -Started with IV hydrocortisone 100 mg x1, and has since moved to hydrocortisone IV 50 mg every 8 hours; continue until vital signs stabilize (temperature regulation, normotensive) and patient is able to tolerate p.o. food/medications consistently. -Likely the cause of hypothermia. Body temperature has been in acceptable range over the past few days. Urinary Retention -continues to be an intermittent issue. Will not replace marshall at this time due ongoing tx for UTI. -continue with bladder scans and straight caths or pur-wick catheter if available -Patient did have a spontaneous void on 03/25 hypernatremia/hypokalemia -Suspect dehydration secondary to poor oral intake. Judiciously giving IVF. Sodium is back within normal limits. Decrease 1/2 normal saline to 85 cc an hour -Oral potassium 20 mEq x2 doses. Check mag. Bradycardia -Asymptomatic. May be related to adrenal insufficiency. -EKG shows no signs of heart block. -Replace hypokalemia and low magnesium. Disposition:patient has limited resources and limited options. Case management continues to work on placement. If patient continues to demonstrate little interest in eating, we will have to consider insertion of an NGT or PEG tube to provide nutrition.
[2018-03-27] MEDS: TAMSULOSIN HCL 0.4 MG CAP.SR.24H PO SCH (17:54)
[2018-03-27] MEDS: MIRTAZAPINE 15 MG TABLET PO SCH (22:23)
[2018-03-28 05:07] LABS: HEMATOCRIT 27.9 % (36.0-47.0); HEMOGLOBIN 9.4 g/dL (12.0-15.5); MEAN CORPUSCULAR HEMOGLOBIN 34.9 pg (27.0-33.4); MEAN CORPUSCULAR HGB CONC 33.7 g/dL (32.0-36.0); MEAN CORPUSCULAR VOLUME 103 fl (80-97); PLATELET COUNT 158 10^3/uL (150-450); WHITE BLOOD COUNT 11.5 10^3/uL (4.0-10.5)
[2018-03-28] MEDS: HYDROCORTISONE SOD SUCCINATE INJ/PF 100 MG/2 ML SDV IV SCH ×3 (05:11→21:24)
[2018-03-28] MEDS: AMOXICILLIN TRIHYD 250 MG/5 ML SUSP 80 ML PO SCH (05:12)
[2018-03-28 05:15] LABS: RED CELL DISTRIBUTION WIDTH 24.4 % (11.5-14.0)
[2018-03-28 05:29] LABS: ANION GAP 5 (5-19); BLOOD UREA NITROGEN 29 mg/dL (7-20); CALCIUM 8.7 mg/dL (8.4-10.2); CARBON DIOXIDE 26 mmol/L (22-30); CHLORIDE 111 mmol/L (98-107); GLUCOSE 116 mg/dL (75-110); SODIUM 142.4 mmol/L (137-145)
[2018-03-28 05:37] LABS: POTASSIUM 2.9 mmol/L (3.6-5.0)
[2018-03-28] MEDS: POTASSIUM CHLORIDE 20 MEQ/50 ML RTU IV SCH ×2 (06:14→09:30)
[2018-03-28] MEDS: POTASSIUM CHLORIDE 10 MEQ CAPSULE.ER PO SCH ×3 (09:31→18:47)
[2018-03-28] MEDS: SODIUM CHLORIDE NASAL SPRAY 44 ML NASL SCH ×4 (09:31→21:24)
[2018-03-28] MEDS: THIAMINE HCL 100 MG TABLET PO SCH ×2 (11:18→18:47)
[2018-03-28] MEDS: NICOTINE 7 MG/24 HR PATCH.TD24 TD SCH (11:18)
[2018-03-28] MEDS: CYANOCOBALAMIN (VITAMIN B-12) 1,000 MCG TABLET PO SCH (11:19)
[2018-03-28] MEDS: FERROUS SULFATE 325 MG TABLET PO SCH (11:19)
[2018-03-28] MEDS: OLANZAPINE 2.5 MG TABLET PO SCH (11:20)
[2018-03-28] MEDS: MULTIVITAMIN TABLET PO SCH (11:20)
[2018-03-28] MEDS: 1/2 NORMAL SALINE 1,000 ML IV PRN (16:12)
[2018-03-28] MEDS: TAMSULOSIN HCL 0.4 MG CAP.SR.24H PO SCH (18:47)
[2018-03-28] MEDS: MIRTAZAPINE 15 MG TABLET PO SCH (21:14)
[2018-03-29] MEDS: HYDROCORTISONE SOD SUCCINATE INJ/PF 100 MG/2 ML SDV IV SCH ×3 (05:38→22:54)
[2018-03-29] MEDS: 1/2 NORMAL SALINE 1,000 ML IV PRN ×2 (05:52→19:54)
--- NOTE | 2018-03-29 06:39 | PDOC PROGRESS REPORT ---
Subjective Progress Note for:: 03/28/18 Subjective:: Patient is resting in bed. Does not appear to be in acute distress. She does attempt to answer questions but confabulation is ongoing and answers seem only partly relevant/appropriate. Reason For Visit: ENCEPHALOPATHY,UTI Physical Exam Vital Signs: Temp Pulse Resp BP Pulse Ox 97.4 F 44 L 17 153/84 H 95 03/29/18 00:00 03/29/18 00:00 03/29/18 00:00 03/29/18 00:00 03/29/18 00:00 Intake & Output 03/27/18 03/28/18 03/29/18 06:59 06:59 06:59 Intake Total 1316 1400 2340 Output Total 600 1825 825 Balance 716 -425 1515 Weight 69.2 kg General appearance: PRESENT: no acute distress, cooperative, thin Head exam: PRESENT: normocephalic Eye exam: PRESENT: conjunctiva pale Ear exam: PRESENT: normal external ear exam Mouth exam: PRESENT: moist Respiratory exam: PRESENT: clear to auscultation jake, symmetrical, unlabored. ABSENT: accessory muscle use, rales, rhonchi, wheezes Cardiovascular exam: PRESENT: RRR, +S1, +S2 GI/Abdominal exam: PRESENT: normal bowel sounds, soft. ABSENT: distended, tenderness Extremities exam: ABSENT: calf tenderness Neurological exam: PRESENT: alert, awake, oriented to person Psychiatric exam: PRESENT: flat affect. ABSENT: agitated, anxious Results Laboratory Results: 03/28/18 04:20 03/28/18 04:25 02/24/18 09:55 Troponin I < 0.012 Impressions: Chest X-Ray 02/24/18 09:59 IMPRESSION: NO ACUTE RADIOGRAPHIC FINDING IN THE CHEST. Abdomen Ultrasound 02/25/18 00:00 IMPRESSION: Limited study as noted above. Gallbladder was not visualized. FATTY INFILTRATION OF THE LIVER. Other findings as noted above Head MRI 03/01/18 00:00 IMPRESSION: No acute findings. Very limited study EVIDENCE OF ACUTE STROKE: NO. Guidance Fluoroscopy 03/07/18 00:00 IMPRESSION: Lumbar puncture under fluoroscopy. No immediate complication. Lumbar Puncture 03/07/18 09:00 IMPRESSION: Lumbar puncture under fluoroscopy. No immediate complication. Assessment & Plan - Diagnosis (1) Metabolic encephalopathy Is this a current diagnosis for this admission?: Yes Plan: Chronic secondary to alcohol use continue current regimen (2) Alcoholic Korsakoff syndrome Is this a current diagnosis for this admission?: Yes Plan: As above. Continue thiamine (3) Alcoholic cirrhosis Qualifiers: Ascites presence: without ascites Qualified Code(s): K70.30 - Alcoholic cirrhosis of liver without ascites Is this a current diagnosis for this admission?: Yes Plan: Patient has not had any alcohol for several weeks. Continue to encourage diet as well as (4) Megaloblastic anemia due to alcoholism Is this a current diagnosis for this admission?: Yes Plan: Continue supplements. No acute intervention necessary at this time. (5) Urinary retention Is this a current diagnosis for this admission?: Yes Plan: The staff reports straight catheterizing the patient approximately every 8 hours. Each time there is greater than 400 mL of urine. They report that the external urethral meatus is beginning to become inflamed. I have ordered a Will catheter to be placed to avoid this recurrent trauma. I have also asked that a urinalysis and culture be sent. - Time Time Spent with patient: Less than 15 minutes Medications reviewed and adjusted accordingly: Yes Anticipated discharge: SNF - Plan Summary Plan Summary: Currently awaiting placement as patient is unable to care for herself at home and there is no appropriate support available in that setting.
[2018-03-29] MEDS: POTASSIUM CHLORIDE 10 MEQ CAPSULE.ER PO SCH ×3 (09:58→17:47)
[2018-03-29] MEDS: CYANOCOBALAMIN (VITAMIN B-12) 1,000 MCG TABLET PO SCH (09:59)
[2018-03-29] MEDS: FERROUS SULFATE 325 MG TABLET PO SCH (09:59)
[2018-03-29] MEDS: MULTIVITAMIN TABLET PO SCH (09:59)
[2018-03-29] MEDS: THIAMINE HCL 100 MG TABLET PO SCH ×2 (09:59→17:47)
[2018-03-29] MEDS: NICOTINE 7 MG/24 HR PATCH.TD24 TD SCH (10:00)
[2018-03-29] MEDS: OLANZAPINE 2.5 MG TABLET PO SCH (10:31)
[2018-03-29] MEDS: SODIUM CHLORIDE NASAL SPRAY 44 ML NASL SCH ×4 (10:33→22:57)
--- NOTE | 2018-03-29 14:11 | PDOC PROGRESS REPORT ---
Subjective Progress Note for:: 03/29/18 - This is the actual note for the encounter on March 29, 2018 Subjective:: Patient is resting in bed. Does not appear to be in acute distress. She does attempt to answer questions but confabulation is ongoing and answers seem only partly relevant/appropriate. Today she stated that she was going to try and tell a joke with did not in fact actually tell a joke. Reason For Visit: ENCEPHALOPATHY,UTI Physical Exam Vital Signs: Temp Pulse Resp BP Pulse Ox 97.1 F 60 17 164/70 H 99 03/29/18 12:00 03/29/18 12:00 03/29/18 12:00 03/29/18 12:00 03/29/18 12:00 Intake & Output 03/28/18 03/29/18 03/30/18 06:59 06:59 06:59 Intake Total 1400 2824 Output Total 1825 1825 Balance -425 999 Weight 69.2 kg General appearance: PRESENT: no acute distress, well-developed - But frail appearing 52-year-old female who looks older than her stated age Respiratory exam: PRESENT: clear to auscultation jake, symmetrical, unlabored. ABSENT: rales, rhonchi, wheezes Cardiovascular exam: PRESENT: RRR, +S1, +S2 GI/Abdominal exam: PRESENT: normal bowel sounds, soft. ABSENT: distended, tenderness Neurological exam: PRESENT: alert, awake, oriented to person Psychiatric exam: PRESENT: flat affect. ABSENT: agitated, anxious Results Laboratory Results: 03/28/18 04:20 03/28/18 04:25 02/24/18 09:55 Troponin I < 0.012 Impressions: Chest X-Ray 02/24/18 09:59 IMPRESSION: NO ACUTE RADIOGRAPHIC FINDING IN THE CHEST. Abdomen Ultrasound 02/25/18 00:00 IMPRESSION: Limited study as noted above. Gallbladder was not visualized. FATTY INFILTRATION OF THE LIVER. Other findings as noted above Head MRI 03/01/18 00:00 IMPRESSION: No acute findings. Very limited study EVIDENCE OF ACUTE STROKE: NO. Guidance Fluoroscopy 03/07/18 00:00 IMPRESSION: Lumbar puncture under fluoroscopy. No immediate complication. Lumbar Puncture 03/07/18 09:00 IMPRESSION: Lumbar puncture under fluoroscopy. No immediate complication. Assessment & Plan - Diagnosis (1) Metabolic encephalopathy Is this a current diagnosis for this admission?: Yes Plan: Chronic secondary to alcohol use continue current regimen. Her current state is likely her new baseline. (2) Alcoholic Korsakoff syndrome Is this a current diagnosis for this admission?: Yes Plan: As above. Continue thiamine. Encourage good intake with oral diet. (3) Alcoholic cirrhosis Qualifiers: Ascites presence: without ascites Qualified Code(s): K70.30 - Alcoholic cirrhosis of liver without ascites Is this a current diagnosis for this admission?: Yes Plan: Patient has not had any alcohol for several weeks. Continue to encourage abstinence. (4) Megaloblastic anemia due to alcoholism Is this a current diagnosis for this admission?: Yes Plan: Continue supplements. No acute intervention necessary at this time. Continue to monitor hemoglobin. (5) Urinary retention Is this a current diagnosis for this admission?: Yes Plan: Urinalysis did not suggest infection. Culture was not obtained. - Time Time Spent with patient: Less than 15 minutes Medications reviewed and adjusted accordingly: Yes Anticipated discharge: SNF - Plan Summary Plan Summary: Awaiting placement for long-term care.
[2018-03-29] MEDS: TAMSULOSIN HCL 0.4 MG CAP.SR.24H PO SCH (17:47)
[2018-03-29] MEDS: MIRTAZAPINE 15 MG TABLET PO SCH (22:58)
[2018-03-30] MEDS: HALOPERIDOL LACTATE INJ 5 MG/1 ML VIAL IM PRN (00:11)
[2018-03-30] MEDS: HYDROCORTISONE SOD SUCCINATE INJ/PF 100 MG/2 ML SDV IV SCH ×3 (05:02→21:16)
[2018-03-30] MEDS: POTASSIUM CHLORIDE 10 MEQ CAPSULE.ER PO SCH ×3 (08:00→18:43)
[2018-03-30] MEDS: SODIUM CHLORIDE NASAL SPRAY 44 ML NASL SCH ×4 (08:11→21:16)
[2018-03-30] MEDS: NICOTINE 7 MG/24 HR PATCH.TD24 TD SCH (13:13)
[2018-03-30] MEDS: THIAMINE HCL 100 MG TABLET PO SCH ×2 (13:15→18:43)
[2018-03-30] MEDS: FERROUS SULFATE 325 MG TABLET PO SCH (13:15)
[2018-03-30] MEDS: CYANOCOBALAMIN (VITAMIN B-12) 1,000 MCG TABLET PO SCH (13:15)
[2018-03-30] MEDS: MULTIVITAMIN TABLET PO SCH (13:15)
[2018-03-30] MEDS: OLANZAPINE 2.5 MG TABLET PO SCH (13:16)
[2018-03-30] MEDS ORDERED: BISACODYL 5 MG TABEC PO ONE ×2 (15:45→19:00)
[2018-03-30] MEDS: TAMSULOSIN HCL 0.4 MG CAP.SR.24H PO SCH (18:41)
[2018-03-30] MEDS: 1/2 NORMAL SALINE 1,000 ML IV PRN (18:45)
[2018-03-30] MEDS: DOCUSATE SODIUM 100 MG CAPSULE PO SCH (18:47)
--- NOTE | 2018-03-30 19:53 | PDOC PROGRESS REPORT ---
Subjective Progress Note for:: 03/30/18 Subjective:: Patient appears comfortable. Still confused, confabulating and hallucinating. Reason For Visit: ENCEPHALOPATHY,UTI Physical Exam Vital Signs: Temp Pulse Resp BP Pulse Ox 97.3 F 57 L 16 92/58 L 96 03/30/18 16:00 03/30/18 16:00 03/30/18 16:00 03/30/18 16:00 03/30/18 08:45 Intake & Output 03/29/18 03/30/18 03/31/18 06:59 06:59 06:59 Intake Total 2824 1230 1250 Output Total 1825 1875 550 Balance 999 -645 700 Weight 69.2 kg 69.8 kg General appearance: PRESENT: no acute distress, cooperative Respiratory exam: PRESENT: clear to auscultation jake, symmetrical, unlabored. ABSENT: rales, rhonchi, wheezes Cardiovascular exam: PRESENT: RRR, +S1, +S2 GI/Abdominal exam: PRESENT: normal bowel sounds, soft. ABSENT: distended, tenderness Extremities exam: PRESENT: pedal edema Neurological exam: PRESENT: alert, awake, oriented to person, CN II-XII grossly intact. ABSENT: oriented to place, oriented to time, oriented to situation Psychiatric exam: PRESENT: flat affect Results Laboratory Results: 03/28/18 04:20 03/28/18 04:25 02/24/18 09:55 Troponin I < 0.012 Impressions: Chest X-Ray 02/24/18 09:59 IMPRESSION: NO ACUTE RADIOGRAPHIC FINDING IN THE CHEST. Abdomen Ultrasound 02/25/18 00:00 IMPRESSION: Limited study as noted above. Gallbladder was not visualized. FATTY INFILTRATION OF THE LIVER. Other findings as noted above Head MRI 03/01/18 00:00 IMPRESSION: No acute findings. Very limited study EVIDENCE OF ACUTE STROKE: NO. Guidance Fluoroscopy 03/07/18 00:00 IMPRESSION: Lumbar puncture under fluoroscopy. No immediate complication. Lumbar Puncture 03/07/18 09:00 IMPRESSION: Lumbar puncture under fluoroscopy. No immediate complication. Assessment & Plan - Diagnosis (1) Alcoholic Korsakoff syndrome Is this a current diagnosis for this admission?: Yes Plan: Continue current medications. No improvement expected. (2) Alcoholic cirrhosis Qualifiers: Ascites presence: without ascites Qualified Code(s): K70.30 - Alcoholic cirrhosis of liver without ascites Is this a current diagnosis for this admission?: Yes Plan: Currently stable. (3) Megaloblastic anemia due to alcoholism Is this a current diagnosis for this admission?: Yes Plan: Continue supplements. Continue to monitor hemoglobin. (4) Urinary retention Is this a current diagnosis for this admission?: Yes Plan: No evidence of infection when Will catheter placed. Swelling is evidently going down without the repetitive trauma of straight catheterization. (5) Metabolic encephalopathy Is this a current diagnosis for this admission?: Yes Plan: At baseline - Time Time Spent with patient: Less than 15 minutes Medications reviewed and adjusted accordingly: Yes Anticipated discharge: SNF
[2018-03-30] MEDS: MIRTAZAPINE 15 MG TABLET PO SCH (21:16)
[2018-03-31] MEDS: HYDROCORTISONE SOD SUCCINATE INJ/PF 100 MG/2 ML SDV IV SCH ×3 (05:36→21:19)
[2018-03-31 07:10] LABS: LEAD 3 ug/dL (0-4); MERCURY WHOLE BLD None Detected ug/L (0.0-14.9)
[2018-03-31 07:32] LABS: BLOOD UREA NITROGEN 44 mg/dL (7-20); CALCIUM 7.4 mg/dL (8.4-10.2); CARBON DIOXIDE 27 mmol/L (22-30); CHLORIDE 111 mmol/L (98-107); GLUCOSE 115 mg/dL (75-110); POTASSIUM 3.2 mmol/L (3.6-5.0)
[2018-03-31 07:38] LABS: SODIUM 139.7 mmol/L (137-145)
[2018-03-31 07:41] LABS: ANION GAP 2 (5-19)
--- NOTE | 2018-03-31 09:58 | PDOC PROGRESS REPORT ---
Subjective Progress Note for:: 03/31/18 Subjective:: Resting comfortably and eating breakfast. Reason For Visit: ENCEPHALOPATHY,UTI Physical Exam Vital Signs: Temp Pulse Resp BP Pulse Ox 97.8 F 64 17 91/64 L 100 03/31/18 00:00 03/31/18 00:00 03/31/18 00:00 03/31/18 00:00 03/30/18 19:31 Intake & Output 03/30/18 03/31/18 04/01/18 06:59 06:59 06:59 Intake Total 1230 1350 Output Total 1875 950 Balance -645 400 Weight 69.8 kg 69.1 kg General appearance: PRESENT: no acute distress, cooperative Head exam: PRESENT: normocephalic Mouth exam: PRESENT: moist Respiratory exam: PRESENT: clear to auscultation jake, symmetrical, unlabored. ABSENT: rales, rhonchi, stridor, wheezes Cardiovascular exam: PRESENT: RRR, +S1, +S2 GI/Abdominal exam: PRESENT: normal bowel sounds, soft. ABSENT: distended, tenderness Extremities exam: ABSENT: pedal edema Neurological exam: PRESENT: alert, awake, oriented to person Psychiatric exam: PRESENT: normal mood. ABSENT: agitated, anxious Focused psych exam: ABSENT: restlessness Results Laboratory Results: 03/31/18 06:41 03/31/18 06:41 03/31/18 03/31/18 06:41 06:41 WBC Cancelled RBC Cancelled Hgb Cancelled Hct Cancelled MCV Cancelled MCH Cancelled MCHC Cancelled RDW Cancelled Plt Count Cancelled Sodium 139.7 Potassium 3.2 L Chloride 111 H Carbon Dioxide 27 Anion Gap 2 L BUN 44 H Creatinine 0.55 Est GFR ( Amer) > 60 Est GFR (Non-Af Amer) > 60 Glucose 115 H Calcium 7.4 L 02/24/18 09:55 Troponin I < 0.012 Impressions: Chest X-Ray 02/24/18 09:59 IMPRESSION: NO ACUTE RADIOGRAPHIC FINDING IN THE CHEST. Abdomen Ultrasound 02/25/18 00:00 IMPRESSION: Limited study as noted above. Gallbladder was not visualized. FATTY INFILTRATION OF THE LIVER. Other findings as noted above Head MRI 03/01/18 00:00 IMPRESSION: No acute findings. Very limited study EVIDENCE OF ACUTE STROKE: NO. Guidance Fluoroscopy 03/07/18 00:00 IMPRESSION: Lumbar puncture under fluoroscopy. No immediate complication. Lumbar Puncture 03/07/18 09:00 IMPRESSION: Lumbar puncture under fluoroscopy. No immediate complication. Assessment & Plan - Diagnosis (1) Alcoholic Korsakoff syndrome Is this a current diagnosis for this admission?: Yes Plan: Patient stable and at baseline. Continue supplements. (2) Alcoholic cirrhosis Qualifiers: Ascites presence: without ascites Qualified Code(s): K70.30 - Alcoholic ci rrhosis of liver without ascites Is this a current diagnosis for this admission?: Yes Plan: Stable at this time. Continue supportive measures. (3) Megaloblastic anemia due to alcoholism Is this a current diagnosis for this admission?: Yes Plan: Continue to monitor hemoglobin (4) Urinary retention Is this a current diagnosis for this admission?: Yes Plan: Continue Will catheter at this time (5) Metabolic encephalopathy Is this a current diagnosis for this admission?: Yes Plan: Improved but still with hallucinations and occasional confabulation (6) Hypokalemia Is this a current diagnosis for this admission?: Yes Plan: Potassium supplementation increased to 20 mEq 3 times a day. Continue to monitor potassium level. - Time Time Spent with patient: Less than 15 minutes Medications reviewed and adjusted accordingly: Yes Anticipated discharge: SNF
[2018-03-31 10:47] LABS: MEAN CORPUSCULAR HEMOGLOBIN 36.2 pg (27.0-33.4); MEAN CORPUSCULAR HGB CONC 34.2 g/dL (32.0-36.0); MEAN CORPUSCULAR VOLUME 106 fl (80-97); PLATELET COUNT 116 10^3/uL (150-450); RED BLOOD COUNT 1.21 10^6/uL (3.72-5.28); RED CELL DISTRIBUTION WIDTH 25.5 % (11.5-14.0); WHITE BLOOD COUNT 10.6 10^3/uL (4.0-10.5)
[2018-03-31] MEDS: NICOTINE 7 MG/24 HR PATCH.TD24 TD SCH (10:52)
[2018-03-31] MEDS: CYANOCOBALAMIN (VITAMIN B-12) 1,000 MCG TABLET PO SCH (10:53)
[2018-03-31] MEDS: THIAMINE HCL 100 MG TABLET PO SCH ×2 (10:53→19:20)
[2018-03-31] MEDS: FERROUS SULFATE 325 MG TABLET PO SCH (10:53)
[2018-03-31] MEDS: DOCUSATE SODIUM 100 MG CAPSULE PO SCH ×2 (10:53→19:20)
[2018-03-31] MEDS: MULTIVITAMIN TABLET PO SCH (10:53)
[2018-03-31] MEDS: POTASSIUM CHLORIDE 10 MEQ CAPSULE.ER PO SCH ×3 (10:54→19:20)
[2018-03-31] MEDS: OLANZAPINE 2.5 MG TABLET PO SCH (10:55)
[2018-03-31] MEDS ORDERED: POTASSI CL 20 MEQ/50 ML RIDER 20 MEQ/50 ML RTUPB IV ONE (11:00)
[2018-03-31 11:14] LABS: HEMOGLOBIN 4.4 g/dL (12.0-15.5)
[2018-03-31 11:15] LABS: HEMATOCRIT 12.8 % (36.0-47.0)
[2018-03-31] MEDS: 1/2 NORMAL SALINE 1,000 ML IV PRN (12:56)
[2018-03-31] MEDS: SODIUM CHLORIDE NASAL SPRAY 44 ML NASL SCH ×2 (13:00→16:00)
[2018-03-31] MEDS: TAMSULOSIN HCL 0.4 MG CAP.SR.24H PO SCH (19:20)
[2018-03-31] MEDS: HALOPERIDOL LACTATE INJ 5 MG/1 ML VIAL IM PRN (21:19)
[2018-04-01] MEDS: SODIUM CHLORIDE NASAL SPRAY 44 ML NASL SCH ×4 (00:33→21:02)
[2018-04-01] MEDS: MIRTAZAPINE 15 MG TABLET PO SCH ×2 (00:33→21:01)
[2018-04-01] MEDS: 1/2 NORMAL SALINE 1,000 ML IV PRN (02:23)
[2018-04-01] MEDS: HALOPERIDOL LACTATE INJ 5 MG/1 ML VIAL IM PRN (02:46)
[2018-04-01] MEDS: HYDROCORTISONE SOD SUCCINATE INJ/PF 100 MG/2 ML SDV IV SCH (05:32)
[2018-04-01 07:05] LABS: MEAN CORPUSCULAR HEMOGLOBIN 36.1 pg (27.0-33.4); MEAN CORPUSCULAR HGB CONC 33.1 g/dL (32.0-36.0); MEAN CORPUSCULAR VOLUME 109 fl (80-97); PLATELET COUNT 100 10^3/uL (150-450); RED BLOOD COUNT 0.95 10^6/uL (3.72-5.28); RED CELL DISTRIBUTION WIDTH 26.3 % (11.5-14.0); WHITE BLOOD COUNT 13.9 10^3/uL (4.0-10.5)
[2018-04-01 07:24] LABS: BLOOD UREA NITROGEN 56 mg/dL (7-20); CALCIUM 7.9 mg/dL (8.4-10.2); CARBON DIOXIDE 23 mmol/L (22-30); CHLORIDE 113 mmol/L (98-107); GLUCOSE 119 mg/dL (75-110); POTASSIUM 4.1 mmol/L (3.6-5.0)
[2018-04-01 07:29] LABS: SODIUM 139.8 mmol/L (137-145)
[2018-04-01 07:33] LABS: ANION GAP 4 (5-19)
[2018-04-01 07:50] LABS: HEMATOCRIT 10.4 % (36.0-47.0); HEMOGLOBIN 3.4 g/dL (12.0-15.5)
[2018-04-01 12:03] LABS: PATH REVIEW PATHOLOGIST REVIEWED
[2018-04-01] MEDS: POTASSIUM CHLORIDE 10 MEQ CAPSULE.ER PO SCH (13:41)
[2018-04-01] MEDS: DOCUSATE SODIUM 100 MG CAPSULE PO SCH ×2 (13:49→18:55)
[2018-04-01] MEDS: FERROUS SULFATE 325 MG TABLET PO SCH (13:54)
[2018-04-01] MEDS: THIAMINE HCL 100 MG TABLET PO SCH (13:55)
[2018-04-01] MEDS: MULTIVITAMIN TABLET PO SCH (13:55)
[2018-04-01] MEDS: CYANOCOBALAMIN (VITAMIN B-12) 1,000 MCG TABLET PO SCH (13:55)
[2018-04-01] MEDS: OLANZAPINE 2.5 MG TABLET PO SCH (13:55)
[2018-04-01] MEDS ORDERED: MORPHINE SULFATE 10 MG/ML INJ IV ONE (14:00)
--- NOTE | 2018-04-01 14:03 | PDOC PROGRESS REPORT ---
Subjective Progress Note for:: 04/01/18 Subjective:: Patient looks pale. She was having pain earlier. The pain is improved. She is feeling weak. Reason For Visit: ENCEPHALOPATHY,UTI Physical Exam Vital Signs: Temp Pulse Resp BP Pulse Ox 97.6 F 99 16 111/87 H 97 04/01/18 08:00 04/01/18 08:00 04/01/18 08:00 04/01/18 08:00 04/01/18 08:00 Intake & Output 03/31/18 04/01/18 04/02/18 06:59 06:59 06:59 Intake Total 2350 450 Output Total 950 200 Balance 1400 250 Weight 69.1 kg 65 kg General appearance: PRESENT: no acute distress Head exam: PRESENT: normocephalic Respiratory exam: PRESENT: clear to auscultation jake, symmetrical, unlabored. ABSENT: rales, rhonchi, wheezes Cardiovascular exam: PRESENT: RRR, +S1, +S2 GI/Abdominal exam: PRESENT: normal bowel sounds, soft. ABSENT: tenderness Gentrourinary exam: PRESENT: indwelling catheter Neurological exam: PRESENT: alert, awake, oriented to person Psychiatric exam: PRESENT: flat affect. ABSENT: agitated, anxious Results Laboratory Results: 04/01/18 06:55 04/01/18 06:55 04/01/18 04/01/18 06:55 06:55 WBC 13.9 H RBC 0.95 L Hgb 3.4 L* Hct 10.4 L* MCV 109 H MCH 36.1 H MCHC 33.1 RDW 26.3 H Plt Count 100 L Sodium 139.8 Potassium 4.1 Chloride 113 H Carbon Dioxide 23 Anion Gap 4 L BUN 56 H Creatinine 0.65 Est GFR ( Amer) > 60 Est GFR (Non-Af Amer) > 60 Glucose 119 H Calcium 7.9 L 02/24/18 09:55 Troponin I < 0.012 Impressions: Chest X-Ray 02/24/18 09:59 IMPRESSION: NO ACUTE RADIOGRAPHIC FINDING IN THE CHEST. Abdomen Ultrasound 02/25/18 00:00 IMPRESSION: Limited study as noted above. Gallbladder was not visualized. FATTY INFILTRATION OF THE LIVER. Other findings as noted above Head MRI 03/01/18 00:00 IMPRESSION: No acute findings. Very limited study EVIDENCE OF ACUTE STROKE: NO. Guidance Fluoroscopy 03/07/18 00:00 IMPRESSION: Lumbar puncture under fluoroscopy. No immediate complication. Lumbar Puncture 03/07/18 09:00 IMPRESSION: Lumbar puncture under fluoroscopy. No immediate complication. Assessment & Plan - Diagnosis (1) Alcoholic Korsakoff syndrome Is this a current diagnosis for this admission?: Yes Plan: No change or improvement in her current condition. (2) Alcoholic cirrhosis Qualifiers: Ascites presence: without ascites Qualified Code(s): K70.30 - Alcoholic cirrhosis of liver without ascites Is this a current diagnosis for this admission?: Yes (3) Megaloblastic anemia due to alcoholism Is this a current diagnosis for this admission?: Yes Plan: Anemia has gotten profoundly worse. No evidence of any bleeding. (4) Urinary retention Is this a current diagnosis for this admission?: Yes Plan: Unfortunately the patient was able to use her feet to pull her Will out with the balloon inflated. A new Will catheter was placed. (5) Metabolic encephalopathy Is this a current diagnosis for this admission?: Yes Plan: And results of chronic long-term alcohol use. (6) Hypokalemia Is this a current diagnosis for this admission?: Yes Plan: Was treating with potassium supplement. - Time Time Spent with patient: 15-24 minutes Medications reviewed and adjusted accordingly: Yes Anticipated discharge: Hospice - Plan Summary Plan Summary: This very unfortunate 52-year-old female has an extensive history of alcoholism. She has a reversible encephalopathy. There is no reasonable hope of recovery from this. In addition she is now developed increased severity of her anemia. Hospice is currently working on her admission. Hospice feels that she is an appropriate candidate. With this in mind and because of the futility of efforts we are going to make her comfort care only here until she is accepted at hospice house.
[2018-04-01] MEDS ORDERED: MORPHINE SULFATE 10 MG/ML INJ IV PRN (14:49)
[2018-04-01] MEDS: MORPHINE SULFATE 10 MG/ML INJ IV PRN (21:02)
[2018-04-01] MEDS: LORAZEPAM INJ 2 MG/1 ML VIAL IV PRN (22:56)
--- NOTE | 2018-04-02 12:26 | PDOC PROGRESS REPORT ---
Subjective Progress Note for:: 04/02/18 Subjective:: The patient is resting and unresponsive to verbal stimuli. She does move somewhat to more noxious stimuli. Very limited responses. Reason For Visit: ENCEPHALOPATHY,UTI Physical Exam Vital Signs: Temp Pulse Resp BP Pulse Ox 97.3 F 109 H 20 141/119 H 98 04/01/18 22:54 04/02/18 08:34 04/01/18 22:54 04/02/18 08:34 04/02/18 08:34 Intake & Output 04/01/18 04/02/18 04/03/18 06:59 06:59 06:59 Intake Total 450 0 Output Total 200 725 Balance 250 -725 Weight 65 kg 70.8 kg General appearance: PRESENT: no acute distress, other - Appears comfortable Head exam: PRESENT: normocephalic Eye exam: PRESENT: other - Unable to assess Ear exam: PRESENT: normal external ear exam Mouth exam: PRESENT: other - Unable to assess Respiratory exam: PRESENT: clear to auscultation jake - Anteriorly. ABSENT: stridor, wheezes Cardiovascular exam: PRESENT: RRR, +S1, +S2 GI/Abdominal exam: PRESENT: normal bowel sounds, soft. ABSENT: tenderness Gentrourinary exam: PRESENT: indwelling catheter Musculoskeletal exam: PRESENT: other - Decreased muscle mass Neurological exam: PRESENT: other - Unresponsive as noted above. ABSENT: awake Results Laboratory Results: 04/01/18 06:55 04/01/18 06:55 02/24/18 09:55 Troponin I < 0.012 Impressions: Chest X-Ray 02/24/18 09:59 IMPRESSION: NO ACUTE RADIOGRAPHIC FINDING IN THE CHEST. Abdomen Ultrasound 02/25/18 00:00 IMPRESSION: Limited study as noted above. Gallbladder was not visualized. FATTY INFILTRATION OF THE LIVER. Other findings as noted above Head MRI 03/01/18 00:00 IMPRESSION: No acute findings. Very limited study EVIDENCE OF ACUTE STROKE: NO. Guidance Fluoroscopy 03/07/18 00:00 IMPRESSION: Lumbar puncture under fluoroscopy. No immediate complication. Lumbar Puncture 03/07/18 09:00 IMPRESSION: Lumbar puncture under fluoroscopy. No immediate complication. Assessment & Plan - Diagnosis (1) Need for comfort care Is this a current diagnosis for this admission?: Yes Plan: Due to her terminal prognosis and the futility of any interventions thus far, the patient was referred to hospice. While waiting for an opening to transfer we have changed her status to comfort only. All interventions except for pain and anxiety have been discontinued. (2) Alcoholic Korsakoff syndrome Is this a current diagnosis for this admission?: Yes Plan: No further intervention (3) Alcoholic cirrhosis Qualifiers: Ascites presence: without ascites Qualified Code(s): K70.30 - Alcoholic cirrhosis of liver without ascites Is this a current diagnosis for this admission?: Yes Plan: No further intervention (4) Megaloblastic anemia due to alcoholism Is this a current diagnosis for this admission?: Yes Plan: No further intervention. No more laboratory studies are ordered. (5) Urinary retention Is this a current diagnosis for this admission?: Yes Plan: Will catheter in place (6) Metabolic encephalopathy Is this a current diagnosis for this admission?: Yes Plan: No further intervention except for comfort (7) Hypokalemia Is this a current diagnosis for this admission?: Yes Plan: No further laboratory testing or intervention - Time Time Spent with patient: Less than 15 minutes Medications reviewed and adjusted accordingly: Yes Anticipated discharge: Hospice
[2018-04-02] MEDS: SODIUM CHLORIDE NASAL SPRAY 44 ML NASL SCH ×4 (12:54→21:46)
[2018-04-02] MEDS: DOCUSATE SODIUM 100 MG CAPSULE PO SCH ×2 (12:54→18:39)
[2018-04-02] MEDS: OLANZAPINE 2.5 MG TABLET PO SCH (12:55)
[2018-04-02] MEDS: MIRTAZAPINE 15 MG TABLET PO SCH (21:46)
[2018-04-03] MEDS: MORPHINE SULFATE 10 MG/ML INJ IV PRN (03:31)
[2018-04-03] MEDS: SODIUM CHLORIDE NASAL SPRAY 44 ML NASL SCH ×2 (16:06→21:20)
[2018-04-03] MEDS: DOCUSATE SODIUM 100 MG CAPSULE PO SCH ×2 (16:07→18:13)
[2018-04-03] MEDS: OLANZAPINE 2.5 MG TABLET PO SCH (16:07)
--- NOTE | 2018-04-03 20:33 | PDOC PROGRESS REPORT ---
Subjective Progress Note for:: 04/03/18 Subjective:: laying in bed naked under the sheets- says hi to me- but then doesn't make sense with her conversation- tells me "they wound turn the movie on" Reason For Visit: ENCEPHALOPATHY,UTI Physical Exam Vital Signs: Temp Pulse Resp BP Pulse Ox 97.5 F 64 16 89/57 L 95 04/02/18 19:38 04/02/18 19:38 04/02/18 19:38 04/02/18 19:38 04/02/18 19:38 Intake & Output 04/02/18 04/03/18 04/04/18 06:59 06:59 06:59 Intake Total 0 10 Output Total 725 1150 360 Balance -725 -1150 -350 Weight 156 lb 1.396 oz 156 lb 1.396 oz General appearance: PRESENT: no acute distress, other - ill appearing Head exam: PRESENT: atraumatic, normocephalic Eye exam: PRESENT: EOMI. ABSENT: conjunctival injection Ear exam: PRESENT: normal external ear exam Neck exam: ABSENT: tracheal deviation Respiratory exam: PRESENT: clear to auscultation jake, symmetrical Cardiovascular exam: PRESENT: +S1, +S2 Pulses: PRESENT: +1 pedal pulses bilateral GI/Abdominal exam: PRESENT: normal bowel sounds, soft. ABSENT: tenderness Neurological exam: PRESENT: alert, awake, CN II-XII grossly intact Skin exam: PRESENT: other - pale Results Laboratory Results: 04/01/18 06:55 04/01/18 06:55 02/24/18 09:55 Troponin I < 0.012 Impressions: Chest X-Ray 02/24/18 09:59 IMPRESSION: NO ACUTE RADIOGRAPHIC FINDING IN THE CHEST. Abdomen Ultrasound 02/25/18 00:00 IMPRESSION: Limited study as noted above. Gallbladder was not visualized. FATTY INFILTRATION OF THE LIVER. Other findings as noted above Head MRI 03/01/18 00:00 IMPRESSION: No acute findings. Very limited study EVIDENCE OF ACUTE STROKE: NO. Guidance Fluoroscopy 03/07/18 00:00 IMPRESSION: Lumbar puncture under fluoroscopy. No immediate complication. Lumbar Puncture 03/07/18 09:00 IMPRESSION: Lumbar puncture under fluoroscopy. No immediate complication. Assessment & Plan - Diagnosis (1) Comfort measures only status Is this a current diagnosis for this admission?: Yes (2) Alcoholic Korsakoff syndrome Is this a current diagnosis for this admission?: Yes (3) Alcoholic cirrhosis Qualifiers: Ascites presence: without ascites Qualified Code(s): K70.30 - Alcoholic cirrhosis of liver without ascites Is this a current diagnosis for this admission?: Yes (4) Do not resuscitate Is this a current diagnosis for this admission?: Yes - Plan Summary Plan Summary: Comfort measures- saw patient today- she's alert and awake but not oriented- she has been made comfort measures by prior physician due to her cirrhosis. no recent labs in the last few days. all her meds have been stopped except for anxiety and pain medications. hospice has been consulted and pending placement. she's also DNR status
[2018-04-03] MEDS: LORAZEPAM INJ 2 MG/1 ML VIAL IV PRN (21:17)
[2018-04-03] MEDS: MIRTAZAPINE 15 MG TABLET PO SCH (21:17)
[2018-04-04] MEDS: LORAZEPAM INJ 2 MG/1 ML VIAL IV PRN ×2 (05:53→21:55)
[2018-04-04] MEDS: SODIUM CHLORIDE NASAL SPRAY 44 ML NASL SCH ×4 (10:05→21:51)
[2018-04-04] MEDS: OLANZAPINE 2.5 MG TABLET PO SCH (11:59)
[2018-04-04] MEDS: DOCUSATE SODIUM 100 MG CAPSULE PO SCH ×2 (11:59→17:28)
--- NOTE | 2018-04-04 12:41 | PDOC PROGRESS REPORT ---
<SUSSY COLLINS - Last Filed: 04/04/18 12:39> Subjective Progress Note for:: 04/04/18 Subjective:: The patient is a 52-year-old female with a past medical history of atrial fibrillation and alcohol dependence who was admitted 02/24/2018 for anemia, hypotension, UTI, and metabolic encephalopathy. The patient is seen on morning rounds. She is found resting in bed comfortably on room air. She is initially sleeping, but wakes easily. She makes eye contact, but does not respond to me otherwise. She is then observed to have spontaneous, but non-intentional/directed movement of her arms (picking at 'objects' in the air). ROS is limited secondary to mental status. She appears to be comfortable and not in any acute distress. No concerns per nursing. Reason For Visit: ENCEPHALOPATHY,UTI Physical Exam Vital Signs: Temp Pulse Resp BP Pulse Ox 97.9 F 65 17 97/59 L 97 04/03/18 08:29 04/03/18 22:00 04/03/18 22:00 04/03/18 22:00 04/03/18 22:00 Intake & Output 04/03/18 04/04/18 04/05/18 06:59 06:59 06:59 Intake Total 353 Output Total 1150 1210 Balance -1150 -857 Weight 70.8 kg 71 kg General appearance: PRESENT: no acute distress, thin Head exam: PRESENT: atraumatic, normocephalic Eye exam: PRESENT: conjunctiva pale, EOMI, PERRLA. ABSENT: scleral icterus Ear exam: PRESENT: normal external ear exam Mouth exam: PRESENT: dry mucosa, tongue midline Neck exam: ABSENT: carotid bruit, JVD, lymphadenopathy, thyromegaly Respiratory exam: PRESENT: clear to auscultation jake, symmetrical, unlabored. ABSENT: rales, rhonchi, wheezes Cardiovascular exam: PRESENT: bradycardia, RRR. ABSENT: diastolic murmur, rubs, systolic murmur Pulses: PRESENT: normal dorsalis pedis pul Vascular exam: PRESENT: pallor GI/Abdominal exam: PRESENT: normal bowel sounds, soft. ABSENT: distended, guarding, mass, organolmegaly, rebound, tenderness Rectal exam: PRESENT: deferred Extremities exam: PRESENT: full ROM. ABSENT: calf tenderness, clubbing, pedal edema Neurological exam: PRESENT: alert, awake, CN II-XII grossly intact. ABSENT: oriented to person, oriented to place, oriented to time, oriented to situation, motor sensory deficit Psychiatric exam: PRESENT: appropriate affect, normal mood. ABSENT: homicidal ideation, suicidal ideation Skin exam: PRESENT: dry, intact, pallor, warm. ABSENT: cyanosis, rash Results Laboratory Results: 04/01/18 06:55 04/01/18 06:55 02/24/18 09:55 Troponin I < 0.012 Impressions: Chest X-Ray 02/24/18 09:59 IMPRESSION: NO ACUTE RADIOGRAPHIC FINDING IN THE CHEST. Abdomen Ultrasound 02/25/18 00:00 IMPRESSION: Limited study as noted above. Gallbladder was not visualized. FATTY INFILTRATION OF THE LIVER. Other findings as noted above Head MRI 03/01/18 00:00 IMPRESSION: No acute findings. Very limited study EVIDENCE OF ACUTE STROKE: NO. Guidance Fluoroscopy 03/07/18 00:00 IMPRESSION: Lumbar puncture under fluoroscopy. No immediate complication. Lumbar Puncture 03/07/18 09:00 IMPRESSION: Lumbar puncture under fluoroscopy. No immediate complication. 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 Most recent Hgb 3.4 Iron and TIBC both low, B12 level 347, Folic acid 3.59, folate 9.78 TSH 1.87. Occult stools negative x3 Now status post transfusion of 5 units PRBCs earlier this admission Now on Comfort Care. Discharge planning is consulted to assist with placement/disposition. (2) Wernicke-Korsakoff syndrome (alcoholic) Is this a current diagnosis for this admission?: Yes Plan: 03/01/2018 MRI brain done but not optimal. Did not show any acute abnormalities. B12 level on admission 347, folic acid 3.59, TSH 1.87. (3) Hallucination Is this a current diagnosis for this admission?: Yes Plan: Continues; picking at objects in the air today. Secondary to Korsakoff syndrome. She has had an extensive workup including a brain MRI which was suboptimal but did not show acute abnormalities Negative HIV, RPR, HSV Negative UDS and serum EtOH EEG was technically poor secondary to artifact; does demonstrate generalized background slowing consistent with diffuse cerebral dysfunction. LP completed 02/05/2018; Gram stain and cultures were negative. Now on comfort measures; provide for patient safety. (4) Metabolic encephalopathy Is this a current diagnosis for this admission?: Yes Plan: Acute encephalopathy is resolved. Unfortunately, patient is now at her baseline mentations. Likely due to alcoholic Korsakoff syndrome and adrenal insufficiency. (5) Alcohol dependence, continuous Is this a current diagnosis for this admission?: Yes (6) Tobacco abuse Is this a current diagnosis for this admission?: Yes (7) UTI (urinary tract infection) Qualifiers: Urinary tract infection type: site unspecified Hematuria presence: without hematuria Qualified Code(s): N39.0 - Urinary tract infection, site not s pecified Is this a current diagnosis for this admission?: Yes Plan: Resolved; received full course of antibiotics. Urinalysis (03/19/2018) slightly suggestive of UTI. Urine culture (03/19/2018) >100,000 colonies of enterococcus. (8) Alcoholic cirrhosis Qualifiers: Ascites presence: without ascites Qualified Code(s): K70.30 - Alcoholic cirrhosis of liver without ascites Is this a current diagnosis for this admission?: Yes Plan: Now on comfort measures. (9) Hypothermia Is this a current diagnosis for this admission?: Yes Plan: Resolved. The patient was was previously noted to be hypothermic overnight (95.7 rectal). Likely secondary to a combination of adrenal insufficiency and acute illness (UTI). Sepsis workup was negative. WBCs are normal, lactic acid normal. Urinalysis and urine culture are suggestive of urinary tract infection. Now on comfort measures. (10) Adrenal insufficiency Is this a current diagnosis for this admission?: Yes Plan: Random cortisol (midnight) 9.86. Cosyntropin stimulating test is low at 16.3; indicates adrenal insufficiency. TSH is normal at 1.87 Prolactin was normal at 9.314 PTH is normal at 22.3. Trial of hydrocortisone IV 50 mg every 8 hours; no meaningful improvement in vital signs or mentation following 10 days of therapy. - Time Time Spent with patient: Less than 15 minutes - Plan Summary Plan Summary: Agree with Hospice/Comfort Measures; the patient has had an extensive work up and despite interventions for alcohol withdrawal, UTI, Adrenal Insufficiency, optimization of nutrition/vitamins (thiamin, folic acid, mag, K, etc), transfusions of 5 units of PRBC, and psychiatric evaluations/recommendations, the patient has had a consistent decline. Discharge planning is consulted to assist with the disposition of this unfortunate lady. <GERMAN MADSEN - Last Filed: 04/04/18 13:24> Subjective Reason For Visit: ENCEPHALOPATHY,UTI Physical Exam Vital Signs: Temp Pulse Resp BP Pulse Ox 97.9 F 65 17 97/59 L 97 04/03/18 08:29 04/03/18 22:00 04/03/18 22:00 04/03/18 22:00 04/03/18 22:00 Intake & Output 04/03/18 04/04/18 04/05/18 06:59 06:59 06:59 Intake Total 353 Output Total 1150 1210 Balance -1150 -857 Weight 156 lb 1.396 oz 156 lb 8.451 oz Results Laboratory Results: 04/01/18 06:55 04/01/18 06:55 02/24/18 09:55 Troponin I < 0.012 Impressions: Chest X-Ray 02/24/18 09:59 IMPRESSION: NO ACUTE RADIOGRAPHIC FINDING IN THE CHEST. Abdomen Ultrasound 02/25/18 00:00 IMPRESSION: Limited study as noted above. Gallbladder was not visualized. FATTY INFILTRATION OF THE LIVER. Other findings as noted above Head MRI 03/01/18 00:00 IMPRESSION: No acute findings. Very limited study EVIDENCE OF ACUTE STROKE: NO. Guidance Fluoroscopy 03/07/18 00:00 IMPRESSION: Lumbar puncture under fluoroscopy. No immediate complication. Lumbar Puncture 03/07/18 09:00 IMPRESSION: Lumbar puncture under fluoroscopy. No immediate complication. Assessment & Plan - Diagnosis (1) Comfort measures only status Is this a current diagnosis for this admission?: Yes (2) Alcoholic Korsakoff syndrome Is this a current diagnosis for this admission?: Yes (3) Alcoholic cirrhosis Qualifiers: Ascites presence: without ascites Qualified Code(s): K70.30 - Alcoholic cirrhosis of liver without ascites Is this a current diagnosis for this admission?: Yes (4) Do not resuscitate Is this a current diagnosis for this admission?: Yes - Plan Summary Plan Summary: discussed case with mid-level and agree with plan- i did not see patient personally today
[2018-04-04] MEDS: MIRTAZAPINE 15 MG TABLET PO SCH (21:55)
[2018-04-05] MEDS: LORAZEPAM INJ 2 MG/1 ML VIAL IV PRN (03:58)
[2018-04-05] MEDS: MORPHINE SULFATE 10 MG/ML INJ IV PRN (04:15)
[2018-04-05] MEDS: DOCUSATE SODIUM 100 MG CAPSULE PO SCH ×2 (10:22→18:06)
[2018-04-05] MEDS: SODIUM CHLORIDE NASAL SPRAY 44 ML NASL SCH ×3 (10:22→17:53)
[2018-04-05] MEDS: OLANZAPINE 2.5 MG TABLET PO SCH (10:23)
--- NOTE | 2018-04-05 10:44 | PDOC PROGRESS REPORT ---
Subjective Progress Note for:: 04/05/18 Subjective:: Patient is sleeping comfortably. Did not respond to verbal stimuli. Did not attempt further intervention. Reason For Visit: ENCEPHALOPATHY,UTI Physical Exam Vital Signs: Temp Pulse Resp BP Pulse Ox 97.9 F 65 17 97/59 L 97 04/03/18 08:29 04/03/18 22:00 04/03/18 22:00 04/03/18 22:00 04/03/18 22:00 Intake & Output 04/04/18 04/05/18 04/06/18 06:59 06:59 06:59 Intake Total 353 1000 Output Total 1210 800 600 Balance -857 -800 400 Weight 71 kg 67.7 kg General appearance: PRESENT: no acute distress, other - Appears very comfortable. Head exam: PRESENT: normocephalic Respiratory exam: PRESENT: clear to auscultation jake - Shallow breath sounds, symmetrical, unlabored. ABSENT: accessory muscle use, rales, rhonchi, stridor, wheezes Cardiovascular exam: PRESENT: RRR, +S1, +S2 GI/Abdominal exam: PRESENT: diminished bowel sounds Musculoskeletal exam: ABSENT: ambulatory Neurological exam: ABSENT: awake Psychiatric exam: PRESENT: other - Nursing reports that when patient is awake continues to have hallucinations. Results Laboratory Results: 04/01/18 06:55 04/01/18 06:55 02/24/18 09:55 Troponin I < 0.012 Impressions: Chest X-Ray 02/24/18 09:59 IMPRESSION: NO ACUTE RADIOGRAPHIC FINDING IN THE CHEST. Abdomen Ultrasound 02/25/18 00:00 IMPRESSION: Limited study as noted above. Gallbladder was not visualized. FATTY INFILTRATION OF THE LIVER. Other findings as noted above Head MRI 03/01/18 00:00 IMPRESSION: No acute findings. Very limited study EVIDENCE OF ACUTE STROKE: NO. Guidance Fluoroscopy 03/07/18 00:00 IMPRESSION: Lumbar puncture under fluoroscopy. No immediate complication. Lumbar Puncture 03/07/18 09:00 IMPRESSION: Lumbar puncture under fluoroscopy. No immediate complication. Assessment & Plan - Diagnosis (1) Need for comfort care Is this a current diagnosis for this admission?: Yes Plan: Due to her grave prognosis and lack of response to previous therapies the patient is now comfort care measures. She has exhibited marked anemia. Vital signs are no longer being recorded. Awaiting guardianship for transfer to hospice house. Comfort measures are being provided here at this time. (2) Alcoholic Korsakoff syndrome Is this a current diagnosis for this admission?: Yes (3) Alcoholic cirrhosis Qualifiers: Ascites presence: without ascites Qualified Code(s): K70.30 - Alcoholic cirrhosis of liver without ascites Is this a current diagnosis for this admission?: Yes (4) Megaloblastic anemia due to alcoholism Is this a current diagnosis for this admission?: Yes (5) Urinary retention Is this a current diagnosis for this admission?: Yes (6) Metabolic encephalopathy Is this a current diagnosis for this admission?: Yes (7) Hypokalemia Is this a current diagnosis for this admission?: Yes - Time Time Spent with patient: Less than 15 minutes Medications reviewed and adjusted accordingly: Yes - Adequate medications for comfort at this time Anticipated discharge: Hospice - Plan Summary Plan Summary: Our goal at this point is comfort care only. Awaiting transition to hospice house if possible. No longer monitoring laboratory studies or vital signs. Trying to keep the patient as comfortable as possible.
[2018-04-06] MEDS: MIRTAZAPINE 15 MG TABLET PO SCH ×2 (04:11→21:29)
[2018-04-06] MEDS: LORAZEPAM INJ 2 MG/1 ML VIAL IV PRN ×2 (04:12→21:31)
[2018-04-06] MEDS: SODIUM CHLORIDE NASAL SPRAY 44 ML NASL SCH ×5 (04:12→21:27)
[2018-04-06] MEDS: MORPHINE SULFATE 10 MG/ML INJ IV PRN (05:05)
[2018-04-06] MEDS: OLANZAPINE 2.5 MG TABLET PO SCH (11:05)
[2018-04-06] MEDS: DOCUSATE SODIUM 100 MG CAPSULE PO SCH ×2 (11:05→17:19)
--- NOTE | 2018-04-06 17:56 | PDOC PROGRESS REPORT ---
Subjective Progress Note for:: 04/06/18 Subjective:: No change in her clinical status. Very lethargic. Reason For Visit: ENCEPHALOPATHY,UTI Physical Exam Vital Signs: Temp Pulse Resp BP Pulse Ox 94.4 F L 57 L 16 98/65 L 87 L 04/06/18 08:14 04/06/18 07:31 04/06/18 07:31 04/06/18 07:31 04/06/18 07:31 Intake & Output 04/05/18 04/06/18 04/07/18 06:59 06:59 06:59 Intake Total 1000 Output Total 800 1700 Balance -800 -700 Weight 67.7 kg 66.9 kg General appearance: PRESENT: no acute distress Head exam: PRESENT: normocephalic Respiratory exam: PRESENT: clear to auscultation jake, symmetrical, unlabored. ABSENT: rales, rhonchi, stridor, wheezes Cardiovascular exam: PRESENT: RRR, +S1, +S2 Vascular exam: PRESENT: pallor GI/Abdominal exam: PRESENT: normal bowel sounds, soft. ABSENT: distended, tenderness Extremities exam: ABSENT: pedal edema Neurological exam: PRESENT: other - Poorly responsive Results Laboratory Results: 04/01/18 06:55 04/01/18 06:55 02/24/18 09:55 Troponin I < 0.012 Impressions: Chest X-Ray 02/24/18 09:59 IMPRESSION: NO ACUTE RADIOGRAPHIC FINDING IN THE CHEST. Abdomen Ultrasound 02/25/18 00:00 IMPRESSION: Limited study as noted above. Gallbladder was not visualized. FATTY INFILTRATION OF THE LIVER. Other findings as noted above Head MRI 03/01/18 00:00 IMPRESSION: No acute findings. Very limited study EVIDENCE OF ACUTE STROKE: NO. Guidance Fluoroscopy 03/07/18 00:00 IMPRESSION: Lumbar puncture under fluoroscopy. No immediate complication. Lumbar Puncture 03/07/18 09:00 IMPRESSION: Lumbar puncture under fluoroscopy. No immediate complication. Assessment & Plan - Diagnosis (1) Need for comfort care Is this a current diagnosis for this admission?: Yes Plan: He will continue comfort care at this time pending placement in hospice. Staff does not report any complaints of increased pain or difficulty breathing. Continue same regimen. (2) Alcoholic Korsakoff syndrome Is this a current diagnosis for this admission?: Yes Plan: No further intervention (3) Alcoholic cirrhosis Qualifiers: Ascites presence: without ascites Qualified Code(s): K70.30 - Alcoholic cirrhosis of liver without ascites Is this a current diagnosis for this admission?: Yes Plan: No further intervention (4) Megaloblastic anemia due to alcoholism Is this a current diagnosis for this admission?: Yes Plan: No further intervention. No more laboratory studies are ordered. (5) Urinary retention Is this a current diagnosis for this admission?: Yes Plan: Will catheter in place (6) Metabolic encephalopathy Is this a current diagnosis for this admission?: Yes Plan: No further intervention except for comfort (7) Hypokalemia Is this a current diagnosis for this admission?: Yes Plan: No further laboratory testing or intervention - Time Time Spent with patient: Less than 15 minutes Medications reviewed and adjusted accordingly: Yes Anticipated discharge: Hospice
[2018-04-07] MEDS: OLANZAPINE 2.5 MG TABLET PO SCH (09:38)
[2018-04-07] MEDS: DOCUSATE SODIUM 100 MG CAPSULE PO SCH ×3 (09:38→18:30)
[2018-04-07] MEDS: SODIUM CHLORIDE NASAL SPRAY 44 ML NASL SCH ×4 (09:38→21:30)
--- NOTE | 2018-04-07 19:16 | PDOC PROGRESS REPORT ---
Subjective Progress Note for:: 04/07/18 Subjective:: The patient did in fact respond the patient did in fact respond during the encounter. She was quite sleepy but answered at least 1 of the questions. When asked if she was in pain there was no obvious response. I asked her if she was hungry and there was no obvious response. I did ask her if she was thirsty and if she would like a drink and that there was a clear response of "I am thirsty, yes ". Reason For Visit: ENCEPHALOPATHY,UTI Physical Exam Vital Signs: Temp Pulse Resp BP Pulse Ox 97.4 F 70 16 116/66 91 L 04/07/18 07:32 04/07/18 07:32 04/07/18 07:32 04/07/18 07:32 04/07/18 07:32 Intake & Output 04/06/18 04/07/18 04/08/18 06:59 06:59 06:59 Intake Total 1000 100 10 Output Total 1700 1050 600 Balance -700 -950 -590 Weight 66.9 kg 66.4 kg General appearance: PRESENT: no acute distress, cooperative Respiratory exam: PRESENT: clear to auscultation jake, unlabored. ABSENT: rales, rhonchi, wheezes Cardiovascular exam: PRESENT: RRR, +S1, +S2 GI/Abdominal exam: PRESENT: normal bowel sounds, soft. ABSENT: tenderness Neurological exam: PRESENT: awake - Still slightly lethargic but produced a very clear and understandable response to the question as noted above. Psychiatric exam: PRESENT: flat affect. ABSENT: agitated, anxious Results Laboratory Results: 04/01/18 06:55 04/01/18 06:55 02/24/18 09:55 Troponin I < 0.012 Impressions: Chest X-Ray 02/24/18 09:59 IMPRESSION: NO ACUTE RADIOGRAPHIC FINDING IN THE CHEST. Abdomen Ultrasound 02/25/18 00:00 IMPRESSION: Limited study as noted above. Gallbladder was not visualized. FATTY INFILTRATION OF THE LIVER. Other findings as noted above Head MRI 03/01/18 00:00 IMPRESSION: No acute findings. Very limited study EVIDENCE OF ACUTE STROKE: NO. Guidance Fluoroscopy 03/07/18 00:00 IMPRESSION: Lumbar puncture under fluoroscopy. No immediate complication. Lumbar Puncture 03/07/18 09:00 IMPRESSION: Lumbar puncture under fluoroscopy. No immediate complication. Assessment & Plan - Diagnosis (1) Need for comfort care Is this a current diagnosis for this admission?: Yes Plan: Today is the most responsive I seen her in the last 3 days. Meal trays are ordered but she has not been eating. We will likely discontinue scheduled service and provide things for her on an as requested basis. (2) Alcoholic Korsakoff syndrome Is this a current diagnosis for this admission?: Yes Plan: No further intervention (3) Alcoholic cirrhosis Qualifiers: Ascites presence: without ascites Qualified Code(s): K70.30 - Alcoholic cirrhosis of liver without ascites Is this a current diagnosis for this admission?: Yes Plan: No further intervention (4) Megaloblastic anemia due to alcoholism Is this a current diagnosis for this admission?: Yes Plan: No further intervention. No more laboratory studies are ordered. (5) Urinary retention Is this a current diagnosis for this admission?: Yes Plan: Will catheter in place (6) Metabolic encephalopathy Is this a current diagnosis for this admission?: Yes Plan: No further intervention except for comfort (7) Hypokalemia Is this a current diagnosis for this admission?: Yes Plan: No further laboratory testing or intervention - Time Time Spent with patient: Less than 15 minutes Medications reviewed and adjusted accordingly: Yes Anticipated discharge: Hospice
[2018-04-07] MEDS: MIRTAZAPINE 15 MG TABLET PO SCH (21:32)
[2018-04-07] MEDS: MORPHINE SULFATE 10 MG/ML INJ IV PRN (21:32)
[2018-04-07] MEDS: LORAZEPAM INJ 2 MG/1 ML VIAL IV PRN (22:13)
[2018-04-08] MEDS: MORPHINE SULFATE 10 MG/ML INJ IV PRN (04:39)
[2018-04-08] MEDS: DOCUSATE SODIUM 100 MG CAPSULE PO SCH ×2 (10:34→17:23)
[2018-04-08] MEDS: OLANZAPINE 2.5 MG TABLET PO SCH (10:34)
[2018-04-08] MEDS: SODIUM CHLORIDE NASAL SPRAY 44 ML NASL SCH ×4 (10:34→22:17)
--- NOTE | 2018-04-08 22:02 | PDOC PROGRESS REPORT ---
Subjective Progress Note for:: 04/08/18 Subjective:: Patient appears to be resting comfortably. Reason For Visit: ENCEPHALOPATHY,UTI Physical Exam Vital Signs: Temp Pulse Resp BP Pulse Ox 97.4 F 70 16 116/66 91 L 04/07/18 07:32 04/07/18 07:32 04/07/18 07:32 04/07/18 07:32 04/07/18 07:32 Intake & Output 04/07/18 04/08/18 04/09/18 06:59 06:59 06:59 Intake Total 100 20 0 Output Total 1050 1200 250 Balance -950 -1180 -250 Weight 66.4 kg 66 kg General appearance: PRESENT: no acute distress Respiratory exam: PRESENT: clear to auscultation jake, symmetrical, unlabored. ABSENT: rales, rhonchi, wheezes Cardiovascular exam: PRESENT: RRR, +S1, +S2 GI/Abdominal exam: PRESENT: normal bowel sounds, soft. ABSENT: distended, tenderness Extremities exam: ABSENT: pedal edema Neurological exam: PRESENT: other - Somnolent today Psychiatric exam: ABSENT: agitated, anxious Results Laboratory Results: 04/01/18 06:55 04/01/18 06:55 02/24/18 09:55 Troponin I < 0.012 Impressions: Chest X-Ray 02/24/18 09:59 IMPRESSION: NO ACUTE RADIOGRAPHIC FINDING IN THE CHEST. Abdomen Ultrasound 02/25/18 00:00 IMPRESSION: Limited study as noted above. Gallbladder was not visualized. FATTY INFILTRATION OF THE LIVER. Other findings as noted above Head MRI 03/01/18 00:00 IMPRESSION: No acute findings. Very limited study EVIDENCE OF ACUTE STROKE: NO. Guidance Fluoroscopy 03/07/18 00:00 IMPRESSION: Lumbar puncture under fluoroscopy. No immediate complication. Lumbar Puncture 03/07/18 09:00 IMPRESSION: Lumbar puncture under fluoroscopy. No immediate complication. Assessment & Plan - Diagnosis (1) Need for comfort care Is this a current diagnosis for this admission?: Yes Plan: Continues to be stable on comfort care measures only. (2) Alcoholic Korsakoff syndrome Is this a current diagnosis for this admission?: Yes Plan: No further intervention (3) Alcoholic cirrhosis Qualifiers: Ascites presence: without ascites Qualified Code(s): K70.30 - Alcoholic cirrhosis of liver without ascites Is this a current diagnosis for this admission?: Yes Plan: No further intervention (4) Megaloblastic anemia due to alcoholism Is this a current diagnosis for this admission?: Yes Plan: No further intervention. No more laboratory studies are ordered. (5) Urinary retention Is this a current diagnosis for this admission?: Yes Plan: Will catheter in place (6) Metabolic encephalopathy Is this a current diagnosis for this admission?: Yes Plan: No further intervention except for comfort (7) Hypokalemia Is this a current diagnosis for this admission?: Yes Plan: No further laboratory testing or intervention - Time Time Spent with patient: Less than 15 minutes Medications reviewed and adjusted accordingly: Yes Anticipated discharge: Hospice
[2018-04-08] MEDS: MIRTAZAPINE 15 MG TABLET PO SCH (22:29)
[2018-04-09] MEDS: SODIUM CHLORIDE NASAL SPRAY 44 ML NASL SCH ×4 (08:23→21:42)
[2018-04-09] MEDS: OLANZAPINE 2.5 MG TABLET PO SCH (10:27)
[2018-04-09] MEDS: DOCUSATE SODIUM 100 MG CAPSULE PO SCH ×2 (10:27→17:15)
--- NOTE | 2018-04-09 12:39 | PDOC PROGRESS REPORT ---
Subjective Progress Note for:: 04/09/18 Subjective:: The patient is awake today. Difficult to comprehend what she is trying to say. Certainly not oriented. She exhibits nonpurposeful movements of extremities. Reason For Visit: ENCEPHALOPATHY,UTI Physical Exam Vital Signs: Temp Pulse Resp BP Pulse Ox 97.4 F 70 16 116/66 91 L 04/07/18 07:32 04/07/18 07:32 04/07/18 07:32 04/07/18 07:32 04/07/18 07:32 Intake & Output 04/08/18 04/09/18 04/10/18 06:59 06:59 06:59 Intake Total 20 118 Output Total 1200 1075 Balance -1180 -957 Weight 66 kg 61.6 kg General appearance: PRESENT: no acute distress Respiratory exam: PRESENT: clear to auscultation jake, symmetrical, unlabored. ABSENT: prolonged expiratory phas, rales, rhonchi, wheezes Cardiovascular exam: PRESENT: RRR, +S1, +S2 GI/Abdominal exam: PRESENT: normal bowel sounds, soft. ABSENT: distended, tenderness Extremities exam: ABSENT: pedal edema Neurological exam: PRESENT: alert, awake, oriented to person. ABSENT: oriented to place, oriented to situation Psychiatric exam: PRESENT: flat affect Results Laboratory Results: 04/01/18 06:55 04/01/18 06:55 02/24/18 09:55 Troponin I < 0.012 Impressions: Chest X-Ray 02/24/18 09:59 IMPRESSION: NO ACUTE RADIOGRAPHIC FINDING IN THE CHEST. Abdomen Ultrasound 02/25/18 00:00 IMPRESSION: Limited study as noted above. Gallbladder was not visualized. FATTY INFILTRATION OF THE LIVER. Other findings as noted above Head MRI 03/01/18 00:00 IMPRESSION: No acute findings. Very limited study EVIDENCE OF ACUTE STROKE: NO. Guidance Fluoroscopy 03/07/18 00:00 IMPRESSION: Lumbar puncture under fluoroscopy. No immediate complication. Lumbar Puncture 03/07/18 09:00 IMPRESSION: Lumbar puncture under fluoroscopy. No immediate complication. Assessment & Plan - Diagnosis (1) Need for comfort care Is this a current diagnosis for this admission?: Yes Plan: Patient is awake today. Random extremity movement although she could be picking at things in the air. It is difficult to determine. She appears comfortable. We will continue the same regiment for comfort care measures. (2) Alcoholic Korsakoff syndrome Is this a current diagnosis for this admission?: Yes Plan: No further intervention (3) Alcoholic cirrhosis Qualifiers: Ascites presence: without ascites Qualified Code(s): K70.30 - Alcoholic cirrhosis of liver without ascites Is this a current diagnosis for this admission?: Yes Plan: No further intervention (4) Megaloblastic anemia due to alcoholism Is this a current diagnosis for this admission?: Yes Plan: No further intervention. No more laboratory studies are ordered. (5) Urinary retention Is this a current diagnosis for this admission?: Yes Plan: Will catheter in place (6) Metabolic encephalopathy Is this a current diagnosis for this admission?: Yes Plan: No further intervention except for comfort (7) Hypokalemia Is this a current diagnosis for this admission?: Yes Plan: No further laboratory testing or intervention - Time Time Spent with patient: Less than 15 minutes Medications reviewed and adjusted accordingly: Yes Anticipated discharge: Hospice
[2018-04-09] MEDS: MIRTAZAPINE 15 MG TABLET PO SCH (21:43)
[2018-04-10] MEDS: LORAZEPAM INJ 2 MG/1 ML VIAL IV PRN (00:03)
[2018-04-10] MEDS: SODIUM CHLORIDE NASAL SPRAY 44 ML NASL SCH ×4 (08:05→21:33)
[2018-04-10] MEDS: DOCUSATE SODIUM 100 MG CAPSULE PO SCH ×3 (09:48→17:23)
[2018-04-10] MEDS: OLANZAPINE 2.5 MG TABLET PO SCH ×2 (09:48→10:23)
--- NOTE | 2018-04-10 14:28 | PDOC PROGRESS REPORT ---
Subjective Progress Note for:: 04/10/18 Subjective:: Patient is in the position with legs contracted. She is staring at the ceiling and moving her arms around randomly the. She may be picking at objects. Staff reports that she did eat breakfast. Reason For Visit: ENCEPHALOPATHY,UTI Physical Exam Vital Signs: Temp Pulse Resp BP Pulse Ox 97.3 F 67 14 109/72 95 04/09/18 10:00 04/09/18 10:00 04/09/18 10:00 04/09/18 10:00 04/09/18 10:00 Intake & Output 04/09/18 04/10/18 04/11/18 06:59 06:59 06:59 Intake Total 118 0 Output Total 1075 1025 Balance -957 -1025 Weight 61.6 kg General appearance: PRESENT: no acute distress, thin, other - In position as described above Head exam: PRESENT: normocephalic Respiratory exam: PRESENT: clear to auscultation jake. ABSENT: rales, rhonchi, wheezes Cardiovascular exam: PRESENT: RRR, +S1, +S2 GI/Abdominal exam: PRESENT: normal bowel sounds, soft. ABSENT: distended, tenderness Extremities exam: ABSENT: pedal edema Neurological exam: PRESENT: alert, awake, oriented to person. ABSENT: oriented to place, oriented to time Psychiatric exam: PRESENT: flat affect Results Laboratory Results: 04/01/18 06:55 04/01/18 06:55 02/24/18 09:55 Troponin I < 0.012 Impressions: Chest X-Ray 02/24/18 09:59 IMPRESSION: NO ACUTE RADIOGRAPHIC FINDING IN THE CHEST. Abdomen Ultrasound 02/25/18 00:00 IMPRESSION: Limited study as noted above. Gallbladder was not visualized. FATTY INFILTRATION OF THE LIVER. Other findings as noted above Head MRI 03/01/18 00:00 IMPRESSION: No acute findings. Very limited study EVIDENCE OF ACUTE STROKE: NO. Guidance Fluoroscopy 03/07/18 00:00 IMPRESSION: Lumbar puncture under fluoroscopy. No immediate complication. Lumbar Puncture 03/07/18 09:00 IMPRESSION: Lumbar puncture under fluoroscopy. No immediate complication. Assessment & Plan - Diagnosis (1) Need for comfort care Is this a current diagnosis for this admission?: Yes Plan: Continue comfort measures. Awaiting hospice placement. (2) Alcoholic Korsakoff syndrome Is this a current diagnosis for this admission?: Yes Plan: No further intervention (3) Alcoholic cirrhosis Qualifiers: Ascites presence: without ascites Qualified Code(s): K70.30 - Alcoholic cirrhosis of liver without ascites Is this a current diagnosis for this admission?: Yes Plan: No further intervention (4) Megaloblastic anemia due to alcoholism Is this a current diagnosis for this admission?: Yes Plan: No further intervention. No more laboratory studies are ordered. (5) Urinary retention Is this a current diagnosis for this admission?: Yes Plan: Will catheter in place (6) Metabolic encephalopathy Is this a current diagnosis for this admission?: Yes Plan: No further intervention except for comfort (7) Hypokalemia Is this a current diagnosis for this admission?: Yes Plan: No further laboratory testing or intervention - Time Time Spent with patient: Less than 15 minutes Medications reviewed and adjusted accordingly: Yes Anticipated discharge: Hospice
[2018-04-10] MEDS: MIRTAZAPINE 15 MG TABLET PO SCH (21:33)
[2018-04-11] MEDS: LORAZEPAM INJ 2 MG/1 ML VIAL IV PRN (08:10)
[2018-04-11] MEDS: SODIUM CHLORIDE NASAL SPRAY 44 ML NASL SCH ×4 (08:51→21:54)
[2018-04-11] MEDS: DOCUSATE SODIUM 100 MG CAPSULE PO SCH ×2 (10:31→18:05)
[2018-04-11] MEDS: OLANZAPINE 2.5 MG TABLET PO SCH (10:32)
--- NOTE | 2018-04-11 18:18 | PDOC PROGRESS REPORT ---
Subjective Progress Note for:: 04/11/18 Subjective:: Chart reviewed Reason For Visit: ENCEPHALOPATHY,UTI Physical Exam Vital Signs: Temp Pulse Resp BP Pulse Ox 97.3 F 67 14 109/72 95 04/09/18 10:00 04/09/18 10:00 04/09/18 10:00 04/09/18 10:00 04/09/18 10:00 Intake & Output 04/10/18 04/11/18 04/12/18 06:59 06:59 06:59 Intake Total 0 480 Output Total 1025 550 Balance -1025 -70 Weight 60.6 kg General appearance: PRESENT: no acute distress Respiratory exam: PRESENT: accessory muscle use Rectal exam: PRESENT: deferred Neurological exam: PRESENT: altered Results Laboratory Results: 04/01/18 06:55 04/01/18 06:55 02/24/18 09:55 Troponin I < 0.012 Impressions: Chest X-Ray 02/24/18 09:59 IMPRESSION: NO ACUTE RADIOGRAPHIC FINDING IN THE CHEST. Abdomen Ultrasound 02/25/18 00:00 IMPRESSION: Limited study as noted above. Gallbladder was not visualized. FATTY INFILTRATION OF THE LIVER. Other findings as noted above Head MRI 03/01/18 00:00 IMPRESSION: No acute findings. Very limited study EVIDENCE OF ACUTE STROKE: NO. Guidance Fluoroscopy 03/07/18 00:00 IMPRESSION: Lumbar puncture under fluoroscopy. No immediate complication. Lumbar Puncture 03/07/18 09:00 IMPRESSION: Lumbar puncture under fluoroscopy. No immediate complication. Assessment & Plan - Diagnosis (1) Alcoholic Korsakoff syndrome Is this a current diagnosis for this admission?: Yes (2) Alcoholic cirrhosis Qualifiers: Ascites presence: without ascites Qualified Code(s): K70.30 - Alcoholic cirrhosis of liver without ascites Is this a current diagnosis for this admission?: Yes (3) Anemia Qualifiers: Anemia type: other cause Other causes of anemia: nutritional, other megaloblastic Qualified Code(s): D53.1 - Other megaloblastic anemias, not elsewhere classified Is this a current diagnosis for this admission?: Yes (4) Comfort measures only status Is this a current diagnosis for this admission?: Yes (5) Hypokalemia Is this a current diagnosis for this admission?: Yes
[2018-04-11] MEDS: MIRTAZAPINE 15 MG TABLET PO SCH (21:55)
[2018-04-12] MEDS: LORAZEPAM INJ 2 MG/1 ML VIAL IV PRN (04:23)
[2018-04-12] MEDS: SODIUM CHLORIDE NASAL SPRAY 44 ML NASL SCH ×4 (08:42→21:43)
[2018-04-12] MEDS: DOCUSATE SODIUM 100 MG CAPSULE PO SCH ×2 (09:33→17:43)
[2018-04-12] MEDS: OLANZAPINE 2.5 MG TABLET PO SCH (09:33)
--- NOTE | 2018-04-12 17:29 | PDOC PROGRESS REPORT ---
Subjective Progress Note for:: 04/12/18 Subjective:: Chart reviewedno new changes Reason For Visit: ENCEPHALOPATHY,UTI Physical Exam Vital Signs: Temp Pulse Resp BP Pulse Ox 97.3 F 67 14 109/72 95 04/09/18 10:00 04/09/18 10:00 04/09/18 10:00 04/09/18 10:00 04/09/18 10:00 Intake & Output 04/11/18 04/12/18 04/13/18 06:59 06:59 06:59 Intake Total 480 0 Output Total 550 675 Balance -70 -675 Weight 60.6 kg 59.8 kg General appearance: PRESENT: no acute distress, other - unresponsive Head exam: PRESENT: atraumatic Respiratory exam: PRESENT: rhonchi Cardiovascular exam: PRESENT: +S1, +S2 Rectal exam: PRESENT: deferred Neurological exam: PRESENT: altered Results Laboratory Results: 04/01/18 06:55 04/01/18 06:55 02/24/18 09:55 Troponin I < 0.012 Impressions: Chest X-Ray 02/24/18 09:59 IMPRESSION: NO ACUTE RADIOGRAPHIC FINDING IN THE CHEST. Abdomen Ultrasound 02/25/18 00:00 IMPRESSION: Limited study as noted above. Gallbladder was not visualized. FATTY INFILTRATION OF THE LIVER. Other findings as noted above Head MRI 03/01/18 00:00 IMPRESSION: No acute findings. Very limited study EVIDENCE OF ACUTE STROKE: NO. Guidance Fluoroscopy 03/07/18 00:00 IMPRESSION: Lumbar puncture under fluoroscopy. No immediate complication. Lumbar Puncture 03/07/18 09:00 IMPRESSION: Lumbar puncture under fluoroscopy. No immediate complication. Assessment & Plan - Diagnosis (1) Alcoholic Korsakoff syndrome Is this a current diagnosis for this admission?: Yes (2) Alcoholic cirrhosis Qualifiers: Ascites presence: without ascites Qualified Code(s): K70.30 - Alcoholic cirrhosis of liver without ascites Is this a current diagnosis for this admission?: Yes (3) Anemia Qualifiers: Anemia type: other cause Other causes of anemia: nutritional, other megaloblastic Qualified Code(s): D53.1 - Other megaloblastic anemias, not elsewhere classified Is this a current diagnosis for this admission?: Yes (4) Comfort measures only status Is this a current diagnosis for this admission?: Yes (5) Hypokalemia Is this a current diagnosis for this admission?: Yes - Time Time Spent with patient: Less than 15 minutes - Inpatient Certification Based on my medical assessment, after consideration of the patient's comorbidities, presenting symptoms, or acuity I expect that the services needed warrant INPATIENT care.: Yes - Plan Summary Plan Summary: Awaiting hospice care
[2018-04-12] MEDS: MIRTAZAPINE 15 MG TABLET PO SCH (21:43)
[2018-04-13] MEDS: OLANZAPINE 2.5 MG TABLET PO SCH (10:50)
[2018-04-13] MEDS: SODIUM CHLORIDE NASAL SPRAY 44 ML NASL SCH ×4 (10:50→21:45)
[2018-04-13] MEDS: DOCUSATE SODIUM 100 MG CAPSULE PO SCH ×2 (10:50→17:21)
--- NOTE | 2018-04-13 16:10 | PDOC PROGRESS REPORT ---
Subjective Progress Note for:: 04/13/18 Subjective:: patient awake and mumbling, trying to answer questions Reason For Visit: ENCEPHALOPATHY,UTI Physical Exam Vital Signs: Temp Pulse Resp BP Pulse Ox 97.3 F 67 14 109/72 95 04/09/18 10:00 04/09/18 10:00 04/09/18 10:00 04/09/18 10:00 04/09/18 10:00 Intake & Output 04/12/18 04/13/18 04/14/18 06:59 06:59 06:59 Intake Total 0 500 Output Total 675 575 Balance -675 -75 Weight 59.8 kg 59.4 kg General appearance: PRESENT: no acute distress Exam: cachectic, ill looking Mouth exam: PRESENT: dry mucosa Respiratory exam: PRESENT: rhonchi, unlabored Cardiovascular exam: PRESENT: RRR, +S1, +S2. ABSENT: diastolic murmur, rubs, systolic murmur GI/Abdominal exam: PRESENT: normal bowel sounds, soft. ABSENT: distended, guarding, mass, organolmegaly, rebound, tenderness Rectal exam: PRESENT: deferred Results Laboratory Results: 04/01/18 06:55 04/01/18 06:55 02/24/18 09:55 Troponin I < 0.012 Impressions: Chest X-Ray 02/24/18 09:59 IMPRESSION: NO ACUTE RADIOGRAPHIC FINDING IN THE CHEST. Abdomen Ultrasound 02/25/18 00:00 IMPRESSION: Limited study as noted above. Gallbladder was not visualized. FATTY INFILTRATION OF THE LIVER. Other findings as noted above Head MRI 03/01/18 00:00 IMPRESSION: No acute findings. Very limited study EVIDENCE OF ACUTE STROKE: NO. Guidance Fluoroscopy 03/07/18 00:00 IMPRESSION: Lumbar puncture under fluoroscopy. No immediate complication. Lumbar Puncture 03/07/18 09:00 IMPRESSION: Lumbar puncture under fluoroscopy. No immediate complication. Assessment & Plan - Diagnosis (1) Alcoholic Korsakoff syndrome Is this a current diagnosis for this admission?: Yes (2) Alcoholic cirrhosis Qualifiers: Ascites presence: without ascites Qualified Code(s): K70.30 - Alcoholic cirrhosis of liver without ascites Is this a current diagnosis for this admission?: Yes (3) Anemia Qualifiers: Anemia type: other cause Other causes of anemia: nutritional, other megaloblastic Qualified Code(s): D53.1 - Other megaloblastic anemias, not elsewhere classified Is this a current diagnosis for this admission?: Yes (4) Comfort measures only status Is this a current diagnosis for this admission?: Yes (5) Hypokalemia Is this a current diagnosis for this admission?: Yes - Time Time Spent with patient: Less than 15 minutes Medications reviewed and adjusted accordingly: Yes Anticipated discharge: Hospice - Inpatient Certification Based on my medical assessment, after consideration of the patient's comorbidities, presenting symptoms, or acuity I expect that the services needed warrant INPATIENT care.: Yes Medical Necessity: Other - awaiting transfer to hospice care
[2018-04-13] MEDS: MIRTAZAPINE 15 MG TABLET PO SCH (21:46)
[2018-04-14] MEDS: LORAZEPAM INJ 2 MG/1 ML VIAL IV PRN (04:23)
[2018-04-14] MEDS: SODIUM CHLORIDE NASAL SPRAY 44 ML NASL SCH ×4 (08:22→21:34)
[2018-04-14] MEDS: DOCUSATE SODIUM 100 MG CAPSULE PO SCH ×2 (11:13→17:22)
[2018-04-14] MEDS: OLANZAPINE 2.5 MG TABLET PO SCH (11:13)
--- NOTE | 2018-04-14 14:01 | PDOC PROGRESS REPORT ---
Subjective Progress Note for:: 04/14/18 Subjective:: patient awake and alert, speech jumbled Reason For Visit: ENCEPHALOPATHY,UTI Physical Exam Vital Signs: Temp Pulse Resp BP Pulse Ox 97.3 F 67 14 109/72 95 04/09/18 10:00 04/09/18 10:00 04/09/18 10:00 04/09/18 10:00 04/09/18 10:00 Intake & Output 04/13/18 04/14/18 04/15/18 06:59 06:59 06:59 Intake Total 500 300 Output Total 575 425 Balance -75 -125 Weight 59.4 kg 59 kg General appearance: PRESENT: no acute distress, thin, well-nourished Head exam: PRESENT: atraumatic, normocephalic Eye exam: PRESENT: conjunctiva pink, EOMI, PERRLA. ABSENT: scleral icterus Ear exam: PRESENT: normal external ear exam Mouth exam: PRESENT: moist, tongue midline Neck exam: ABSENT: carotid bruit, JVD, lymphadenopathy, thyromegaly Respiratory exam: PRESENT: clear to auscultation jake. ABSENT: rales, rhonchi, wheezes Cardiovascular exam: PRESENT: RRR. ABSENT: diastolic murmur, rubs, systolic murmur Pulses: PRESENT: normal dorsalis pedis pul Vascular exam: PRESENT: normal capillary refill GI/Abdominal exam: PRESENT: normal bowel sounds, soft. ABSENT: distended, guarding, mass, organolmegaly, rebound, tenderness Rectal exam: PRESENT: deferred Extremities exam: PRESENT: full ROM. ABSENT: calf tenderness, clubbing, pedal edema Neurological exam: PRESENT: alert, awake, other - confused. ABSENT: motor sensory deficit Skin exam: PRESENT: dry, intact, warm. ABSENT: cyanosis, rash Results Laboratory Results: 04/01/18 06:55 04/01/18 06:55 02/24/18 09:55 Troponin I < 0.012 Impressions: Chest X-Ray 02/24/18 09:59 IMPRESSION: NO ACUTE RADIOGRAPHIC FINDING IN THE CHEST. Abdomen Ultrasound 02/25/18 00:00 IMPRESSION: Limited study as noted above. Gallbladder was not visualized. FATTY INFILTRATION OF THE LIVER. Other findings as noted above Head MRI 03/01/18 00:00 IMPRESSION: No acute findings. Very limited study EVIDENCE OF ACUTE STROKE: NO. Guidance Fluoroscopy 03/07/18 00:00 IMPRESSION: Lumbar puncture under fluoroscopy. No immediate complication. Lumbar Puncture 03/07/18 09:00 IMPRESSION: Lumbar puncture under fluoroscopy. No immediate complication. Assessment & Plan - Diagnosis (1) Alcoholic Korsakoff syndrome Is this a current diagnosis for this admission?: Yes (2) Alcoholic cirrhosis Qualifiers: Ascites presence: without ascites Qualified Code(s): K70.30 - Alcoholic cirrhosis of liver without ascites Is this a current diagnosis for this admission?: Yes (3) Anemia Qualifiers: Anemia type: other cause Other causes of anemia: nutritional, other megaloblastic Qualified Code(s): D53.1 - Other megaloblastic anemias, not elsewhere classified Is this a current diagnosis for this admission?: Yes (4) Comfort measures only status Is this a current diagnosis for this admission?: Yes (5) Hypokalemia Is this a current diagnosis for this admission?: Yes - Time Time Spent with patient: 15-24 minutes Medications reviewed and adjusted accordingly: Yes Anticipated discharge: Other Within: when bed available - Inpatient Certification Based on my medical assessment, after consideration of the patient's comorbidities, presenting symptoms, or acuity I expect that the services needed warrant INPATIENT care.: Yes Medical Necessity: Risk of Complication if Not Cared For in Hospital - Since patient appears to have made some recovery will try and see if family can be contacted to discuss further plans
[2018-04-14] MEDS: MIRTAZAPINE 15 MG TABLET PO SCH (21:34)
[2018-04-15] MEDS: SODIUM CHLORIDE NASAL SPRAY 44 ML NASL SCH ×4 (09:11→21:59)
[2018-04-15] MEDS: OLANZAPINE 2.5 MG TABLET PO SCH (09:12)
[2018-04-15] MEDS: DOCUSATE SODIUM 100 MG CAPSULE PO SCH ×2 (09:12→17:43)
--- NOTE | 2018-04-15 16:49 | PDOC PROGRESS REPORT ---
Subjective Progress Note for:: 04/15/18 Subjective:: Patient remains awake but confused Reason For Visit: ENCEPHALOPATHY,UTI Physical Exam Vital Signs: Temp Pulse Resp BP Pulse Ox 97.3 F 67 14 109/72 95 04/09/18 10:00 04/09/18 10:00 04/09/18 10:00 04/09/18 10:00 04/09/18 10:00 Intake & Output 04/14/18 04/15/18 04/16/18 06:59 06:59 06:59 Intake Total 300 50 Output Total 425 500 Balance -125 -450 Weight 59 kg 59 kg General appearance: PRESENT: no acute distress, thin Head exam: PRESENT: atraumatic, normocephalic Eye exam: PRESENT: conjunctiva pink, EOMI, PERRLA. ABSENT: scleral icterus Ear exam: PRESENT: normal external ear exam Mouth exam: PRESENT: moist, tongue midline Neck exam: ABSENT: carotid bruit, JVD, lymphadenopathy, thyromegaly Respiratory exam: PRESENT: clear to auscultation jake. ABSENT: rales, rhonchi, wheezes Cardiovascular exam: PRESENT: RRR. ABSENT: diastolic murmur, rubs, systolic murmur Pulses: PRESENT: normal dorsalis pedis pul Vascular exam: PRESENT: normal capillary refill GI/Abdominal exam: PRESENT: normal bowel sounds, soft. ABSENT: distended, guarding, mass, organolmegaly, rebound, tenderness Rectal exam: PRESENT: deferred Extremities exam: PRESENT: full ROM. ABSENT: calf tenderness, clubbing, pedal edema Neurological exam: PRESENT: alert, awake, other - dysarthria. ABSENT: motor s ensory deficit Psychiatric exam: PRESENT: appropriate affect, normal mood. ABSENT: homicidal ideation, suicidal ideation Skin exam: PRESENT: dry, intact, warm. ABSENT: cyanosis, rash Results Laboratory Results: 04/01/18 06:55 04/01/18 06:55 02/24/18 09:55 Troponin I < 0.012 Impressions: Chest X-Ray 02/24/18 09:59 IMPRESSION: NO ACUTE RADIOGRAPHIC FINDING IN THE CHEST. Abdomen Ultrasound 02/25/18 00:00 IMPRESSION: Limited study as noted above. Gallbladder was not visualized. FATTY INFILTRATION OF THE LIVER. Other findings as noted above Head MRI 03/01/18 00:00 IMPRESSION: No acute findings. Very limited study EVIDENCE OF ACUTE STROKE: NO. Guidance Fluoroscopy 03/07/18 00:00 IMPRESSION: Lumbar puncture under fluoroscopy. No immediate complication. Lumbar Puncture 03/07/18 09:00 IMPRESSION: Lumbar puncture under fluoroscopy. No immediate complication. Assessment & Plan - Diagnosis (1) Alcoholic Korsakoff syndrome Is this a current diagnosis for this admission?: Yes (2) Alcoholic cirrhosis Qualifiers: Ascites presence: without ascites Qualified Code(s): K70.30 - Alcoholic cirrhosis of liver without ascites Is this a current diagnosis for this admission?: Yes (3) Anemia Qualifiers: Anemia type: other cause Other causes of anemia: nutritional, other megaloblastic Qualified Code(s): D53.1 - Other megaloblastic anemias, not elsewhere classified Is this a current diagnosis for this admission?: Yes (4) Comfort measures only status Is this a current diagnosis for this admission?: Yes Plan: This remains the same despite patient apparently being more awake (5) Hypokalemia Is this a current diagnosis for this admission?: Yes - Time Time Spent with patient: Less than 15 minutes Medications reviewed and adjusted accordingly: Yes Anticipated discharge: Hospice Within: when bed available - Inpatient Certification Based on my medical assessment, after consideration of the patient's comorbidities, presenting symptoms, or acuity I expect that the services needed warrant INPATIENT care.: Yes Medical Necessity: Other - awaiting hospice bed
[2018-04-15] MEDS: MIRTAZAPINE 15 MG TABLET PO SCH (21:59)
[2018-04-16] MEDS: DOCUSATE SODIUM 100 MG CAPSULE PO SCH ×2 (10:56→17:10)
[2018-04-16] MEDS: SODIUM CHLORIDE NASAL SPRAY 44 ML NASL SCH ×4 (10:56→21:33)
[2018-04-16] MEDS: OLANZAPINE 2.5 MG TABLET PO SCH (10:57)
--- NOTE | 2018-04-16 17:05 | PDOC PROGRESS REPORT ---
Subjective Progress Note for:: 04/16/18 Subjective:: Patient remains awake but confused Reason For Visit: ENCEPHALOPATHY,UTI Physical Exam Vital Signs: Temp Pulse Resp BP Pulse Ox 97.3 F 67 14 109/72 95 04/09/18 10:00 04/09/18 10:00 04/09/18 10:00 04/09/18 10:00 04/09/18 10:00 Intake & Output 04/15/18 04/16/18 04/17/18 06:59 06:59 06:59 Intake Total 50 250 Output Total 500 575 Balance -450 -325 Weight 59 kg 55.8 kg General appearance: PRESENT: no acute distress, thin Head exam: PRESENT: atraumatic, normocephalic Eye exam: PRESENT: conjunctiva pale, EOMI, PERRLA. ABSENT: scleral icterus Ear exam: PRESENT: normal external ear exam Mouth exam: PRESENT: moist, tongue midline Neck exam: ABSENT: carotid bruit, JVD, lymphadenopathy, thyromegaly Respiratory exam: PRESENT: clear to auscultation jake. ABSENT: rales, rhonchi, wheezes Cardiovascular exam: PRESENT: RRR. ABSENT: diastolic murmur, rubs, systolic murmur Pulses: PRESENT: normal dorsalis pedis pul Vascular exam: PRESENT: normal capillary refill GI/Abdominal exam: PRESENT: normal bowel sounds, soft. ABSENT: distended, guarding, mass, organolmegaly, rebound, tenderness Rectal exam: PRESENT: deferred Extremities exam: PRESENT: full ROM. ABSENT: calf tenderness, clubbing, pedal edema Neurological exam: PRESENT: alert, awake. ABSENT: motor sensory deficit Psychiatric exam: ABSENT: homicidal ideation, suicidal ideation Skin exam: PRESENT: dry, intact, warm. ABSENT: cyanosis, rash Results Laboratory Results: 04/01/18 06:55 04/01/18 06:55 02/24/18 09:55 Troponin I < 0.012 Impressions: Chest X-Ray 02/24/18 09:59 IMPRESSION: NO ACUTE RADIOGRAPHIC FINDING IN THE CHEST. Abdomen Ultrasound 02/25/18 00:00 IMPRESSION: Limited study as noted above. Gallbladder was not visualized. FATTY INFILTRATION OF THE LIVER. Other findings as noted above Head MRI 03/01/18 00:00 IMPRESSION: No acute findings. Very limited study EVIDENCE OF ACUTE STROKE: NO. Guidance Fluoroscopy 03/07/18 00:00 IMPRESSION: Lumbar puncture under fluoroscopy. No immediate complication. Lumbar Puncture 03/07/18 09:00 IMPRESSION: Lumbar puncture under fluoroscopy. No immediate complication. Assessment & Plan - Diagnosis (1) Alcoholic Korsakoff syndrome Is this a current diagnosis for this admission?: Yes (2) Alcoholic cirrhosis Qualifiers: Ascites presence: without ascites Qualified Code(s): K70.30 - Alcoholic cirrhosis of liver without ascites Is this a current diagnosis for this admission?: Yes (3) Anemia Qualifiers: Anemia type: other cause Other causes of anemia: nutritional, other megaloblastic Qualified Code(s): D53.1 - Other megaloblastic anemias, not elsewhere classified Is this a current diagnosis for this admission?: Yes (4) Comfort measures only status Is this a current diagnosis for this admission?: Yes (5) Hypokalemia Is this a current diagnosis for this admission?: Yes - Time Time Spent with patient: Less than 15 minutes Medications reviewed and adjusted accordingly: Yes Anticipated discharge: Hospice Within: when bed available - Inpatient Certification Based on my medical assessment, after consideration of the patient's comorbidities, presenting symptoms, or acuity I expect that the services needed warrant INPATIENT care.: Yes Post Hospital Care: Other - awaiting placement - Plan Summary Plan Summary: There are no changes in treatment plan at this time but will continue to ev aluate
[2018-04-16] MEDS: MIRTAZAPINE 15 MG TABLET PO SCH (21:33)
[2018-04-17] MEDS: SODIUM CHLORIDE NASAL SPRAY 44 ML NASL SCH ×4 (07:47→21:18)
[2018-04-17] MEDS: OLANZAPINE 2.5 MG TABLET PO SCH (09:59)
[2018-04-17] MEDS: DOCUSATE SODIUM 100 MG CAPSULE PO SCH ×2 (09:59→17:52)
--- NOTE | 2018-04-17 12:44 | PDOC PROGRESS REPORT ---
Subjective Progress Note for:: 04/17/18 Subjective:: Patient remains awake but confused Reason For Visit: ENCEPHALOPATHY,UTI Physical Exam Vital Signs: Temp Pulse Resp BP Pulse Ox 97.3 F 67 14 109/72 95 04/09/18 10:00 04/09/18 10:00 04/09/18 10:00 04/09/18 10:00 04/09/18 10:00 Intake & Output 04/16/18 04/17/18 04/18/18 06:59 06:59 06:59 Intake Total 250 128 Output Total 575 750 Balance -325 -622 Weight 55.8 kg 53.2 kg General appearance: PRESENT: no acute distress, thin, other - cachectic Head exam: PRESENT: atraumatic, normocephalic Respiratory exam: PRESENT: clear to auscultation jake, symmetrical, unlabored Cardiovascular exam: PRESENT: +S1, +S2 GI/Abdominal exam: PRESENT: ascites Neurological exam: PRESENT: other - confused Results Laboratory Results: 04/01/18 06:55 04/01/18 06:55 02/24/18 09:55 Troponin I < 0.012 Impressions: Chest X-Ray 02/24/18 09:59 IMPRESSION: NO ACUTE RADIOGRAPHIC FINDING IN THE CHEST. Abdomen Ultrasound 02/25/18 00:00 IMPRESSION: Limited study as noted above. Gallbladder was not visualized. FATTY INFILTRATION OF THE LIVER. Other findings as noted above Head MRI 03/01/18 00:00 IMPRESSION: No acute findings. Very limited study EVIDENCE OF ACUTE STROKE: NO. Guidance Fluoroscopy 03/07/18 00:00 IMPRESSION: Lumbar puncture under fluoroscopy. No immediate complication. Lumbar Puncture 03/07/18 09:00 IMPRESSION: Lumbar puncture under fluoroscopy. No immediate complication. Assessment & Plan - Diagnosis (1) Alcoholic Korsakoff syndrome Is this a current diagnosis for this admission?: Yes (2) Alcoholic cirrhosis Qualifiers: Ascites presence: without ascites Qualified Code(s): K70.30 - Alcoholic cirrhosis of liver without ascites Is this a current diagnosis for this admission?: Yes (3) Anemia Qualifiers: Anemia type: other cause Other causes of anemia: nutritional, other megaloblastic Qualified Code(s): D53.1 - Other megaloblastic anemias, not elsewhere classified Is this a current diagnosis for this admission?: Yes (4) Comfort measures only status Is this a current diagnosis for this admission?: Yes (5) Hypokalemia Is this a current diagnosis for this admission?: Yes - Time Time Spent with patient: 15-24 minutes Anticipated discharge: Hospice - Inpatient Certification Medical Necessity: Other - Awaiting hospice transfer - Plan Summary Plan Summary: Condition grossly unchanged. Patient is awake and still encephalophatic and confused No labs have been done since the 4th. If there is no change in the comfort care status which appears to be so will defer any blood work a this time Patient encouraged on eating
[2018-04-17] MEDS: MIRTAZAPINE 15 MG TABLET PO SCH (21:18)
[2018-04-18] MEDS: SODIUM CHLORIDE NASAL SPRAY 44 ML NASL SCH ×3 (10:21→21:10)
[2018-04-18] MEDS: DOCUSATE SODIUM 100 MG CAPSULE PO SCH ×2 (10:21→21:10)
--- NOTE | 2018-04-18 12:31 | PDOC PROGRESS REPORT ---
Subjective Progress Note for:: 04/18/18 Subjective:: 04/18/2018-patient is on comfort care measures only. Patient is in the bed confused not agitated not anxious. Reason For Visit: ENCEPHALOPATHY,UTI Physical Exam Vital Signs: Temp Pulse Resp BP Pulse Ox 97.3 F 67 14 109/72 95 04/09/18 10:00 04/09/18 10:00 04/09/18 10:00 04/09/18 10:00 04/09/18 10:00 Intake & Output 04/17/18 04/18/18 04/19/18 06:59 06:59 06:59 Intake Total 128 550 Output Total 750 450 Balance -622 100 Weight 53.2 kg 55 kg General appearance: PRESENT: no acute distress, disheveled Head exam: PRESENT: atraumatic Eye exam: PRESENT: PERRLA Mouth exam: PRESENT: dry mucosa Neck exam: ABSENT: carotid bruit, JVD, lymphadenopathy, thyromegaly Respiratory exam: PRESENT: clear to auscultation jake. ABSENT: rales, rhonchi, wheezes Cardiovascular exam: PRESENT: tachycardia GI/Abdominal exam: PRESENT: normal bowel sounds, soft. ABSENT: distended, guarding, mass, organolmegaly, rebound, tenderness Neurological exam: PRESENT: alert, other - Confused not agitated Results Laboratory Results: 04/01/18 06:55 04/01/18 06:55 02/24/18 09:55 Troponin I < 0.012 Impressions: Chest X-Ray 02/24/18 09:59 IMPRESSION: NO ACUTE RADIOGRAPHIC FINDING IN THE CHEST. Abdomen Ultrasound 02/25/18 00:00 IMPRESSION: Limited study as noted above. Gallbladder was not visualized. FATTY INFILTRATION OF THE LIVER. Other findings as noted above Head MRI 03/01/18 00:00 IMPRESSION: No acute findings. Very limited study EVIDENCE OF ACUTE STROKE: NO. Guidance Fluoroscopy 03/07/18 00:00 IMPRESSION: Lumbar puncture under fluoroscopy. No immediate complication. Lumbar Puncture 03/07/18 09:00 IMPRESSION: Lumbar puncture under fluoroscopy. No immediate complication. Assessment & Plan - Diagnosis (1) Alcoholic Korsakoff syndrome Is this a current diagnosis for this admission?: Yes Plan: 04/18/2018 patient under comfort care measures only. (2) Alcoholic cirrhosis Qualifiers: Ascites presence: without ascites Qualified Code(s): K70.30 - Alcoholic cirrhosis of liver without ascites Is this a current diagnosis for this admission?: Yes Plan: 04/18/2018 no labs are done recently. Patient to comfort care measures only. Waiting for the approval from the state for guardianship. Waiting for hospice bed. (3) Comfort measures only status Is this a current diagnosis for this admission?: Yes Plan: Patient is comfortable measures only status. patient appetite is very poor. Waiting for the hospice placement. - Time Time Spent with patient: Less than 15 minutes Medications reviewed and adjusted accordingly: Yes Anticipated discharge: Hospice
[2018-04-18] MEDS: MIRTAZAPINE 15 MG TABLET PO SCH (21:10)
[2018-04-19] MEDS: SODIUM CHLORIDE NASAL SPRAY 44 ML NASL SCH ×4 (08:16→22:14)
[2018-04-19] MEDS: DOCUSATE SODIUM 100 MG CAPSULE PO SCH ×2 (10:15→17:48)
--- NOTE | 2018-04-19 14:25 | PDOC PROGRESS REPORT ---
Subjective Progress Note for:: 04/19/18 Subjective:: 04/18/2018-patient is on comfort care measures only. Patient is in the bed confused not agitated not anxious. 04/19/2018 patient is comfortably in the bed. Noncommunicative. Person from the state is here talking to the patient. Hopefully state he is going to take the guardianship so that we can arrange for the patient to go to hospice. Reason For Visit: ENCEPHALOPATHY,UTI Physical Exam Vital Signs: Temp Pulse Resp BP Pulse Ox 97.3 F 67 14 109/72 95 04/09/18 10:00 04/09/18 10:00 04/09/18 10:00 04/09/18 10:00 04/09/18 10:00 Intake & Output 04/18/18 04/19/18 04/20/18 06:59 06:59 06:59 Intake Total 550 300 Output Total 450 400 Balance 100 -100 Weight 55 kg 54.3 kg General appearance: PRESENT: no acute distress, disheveled Head exam: PRESENT: atraumatic Eye exam: PRESENT: PERRLA Mouth exam: PRESENT: dry mucosa Neck exam: ABSENT: carotid bruit, JVD, lymphadenopathy, thyromegaly Respiratory exam: PRESENT: decreased breath sounds Cardiovascular exam: PRESENT: tachycardia GI/Abdominal exam: PRESENT: normal bowel sounds, soft. ABSENT: distended, guarding, mass, organolmegaly, rebound, tenderness Neurological exam: PRESENT: other - Patient is not communicated not participating in the neurological examination. Psychiatric exam: PRESENT: anxious Results Laboratory Results: 04/01/18 06:55 04/01/18 06:55 02/24/18 09:55 Troponin I < 0.012 Impressions: Chest X-Ray 02/24/18 09:59 IMPRESSION: NO ACUTE RADIOGRAPHIC FINDING IN THE CHEST. Abdomen Ultrasound 02/25/18 00:00 IMPRESSION: Limited study as noted above. Gallbladder was not visualized. FATTY INFILTRATION OF THE LIVER. Other findings as noted above Head MRI 03/01/18 00:00 IMPRESSION: No acute findings. Very limited study EVIDENCE OF ACUTE STROKE: NO. Guidance Fluoroscopy 03/07/18 00:00 IMPRESSION: Lumbar puncture under fluoroscopy. No immediate complication. Lumbar Puncture 03/07/18 09:00 IMPRESSION: Lumbar puncture under fluoroscopy. No immediate complication. Assessment & Plan - Diagnosis (1) Alcoholic Korsakoff syndrome Is this a current diagnosis for this admission?: Yes Plan: 04/18/2018 patient under comfort care measures only. 04/19/2018 patient was admitted with alcoholic Korsakoff syndrome patient is presently under comfort care only waiting for the guardianship from the state and also waiting for the hospice placement. (2) Alcoholic cirrhosis Qualifiers: Ascites presence: without ascites Qualified Code(s): K70.30 - Alcoholic cirrhosis of liver without ascites Is this a current diagnosis for this admission?: Yes Plan: 04/18/2018 no labs are done recently. Patient to comfort care measures only. Waiting for the approval from the state for guardianship. Waiting for hospice bed. 04/19/2018-patient is on comfort care measures waiting for the hospice placement. (3) Comfort measures only status Is this a current diagnosis for this admission?: Yes - Time Time Spent with patient: Less than 15 minutes Medications reviewed and adjusted accordingly: Yes Anticipated discharge: Hospice
[2018-04-20] MEDS: DOCUSATE SODIUM 100 MG CAPSULE PO SCH ×2 (11:00→18:15)
[2018-04-20] MEDS: SODIUM CHLORIDE NASAL SPRAY 44 ML NASL SCH ×3 (11:01→11:03)
[2018-04-20] MEDS ORDERED: NORMAL SALINE 1000 ML 1,000 ML IV PRN (14:55)
[2018-04-20] MEDS ORDERED: NORMAL SALINE 250 ML IV PRN ×2 (14:58)
--- NOTE | 2018-04-20 15:08 | PDOC PROGRESS REPORT ---
Subjective Progress Note for:: 04/20/18 Subjective:: 04/18/2018-patient is on comfort care measures only. Patient is in the bed confused not agitated not anxious. 04/19/2018 patient is comfortably in the bed. Noncommunicative. Person from the state is here talking to the patient. Hopefully state is going to take the guardianship so that we can arrange for the patient to go to hospice. 04/20/2018-able to get in touch with the family members. Father agreed for the patient to go to a rehab. But we need to get in touch with mother to get her approval also. In the meantime patient is getting better able to feed herself today able to get out of the bed and able to sit in the chair. So because of the improvements in her mental and physical condition plan to restart the comfort measures. Requested for CBC CMP magnesium today start on banana bag, requested for 2 units of blood transfusion. Will start on IV fluids at 50 cc/h. And do the labs tomorrow continue to closely monitor the patient. Reason For Visit: ENCEPHALOPATHY,UTI Physical Exam Vital Signs: Temp Pulse Resp BP Pulse Ox 97.3 F 67 14 109/72 95 04/09/18 10:00 04/09/18 10:00 04/09/18 10:00 04/09/18 10:00 04/09/18 10:00 Intake & Output 04/19/18 04/20/18 04/21/18 06:59 06:59 06:59 Intake Total 300 400 50 Output Total 400 150 Balance -100 250 50 Weight 54.3 kg General appearance: PRESENT: no acute distress, disheveled Head exam: PRESENT: atraumatic Eye exam: PRESENT: PERRLA Mouth exam: PRESENT: moist, tongue midline Neck exam: ABSENT: carotid bruit, JVD, lymphadenopathy, thyromegaly Respiratory exam: PRESENT: decreased breath sounds Cardiovascular exam: PRESENT: tachycardia GI/Abdominal exam: PRESENT: normal bowel sounds, soft. ABSENT: distended, guarding, mass, organolmegaly, rebound, tenderness Extremities exam: PRESENT: full ROM. ABSENT: calf tenderness, clubbing, pedal edema Neurological exam: PRESENT: alert, awake, other - Not communicative much not in distress Psychiatric exam: PRESENT: anxious Results Laboratory Results: 04/01/18 06:55 04/01/18 06:55 02/24/18 09:55 Troponin I < 0.012 Impressions: Chest X-Ray 02/24/18 09:59 IMPRESSION: NO ACUTE RADIOGRAPHIC FINDING IN THE CHEST. Abdomen Ultrasound 02/25/18 00:00 IMPRESSION: Limited study as noted above. Gallbladder was not visualized. FATTY INFILTRATION OF THE LIVER. Other findings as noted above Head MRI 03/01/18 00:00 IMPRESSION: No acute findings. Very limited study EVIDENCE OF ACUTE STROKE: NO. Guidance Fluoroscopy 03/07/18 00:00 IMPRESSION: Lumbar puncture under fluoroscopy. No immediate complication. Lumbar Puncture 03/07/18 09:00 IMPRESSION: Lumbar puncture under fluoroscopy. No immediate complication. Assessment & Plan - Diagnosis (1) Alcoholic Korsakoff syndrome Is this a current diagnosis for this admission?: Yes Plan: 04/18/2018 patient under comfort care measures only. 04/19/2018 patient was admitted with alcoholic Korsakoff syndrome patient is presently under comfort care only waiting for the guardianship from the state and also waiting for the hospice placement. 04/20/2018-patient was admitted for alcoholic Korsakoff syndrome. She was here for almost 2 months. She is showing slow recovery. As I mentioned above patient able to feed herself today able to come up with the bed into the chair today. More alert more communicative communicating better with the nurses. So finally was able to get in touch with the family members ,father wants her to go to a rehab if necessary. Now we waiting for her mother to call us back to give her opinion. And is to start on a banana bag. IV fluids at 75 cc/h. (2) Alcoholic cirrhosis Qualifiers: Ascites presence: without ascites Qualified Code(s): K70.30 - Alcoholic cirrhosis of liver without ascites Is this a current diagnosis for this admission?: Yes Plan: 04/18/2018 no labs are done recently. Patient to comfort care measures only. Waiting for the approval from the state for guardianship. Waiting for hospice bed. 04/19/2018-patient is on comfort care measures waiting for the hospice placement. 04/20/2018-patient has history of severe alcohol use leading to alcoholic liver cirrhosis. Plan is to continue the present management. (3) Comfort measures only status Is this a current diagnosis for this admission?: Yes Plan: Patient is comfortable measures only status. patient appetite is very poor. Waiting for the hospice placement. 04/20/2018 patient showing a physical improvement, she is also showing improved mentation. Able to help herself to eat, able to come out of the bed into the chair. Following the commands from the nurses. Able to get into brief conversation with the nurses. So plan to rescind the comfort measures. (4) Anemia Qualifiers: Anemia type: other cause Other causes of anemia: nutritional, other megaloblastic Qualified Code(s): D53.1 - Other megaloblastic anemias, not elsewhere classified Is this a current diagnosis for this admission?: Yes Plan: 04/20/2018-patient his hemoglobin is less than 4 anemia of chronic disease probably secondary to heavy alcohol use/alcoholic liver cirrhosis. Plan is to do the labs today do the type and crossmatch and planning 2 units of blood transfusion. - Time Time Spent with patient: 15-24 minutes Medications reviewed and adjusted accordingly: Yes Anticipated discharge: SNF
[2018-04-20 16:17] LABS: ALANINE AMINOTRANSFERASE 29 U/L (9-52); ALBUMIN 2.6 g/dL (3.5-5.0); ALKALINE PHOSPHATASE 88 U/L (38-126); ANION GAP 5 (5-19); ASPARTATE AMINO TRANSFERASE 35 U/L (14-36); BILIRUBIN,DIRECT 0.4 mg/dL (0.0-0.4); BILIRUBIN,TOTAL 1.1 mg/dL (0.2-1.3); BLOOD UREA NITROGEN 19 mg/dL (7-20); CALCIUM 9.1 mg/dL (8.4-10.2); CARBON DIOXIDE 28 mmol/L (22-30); CHLORIDE 111 mmol/L (98-107); GLUCOSE 70 mg/dL (75-110); POTASSIUM 3.6 mmol/L (3.6-5.0); SODIUM 144.4 mmol/L (137-145); TOTAL PROTEIN 5.1 g/dL (6.3-8.2)
[2018-04-20 16:59] LABS: ABSOLUTE BASOPHILS # (AUTO) 0.1 10^3/uL (0.0-0.2); ABSOLUTE LYMPHOCYTES (AUTO) 1.3 10^3/uL (0.5-4.7); ABSOLUTE MONOCYTES (AUTO) 0.3 10^3/uL (0.1-1.4); ABSOLUTE NEUT (AUTO) 2.1 10^3/uL (1.7-8.2); BASOPHILS % (AUTO) 1.4 % (0-2); EOSINOPHILS % (AUTO) 1.2 % (0-6); HEMATOCRIT 18.8 % (36.0-47.0); LYMPHOCYTES % (AUTO) 34.5 % (13-45); MEAN CORPUSCULAR HEMOGLOBIN 33.9 pg (27.0-33.4); MEAN CORPUSCULAR HGB CONC 32.5 g/dL (32.0-36.0); MONOCYTES % (AUTO) 8.8 % (3-13); RED BLOOD COUNT 1.81 10^6/uL (3.72-5.28); RED CELL DISTRIBUTION WIDTH 19.4 % (11.5-14.0); SEGMENTED NEUTROPHILS % (AUTO) 54.1 % (42-78); TOTAL CELLS COUNTED % (AUTO) 100 %; WHITE BLOOD COUNT 3.8 10^3/uL (4.0-10.5)
[2018-04-20 17:18] LABS: MEAN CORPUSCULAR VOLUME 104 fl (80-97)
[2018-04-20 17:26] LABS: HEMOGLOBIN 6.1 g/dL (12.0-15.5)
[2018-04-20 17:29] LABS: PLATELET COUNT 26 10^3/uL (150-450)
[2018-04-21] MEDS: NORMAL SALINE 1000 ML 1,000 ML with POTASSIUM CHLORIDE 20 MEQ, MAGNESIUM SULFATE 8 MEQ,... IV SCH ×10 (05:26→18:06)
[2018-04-21 06:30] LABS: HEMATOCRIT 26.4 % (36.0-47.0); MEAN CORPUSCULAR HEMOGLOBIN 32.7 pg (27.0-33.4); MEAN CORPUSCULAR HGB CONC 33.9 g/dL (32.0-36.0); RED BLOOD COUNT 2.73 10^6/uL (3.72-5.28); WHITE BLOOD COUNT 4.4 10^3/uL (4.0-10.5)
[2018-04-21 07:03] LABS: HEMOGLOBIN 8.9 g/dL (12.0-15.5); MEAN CORPUSCULAR VOLUME 97 fl (80-97)
[2018-04-21 07:09] LABS: ABSOLUTE LYMPHOCYTES# (MANUAL) 1.9 10^3/uL (0.5-4.7); ABSOLUTE MONOCYTES # (MANUAL) 0.3 10^3/uL (0.1-1.4); ABSOLUTE NEUTROPHILS# (MANUAL) 2.2 10^3/uL (1.7-8.2); BASOPHILS % (MANUAL) 1 % (0-2); EOSINOPHILS % (MANUAL) 0 % (0-6); LYMPHOCYTES % (MANUAL) 43 % (13-45); MONOCYTES % (MANUAL) 7 % (3-13); SEGMENTED NEUTROPHILS % (MAN) 49 % (42-78); TOTAL CELLS COUNTED 100
[2018-04-21 07:10] LABS: ANISOCYTOSIS 2+; BURR CELLS SLIGHT; POIKILOCYTOSIS 1+; SCHISTOCYTES SLIGHT; TEAR DROP CELLS SLIGHT; TOXIC GRANULATION 1+
[2018-04-21 07:13] LABS: PLATELET COMMENT DECREASED
[2018-04-21 07:14] LABS: PLATELET COUNT 29 10^3/uL (150-450)
[2018-04-21] MEDS ORDERED: NORMAL SALINE 1000 ML 1,000 ML IV ONE (08:00)
[2018-04-21] MEDS ORDERED: DEXTROSE 50%-WATER 25 GM/50 ML DISP.SYRIN IV ONE ×3 (08:01→08:18)
--- NOTE | 2018-04-21 08:02 | RADIOLOGY REPORT (SQ) ---
EXAM DESCRIPTION: X-ray single view chest. CLINICAL HISTORY: 52 years Female, change in respiratory status COMPARISON: 02/24/2018 TECHNIQUE: Single portable view of the chest performed on 04/21/2018 at 7:23 AM FINDINGS: The lungs are well expanded. There is new volume loss in the lung bases likely due to a combination of pleural fluid and atelectasis. There is no evidence of a pneumothorax. The cardiac silhouette is mildly prominent and may be slightly accentuated by the portable technique. The mediastinal contours are normal. No acute osseous abnormality is identified. There is a healing fracture of the lateral left 10th rib. No focal soft tissue abnormalities are seen. Lines and tubes: None. IMPRESSION: 1. New volume loss in the lung bases likely due to a combination of pleural fluid and atelectasis. 2. Mild prominence of the cardiac silhouette which may be accentuated by the portable technique.
[2018-04-21 08:04] LABS: ABSOLUTE BASOPHILS # (AUTO) 0.1 10^3/uL (0.0-0.2); ABSOLUTE LYMPHOCYTES (AUTO) 1.4 10^3/uL (0.5-4.7); ABSOLUTE MONOCYTES (AUTO) 0.4 10^3/uL (0.1-1.4); ABSOLUTE NEUT (AUTO) 2.7 10^3/uL (1.7-8.2); BASOPHILS % (AUTO) 1.4 % (0-2); EOSINOPHILS % (AUTO) 0.6 % (0-6); HEMATOCRIT 24.9 % (36.0-47.0); HEMOGLOBIN 8.5 g/dL (12.0-15.5); LYMPHOCYTES % (AUTO) 30.5 % (13-45); MEAN CORPUSCULAR VOLUME 97 fl (80-97); MONOCYTES % (AUTO) 8.4 % (3-13); RED BLOOD COUNT 2.57 10^6/uL (3.72-5.28); RED CELL DISTRIBUTION WIDTH 20.6 % (11.5-14.0); SEGMENTED NEUTROPHILS % (AUTO) 59.1 % (42-78); TOTAL CELLS COUNTED % (AUTO) 100 %; WHITE BLOOD COUNT 4.6 10^3/uL (4.0-10.5)
[2018-04-21 08:07] LABS: ALANINE AMINOTRANSFERASE 28 U/L (9-52); ALBUMIN 2.2 g/dL (3.5-5.0); ALKALINE PHOSPHATASE 68 U/L (38-126); ASPARTATE AMINO TRANSFERASE 32 U/L (14-36); BILIRUBIN,DIRECT 0.4 mg/dL (0.0-0.4); BLOOD UREA NITROGEN 17 mg/dL (7-20); CALCIUM 8.5 mg/dL (8.4-10.2); CARBON DIOXIDE 26 mmol/L (22-30); CHLORIDE 114 mmol/L (98-107); GLUCOSE 55 mg/dL (75-110); TOTAL PROTEIN 4.7 g/dL (6.3-8.2)
[2018-04-21] MEDS ORDERED: LEVALBUTEROL HCL NEB 1.25 MG/3 ML AMPUL NEB PRN (08:07)
[2018-04-21 08:14] LABS: ANION GAP 5 (5-19); POTASSIUM 3.7 mmol/L (3.6-5.0); SODIUM 144.5 mmol/L (137-145)
--- NOTE | 2018-04-21 08:23 | PDOC PROGRESS REPORT ---
Subjective Progress Note for:: 04/21/18 Subjective:: 04/18/2018-patient is on comfort care measures only. Patient is in the bed confused not agitated not anxious. 04/19/2018 patient is comfortably in the bed. Noncommunicative. Person from the state is here talking to the patient. Hopefully state is going to take the guardianship so that we can arrange for the patient to go to hospice. 04/20/2018-able to get in touch with the family members. Father agreed for the patient to go to a rehab. But we need to get in touch with mother to get her approval also. In the meantime patient is getting better able to feed herself today able to get out of the bed and able to sit in the chair. So because of the improvements in her mental and physical condition plan to restart the comfort measures. Requested for CBC CMP magnesium today start on banana bag, requested for 2 units of blood transfusion. Will start on IV fluids at 50 cc/h. And do the labs tomorrow continue to closely monitor the patient. 04/21/2018-rapid response was called this morning because of the hypotension and hypoxia blood pressure was dropped to 90/48 and oxygen levels low dropped to upper 80s and patient was lethargic having the shallow breathing. I responded to the rapid response immediately came up to see the patient, blood pressure was noted to be 90/60. Pulse ox on 4 L is 94%. Patient is less responsive to lethargic shallow breathing. Chest bilateral entry was decreased. Especially at the bases. She is tachycardic. Bowel sounds are present. Neurologically she is not following the commands. Condition is critical and prognosis is poor. Patient is DNR/DNI. Patient was given 1 L of normal saline bolus and a stat ABG and blood work was requested. Chest x-ray was done. It indicates lung volume loss at the bases secondary to atelectasis/pleural fluid. Blood sugar was 65. We are going to give her 1 sample of IV dextrose push. Plan is to continue the banana bag and IV fluids. Requested for BiPAP as needed. I discussed the care with the and he understood the poor prognosis. He also aware that patient is DNR/DNI. We got in touch with the mother and notified about the patient's critical condition. She agreed with the no CODE STATUS. We will continue to provide supportive measures. again overall prognosis is poor condition is critical. Reason For Visit: ENCEPHALOPATHY,UTI Physical Exam Vital Signs: Temp Pulse Resp BP Pulse Ox 98.2 F 102 H 20 90/64 L 95 04/21/18 02:15 04/21/18 02:15 04/21/18 02:15 04/21/18 02:15 04/21/18 02:15 Intake & Output 04/20/18 04/21/18 04/22/18 06:59 06:59 06:59 Intake Total 400 700 Output Total 150 250 Balance 250 450 Weight 56 kg 56.3 kg General appearance: PRESENT: thin, other - pt is in moderate distress Head exam: PRESENT: atraumatic Eye exam: PRESENT: other - Pupils are constricted and reactive Neck exam: ABSENT: carotid bruit, JVD, lymphadenopathy, thyromegaly Respiratory exam: PRESENT: accessory muscle use, other - Patient is with a shallow breathing using the accessory muscles. Bilateral entry was severely decreased especially at the bases. Cardiovascular exam: PRESENT: tachycardia GI/Abdominal exam: PRESENT: normal bowel sounds, soft. ABSENT: distended, guarding, mass, organolmegaly, rebound, tenderness Neurological exam: PRESENT: other - Patient is lethargic less responsive and not responding to the verbal commands. Edith are equally vocal. Pupils are equal and reactive. Psychiatric exam: PRESENT: other - Unable to assess the psych exam Results Laboratory Results: 04/20/18 04/20/18 04/20/18 15:45 15:45 15:45 WBC Cancelled RBC Cancelled Hgb Cancelled Hct Cancelled MCV Cancelled MCH Cancelled MCHC Cancelled RDW Cancelled Plt Count Cancelled Seg Neutrophils % Cancelled Lymphocytes % Cancelled Monocytes % Cancelled Eosinophils % Cancelled Basophils % Cancelled Absolute Neutrophils Cancelled Absolute Lymphocytes Cancelled Absolute Monocytes Cancelled Absolute Eosinophils Cancelled Absolute Basophils Cancelled Sodium 144.4 Potassium 3.6 Chloride 111 H Carbon Dioxide 28 Anion Gap 5 BUN 19 Creatinine 0.78 Est GFR ( Amer) > 60 Est GFR (Non-Af Amer) > 60 Glucose 70 L Calcium 9.1 Magnesium 1.6 Total Bilirubin 1.1 AST 35 ALT 29 Alkaline Phosphatase 88 Total Protein 5.1 L Albumin 2.6 L Blood Type O POSITIVE Antibody Screen NEGATIVE 04/20/18 04/21/18 04/21/18 16:38 04:24 06:00 WBC 3.8 L Cancelled 4.4 RBC 1.81 L Cancelled 2.73 L Hgb 6.1 L Cancelled 8.9 L D Hct 18.8 L Cancelled 26.4 L MCV 104 H D Cancelled 97 D MCH 33.9 H Cancelled 32.7 MCHC 32.5 Cancelled 33.9 RDW 19.4 H Cancelled 20.0 H Plt Count 26 L* Cancelled 29 L* Seg Neutrophils % 54.1 Cancelled Not Reportable Lymphocytes % 34.5 Cancelled Not Reportable Monocytes % 8.8 Cancelled Not Reportable Eosinophils % 1.2 Cancelled Not Reportable Basophils % 1.4 Cancelled Not Reportable Absolute Neutrophils 2.1 Cancelled Not Reportable Absolute Lymphocytes 1.3 Cancelled Not Reportable Absolute Monocytes 0.3 Cancelled Not Reportable Absolute Eosinophils 0.0 Cancelled Not Reportable Absolute Basophils 0.1 Cancelled Not Reportable Sodium Potassium Chloride Carbon Dioxide Anion Gap BUN Creatinine Est GFR ( Amer) Est GFR (Non-Af Amer) Glucose Calcium Magnesium Total Bilirubin AST ALT Alkaline Phosphatase Total Protein Albumin Blood Type Antibody Screen 02/24/18 09:55 Troponin I < 0.012 Impressions: Abdomen Ultrasound 02/25/18 00:00 IMPRESSION: Limited study as noted above. Gallbladder was not visualized. FATTY INFILTRATION OF THE LIVER. Other findings as noted above Head MRI 03/01/18 00:00 IMPRESSION: No acute findings. Very limited study EVIDENCE OF ACUTE STROKE: NO. Guidance Fluoroscopy 03/07/18 00:00 IMPRESSION: Lumbar puncture under fluoroscopy. No immediate complication. Lumbar Puncture 03/07/18 09:00 IMPRESSION: Lumbar puncture under fluoroscopy. No immediate complication. Chest X-Ray 04/21/18 07:02 IMPRESSION: 1. New volume loss in the lung bases likely due to a combination of pleural fluid and atelectasis. 2. Mild prominence of the cardiac silhouette which may be accentuated by the portable technique. Assessment & Plan - Diagnosis (1) Alcoholic Korsakoff syndrome Is this a current diagnosis for this admission?: Yes Plan: 04/18/2018 patient under comfort care measures only. 04/19/2018 patient was admitted with alcoholic Korsakoff syndrome patient is presently under comfort care only waiting for the guardianship from the state and also waiting for the hospice placement. 04/20/2018-patient was admitted for alcoholic Korsakoff syndrome. She was here for almost 2 months. She is showing slow recovery. As I mentioned above patient able to feed herself today able to come up with the bed into the chair today. More alert more communicative communicating better with the nurses. So finally was able to get in touch with the family members ,father wants her to go to a rehab if necessary. Now we waiting for her mother to call us back to give her opinion. And is to start on a banana bag. IV fluids at 75 cc/h. 04/21/2018-patient was admitted with alcoholic Korsakoff syndrome she has history of chronic alcohol abuse. She was here in the hospital on comfort care for the last 2 months. She is DNR/DNI. Patient's showed signs of recovery in the last 2 days. So we revoked comfort care measures started on IV fluids banana bag. Her appetite improved until yesterday. But today she was found to be lethargic less responsive hypoxic and rapid response was called. Again overall prognosis is poor condition is critical. We will is aware of the poor status. (2) Alcoholic cirrhosis Qualifiers: Ascites presence: without ascites Qualified Code(s): K70.30 - Alcoholic cirrhosis of liver without ascites Is this a current diagnosis for this admission?: Yes Plan: 04/18/2018 no labs are done recently. Patient to comfort care measures only. Waiting for the approval from the state for guardianship. Waiting for hospice bed. 04/19/2018-patient is on comfort care measures waiting for the hospice placement. 04/20/2018-patient has history of severe alcohol use leading to alcoholic liver cirrhosis. Plan is to continue the present management. 04/20/2017 patient has history of heavy alcohol use with cirrhosis of the liver. Platelet count is 29,000 probably secondary to liver failure. (3) Comfort measures only status Is this a current diagnosis for this admission?: Yes (4) Anemia Qualifiers: Anemia type: other cause Other causes of anemia: nutritional, other megaloblastic Qualified Code(s): D53.1 - Other megaloblastic anemias, not elsewhere classified Is this a current diagnosis for this admission?: Yes Plan: 04/20/2018-patient his hemoglobin is less than 4 anemia of chronic disease probably secondary to heavy alcohol use/alcoholic liver cirrhosis. Plan is to do the labs today do the type and crossmatch and planning 2 units of blood transfusion. 04/21/2018-family gave the consent yesterday for 2 units of blood transfusion posttransfusion CBC hemoglobin is 8.9. We are waiting for the lab work this morning. (5) Acute respiratory failure Is this a current diagnosis for this admission?: Yes Plan: 04/21/2018-patient has acute respiratory failure with hypoxia presently she is on 4 L of oxygen pulse ox is 94-95%. Initially she found to be in hypoxic state with oxygen levels are in the upper 80s. BiPAP with as needed was ordered Xopenex nebulizer treatments were ordered good to continue to provide the oxygen supplementation. Based on the ABG report will adjust the BiPAP. Chest x-ray shows no pneumonia but increased pleural fluid/atelectasis at the bases. Patient is DNR/DNI. - Time Time Spent with patient: 25-34 minutes Anticipated discharge: Hospice
[2018-04-21] MEDS ORDERED: ACETAMINOPHEN 650 MG SUPP.RECT PR PRN (08:57)
[2018-04-21 09:21] LABS: PLATELET COUNT 29 10^3/uL (150-450)
[2018-04-21 09:57] LABS: ARTERIAL BLOOD BASE EXCESS 0.3 mmol/L; ARTERIAL BLOOD H2CO3 0.98 mmol/L (1.05-1.35); ARTERIAL BLOOD HCO3 23.5 mmol/L (20-24); ARTERIAL BLOOD O2 SATURATION 91.6 % (94-98); ARTERIAL BLOOD PCO2 32.4 mmHg (35-45); ARTERIAL BLOOD PH 7.48 (7.35-7.45); ARTERIAL BLOOD PO2 56.3 mmHg (80-100); ARTERIAL BLOOD TOTAL CO2 24.5 mmol/L (21-25)
[2018-04-21 10:00] LABS: ARTERIAL BLOOD FIO2 45%
[2018-04-21] MEDS: DOCUSATE SODIUM 100 MG CAPSULE PO SCH ×2 (11:41→17:49)
[2018-04-21] MEDS: ALBUMIN HUMAN 12.5 GM/50 ML RTUINJ IV SCH ×4 (15:51→19:06)
[2018-04-22 06:06] LABS: HEMATOCRIT 26.8 % (36.0-47.0); HEMOGLOBIN 8.8 g/dL (12.0-15.5); MEAN CORPUSCULAR HEMOGLOBIN 32.6 pg (27.0-33.4); MEAN CORPUSCULAR HGB CONC 32.9 g/dL (32.0-36.0); MEAN CORPUSCULAR VOLUME 99 fl (80-97); RED BLOOD COUNT 2.71 10^6/uL (3.72-5.28); RED CELL DISTRIBUTION WIDTH 21.4 % (11.5-14.0)
[2018-04-22 06:26] LABS: ALANINE AMINOTRANSFERASE 27 U/L (9-52); ALBUMIN 2.9 g/dL (3.5-5.0); ALKALINE PHOSPHATASE 66 U/L (38-126); ANION GAP 7 (5-19); ASPARTATE AMINO TRANSFERASE 28 U/L (14-36); BILIRUBIN,DIRECT 0.6 mg/dL (0.0-0.4); BILIRUBIN,TOTAL 1.4 mg/dL (0.2-1.3); BLOOD UREA NITROGEN 25 mg/dL (7-20); CARBON DIOXIDE 26 mmol/L (22-30); CHLORIDE 114 mmol/L (98-107); GLUCOSE 79 mg/dL (75-110); POTASSIUM 3.7 mmol/L (3.6-5.0); SODIUM 147.2 mmol/L (137-145); TOTAL PROTEIN 5.2 g/dL (6.3-8.2)
[2018-04-22 06:40] LABS: ABSOLUTE LYMPHOCYTES# (MANUAL) 1.3 10^3/uL (0.5-4.7); ABSOLUTE MONOCYTES # (MANUAL) 0.6 10^3/uL (0.1-1.4); ABSOLUTE NEUTROPHILS# (MANUAL) 19.2 10^3/uL (1.7-8.2); BAND NEUTROPHILS % (MANUAL) 8 % (3-5); BASOPHILS % (MANUAL) 0 % (0-2); EOSINOPHILS % (MANUAL) 0 % (0-6); LYMPHOCYTES % (MANUAL) 6 % (13-45); METAMYELOCYTES % (MANUAL) 2 % (0); MONOCYTES % (MANUAL) 3 % (3-13); SEGMENTED NEUTROPHILS % (MAN) 81 % (42-78); TOTAL CELLS COUNTED 100
[2018-04-22 06:42] LABS: ANISOCYTOSIS 3+; PLATELET COMMENT DECREASED; POIKILOCYTOSIS SLIGHT; POLYCHROMASIA SLIGHT; ROULEAUX SLIGHT; SCHISTOCYTES SLIGHT; TARGET CELLS SLIGHT
[2018-04-22 06:43] LABS: WHITE BLOOD COUNT 21.1 10^3/uL (4.0-10.5)
[2018-04-22 06:46] LABS: PLATELET COUNT 38 10^3/uL (150-450)
--- NOTE | 2018-04-22 08:42 | PDOC PROGRESS REPORT ---
Subjective Progress Note for:: 04/22/18 Subjective:: No acute events, patient still confused, did have black stool. Reason For Visit: ENCEPHALOPATHY,UTI Physical Exam Vital Signs: Temp Pulse Resp BP Pulse Ox 97.7 F 80 12 104/63 98 04/22/18 04:44 04/22/18 04:44 04/22/18 04:44 04/21/18 23:57 04/22/18 04:44 Intake & Output 04/21/18 04/22/18 04/23/18 06:59 06:59 06:59 Intake Total 700 2223 Output Total 250 1125 Balance 450 1098 Weight 56.3 kg 57.2 kg General appearance: PRESENT: no acute distress, well-developed, well-nourished Head exam: PRESENT: atraumatic, normocephalic Eye exam: PRESENT: conjunctiva pink, EOMI, PERRLA. ABSENT: scleral icterus Ear exam: PRESENT: normal external ear exam Mouth exam: PRESENT: moist, tongue midline Neck exam: ABSENT: carotid bruit, JVD, lymphadenopathy, thyromegaly Respiratory exam: PRESENT: clear to auscultation jake. ABSENT: rales, rhonchi, wheezes Cardiovascular exam: PRESENT: RRR. ABSENT: diastolic murmur, rubs, systolic murmur Pulses: PRESENT: normal dorsalis pedis pul Vascular exam: PRESENT: normal capillary refill GI/Abdominal exam: PRESENT: normal bowel sounds, soft. ABSENT: distended, guarding, mass, organolmegaly, rebound, tenderness Rectal exam: PRESENT: deferred Extremities exam: PRESENT: full ROM. ABSENT: calf tenderness, clubbing, pedal edema Neurological exam: PRESENT: alert, awake, oriented to person, oriented to place, oriented to time, oriented to situation, CN II-XII grossly intact. ABSENT: motor sensory deficit Psychiatric exam: PRESENT: appropriate affect, normal mood. ABSENT: homicidal ideation, suicidal ideation Skin exam: PRESENT: dry, intact, warm. ABSENT: cyanosis, rash Results Laboratory Results: 04/22/18 04:49 04/22/18 04:49 04/20/18 04/21/18 04/21/18 15:45 07:13 09:30 WBC Cancelled 4.6 RBC Cancelled 2.57 L Hgb Cancelled 8.5 L Hct Cancelled 24.9 L MCV Cancelled 97 MCH Cancelled 33.0 MCHC Cancelled 34.0 RDW Cancelled 20.6 H Plt Count Cancelled 29 L* Seg Neutrophils % Cancelled 59.1 Lymphocytes % Cancelled 30.5 Monocytes % Cancelled 8.4 Eosinophils % Cancelled 0.6 Basophils % Cancelled 1.4 Absolute Neutrophils Cancelled 2.7 Absolute Lymphocytes Cancelled 1.4 Absolute Monocytes Cancelled 0.4 Absolute Eosinophils Cancelled 0.0 Absolute Basophils Cancelled 0.1 Carbonic Acid 0.98 L HCO3/H2CO3 Ratio 23:1 ABG pH 7.48 H ABG pCO2 32.4 L ABG pO2 56.3 L ABG HCO3 23.5 ABG O2 Saturation 91.6 L ABG Base Excess 0.3 FiO2 45% Sodium Potassium Chloride Carbon Dioxide Anion Gap BUN Creatinine Est GFR ( Amer) Est GFR (Non-Af Amer) Glucose Calcium Magnesium Total Bilirubin AST ALT Alkaline Phosphatase Total Protein Albumin 04/22/18 04/22/18 04:49 04:49 WBC 21.1 H D RBC 2.71 L Hgb 8.8 L Hct 26.8 L MCV 99 H MCH 32.6 MCHC 32.9 RDW 21.4 H Plt Count 38 L Seg Neutrophils % Not Reportable Lymphocytes % Not Reportable Monocytes % Not Reportable Eosinophils % Not Reportable Basophils % Not Reportable Absolute Neutrophils Not Reportable Absolute Lymphocytes Not Reportable Absolute Monocytes Not Reportable Absolute Eosinophils Not Reportable Absolute Basophils Not Reportable Carbonic Acid HCO3/H2CO3 Ratio ABG pH ABG pCO2 ABG pO2 ABG HCO3 ABG O2 Saturation ABG Base Excess FiO2 Sodium 147.2 H Potassium 3.7 Chloride 114 H Carbon Dioxide 26 Anion Gap 7 BUN 25 H Creatinine 1.28 H Est GFR ( Amer) 53 L Est GFR (Non-Af Amer) 44 L Glucose 79 Calcium 9.0 Magnesium 1.7 Total Bilirubin 1.4 H AST 28 ALT 27 Alkaline Phosphatase 66 Total Protein 5.2 L Albumin 2.9 L 02/24/18 09:55 Troponin I < 0.012 Impressions: Abdomen Ultrasound 02/25/18 00:00 IMPRESSION: Limited study as noted above. Gallbladder was not visualized. FATTY INFILTRATION OF THE LIVER. Other findings as noted above Head MRI 03/01/18 00:00 IMPRESSION: No acute findings. Very limited study EVIDENCE OF ACUTE STROKE: NO. Guidance Fluoroscopy 03/07/18 00:00 IMPRESSION: Lumbar puncture under fluoroscopy. No immediate complication. Lumbar Puncture 03/07/18 09:00 IMPRESSION: Lumbar puncture under fluoroscopy. No immediate complication. Chest X-Ray 04/21/18 07:02 IMPRESSION: 1. New volume loss in the lung bases likely due to a combination of pleural fluid and atelectasis. 2. Mild prominence of the cardiac silhouette which may be accentuated by the portable technique. Assessment & Plan - Diagnosis (1) Anemia Qualifiers: Anemia type: other cause Other causes of anemia: nutritional, other megaloblastic Qualified Code(s): D53.1 - Other megaloblastic anemias, not elsewhere classified Is this a current diagnosis for this admission?: Yes Plan: Ferritin was elevated so more of a cirrhotic type anemia but patient has had black tarry stool recently so that the drop could be because of that. Regardless I do not think there is much to do about it, transfuse as needed if the hemoglobin gets under 7. (2) Secondary thrombocytopenia Is this a current diagnosis for this admission?: Yes Plan: Second to splenic sequestration and worsening cirrhosis, also probable DIC ongoing, we would just transfuse platelets as needed if the platelet count gets under 10. - Time Time Spent with patient: 35 or more minutes
[2018-04-22] MEDS: DOCUSATE SODIUM 100 MG CAPSULE PO SCH (10:25)
[2018-04-22] MEDS ORDERED: NORMAL SALINE 1000 ML 1,000 ML with POTASSIUM CHLORIDE 20 MEQ, MAGNESIUM SULFATE 8 MEQ,... IV SCH ×5 (12:00)
--- NOTE | 2018-04-22 12:42 | PDOC PROGRESS REPORT ---
Subjective Progress Note for:: 04/22/18 Subjective:: 04/18/2018-patient is on comfort care measures only. Patient is in the bed confused not agitated not anxious. 04/19/2018 patient is comfortably in the bed. Noncommunicative. Person from the state is here talking to the patient. Hopefully state is going to take the guardianship so that we can arrange for the patient to go to hospice. 04/20/2018-able to get in touch with the family members. Father agreed for the patient to go to a rehab. But we need to get in touch with mother to get her approval also. In the meantime patient is getting better able to feed herself today able to get out of the bed and able to sit in the chair. So because of the improvements in her mental and physical condition plan to restart the comfort measures. Requested for CBC CMP magnesium today start on banana bag, requested for 2 units of blood transfusion. Will start on IV fluids at 50 cc/h. And do the labs tomorrow continue to closely monitor the patient. 04/21/2018-rapid response was called this morning because of the hypotension and hypoxia blood pressure was dropped to 90/48 and oxygen levels low dropped to upper 80s and patient was lethargic having the shallow breathing. I responded to the rapid response immediately came up to see the patient, blood pressure was noted to be 90/60. Pulse ox on 4 L is 94%. Patient is less responsive to lethargic shallow breathing. Chest bilateral entry was decreased. Especially at the bases. She is tachycardic. Bowel sounds are present. Neurologically she is not following the commands. Condition is critical and prognosis is poor. Patient is DNR/DNI. Patient was given 1 L of normal saline bolus and a stat ABG and blood work was requested. Chest x-ray was done. It indicates lung volume loss at the bases secondary to atelectasis/pleural fluid. Blood sugar was 65. We are going to give her 1 sample of IV dextrose push. Plan is to continue the banana bag and IV fluids. Requested for BiPAP as needed. I discussed the care with the and he understood the poor prognosis. He also aware that patient is DNR/DNI. We got in touch with the mother and notified about the patient's critical condition. She agreed with the no CODE STATUS. We will continue to provide supportive measures. again overall prognosis is poor condition is critical. 04/22/2018-no acute events in the last 24 hours. Patient is afebrile. Patient is more alert more awake. Pulse ox on 4 L is 98%. Patient is comfortable in the bed. Not communicative. Reason For Visit: ENCEPHALOPATHY,UTI Physical Exam Vital Signs: Temp Pulse Resp BP Pulse Ox 97.7 F 78 19 104/63 98 04/22/18 04:44 04/22/18 09:45 04/22/18 09:45 04/21/18 23:57 04/22/18 09:45 Intake & Output 04/21/18 04/22/18 04/23/18 06:59 06:59 06:59 Intake Total 700 2223 Output Total 250 1125 Balance 450 1098 Weight 56.3 kg 57.2 kg General appearance: PRESENT: no acute distress Head exam: PRESENT: atraumatic Eye exam: PRESENT: PERRLA Mouth exam: PRESENT: moist, tongue midline Neck exam: ABSENT: carotid bruit, JVD, lymphadenopathy, thyromegaly Respiratory exam: PRESENT: crackles, decreased breath sounds Cardiovascular exam: PRESENT: tachycardia GI/Abdominal exam: PRESENT: normal bowel sounds, soft. ABSENT: distended, gu arding, mass, organolmegaly, rebound, tenderness Extremities exam: PRESENT: full ROM. ABSENT: calf tenderness, clubbing, pedal edema Neurological exam: PRESENT: alert, awake Psychiatric exam: PRESENT: anxious Results Laboratory Results: 04/22/18 04:49 04/22/18 04:49 04/20/18 04/22/18 04/22/18 15:45 04:49 04:49 WBC Cancelled 21.1 H D RBC Cancelled 2.71 L Hgb Cancelled 8.8 L Hct Cancelled 26.8 L MCV Cancelled 99 H MCH Cancelled 32.6 MCHC Cancelled 32.9 RDW Cancelled 21.4 H Plt Count Cancelled 38 L Seg Neutrophils % Cancelled Not Reportable Lymphocytes % Cancelled Not Reportable Monocytes % Cancelled Not Reportable Eosinophils % Cancelled Not Reportable Basophils % Cancelled Not Reportable Absolute Neutrophils Cancelled Not Reportable Absolute Lymphocytes Cancelled Not Reportable Absolute Monocytes Cancelled Not Reportable Absolute Eosinophils Cancelled Not Reportable Absolute Basophils Cancelled Not Reportable Sodium 147.2 H Potassium 3.7 Chloride 114 H Carbon Dioxide 26 Anion Gap 7 BUN 25 H Creatinine 1.28 H Est GFR ( Amer) 53 L Est GFR (Non-Af Amer) 44 L Glucose 79 Calcium 9.0 Magnesium 1.7 Total Bilirubin 1.4 H AST 28 ALT 27 Alkaline Phosphatase 66 Total Protein 5.2 L Albumin 2.9 L 02/24/18 09:55 Troponin I < 0.012 Impressions: Abdomen Ultrasound 02/25/18 00:00 IMPRESSION: Limited study as noted above. Gallbladder was not visualized. FATTY INFILTRATION OF THE LIVER. Other findings as noted above Head MRI 03/01/18 00:00 IMPRESSION: No acute findings. Very limited study EVIDENCE OF ACUTE STROKE: NO. Guidance Fluoroscopy 03/07/18 00:00 IMPRESSION: Lumbar puncture under fluoroscopy. No immediate complication. Lumbar Puncture 03/07/18 09:00 IMPRESSION: Lumbar puncture under fluoroscopy. No immediate complication. Chest X-Ray 04/21/18 07:02 IMPRESSION: 1. New volume loss in the lung bases likely due to a combination of pleural fluid and atelectasis. 2. Mild prominence of the cardiac silhouette which may be accentuated by the portable technique. Assessment & Plan - Diagnosis (1) Alcoholic Korsakoff syndrome Is this a current diagnosis for this admission?: Yes Plan: 04/18/2018 patient under comfort care measures only. 04/19/2018 patient was admitted with alcoholic Korsakoff syndrome patient is presently under comfort care only waiting for the guardianship from the state and also waiting for the hospice placement. 04/20/2018-patient was admitted for alcoholic Korsakoff syndrome. She was here for almost 2 months. She is showing slow recovery. As I mentioned above patient able to feed herself today able to come up with the bed into the chair today. More alert more communicative communicating better with the nurses. So finally was able to get in touch with the family members ,father wants her to go to a rehab if necessary. Now we waiting for her mother to call us back to give her opinion. And is to start on a banana bag. IV fluids at 75 cc/h. 04/21/2018-patient was admitted with alcoholic Korsakoff syndrome she has history of chronic alcohol abuse. She was here in the hospital on comfort care for the last 2 months. She is DNR/DNI. Patient's showed signs of recovery in the last 2 days. So we revoked comfort care measures started on IV fluids banana bag. Her appetite improved until yesterday. But today she was found to be lethargic less responsive hypoxic and rapid response was called. Again overall prognosis is poor condition is critical. We will is aware of the poor status. 04/22/2018-patient was admitted with alcoholic Cosco syndrome. She has history of chronic alcohol abuse found to have a liver failure. Initially she is on comfort care measures. But she is slowly showing signs of recovery. She got 2 units of blood transfusion and hemoglobin is stable around 8.8. Because of the low platelet count she is having the blood in the stool and blood stained oral secretions. And is receiving banana bag daily. And she is also on IV fluids at 50 cc/h. Hopefully she will continue to recover. (2) Alcoholic cirrhosis Qualifiers: Ascites presence: without ascites Qualified Code(s): K70.30 - Alcoholic cirrhosis of liver without ascites Is this a current diagnosis for this admission?: Yes Plan: 04/18/2018 no labs are done recently. Patient to comfort care measures only. Waiting for the approval from the state for guardianship. Waiting for hospice bed. 04/19/2018-patient is on comfort care measures waiting for the hospice placement. 04/20/2018-patient has history of severe alcohol use leading to alcoholic liver cirrhosis. Plan is to continue the present management. 04/20/2017 patient has history of heavy alcohol use with cirrhosis of the liver. Platelet count is 29,000 probably secondary to liver failure. 04/22/2018-patient has history of chronic alcohol liver disease. Platelet count is improved to 38,000. Patient is off the aspirin and Lovenox. She is only on mechanical DVT prophylaxis with TRINO hoses. (3) Comfort measures only status Is this a current diagnosis for this admission?: Yes (4) Anemia Qualifiers: Anemia type: other cause Other causes of anemia: nutritional, other megaloblastic Qualified Code(s): D53.1 - Other megaloblastic anemias, not elsewhere classified Is this a current diagnosis for this admission?: Yes Plan: 04/20/2018-patient his hemoglobin is less than 4 anemia of chronic disease probably secondary to heavy alcohol use/alcoholic liver cirrhosis. Plan is to do the labs today do the type and crossmatch and planning 2 units of blood transfusion. 04/21/2018-family gave the consent yesterday for 2 units of blood transfusion posttransfusion CBC hemoglobin is 8.9. We are waiting for the lab work this morning. 04/22/2018 patient might have anemia of chronic disease secondary to liver failure. Got 2 units of blood transfusion. Hemoglobin is stable around 8.8. (5) Acute respiratory failure Is this a current diagnosis for this admission?: Yes Plan: 04/21/2018-patient has acute respiratory failure with hypoxia presently she is on 4 L of oxygen pulse ox is 94-95%. Initially she found to be in hypoxic state with oxygen levels are in the upper 80s. BiPAP with as needed was ordered Xopenex nebulizer treatments were ordered good to continue to provide the oxygen supplementation. Based on the ABG report will adjust the BiPAP. Chest x-ray shows no pneumonia but increased pleural fluid/atelectasis at the bases. Patient is DNR/DNI. 04/22/2018-yesterday patient was in acute respiratory failure she was placed on BiPAP. Today pulse ox is 98% 4 L she was weaned off the BiPAP. Chest x-ray also indicating possible fluid overload yesterday because of the low blood pressures and no diuretics was given. Patient is breathing much better today. She is on IV Solu-Medrol 40 mg every 8 hours getting Xopenex nebulizations on a regular basis. Patient's CODE STATUS is still DNR/DNI. - Time Time Spent with patient: 15-24 minutes Medications reviewed and adjusted accordingly: Yes Anticipated discharge: Hospice
[2018-04-22] MEDS ORDERED: PIPERACILLIN/TAZOBACTAM 3.375 GM VIAL IV SCH (12:45)
[2018-04-22 14:50] LABS: PATH REVIEW PATHOLOGIST REVIEWED
[2018-04-22] MEDS: PIPERACILLIN SODIUM/TAZOBACTAM 3.375 GM in NORMAL SALINE 100 ML IV SCH ×2 (14:55→22:39)
[2018-04-23] MEDS: PIPERACILLIN SODIUM/TAZOBACTAM 3.375 GM in NORMAL SALINE 100 ML IV SCH ×2 (02:09→12:39)
[2018-04-23 05:50] LABS: ABSOLUTE EOSINOPHILS # (AUTO) 0.1 10^3/uL (0.0-0.6); ABSOLUTE MONOCYTES (AUTO) 0.4 10^3/uL (0.1-1.4); ABSOLUTE NEUT (AUTO) 10.8 10^3/uL (1.7-8.2); BASOPHILS % (AUTO) 0.3 % (0-2); EOSINOPHILS % (AUTO) 0.5 % (0-6); HEMATOCRIT 22.6 % (36.0-47.0); LYMPHOCYTES % (AUTO) 8.4 % (13-45); MEAN CORPUSCULAR HEMOGLOBIN 33.1 pg (27.0-33.4); MEAN CORPUSCULAR HGB CONC 33.5 g/dL (32.0-36.0); MEAN CORPUSCULAR VOLUME 99 fl (80-97); MONOCYTES % (AUTO) 3.4 % (3-13); RED BLOOD COUNT 2.28 10^6/uL (3.72-5.28); RED CELL DISTRIBUTION WIDTH 21.1 % (11.5-14.0); SEGMENTED NEUTROPHILS % (AUTO) 87.4 % (42-78); TOTAL CELLS COUNTED % (AUTO) 100 %; WHITE BLOOD COUNT 12.4 10^3/uL (4.0-10.5)
[2018-04-23 06:02] LABS: HEMOGLOBIN 7.6 g/dL (12.0-15.5)
[2018-04-23 06:08] LABS: ALANINE AMINOTRANSFERASE 22 U/L (9-52); ALBUMIN 2.5 g/dL (3.5-5.0); ALKALINE PHOSPHATASE 100 U/L (38-126); ANION GAP 5 (5-19); ASPARTATE AMINO TRANSFERASE 21 U/L (14-36); BILIRUBIN,DIRECT 0.6 mg/dL (0.0-0.4); BILIRUBIN,TOTAL 1.2 mg/dL (0.2-1.3); BLOOD UREA NITROGEN 27 mg/dL (7-20); CALCIUM 8.8 mg/dL (8.4-10.2); CARBON DIOXIDE 24 mmol/L (22-30); CHLORIDE 121 mmol/L (98-107); GLUCOSE 98 mg/dL (75-110); POTASSIUM 3.5 mmol/L (3.6-5.0); SODIUM 149.6 mmol/L (137-145); TOTAL PROTEIN 4.9 g/dL (6.3-8.2)
[2018-04-23] MEDS ORDERED: ACETAMINOPHEN 325 MG TABLET PO PRN (06:18)
[2018-04-23] MEDS ORDERED: DIPHENHYDRAMINE HCL 25 MG CAPSULE PO PRN (06:19)
[2018-04-23 06:51] LABS: PLATELET COUNT 32 10^3/uL (150-450)
[2018-04-23] MEDS ORDERED: NORMAL SALINE 1000 ML 1,000 ML with POTASSIUM CHLORIDE 20 MEQ, MAGNESIUM SULFATE 8 MEQ,... IV SCH ×5 (08:00)
[2018-04-23] MEDS: DOCUSATE SODIUM 100 MG CAPSULE PO SCH ×2 (09:40→09:42)
--- NOTE | 2018-04-23 14:27 | PDOC PROGRESS REPORT ---
Subjective Progress Note for:: 04/23/18 Subjective:: 04/18/2018-patient is on comfort care measures only. Patient is in the bed confused not agitated not anxious. 04/19/2018 patient is comfortably in the bed. Noncommunicative. Person from the state is here talking to the patient. Hopefully state is going to take the guardianship so that we can arrange for the patient to go to hospice. 04/20/2018-able to get in touch with the family members. Father agreed for the patient to go to a rehab. But we need to get in touch with mother to get her approval also. In the meantime patient is getting better able to feed herself today able to get out of the bed and able to sit in the chair. So because of the improvements in her mental and physical condition plan to restart the comfort measures. Requested for CBC CMP magnesium today start on banana bag, requested for 2 units of blood transfusion. Will start on IV fluids at 50 cc/h. And do the labs tomorrow continue to closely monitor the patient. 04/21/2018-rapid response was called this morning because of the hypotension and hypoxia blood pressure was dropped to 90/48 and oxygen levels low dropped to upper 80s and patient was lethargic having the shallow breathing. I responded to the rapid response immediately came up to see the patient, blood pressure was noted to be 90/60. Pulse ox on 4 L is 94%. Patient is less responsive to lethargic shallow breathing. Chest bilateral entry was decreased. Especially at the bases. She is tachycardic. Bowel sounds are present. Neurologically she is not following the commands. Condition is critical and prognosis is poor. Patient is DNR/DNI. Patient was given 1 L of normal saline bolus and a stat ABG and blood work was requested. Chest x-ray was done. It indicates lung volume loss at the bases secondary to atelectasis/pleural fluid. Blood sugar was 65. We are going to give her 1 sample of IV dextrose push. Plan is to continue the banana bag and IV fluids. Requested for BiPAP as needed. I discussed the care with the and he understood the poor prognosis. He also aware that patient is DNR/DNI. We got in touch with the mother and notified about the patient's critical condition. She agreed with the no CODE STATUS. We will continue to provide supportive measures. again overall prognosis is poor condition is critical. 04/22/2018-no acute events in the last 24 hours. Patient is afebrile. Patient is more alert more awake. Pulse ox on 4 L is 98%. Patient is comfortable in the bed. Not communicative. 04/23/2018 patient is not eating anything at all for the last 24-36 hours. She has dark colored stools, and slight bleeding from the mouth and oral mucosa for the last 24-48 hours. Probably secondary to thrombocytopenia. Platelet count is 32,000. He got 1 unit of blood transfusion this morning because of the drop in hemoglobin to 7.6. 2 days ago with stopped it comfort care measures and start an IV fluids blood transfusion antibiotic therapy. But all the efforts are unsuccessful. Family is okay with comfort care measures. Patient is DNR/DNI. Once the bed is available we may send her to hospice facility. Reason For Visit: ENCEPHALOPATHY,UTI Physical Exam Vital Signs: Temp Pulse Resp BP Pulse Ox 97.3 F 69 16 115/64 98 04/23/18 11:30 04/23/18 11:30 04/23/18 11:30 04/23/18 11:30 04/23/18 11:30 Intake & Output 04/22/18 04/23/18 04/24/18 06:59 06:59 06:59 Intake Total 2223 1887 550 Output Total 1125 800 Balance 1098 1087 550 Weight 57.2 kg 56.4 kg General appearance: PRESENT: no acute distress, other - Patient is comfortably in the bed not communicative she is awake but not responding to any verbal commands. Head exam: PRESENT: atraumatic Eye exam: PRESENT: PERRLA Mouth exam: PRESENT: dry mucosa Neck exam: ABSENT: carotid bruit, JVD, lymphadenopathy, thyromegaly Respiratory exam: PRESENT: decreased breath sounds Cardiovascular exam: PRESENT: tachycardia GI/Abdominal exam: PRESENT: normal bowel sounds, soft. ABSENT: distended, guarding, mass, organolmegaly, rebound, tenderness Neurological exam: PRESENT: alert, awake, oriented to place, oriented to time, oriented to situation. ABSENT: oriented to person, motor sensory deficit Psychiatric exam: PRESENT: flat affect Results Laboratory Results: 04/23/18 05:00 04/23/18 05:00 01/04/23/18 04/23/18 15:45 05:00 05:00 WBC 12.4 H RBC 2.28 L Hgb 7.6 L Hct 22.6 L MCV 99 H MCH 33.1 MCHC 33.5 RDW 21.1 H Plt Count 32 L Seg Neutrophils % 87.4 H Lymphocytes % 8.4 L Monocytes % 3.4 Eosinophils % 0.5 Basophils % 0.3 Absolute Neutrophils 10.8 H Absolute Lymphocytes 1.0 Absolute Monocytes 0.4 Absolute Eosinophils 0.1 Absolute Basophils 0.0 Sodium 149.6 H Potassium 3.5 L Chloride 121 H Carbon Dioxide 24 Anion Gap 5 BUN 27 H Creatinine 1.21 Est GFR ( Amer) 56 L Est GFR (Non-Af Amer) 47 L Glucose 98 Calcium 8.8 Magnesium 2.0 Total Bilirubin 1.2 AST 21 ALT 22 Alkaline Phosphatase 100 Total Protein 4.9 L Albumin 2.5 L Blood Type O POSITIVE Antibody Screen NEGATIVE 02/24/18 09:55 Troponin I < 0.012 Impressions: Abdomen Ultrasound 02/25/18 00:00 IMPRESSION: Limited study as noted above. Gallbladder was not visualized. FATTY INFILTRATION OF THE LIVER. Other findings as noted above Head MRI 03/01/18 00:00 IMPRESSION: No acute findings. Very limited study EVIDENCE OF ACUTE STROKE: NO. Guidance Fluoroscopy 03/07/18 00:00 IMPRESSION: Lumbar puncture under fluoroscopy. No immediate complication. Lumbar Puncture 03/07/18 09:00 IMPRESSION: Lumbar puncture under fluoroscopy. No immediate complication. Chest X-Ray 04/21/18 07:02 IMPRESSION: 1. New volume loss in the lung bases likely due to a combination of pleural fluid and atelectasis. 2. Mild prominence of the cardiac silhouette which may be accentuated by the portable technique. Assessment & Plan - Diagnosis (1) Alcoholic Korsakoff syndrome Is this a current diagnosis for this admission?: Yes Plan: 04/18/2018 patient under comfort care measures only. 04/19/2018 patient was admitted with alcoholic Korsakoff syndrome patient is presently under comfort care only waiting for the guardianship from the state and also waiting for the hospice placement. 04/20/2018-patient was admitted for alcoholic Korsakoff syndrome. She was here for almost 2 months. She is showing slow recovery. As I mentioned above patient able to feed herself today able to come up with the bed into the chair today. More alert more communicative communicating better with the nurses. So finally was able to get in touch with the family members ,father wants her to go to a rehab if necessary. Now we waiting for her mother to call us back to give her opinion. And is to start on a banana bag. IV fluids at 75 cc/h. 04/21/2018-patient was admitted with alcoholic Korsakoff syndrome she has history of chronic alcohol abuse. She was here in the hospital on comfort care for the last 2 months. She is DNR/DNI. Patient's showed signs of recovery in the last 2 days. So we revoked comfort care measures started on IV fluids banana bag. Her appetite improved until yesterday. But today she was found to be lethargic less responsive hypoxic and rapid response was called. Again overall prognosis is poor condition is critical. We will is aware of the poor status. 04/22/2018-patient was admitted with alcoholic korsakoff She has history of chronic alcohol abuse found to have a liver failure. Initially she is on comfort care measures. But she is slowly showing signs of recovery. She got 2 units of blood transfusion and hemoglobin is stable around 8.8. Because of the low platelet count she is having the blood in the stool and blood stained oral secretions. And is receiving banana bag daily. And she is also on IV fluids at 50 cc/h. Hopefully she will continue to recover. 04/23/2018-patient was admitted with alcohol Korsakoff syndrome secondary to heavy chronic alcohol abuse. She is also has a liver cirrhosis. Patient is DNR/DNI. 2 days ago she shown signs of recovery so comfort measures were discontinued started on IV fluids given blood transfusions started on antibiotic therapy and provided oxygen with as needed BiPAP. But she is not showing any further improvement. On examination today is little bit amount of trickling of the blood from the oral cavity she is passing dark colored stools. Hemoglobin dropped to 7.6 she was given 1 unit of blood transfusion earlier this morning. She platelet count is very low at 32,000 probably secondary to alcoholic liver disease. We are going to put her back on comfort care measures only. (2) Alcoholic cirrhosis Qualifiers: Ascites presence: without ascites Qualified Code(s): K70.30 - Alcoholic cirrhosis of liver without ascites Is this a current diagnosis for this admission?: Yes Plan: 04/18/2018 no labs are done recently. Patient to comfort care measures only. Waiting for the approval from the state for guardianship. Waiting for hospice bed. 04/19/2018-patient is on comfort care measures waiting for the hospice placement. 04/20/2018-patient has history of severe alcohol use leading to alcoholic liver cirrhosis. Plan is to continue the present management. 04/20/2017 patient has history of heavy alcohol use with cirrhosis of the liver. Platelet count is 29,000 probably secondary to liver failure. 04/22/2018-patient has history of chronic alcohol liver disease. Platelet count is improved to 38,000. Patient is off the aspirin and Lovenox. She is only on mechanical DVT prophylaxis with TRINO hoses. 04/23/2018 patient has history of liver cirrhosis secondary to chronic alcohol use platelet count is 32,000. Patient is off the aspirin and Lovenox still having the dark colored stools and a small amount of blood trickling from the mouth. She received 1 unit of blood transfusion early this morning. In association with low blood count I think platelet dysfunction is also a cause f or the GI bleed. (3) Comfort measures only status Is this a current diagnosis for this admission?: Yes Plan: Patient is comfortable measures only status. patient appetite is very poor. Waiting for the hospice placement. 04/20/2018 patient showing a physical improvement, she is also showing improved mentation. Able to help herself to eat, able to come out of the bed into the chair. Following the commands from the nurses. Able to get into brief conversation with the nurses. So plan to rescind the comfort measures. 04/23/2018-patient was not showing any signs of recovery. Be going to put her back on comfort care measures only and when the bed is available we sent her to hospice care. (4) Anemia Qualifiers: Anemia type: other cause Other causes of anemia: nutritional, other megaloblastic Qualified Code(s): D53.1 - Other megaloblastic anemias, not elsewhere classified Is this a current diagnosis for this admission?: Yes Plan: 04/20/2018-patient his hemoglobin is less than 4 anemia of chronic disease probably secondary to heavy alcohol use/alcoholic liver cirrhosis. Plan is to do the labs today do the type and crossmatch and planning 2 units of blood transfusion. 04/21/2018-family gave the consent yesterday for 2 units of blood transfusion posttransfusion CBC hemoglobin is 8.9. We are waiting for the lab work this morning. 04/22/2018 patient might have anemia of chronic disease secondary to liver failure. Got 2 units of blood transfusion. Hemoglobin is stable around 8.8. 04/23/2017 patient has history of anemia of chronic disease most likely secondary to liver failure. She received a total of 3 units of blood transfusion. Latest hemoglobin is 7.6. We are going to stop doing the lab work from today. She was placed back on comfort care measures. (5) Acute respiratory failure Is this a current diagnosis for this admission?: Yes Plan: 04/21/2018-patient has acute respiratory failure with hypoxia presently she is on 4 L of oxygen pulse ox is 94-95%. Initially she found to be in hypoxic state with oxygen levels are in the upper 80s. BiPAP with as needed was ordered X openex nebulizer treatments were ordered good to continue to provide the oxygen supplementation. Based on the ABG report will adjust the BiPAP. Chest x-ray shows no pneumonia but increased pleural fluid/atelectasis at the bases. Patient is DNR/DNI. 04/22/2018-yesterday patient was in acute respiratory failure she was placed on BiPAP. Today pulse ox is 98% 4 L she was weaned off the BiPAP. Chest x-ray also indicating possible fluid overload yesterday because of the low blood pressures and no diuretics was given. Patient is breathing much better today. She is on IV Solu-Medrol 40 mg every 8 hours getting Xopenex nebulizations on a regular basis. Patient's CODE STATUS is still DNR/DNI. 2018 patient is DNR/DNI she was placed back on comfort care measures only. For placement in hospice. - Time Time Spent with patient: 15-24 minutes Medications reviewed and adjusted accordingly: Yes Anticipated discharge: Hospice
[2018-04-24] MEDS ORDERED: LIDOCAINE 2% VISCOUS SOLN 20 ML UDCUP PO PRN (06:32)
--- NOTE | 2018-04-24 13:16 | PDOC PROGRESS REPORT ---
Subjective Progress Note for:: 04/24/18 Subjective:: 04/18/2018-patient is on comfort care measures only. Patient is in the bed confused not agitated not anxious. 04/19/2018 patient is comfortably in the bed. Noncommunicative. Person from the state is here talking to the patient. Hopefully state is going to take the guardianship so that we can arrange for the patient to go to hospice. 04/20/2018-able to get in touch with the family members. Father agreed for the patient to go to a rehab. But we need to get in touch with mother to get her approval also. In the meantime patient is getting better able to feed herself today able to get out of the bed and able to sit in the chair. So because of the improvements in her mental and physical condition plan to restart the comfort measures. Requested for CBC CMP magnesium today start on banana bag, requested for 2 units of blood transfusion. Will start on IV fluids at 50 cc/h. And do the labs tomorrow continue to closely monitor the patient. 04/21/2018-rapid response was called this morning because of the hypotension and hypoxia blood pressure was dropped to 90/48 and oxygen levels low dropped to upper 80s and patient was lethargic having the shallow breathing. I responded to the rapid response immediately came up to see the patient, blood pressure was noted to be 90/60. Pulse ox on 4 L is 94%. Patient is less responsive to lethargic shallow breathing. Chest bilateral entry was decreased. Especially at the bases. She is tachycardic. Bowel sounds are present. Neurologically she is not following the commands. Condition is critical and prognosis is poor. Patient is DNR/DNI. Patient was given 1 L of normal saline bolus and a stat ABG and blood work was requested. Chest x-ray was done. It indicates lung volume loss at the bases secondary to atelectasis/pleural fluid. Blood sugar was 65. We are going to give her 1 sample of IV dextrose push. Plan is to continue the banana bag and IV fluids. Requested for BiPAP as needed. I discussed the care with the and he understood the poor prognosis. He also aware that patient is DNR/DNI. We got in touch with the mother and notified about the patient's critical condition. She agreed with the no CODE STATUS. We will continue to provide supportive measures. again overall prognosis is poor condition is critical. 04/22/2018-no acute events in the last 24 hours. Patient is afebrile. Patient is more alert more awake. Pulse ox on 4 L is 98%. Patient is comfortable in the bed. Not communicative. 04/23/2018 patient is not eating anything at all for the last 24-36 hours. She has dark colored stools, and slight bleeding from the mouth and oral mucosa for the last 24-48 hours. Probably secondary to thrombocytopenia. Platelet count is 32,000. He got 1 unit of blood transfusion this morning because of the drop in hemoglobin to 7.6. 2 days ago with stopped it comfort care measures and start an IV fluids blood transfusion antibiotic therapy. But all the efforts are unsuccessful. Family is okay with comfort care measures. Patient is DNR/DNI. Once the bed is available we may send her to hospice facility. 04/24/2018-patient was switched to comfort care measures only. Waiting for hospice placement. She is still having the black colored tarry stools. And small amount of blood coming from the oral cavity. Probably secondary to thrombocytopenia and also platelet dysfunction. Overall prognosis poor. She is a DNR/DNI. Reason For Visit: ENCEPHALOPATHY,UTI Physical Exam Vital Signs: Temp Pulse Resp BP Pulse Ox 97.9 F 71 19 116/72 98 04/23/18 19:23 04/23/18 19:23 04/23/18 19:23 04/23/18 19:23 04/23/18 19:23 Intake & Output 04/23/18 04/24/18 04/25/18 06:59 06:59 06:59 Intake Total 1887 892 Output Total 800 400 Balance 1087 492 Weight 56.4 kg 56.7 kg General appearance: PRESENT: no acute distress Head exam: PRESENT: atraumatic Eye exam: PRESENT: PERRLA Mouth exam: PRESENT: dry mucosa Neck exam: ABSENT: carotid bruit, JVD, lymphadenopathy, thyromegaly Respiratory exam: PRESENT: decreased breath sounds Cardiovascular exam: PRESENT: RRR. ABSENT: diastolic murmur, rubs, systolic murmur GI/Abdominal exam: PRESENT: normal bowel sounds, soft. ABSENT: distended, guarding, mass, organolmegaly, rebound, tenderness Neurological exam: PRESENT: other - Patient was comfortable in the bed not communicative but not agitated or signs of any anxiety. Psychiatric exam: PRESENT: flat affect, other - Unable to do the psych assessment. Results Laboratory Results: 04/23/18 05:00 04/23/18 05:00 02/24/18 09:55 Troponin I < 0.012 Impressions: Abdomen Ultrasound 02/25/18 00:00 IMPRESSION: Limited study as noted above. Gallbladder was not visualized. FATTY INFILTRATION OF THE LIVER. Other findings as noted above Head MRI 03/01/18 00:00 IMPRESSION: No acute findings. Very limited study EVIDENCE OF ACUTE STROKE: NO. Guidance Fluoroscopy 03/07/18 00:00 IMPRESSION: Lumbar puncture under fluoroscopy. No immediate complication. Lumbar Puncture 03/07/18 09:00 IMPRESSION: Lumbar puncture under fluoroscopy. No immediate complication. Chest X-Ray 04/21/18 07:02 IMPRESSION: 1. New volume loss in the lung bases likely due to a combination of pleural fluid and atelectasis. 2. Mild prominence of the cardiac silhouette which may be accentuated by the portable technique. Assessment & Plan - Diagnosis (1) Alcoholic Korsakoff syndrome Is this a current diagnosis for this admission?: Yes Plan: 04/18/2018 patient under comfort care measures only. 04/19/2018 patient was admitted with alcoholic Korsakoff syndrome patient is presently under comfort care only waiting for the guardianship from the state and also waiting for the hospice placement. 04/20/2018-patient was admitted for alcoholic Korsakoff syndrome. She was here for almost 2 months. She is showing slow recovery. As I mentioned above patient able to feed herself today able to come up with the bed into the chair today. More alert more communicative communicating better with the nurses. So finally was able to get in touch with the family members ,father wants her to go to a rehab if necessary. Now we waiting for her mother to call us back to give her opinion. And is to start on a banana bag. IV fluids at 75 cc/h. 04/21/2018-patient was admitted with alcoholic Korsakoff syndrome she has history of chronic alcohol abuse. She was here in the hospital on comfort care for the last 2 months. She is DNR/DNI. Patient's showed signs of recovery in the last 2 days. So we revoked comfort care measures started on IV fluids banana bag. Her appetite improved until yesterday. But today she was found to be lethargic less responsive hypoxic and rapid response was called. Again overall prognosis is poor condition is critical. We will is aware of the poor status. 04/22/2018-patient was admitted with alcoholic korsakoff She has history of chronic alcohol abuse found to have a liver failure. Initially she is on comfort care measures. But she is slowly showing signs of recovery. She got 2 units of blood transfusion and hemoglobin is stable around 8.8. Because of the low platelet count she is having the blood in the stool and blood stained oral secretions. And is receiving banana bag daily. And she is also on IV fluids at 50 cc/h. Hopefully she will continue to recover. 04/23/2018-patient was admitted with alcohol Korsakoff syndrome secondary to heavy chronic alcohol abuse. She is also has a liver cirrhosis. Patient is DNR/DNI. 2 days ago she shown signs of recovery so comfort measures were discontinued started on IV fluids given blood transfusions started on antibiotic therapy and provided oxygen with as needed BiPAP. But she is not showing any further improvement. On examination today is little bit amount of trickling of the blood from the oral cavity she is passing dark colored stools. Hemoglobin dropped to 7.6 she was given 1 unit of blood transfusion earlier this morning. She platelet count is very low at 32,000 probably secondary to alcoholic liver disease. We are going to put her back on comfort care measures only. 04/24/2018 patient was admitted with alcohol Korsakoff syndrome secondary to heavy alcohol use. Overall prognosis. She is also underlying liver cirrhosis. She is on comfort care measures only. Waiting for the hospice placement. (2) Alcoholic cirrhosis Qualifiers: Ascites presence: without ascites Qualified Code(s): K70.30 - Alcoholic c irrhosis of liver without ascites Is this a current diagnosis for this admission?: Yes Plan: 04/18/2018 no labs are done recently. Patient to comfort care measures only. Waiting for the approval from the state for guardianship. Waiting for hospice bed. 04/19/2018-patient is on comfort care measures waiting for the hospice placement. 04/20/2018-patient has history of severe alcohol use leading to alcoholic liver cirrhosis. Plan is to continue the present management. 04/20/2017 patient has history of heavy alcohol use with cirrhosis of the liver. Platelet count is 29,000 probably secondary to liver failure. 04/22/2018-patient has history of chronic alcohol liver disease. Platelet count is improved to 38,000. Patient is off the aspirin and Lovenox. She is only on mechanical DVT prophylaxis with TRINO hoses. 04/23/2018 patient has history of liver cirrhosis secondary to chronic alcohol use platelet count is 32,000. Patient is off the aspirin and Lovenox still having the dark colored stools and a small amount of blood trickling from the mouth. She received 1 unit of blood transfusion early this morning. In association with low blood count I think platelet dysfunction is also a cause for the GI bleed. 04/24/2018-patient has history of liver cirrhosis secondary to chronic alcohol abuse. Platelet count is 32,000 yesterday and patient having the bleed from the oral cavity passing dark colored stools probably secondary to platelet dysfunction and thrombocytopenia. (3) Comfort measures only status Is this a current diagnosis for this admission?: Yes Plan: Patient is comfortable measures only status. patient appetite is very poor. Waiting for the hospice placement. 04/20/2018 patient showing a physical improvement, she is also showing improved mentation. Able to help herself to eat, able to come out of the bed into the chair. Following the commands from the nurses. Able to get into brief conversation with the nurses. So plan to rescind the comfort measures. 04/23/2018-patient was not showing any signs of recovery. Be going to put her back on comfort care measures only and when the bed is available we sent her to hospice care. 04/24/2018 patient patient was placed back on comfort care measures only. Family is aware. For hospice placement. (4) Anemia Qualifiers: Anemia type: other cause Other causes of anemia: nutritional, other megaloblastic Qualified Code(s): D53.1 - Other megaloblastic anemias, not elsewhere classified Is this a current diagnosis for this admission?: Yes (5) Acute respiratory failure Is this a current diagnosis for this admission?: Yes Plan: 04/21/2018-patient has acute respiratory failure with hypoxia presently she is on 4 L of oxygen pulse ox is 94-95%. Initially she found to be in hypoxic state with oxygen levels are in the upper 80s. BiPAP with as needed was ordered Xopenex nebulizer treatments were ordered good to continue to provide the oxygen supplementation. Based on the ABG report will adjust the BiPAP. Chest x-ray shows no pneumonia but increased pleural fluid/atelectasis at the bases. Patient is DNR/DNI. 04/22/2018-yesterday patient was in acute respiratory failure she was placed on BiPAP. Today pulse ox is 98% 4 L she was weaned off the BiPAP. Chest x-ray also indicating possible fluid overload yesterday because of the low blood pressures and no diuretics was given. Patient is breathing much better today. She is on IV Solu-Medrol 40 mg every 8 hours getting Xopenex nebulizations on a regular basis. Patient's CODE STATUS is still DNR/DNI. 2018 patient is DNR/DNI she was placed back on comfort care measures only. For placement in hospice. 04/24/2018 patient is under comfort care measures DNR/DNI. Waiting for the placement. - Time Time Spent with patient: Less than 15 minutes Medications reviewed and adjusted accordingly: Yes Anticipated discharge: Hospice
--- NOTE | 2018-04-25 11:47 | PDOC PROGRESS REPORT ---
Subjective Progress Note for:: 04/25/18 Subjective:: 04/18/2018-patient is on comfort care measures only. Patient is in the bed confused not agitated not anxious. 04/19/2018 patient is comfortably in the bed. Noncommunicative. Person from the state is here talking to the patient. Hopefully state is going to take the guardianship so that we can arrange for the patient to go to hospice. 04/20/2018-able to get in touch with the family members. Father agreed for the patient to go to a rehab. But we need to get in touch with mother to get her approval also. In the meantime patient is getting better able to feed herself today able to get out of the bed and able to sit in the chair. So because of the improvements in her mental and physical condition plan to restart the comfort measures. Requested for CBC CMP magnesium today start on banana bag, requested for 2 units of blood transfusion. Will start on IV fluids at 50 cc/h. And do the labs tomorrow continue to closely monitor the patient. 04/21/2018-rapid response was called this morning because of the hypotension and hypoxia blood pressure was dropped to 90/48 and oxygen levels low dropped to upper 80s and patient was lethargic having the shallow breathing. I responded to the rapid response immediately came up to see the patient, blood pressure was noted to be 90/60. Pulse ox on 4 L is 94%. Patient is less responsive to lethargic shallow breathing. Chest bilateral entry was decreased. Especially at the bases. She is tachycardic. Bowel sounds are present. Neurologically she is not following the commands. Condition is critical and prognosis is poor. Patient is DNR/DNI. Patient was given 1 L of normal saline bolus and a stat ABG and blood work was requested. Chest x-ray was done. It indicates lung volume loss at the bases secondary to atelectasis/pleural fluid. Blood sugar was 65. We are going to give her 1 sample of IV dextrose push. Plan is to continue the banana bag and IV fluids. Requested for BiPAP as needed. I discussed the care with the and he understood the poor prognosis. He also aware that patient is DNR/DNI. We got in touch with the mother and notified about the patient's critical condition. She agreed with the no CODE STATUS. We will continue to provide supportive measures. again overall prognosis is poor condition is critical. 04/22/2018-no acute events in the last 24 hours. Patient is afebrile. Patient is more alert more awake. Pulse ox on 4 L is 98%. Patient is comfortable in the bed. Not communicative. 04/23/2018 patient is not eating anything at all for the last 24-36 hours. She has dark colored stools, and slight bleeding from the mouth and oral mucosa for the last 24-48 hours. Probably secondary to thrombocytopenia. Platelet count is 32,000. He got 1 unit of blood transfusion this morning because of the drop in hemoglobin to 7.6. 2 days ago with stopped it comfort care measures and start an IV fluids blood transfusion antibiotic therapy. But all the efforts are unsuccessful. Family is okay with comfort care measures. Patient is DNR/DNI. Once the bed is available we may send her to hospice facility. 04/24/2018-patient was switched to comfort care measures only. Waiting for hospice placement. She is still having the black colored tarry stools. And small amount of blood coming from the oral cavity. Probably secondary to thrombocytopenia and also platelet dysfunction. Overall prognosis poor. She is a DNR/DNI. 04/25/2018 patient is under comfort care measures only waiting for the hospice placement. Patient is alert awake says she is doing fine. Not in distress. I question her are you hungry she said she is waiting for lunch. Reason For Visit: ENCEPHALOPATHY,UTI Physical Exam Vital Signs: Temp Pulse Resp BP Pulse Ox 97.8 F 49 L 15 136/83 H 100 04/25/18 09:00 04/25/18 09:00 04/25/18 09:00 04/25/18 09:00 04/25/18 09:00 Intake & Output 04/24/18 04/25/18 04/26/18 06:59 06:59 06:59 Intake Total 892 120 Output Total 400 500 Balance 492 -380 Weight 56.7 kg 55 kg General appearance: PRESENT: no acute distress Head exam: PRESENT: atraumatic Eye exam: PRESENT: PERRLA Mouth exam: PRESENT: dry mucosa Respiratory exam: PRESENT: decreased breath sounds Cardiovascular exam: PRESENT: RRR. ABSENT: diastolic murmur, rubs, systolic murmur Extremities exam: PRESENT: full ROM. ABSENT: calf tenderness, clubbing, pedal edema Neurological exam: PRESENT: alert, awake Psychiatric exam: PRESENT: appropriate affect, normal mood. ABSENT: homicidal ideation, suicidal ideation Results Laboratory Results: 04/23/18 05:00 04/23/18 05:00 02/24/18 09:55 Troponin I < 0.012 Impressions: Abdomen Ultrasound 02/25/18 00:00 IMPRESSION: Limited study as noted above. Gallbladder was not visualized. FATTY INFILTRATION OF THE LIVER. Other findings as noted above Head MRI 03/01/18 00:00 IMPRESSION: No acute findings. Very limited study EVIDENCE OF ACUTE STROKE: NO. Guidance Fluoroscopy 03/07/18 00:00 IMPRESSION: Lumbar puncture under fluoroscopy. No immediate complication. Lumbar Puncture 03/07/18 09:00 IMPRESSION: Lumbar puncture under fluoroscopy. No immediate complication. Chest X-Ray 04/21/18 07:02 IMPRESSION: 1. New volume loss in the lung bases likely due to a combination of pleural fluid and atelectasis. 2. Mild prominence of the cardiac silhouette which may be accentuated by the portable technique. Assessment & Plan - Diagnosis (1) Alcoholic Korsakoff syndrome Is this a current diagnosis for this admission?: Yes Plan: 04/18/2018 patient under comfort care measures only. 04/19/2018 patient was admitted with alcoholic Korsakoff syndrome patient is pres ently under comfort care only waiting for the guardianship from the state and also waiting for the hospice placement. 04/20/2018-patient was admitted for alcoholic Korsakoff syndrome. She was here for almost 2 months. She is showing slow recovery. As I mentioned above patient able to feed herself today able to come up with the bed into the chair today. More alert more communicative communicating better with the nurses. So finally was able to get in touch with the family members ,father wants her to go to a rehab if necessary. Now we waiting for her mother to call us back to give her opinion. And is to start on a banana bag. IV fluids at 75 cc/h. 04/21/2018-patient was admitted with alcoholic Korsakoff syndrome she has history of chronic alcohol abuse. She was here in the hospital on comfort care for the last 2 months. She is DNR/DNI. Patient's showed signs of recovery in the last 2 days. So we revoked comfort care measures started on IV fluids banana bag. Her appetite improved until yesterday. But today she was found to be lethargic less responsive hypoxic and rapid response was called. Again overall prognosis is poor condition is critical. We will is aware of the poor status. 04/22/2018-patient was admitted with alcoholic korsakoff She has history of chronic alcohol abuse found to have a liver failure. Initially she is on comfort care measures. But she is slowly showing signs of recovery. She got 2 units of blood transfusion and hemoglobin is stable around 8.8. Because of the low platelet count she is having the blood in the stool and blood stained oral secretions. And is receiving banana bag daily. And she is also on IV fluids at 50 cc/h. Hopefully she will continue to recover. 04/23/2018-patient was admitted with alcohol Korsakoff syndrome secondary to heavy chronic alcohol abuse. She is also has a liver cirrhosis. Patient is DNR/DNI. 2 days ago she shown signs of recovery so comfort measures were discontinued started on IV fluids given blood transfusions started on antibiotic therapy and provided oxygen with as needed BiPAP. But she is not showing any further improvement. On examination today is little bit amount of trickling of the blood from the oral cavity she is passing dark colored stools. Hemoglobin dropped to 7.6 she was given 1 unit of blood transfusion earlier this morning. She platelet count is very low at 32,000 probably secondary to alcoholic liver disease. We are going to put her back on comfort care measures only. 04/24/2018 patient was admitted with alcohol Korsakoff syndrome secondary to heavy alcohol use. Overall prognosis. She is also underlying liver cirrhosis. She is on comfort care measures only. Waiting for the hospice placement. 04/25/2018-patient was admitted with alcohol Korsakoff syndrome. She is on comfort care measures only. Waiting for hospice placement. (2) Alcoholic cirrhosis Qualifiers: Ascites presence: without ascites Qualified Code(s): K70.30 - Alcoholic cirrhosis of liver without ascites Is this a current diagnosis for this admission?: Yes Plan: 04/18/2018 no labs are done recently. Patient to comfort care measures only. Waiting for the approval from the state for guardianship. Waiting for hospice bed. 04/19/2018-patient is on comfort care measures waiting for the hospice placement. 04/20/2018-patient has history of severe alcohol use leading to alcoholic liver cirrhosis. Plan is to continue the present management. 04/20/2017 patient has history of heavy alcohol use with cirrhosis of the liver. Platelet count is 29,000 probably secondary to liver failure. 04/22/2018-patient has history of chronic alcohol liver disease. Platelet count is improved to 38,000. Patient is off the aspirin and Lovenox. She is only on mechanical DVT prophylaxis with TRINO hoses. 04/23/2018 patient has history of liver cirrhosis secondary to chronic alcohol use platelet count is 32,000. Patient is off the aspirin and Lovenox still having the dark colored stools and a small amount of blood trickling from the mouth. She received 1 unit of blood transfusion early this morning. In association with low blood count I think platelet dysfunction is also a cause for the GI bleed. 04/24/2018-patient has history of liver cirrhosis secondary to chronic alcohol abuse. Platelet count is 32,000 yesterday and patient having the bleed from the oral cavity passing dark colored stools probably secondary to platelet dysfunction and thrombocytopenia. 04/25/2018 patient has history of liver failure secondary to heavy alcohol use. Platelet count is very low. She is having occasional bleed from the oral cavity and a dark colored stools. (3) Comfort measures only status Is this a current diagnosis for this admission?: Yes Plan: Patient is comfortable measures only status. patient appetite is very poor. Waiting for the hospice placement. 04/20/2018 patient showing a physical improvement, she is also showing improved mentation. Able to help herself to eat, able to come out of the bed into the chair. Following the commands from the nurses. Able to get into brief co nversation with the nurses. So plan to rescind the comfort measures. 04/23/2018-patient was not showing any signs of recovery. Be going to put her back on comfort care measures only and when the bed is available we sent her to hospice care. 04/24/2018 patient patient was placed back on comfort care measures only. Family is aware. For hospice placement. 04/25/2018 patient is DNR/DNI and on comfort care measures only. (4) Anemia Qualifiers: Anemia type: other cause Other causes of anemia: nutritional, other megaloblastic Qualified Code(s): D53.1 - Other megaloblastic anemias, not elsewhere classified Is this a current diagnosis for this admission?: Yes (5) Acute respiratory failure Is this a current diagnosis for this admission?: Yes Plan: 04/21/2018-patient has acute respiratory failure with hypoxia presently she is on 4 L of oxygen pulse ox is 94-95%. Initially she found to be in hypoxic state with oxygen levels are in the upper 80s. BiPAP with as needed was ordered Xopenex nebulizer treatments were ordered good to continue to provide the oxygen supplementation. Based on the ABG report will adjust the BiPAP. Chest x-ray shows no pneumonia but increased pleural fluid/atelectasis at the bases. Patient is DNR/DNI. 04/22/2018-yesterday patient was in acute respiratory failure she was placed on BiPAP. Today pulse ox is 98% 4 L she was weaned off the BiPAP. Chest x-ray also indicating possible fluid overload yesterday because of the low blood pressures and no diuretics was given. Patient is breathing much better today. She is on IV Solu-Medrol 40 mg every 8 hours getting Xopenex nebulizations on a regular basis. Patient's CODE STATUS is still DNR/DNI. 2018 patient is DNR/DNI she was placed back on comfort care measures only. For placement in hospice. 04/24/2018 patient is under comfort care measures DNR/DNI. Waiting for the placement. 04/25/2018 couple of days ago patient has an acute respiratory failure with hypoxia requiring BiPAP. Now she is comfortably in the bed on nasal cannula. - Time Time Spent with patient: Less than 15 minutes Medications reviewed and adjusted accordingly: Yes Anticipated discharge: Hospice
--- NOTE | 2018-04-26 14:25 | PDOC PROGRESS REPORT ---
Subjective Progress Note for:: 04/26/18 Subjective:: 04/18/2018-patient is on comfort care measures only. Patient is in the bed confused not agitated not anxious. 04/19/2018 patient is comfortably in the bed. Noncommunicative. Person from the state is here talking to the patient. Hopefully state is going to take the guardianship so that we can arrange for the patient to go to hospice. 04/20/2018-able to get in touch with the family members. Father agreed for the patient to go to a rehab. But we need to get in touch with mother to get her approval also. In the meantime patient is getting better able to feed herself today able to get out of the bed and able to sit in the chair. So because of the improvements in her mental and physical condition plan to restart the comfort measures. Requested for CBC CMP magnesium today start on banana bag, requested for 2 units of blood transfusion. Will start on IV fluids at 50 cc/h. And do the labs tomorrow continue to closely monitor the patient. 04/21/2018-rapid response was called this morning because of the hypotension and hypoxia blood pressure was dropped to 90/48 and oxygen levels low dropped to upper 80s and patient was lethargic having the shallow breathing. I responded to the rapid response immediately came up to see the patient, blood pressure was noted to be 90/60. Pulse ox on 4 L is 94%. Patient is less responsive to lethargic shallow breathing. Chest bilateral entry was decreased. Especially at the bases. She is tachycardic. Bowel sounds are present. Neurologically she is not following the commands. Condition is critical and prognosis is poor. Patient is DNR/DNI. Patient was given 1 L of normal saline bolus and a stat ABG and blood work was requested. Chest x-ray was done. It indicates lung volume loss at the bases secondary to atelectasis/pleural fluid. Blood sugar was 65. We are going to give her 1 sample of IV dextrose push. Plan is to continue the banana bag and IV fluids. Requested for BiPAP as needed. I discussed the care with the and he understood the poor prognosis. He also aware that patient is DNR/DNI. We got in touch with the mother and notified about the patient's critical condition. She agreed with the no CODE STATUS. We will continue to provide supportive measures. again overall prognosis is poor condition is critical. 04/22/2018-no acute events in the last 24 hours. Patient is afebrile. Patient is more alert more awake. Pulse ox on 4 L is 98%. Patient is comfortable in the bed. Not communicative. 04/23/2018 patient is not eating anything at all for the last 24-36 hours. She has dark colored stools, and slight bleeding from the mouth and oral mucosa for the last 24-48 hours. Probably secondary to thrombocytopenia. Platelet count is 32,000. He got 1 unit of blood transfusion this morning because of the drop in hemoglobin to 7.6. 2 days ago with stopped it comfort care measures and start an IV fluids blood transfusion antibiotic therapy. But all the efforts are unsuccessful. Family is okay with comfort care measures. Patient is DNR/DNI. Once the bed is available we may send her to hospice facility. 04/24/2018-patient was switched to comfort care measures only. Waiting for hospice placement. She is still having the black colored tarry stools. And small amount of blood coming from the oral cavity. Probably secondary to thrombocytopenia and also platelet dysfunction. Overall prognosis poor. She is a DNR/DNI. 04/25/2018 patient is under comfort care measures only waiting for the hospice placement. Patient is alert awake says she is doing fine. Not in distress. I question her are you hungry she said she is waiting for lunch. 04/26/2018 patient is condition is not changed in the last 24 hours. Patient is on comfort care measures only. Sleeping comfortably in the bed. Reason For Visit: ENCEPHALOPATHY,UTI Physical Exam Vital Signs: Temp Pulse Resp BP Pulse Ox 97.6 F 52 L 15 128/91 H 92 04/25/18 22:00 04/26/18 11:00 04/26/18 11:00 04/26/18 11:00 04/26/18 11:00 Intake & Output 04/25/18 04/26/18 04/27/18 06:59 06:59 06:59 Intake Total 120 100 Output Total 500 610 Balance -380 -510 Weight 55 kg 56.7 kg General appearance: PRESENT: no acute distress, thin Eye exam: PRESENT: PERRLA Mouth exam: PRESENT: dry mucosa Neck exam: ABSENT: carotid bruit, JVD, lymphadenopathy, thyromegaly Respiratory exam: PRESENT: decreased breath sounds Cardiovascular exam: PRESENT: tachycardia GI/Abdominal exam: PRESENT: normal bowel sounds, soft. ABSENT: distended, guarding, mass, organolmegaly, rebound, tenderness Extremities exam: PRESENT: full ROM. ABSENT: calf tenderness, clubbing, pedal edema Neurological exam: PRESENT: other - Patient is awake not alert and not oriented Psychiatric exam: PRESENT: other - unable to assess Results Laboratory Results: 04/23/18 05:00 04/23/18 05:00 02/24/18 09:55 Troponin I < 0.012 Impressions: Abdomen Ultrasound 02/25/18 00:00 IMPRESSION: Limited study as noted above. Gallbladder was not visualized. FATTY INFILTRATION OF THE LIVER. Other findings as noted above Head MRI 03/01/18 00:00 IMPRESSION: No acute findings. Very limited study EVIDENCE OF ACUTE STROKE: NO. Guidance Fluoroscopy 03/07/18 00:00 IMPRESSION: Lumbar puncture under fluoroscopy. No immediate complication. Lumbar Puncture 03/07/18 09:00 IMPRESSION: Lumbar puncture under fluoroscopy. No immediate complication. Chest X-Ray 04/21/18 07:02 IMPRESSION: 1. New volume loss in the lung bases likely due to a combination of pleural fluid and atelectasis. 2. Mild prominence of the cardiac silhouette which may be accentuated by the portable technique. Assessment & Plan - Diagnosis (1) Alcoholic Korsakoff syndrome Is this a current diagnosis for this admission?: Yes Plan: 04/18/2018 patient under comfort care measures only. 04/19/2018 patient was admitted with alcoholic Korsakoff syndrome patient is presently under comfort care only waiting for the guardianship from the state and also waiting for the hospice placement. 04/20/2018-patient was admitted for alcoholic Korsakoff syndrome. She was here for almost 2 months. She is showing slow recovery. As I mentioned above patient able to feed herself today able to come up with the bed into the chair today. More alert more communicative communicating better with the nurses. So finally was able to get in touch with the family members ,father wants her to go to a rehab if necessary. Now we waiting for her mother to call us back to give her opinion. And is to start on a banana bag. IV fluids at 75 cc/h. 04/21/2018-patient was admitted with alcoholic Korsakoff syndrome she has history of chronic alcohol abuse. She was here in the hospital on comfort care for the last 2 months. She is DNR/DNI. Patient's showed signs of recovery in the last 2 days. So we revoked comfort care measures started on IV fluids banana bag. Her appetite improved until yesterday. But today she was found to be lethargic less responsive hypoxic and rapid response was called. Again overall prognosis is poor condition is critical. We will is aware of the poor status. 04/22/2018-patient was admitted with alcoholic korsakoff She has history of chronic alcohol abuse found to have a liver failure. Initially she is on comfort care measures. But she is slowly showing signs of recovery. She got 2 units of blood transfusion and hemoglobin is stable around 8.8. Because of the low platelet count she is having the blood in the stool and blood stained oral secretions. And is receiving banana bag daily. And she is also on IV fluids at 50 cc/h. Hopefully she will continue to recover. 04/23/2018-patient was admitted with alcohol Korsakoff syndrome secondary to heavy chronic alcohol abuse. She is also has a liver cirrhosis. Patient is DNR/DNI. 2 days ago she shown signs of recovery so comfort measures were discontinued started on IV fluids given blood transfusions started on antibiotic therapy and provided oxygen with as needed BiPAP. But she is not showing any further improvement. On examination today is little bit amount of trickling of the blood from the oral cavity she is passing dark colored stools. Hemoglobin dropped to 7.6 she was given 1 unit of blood transfusion earlier this morning. She platelet count is very low at 32,000 probably secondary to alcoholic liver disease. We are going to put her back on comfort care measures only. 04/24/2018 patient was admitted with alcohol Korsakoff syndrome secondary to heavy alcohol use. Overall prognosis. She is also underlying liver cirrhosis. She is on comfort care measures only. Waiting for the hospice placement. 04/25/2018-patient was admitted with alcohol Korsakoff syndrome. She is on comfort care measures only. Waiting for hospice placement. 04/26/2018 patient is on comfort care measures waiting for hospice placement. (2) Alcoholic cirrhosis Qualifiers: Ascites presence: without ascites Qualified Code(s): K70.30 - Alcoholic cirrhosis of liver without ascites Is this a current diagnosis for this admission?: Yes (3) Comfort measures only status Is this a current diagnosis for this admission?: Yes Plan: Patient is comfortable measures only status. patient appetite is very poor. Waiting for the hospice placement. 04/20/2018 patient showing a physical improvement, she is also showing improved mentation. Able to help herself to eat, able to come out of the bed into the chair. Following the commands from the nurses. Able to get into brief conversation with the nurses. So plan to rescind the comfort measures. 04/23/2018-patient was not showing any signs of recovery. Be going to put her back on comfort care measures only and when the bed is available we sent her to hospice care. 04/24/2018 patient patient was placed back on comfort care measures only. Family is aware. For hospice placement. 04/25/2018 patient is DNR/DNI and on comfort care measures only. 04/26/2018 patient is DNR/DNI, on comfort care measures only, waiting for hospice placement. Overall prognosis poor condition is critical. (4) Anemia Qualifiers: Anemia type: other cause Other causes of anemia: nutritional, other megaloblastic Qualified Code(s): D53.1 - Other megaloblastic anemias, not elsewhere classified Is this a current diagnosis for this admission?: Yes (5) Acute respiratory failure Is this a current diagnosis for this admission?: Yes - Time Time Spent with patient: Less than 15 minutes Medications reviewed and adjusted accordingly: Yes
--- NOTE | 2018-04-27 11:20 | PDOC PROGRESS REPORT ---
Subjective Progress Note for:: 04/27/18 Subjective:: Patient is condition is not changed in the last 24 hours. She is seen resting in bed. She does awaken to her name. She denies any complaints at the present time. Nursing reports no issues overnight. Patient is on comfort care measures only. Sleeping comfortably in the bed. Reason For Visit: ENCEPHALOPATHY,UTI Physical Exam Vital Signs: Temp Pulse Resp BP Pulse Ox 97.2 F 48 L 15 122/62 95 04/26/18 15:28 04/26/18 15:28 04/26/18 15:28 04/26/18 15:28 04/26/18 15:28 Intake & Output 04/26/18 04/27/18 04/28/18 06:59 06:59 06:59 Intake Total 100 437 Output Total 610 350 Balance -510 87 Weight 56.7 kg 59.6 kg General appearance: PRESENT: no acute distress, thin Head exam: PRESENT: atraumatic, normocephalic Eye exam: PRESENT: conjunctiva pale, PERRLA Ear exam: PRESENT: normal external ear exam Mouth exam: PRESENT: dry mucosa, neck supple, tongue midline Teeth exam: PRESENT: poor dentation Neck exam: ABSENT: carotid bruit, JVD, lymphadenopathy, thyromegaly Respiratory exam: PRESENT: clear to auscultation jake. ABSENT: rales, rhonchi, wheezes Cardiovascular exam: PRESENT: RRR. ABSENT: diastolic murmur, rubs, systolic murmur Pulses: PRESENT: normal dorsalis pedis pul Vascular exam: PRESENT: normal capillary refill Rectal exam: PRESENT: deferred Extremities exam: PRESENT: full ROM. ABSENT: calf tenderness, clubbing, pedal edema Neurological exam: PRESENT: alert, altered, CN II-XII grossly intact Psychiatric exam: PRESENT: flat affect Skin exam: PRESENT: dry, intact, warm. ABSENT: cyanosis, rash Results Laboratory Results: 04/23/18 05:00 04/23/18 05:00 02/24/18 09:55 Troponin I < 0.012 Impressions: Abdomen Ultrasound 02/25/18 00:00 IMPRESSION: Limited study as noted above. Gallbladder was not visualized. FATTY INFILTRATION OF THE LIVER. Other findings as noted above Head MRI 03/01/18 00:00 IMPRESSION: No acute findings. Very limited study EVIDENCE OF ACUTE STROKE: NO. Guidance Fluoroscopy 03/07/18 00:00 IMPRESSION: Lumbar puncture under fluoroscopy. No immediate complication. Lumbar Puncture 03/07/18 09:00 IMPRESSION: Lumbar puncture under fluoroscopy. No immediate complication. Chest X-Ray 04/21/18 07:02 IMPRESSION: 1. New volume loss in the lung bases likely due to a combination of pleural fluid and atelectasis. 2. Mild prominence of the cardiac silhouette which may be accentuated by the portable technique. Assessment & Plan - Diagnosis (1) Alcoholic Korsakoff syndrome Is this a current diagnosis for this admission?: Yes (2) Acute respiratory failure Is this a current diagnosis for this admission?: Yes Plan: Patient is presently on comfort measures only waiting for hospice placement. (3) Alcoholic cirrhosis Qualifiers: Ascites presence: without ascites Qualified Code(s): K70.30 - Alcoholic cirrhosis of liver without ascites Is this a current diagnosis for this admission?: Yes Plan: Continue comfort measures only. She is awaiting hospice placement. Appears in no acute distress. (4) Anemia Qualifiers: Anemia type: other cause Other causes of anemia: nutritional, other megaloblastic Qualified Code(s): D53.1 - Other megaloblastic anemias, not elsewhere classified Is this a current diagnosis for this admission?: Yes Plan: No longer measuring labs due to comfort measure (5) Comfort measures only status Is this a current diagnosis for this admission?: Yes (6) Hepatic steatosis Is this a current diagnosis for this admission?: Yes (7) Hypotension Is this a current diagnosis for this admission?: Yes Plan: No longer doing vital signs due to comfort measure status
--- NOTE | 2018-04-28 12:35 | PDOC PROGRESS REPORT ---
Subjective Progress Note for:: 04/28/18 Subjective:: Patient is condition is not changed in the last 24 hours. She is seen resting in bed. She does awaken to her name. She has a loose congested cough. She denies any complaints at the present time. Nursing reports no issues overnight. Patient is on comfort care measures only. Sleeping comfortably in the bed. Reason For Visit: ENCEPHALOPATHY,UTI Physical Exam Vital Signs: Temp Pulse Resp BP Pulse Ox 97.2 F 48 L 15 122/62 95 04/26/18 15:28 04/26/18 15:28 04/26/18 15:28 04/26/18 15:28 04/26/18 15:28 Intake & Output 04/27/18 04/28/18 04/29/18 06:59 06:59 06:59 Intake Total 437 237 Output Total 350 125 Balance 87 112 Weight 59.6 kg General appearance: PRESENT: no acute distress, disheveled, thin, well-developed Head exam: PRESENT: atraumatic, normocephalic Eye exam: PRESENT: conjunctiva pink, EOMI, PERRLA. ABSENT: scleral icterus Ear exam: PRESENT: normal external ear exam Mouth exam: PRESENT: moist, tongue midline Neck exam: ABSENT: carotid bruit, JVD, lymphadenopathy, thyromegaly Respiratory exam: PRESENT: clear to auscultation jake. ABSENT: rales, rhonchi, wheezes Cardiovascular exam: PRESENT: RRR. ABSENT: diastolic murmur, rubs, systolic murmur Pulses: PRESENT: normal dorsalis pedis pul Vascular exam: PRESENT: normal capillary refill GI/Abdominal exam: PRESENT: normal bowel sounds, soft. ABSENT: distended, guarding, mass, organolmegaly, rebound, tenderness Rectal exam: PRESENT: deferred Extremities exam: PRESENT: full ROM. ABSENT: calf tenderness, clubbing, pedal edema Musculoskeletal exam: PRESENT: full ROM, normal inspection Neurological exam: PRESENT: alert, altered, awake, CN II-XII grossly intact. ABSENT: motor sensory deficit Psychiatric exam: PRESENT: flat affect Skin exam: PRESENT: dry, warm, other - pale Results Laboratory Results: 04/23/18 05:00 04/23/18 05:00 02/24/18 09:55 Troponin I < 0.012 Impressions: Abdomen Ultrasound 02/25/18 00:00 IMPRESSION: Limited study as noted above. Gallbladder was not visualized. FATTY INFILTRATION OF THE LIVER. Other findings as noted above Head MRI 03/01/18 00:00 IMPRESSION: No acute findings. Very limited study EVIDENCE OF ACUTE STROKE: NO. Guidance Fluoroscopy 03/07/18 00:00 IMPRESSION: Lumbar puncture under fluoroscopy. No immediate complication. Lumbar Puncture 03/07/18 09:00 IMPRESSION: Lumbar puncture under fluoroscopy. No immediate complication. Chest X-Ray 04/21/18 07:02 IMPRESSION: 1. New volume loss in the lung bases likely due to a combination of pleural fluid and atelectasis. 2. Mild prominence of the cardiac silhouette which may be accentuated by the portable technique. Assessment & Plan - Diagnosis (1) Alcoholic Korsakoff syndrome Is this a current diagnosis for this admission?: Yes Plan: On Comfort measures only. She has been calm and not requiring sedation (2) Acute respiratory failure Is this a current diagnosis for this admission?: Yes Plan: Patient is presently on comfort measures only waiting for hospice placement. (3) Alcoholic cirrhosis Qualifiers: Ascites presence: without ascites Qualified Code(s): K70.30 - Alcoholic cirrhosis of liver without ascites Is this a current diagnosis for this admission?: Yes Plan: Continue comfort measures only. She is awaiting hospice placement. Appears in no acute distress. (4) Anemia Qualifiers: Anemia type: other cause Other causes of anemia: nutritional, other megaloblastic Qualified Code(s): D53.1 - Other megaloblastic anemias, not elsewhere classified Is this a current diagnosis for this admission?: Yes Plan: She remains extremely pale. No longer measuring labs due to comfort measure (5) Comfort measures only status Is this a current diagnosis for this admission?: Yes (6) Hepatic steatosis Is this a current diagnosis for this admission?: Yes (7) Hypotension Is this a current diagnosis for this admission?: Yes Plan: No longer doing vital signs due to comfort measure status - Time Time Spent with patient: 15-24 minutes Total Critical Time (Minutes): 15 Medications reviewed and adjusted accordingly: Yes Anticipated discharge: Hospice Within: when bed available - Inpatient Certification Based on my medical assessment, after consideration of the patient's comorbidities, presenting symptoms, or acuity I expect that the services needed warrant INPATIENT care.: Yes I certify that my determination is in accordance with my understanding of Medicare's requirements for reasonable and necessary INPATIENT services [42 CFR 412.3e].: Yes
--- NOTE | 2018-04-29 16:15 | PDOC PROGRESS REPORT ---
<SUSSY COLLINS - Last Filed: 04/29/18 15:50> Subjective Progress Note for:: 04/29/18 Subjective:: The patient is a 52-year-old female with a past medical history of atrial fibrillation and alcohol dependence who was admitted 02/24/2018 for anemia, hypotension, UTI, and metabolic encephalopathy. The patient is seen on morning rounds. She is found resting in bed comfortably on room air. She is awake and oriented to self. She makes eye contact, and smiles appropriately; attempts to speak but in an incoherent sentence. Does not follow commands or answer questions. ROS is limited secondary to mental status. She appears to be comfortable and not in any acute distress. Patient is on comfort care measures only. No concerns per nursing. Reason For Visit: ENCEPHALOPATHY,UTI Physical Exam Vital Signs: Temp Pulse Resp BP Pulse Ox 97.2 F 48 L 15 122/62 95 04/26/18 15:28 04/26/18 15:28 04/26/18 15:28 04/26/18 15:28 04/26/18 15:28 Intake & Output 04/28/18 04/29/18 04/30/18 06:59 06:59 06:59 Intake Total 237 574 Output Total 125 400 Balance 112 174 Weight 55.8 kg General appearance: PRESENT: no acute distress, thin, well-developed Head exam: PRESENT: atraumatic, normocephalic Eye exam: PRESENT: conjunctiva pink, EOMI, PERRLA. ABSENT: scleral icterus Ear exam: PRESENT: normal external ear exam Mouth exam: PRESENT: moist, tongue midline Neck exam: ABSENT: carotid bruit, JVD, lymphadenopathy, thyromegaly Respiratory exam: PRESENT: clear to auscultation jake, symmetrical, unlabored. ABSENT: rales, rhonchi, wheezes Cardiovascular exam: PRESENT: RRR. ABSENT: diastolic murmur, rubs, systolic murmur Pulses: PRESENT: normal dorsalis pedis pul Vascular exam: PRESENT: normal capillary refill GI/Abdominal exam: PRESENT: normal bowel sounds, soft. ABSENT: distended, guarding, mass, organolmegaly, rebound, tenderness Rectal exam: PRESENT: deferred Extremities exam: PRESENT: full ROM. ABSENT: calf tenderness, clubbing, pedal edema Neurological exam: PRESENT: alert, altered, awake, oriented to person, CN II-XII grossly intact. ABSENT: motor sensory deficit Psychiatric exam: PRESENT: appropriate affect Skin exam: PRESENT: dry, intact, pallor, warm. ABSENT: cyanosis, rash Results Laboratory Results: 04/23/18 05:00 04/23/18 05:00 02/24/18 09:55 Troponin I < 0.012 Impressions: Abdomen Ultrasound 02/25/18 00:00 IMPRESSION: Limited study as noted above. Gallbladder was not visualized. FATTY INFILTRATION OF THE LIVER. Other findings as noted above Head MRI 03/01/18 00:00 IMPRESSION: No acute findings. Very limited study EVIDENCE OF ACUTE STROKE: NO. Guidance Fluoroscopy 03/07/18 00:00 IMPRESSION: Lumbar puncture under fluoroscopy. No immediate complication. Lumbar Puncture 03/07/18 09:00 IMPRESSION: Lumbar puncture under fluoroscopy. No immediate complication. Chest X-Ray 04/21/18 07:02 IMPRESSION: 1. New volume loss in the lung bases likely due to a combination of pleural fluid and atelectasis. 2. Mild prominence of the cardiac silhouette which may be accentuated by the portable technique. 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 Most recent Hgb 7.6 Iron and TIBC both low, B12 level 347, Folic acid 3.59, folate 9.78 TSH 1.87. Occult stools negative x3 Now status post transfusion of 8 units PRBCs earlier this admission Now on Comfort Care. Discharge planning is consulted to assist with placement/disposition. (2) Wernicke-Korsakoff syndrome (alcoholic) Is this a current diagnosis for this admission?: Yes Plan: 03/01/2018 MRI brain done but not optimal. Did not show any acute abnormalities. B12 level on admission 347, folic acid 3.59, TSH 1.87. The patient is calm and not requiring sedation. Now on comfort measures. (3) Hallucination Is this a current diagnosis for this admission?: Yes Plan: Appears to have resolved. Secondary to Korsakoff syndrome. She has had an extensive workup including a brain MRI which was suboptimal but did not show acute abnormalities Negative HIV, RPR, HSV Negative UDS and serum EtOH EEG was technically poor secondary to artifact; does demonstrate generalized background slowing consistent with diffuse cerebral dysfunction. LP completed 02/05/2018; Gram stain and cultures were negative. Now on comfort measures; provide for patient safety. (4) Metabolic encephalopathy Is this a current diagnosis for this admission?: Yes Plan: Acute encephalopathy is resolved. Unfortunately, patient is now at her baseline mentation. Likely due to alcoholic Korsakoff syndrome. (5) UTI (urinary tract infection) Qualifiers: Urinary tract infection type: site unspecified Hematuria presence: without hematuria Qualified Code(s): N39.0 - Urinary tract infection, site not specified Is this a current diagnosis for this admission?: Yes Plan: Resolved; received full course of antibiotics. Urinalysis (03/19/2018) slightly suggestive of UTI. Urine culture (03/19/2018) >100,000 colonies of enterococcus. (6) Alcoholic cirrhosis Qualifiers: Ascites presence: without ascites Qualified Code(s): K70.30 - Alcoholic cirrhosis of liver without ascites Is this a current diagnosis for this admission?: Yes Plan: Now on comfort measures. (7) Hypothermia Is this a current diagnosis for this admission?: Yes Plan: Resolved. The patient was was previously noted to be hypothermic overnight (95.7 rectal). Likely secondary to a combination of adrenal insufficiency and acute illness (UTI). Sepsis workup was negative. WBCs are normal, lactic acid normal. Urinalysis and urine culture are suggestive of urinary tract infection. Now on comfort measures. (8) Adrenal insufficiency Is this a current diagnosis for this admission?: Yes Plan: Random cortisol (midnight) 9.86. Cosyntropin stimulating test is low at 16.3; indicates adrenal insufficiency. TSH is normal at 1.87 Prolactin was normal at 9.314 PTH is normal at 22.3. Trial of hydrocortisone IV 50 mg every 8 hours; no meaningful improvement in vital signs or mentation following 10 days of therapy. Now on comfort measures. (9) Tobacco abuse Is this a current diagnosis for this admission?: Yes (10) Alcohol dependence, continuous Is this a current diagnosis for this admission?: Yes - Time Time Spent with patient: Less than 15 minutes Anticipated discharge: Hospice Within: when bed available <GERMAN MADSEN - Last Filed: 04/30/18 07:40> Subjective Reason For Visit: ENCEPHALOPATHY,UTI Physical Exam Vital Signs: Temp Pulse Resp BP Pulse Ox 97.2 F 48 L 15 122/62 95 04/26/18 15:28 04/26/18 15:28 04/26/18 15:28 04/26/18 15:28 04/26/18 15:28 Intake & Output 04/29/18 04/30/18 05/01/18 06:59 06:59 06:59 Intake Total 574 50 Output Total 400 575 Balance 174 -525 Weight 123 lb 0.287 oz Results Laboratory Results: 04/23/18 05:00 04/23/18 05:00 02/24/18 09:55 Troponin I < 0.012 Impressions: Abdomen Ultrasound 02/25/18 00:00 IMPRESSION: Limited study as noted above. Gallbladder was not visualized. FATTY INFILTRATION OF THE LIVER. Other findings as noted above Head MRI 03/01/18 00:00 IMPRESSION: No acute findings. Very limited study EVIDENCE OF ACUTE STROKE: NO. Guidance Fluoroscopy 03/07/18 00:00 IMPRESSION: Lumbar puncture under fluoroscopy. No immediate complication. Lumbar Puncture 03/07/18 09:00 IMPRESSION: Lumbar puncture under fluoroscopy. No immediate complication. Chest X-Ray 04/21/18 07:02 IMPRESSION: 1. New volume loss in the lung bases likely due to a combination of pleural fluid and atelectasis. 2. Mild prominence of the cardiac silhouette which may be accentuated by the portable technique. Assessment & Plan - Diagnosis (1) Comfort measures only status Is this a current diagnosis for this admission?: Yes (2) Alcoholic Korsakoff syndrome Is this a current diagnosis for this admission?: Yes (3) Alcoholic cirrhosis Qualifiers: Ascites presence: without ascites Qualified Code(s): K70.30 - Alcoholic cirrhosis of liver without ascites Is this a current diagnosis for this admission?: Yes (4) Do not resuscitate Is this a current diagnosis for this admission?: Yes - Plan Summary Plan Summary: i did not see patient - i agree with plan as it was presented to me
--- NOTE | 2018-04-30 15:18 | PDOC PROGRESS REPORT ---
<SUSSY COLLINS - Last Filed: 04/30/18 14:59> Subjective Progress Note for:: 04/30/18 Subjective:: The patient is a 52-year-old female with a past medical history of atrial fibrillation and alcohol dependence who was admitted 02/24/2018 for anemia, hypotension, UTI, and metabolic encephalopathy. The patient is seen on morning rounds. She is found resting in bed comfortably on room air. She is awake but disorientated x 4. She is speaking in clear sentences; though random/off topic statements. Does not follow commands or answer questions. ROS is limited secondary to mental status. She appears to be comfortable and not in any acute distress. Patient is on comfort care measures only. No concerns per nursing. Reason For Visit: ENCEPHALOPATHY,UTI Physical Exam Vital Signs: Temp Pulse Resp BP Pulse Ox 97.2 F 48 L 15 122/62 95 04/26/18 15:28 04/26/18 15:28 04/26/18 15:28 04/26/18 15:28 04/26/18 15:28 Intake & Output 04/29/18 04/30/18 05/01/18 06:59 06:59 06:59 Intake Total 574 50 0 Output Total 400 750 0 Balance 174 -700 0 Weight 55.8 kg 56 kg General appearance: PRESENT: no acute distress, thin, well-developed Head exam: PRESENT: atraumatic, normocephalic Eye exam: PRESENT: conjunctiva pink, EOMI, PERRLA. ABSENT: scleral icterus Ear exam: PRESENT: normal external ear exam Mouth exam: PRESENT: moist, tongue midline Neck exam: ABSENT: carotid bruit, JVD, lymphadenopathy, thyromegaly Respiratory exam: PRESENT: clear to auscultation jake, symmetrical, unlabored. ABSENT: rales, rhonchi, wheezes Cardiovascular exam: PRESENT: RRR. ABSENT: diastolic murmur, rubs, systolic murmur Pulses: PRESENT: normal dorsalis pedis pul Vascular exam: PRESENT: normal capillary refill GI/Abdominal exam: PRESENT: normal bowel sounds, soft. ABSENT: distended, guarding, mass, organolmegaly, rebound, tenderness Rectal exam: PRESENT: deferred Extremities exam: PRESENT: full ROM. ABSENT: calf tenderness, clubbing, pedal edema Neurological exam: PRESENT: alert, altered, awake, CN II-XII grossly intact. ABSENT: motor sensory deficit Psychiatric exam: PRESENT: appropriate affect, normal mood. ABSENT: homicidal ideation, suicidal ideation Skin exam: PRESENT: dry, intact, warm. ABSENT: cyanosis, rash Results Laboratory Results: 04/23/18 05:00 04/23/18 05:00 02/24/18 09:55 Troponin I < 0.012 Impressions: Abdomen Ultrasound 02/25/18 00:00 IMPRESSION: Limited study as noted above. Gallbladder was not visualized. FATTY INFILTRATION OF THE LIVER. Other findings as noted above Head MRI 03/01/18 00:00 IMPRESSION: No acute findings. Very limited study EVIDENCE OF ACUTE STROKE: NO. Guidance Fluoroscopy 03/07/18 00:00 IMPRESSION: Lumbar puncture under fluoroscopy. No immediate complication. Lumbar Puncture 03/07/18 09:00 IMPRESSION: Lumbar puncture under fluoroscopy. No immediate complication. Chest X-Ray 04/21/18 07:02 IMPRESSION: 1. New volume loss in the lung bases likely due to a combination of pleural fluid and atelectasis. 2. Mild prominence of the cardiac silhouette which may be accentuated by the portable technique. 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 Most recent Hgb 7.6 Iron and TIBC both low, B12 level 347, Folic acid 3.59, folate 9.78 TSH 1.87. Occult stools negative x3 Now status post transfusion of 8 units PRBCs earlier this admission Now on Comfort Care. Discharge planning is consulted to assist with placement/disposition. (3) Wernicke-Korsakoff syndrome (alcoholic) Is this a current diagnosis for this admission?: Yes Plan: 03/01/2018 MRI brain done but not optimal. Did not show any acute abnormalities. B12 level on admission 347, folic acid 3.59, TSH 1.87. The patient is calm and not requiring sedation. Now on comfort measures. (4) Hallucination Is this a current diagnosis for this admission?: Yes Plan: Appears to have resolved. Secondary to Korsakoff syndrome. She has had an extensive workup including a brain MRI which was suboptimal but did not show acute abnormalities Negative HIV, RPR, HSV Negative UDS and serum EtOH EEG was technically poor secondary to artifact; does demonstrate generalized background slowing consistent with diffuse cerebral dysfunction. LP completed 02/05/2018; Gram stain and cultures were negative. Now on comfort measures; provide for patient safety. (5) Metabolic encephalopathy Is this a current diagnosis for this admission?: Yes Plan: Acute encephalopathy is resolved. Unfortunately, patient is now at her baseline mentation. Likely due to alcoholic Korsakoff syndrome. (6) UTI (urinary tract infection) Qualifiers: Urinary tract infection type: site unspecified Hematuria presence: without hematuria Qualified Code(s): N39.0 - Urinary tract infection, site not specified Is this a current diagnosis for this admission?: Yes Plan: Resolved; received full course of antibiotics. Urinalysis (03/19/2018) slightly suggestive of UTI. Urine culture (03/19/2018) >100,000 colonies of enterococcus. (7) Alcoholic cirrhosis Qualifiers: Ascites presence: without ascites Qualified Code(s): K70.30 - Alcoholic cirrhosis of liver without ascites Is this a current diagnosis for this admission?: Yes Plan: Now on comfort measures. (8) Hypothermia Is this a current diagnosis for this admission?: Yes Plan: Resolved. The patient was was previously noted to be hypothermic overnight (95.7 rectal). Likely secondary to a combination of adrenal insufficiency and acute illness (UTI). Sepsis workup was negative. WBCs are normal, lactic acid normal. Urinalysis and urine culture are suggestive of urinary tract infection. Now on comfort measures. (9) Adrenal insufficiency Is this a current diagnosis for this admission?: Yes Plan: Random cortisol (midnight) 9.86. Cosyntropin stimulating test is low at 16.3; indicates adrenal insufficiency. TSH is normal at 1.87 Prolactin was normal at 9.314 PTH is normal at 22.3. Trial of hydrocortisone IV 50 mg every 8 hours; no meaningful improvement in vital signs or mentation following 10 days of therapy. Now on comfort measures. (10) Tobacco abuse Is this a current diagnosis for this admission?: Yes Plan: Smoking cessation is advised; nicotine replacement therapies are provided. (11) Alcohol dependence, continuous Is this a current diagnosis for this admission?: Yes Plan: Now on comfort measures. - Time Time Spent with patient: Less than 15 minutes Anticipated discharge: Hospice Within: when bed available <GERMAN MADSEN - Last Filed: 05/14/18 12:48> Subjective Reason For Visit: ENCEPHALOPATHY,UTI Physical Exam Vital Signs: Temp Pulse Resp BP Pulse Ox 97.6 F 35 L 8 L 38/15 L 94 05/05/18 20:00 05/12/18 20:30 05/12/18 20:30 05/12/18 13:06 05/12/18 20:30 Intake & Output 05/13/18 05/14/18 05/15/18 06:59 06:59 06:59 Intake Total 0 Output Total 350 Balance -350 Results Laboratory Results: 05/03/18 10:39 05/03/18 10:39 02/24/18 09:55 Troponin I < 0.012 Impressions: Abdomen Ultrasound 02/25/18 00:00 IMPRESSION: Limited study as noted above. Gallbladder was not visualized. FA TTY INFILTRATION OF THE LIVER. Other findings as noted above Head MRI 03/01/18 00:00 IMPRESSION: No acute findings. Very limited study EVIDENCE OF ACUTE STROKE: NO. Guidance Fluoroscopy 03/07/18 00:00 IMPRESSION: Lumbar puncture under fluoroscopy. No immediate complication. Lumbar Puncture 03/07/18 09:00 IMPRESSION: Lumbar puncture under fluoroscopy. No immediate complication. Chest X-Ray 04/21/18 07:02 IMPRESSION: 1. New volume loss in the lung bases likely due to a combination of pleural fluid and atelectasis. 2. Mild prominence of the cardiac silhouette which may be accentuated by the portable technique. Shoulder X-Ray 05/05/18 00:00 IMPRESSION: Grade 3 AC separation. Tear of the CC ligament. Assessment & Plan - Diagnosis (1) Comfort measures only status Is this a current diagnosis for this admission?: Yes (2) Alcoholic Korsakoff syndrome Is this a current diagnosis for this admission?: Yes (3) Alcoholic cirrhosis Qualifiers: Ascites presence: without ascites Qualified Code(s): K70.30 - Alcoholic cirrhosis of liver without ascites Is this a current diagnosis for this admission?: Yes (4) Do not resuscitate Is this a current diagnosis for this admission?: Yes - Plan Summary Plan Summary: I did not see patient myself, i agree with the plan as it was presented to me
--- NOTE | 2018-05-01 13:40 | PDOC PROGRESS REPORT ---
<SUSSY COLLINS - Last Filed: 05/01/18 13:35> Subjective Progress Note for:: 05/01/18 Subjective:: The patient is a 52-year-old female with a past medical history of atrial fibrillation and alcohol dependence who was admitted 02/24/2018 for anemia, hypotension, UTI, and metabolic encephalopathy. The patient is seen on morning rounds. She is found resting in bed comfortably on room air. She is awake and oriented to self and "emergency room," but answers all other questions inappropriately. She is speaking in clear sentences; though random/off topic statements. ROS is limited secondary to mental status. She appears to be comfortable and not in any acute distress. Patient is on comfort care measures only. No concerns per nursing. Reason For Visit: ENCEPHALOPATHY,UTI Physical Exam Vital Signs: Temp Pulse Resp BP Pulse Ox 97.2 F 48 L 15 122/62 95 04/26/18 15:28 04/26/18 15:28 04/26/18 15:28 04/26/18 15:28 04/26/18 15:28 Intake & Output 04/30/18 05/01/18 05/02/18 06:59 06:59 06:59 Intake Total 50 100 Output Total 750 400 Balance -700 -300 Weight 56 kg 55.1 kg General appearance: PRESENT: no acute distress, thin, well-developed Head exam: PRESENT: atraumatic, normocephalic Eye exam: PRESENT: conjunctiva pink, EOMI, PERRLA. ABSENT: scleral icterus Ear exam: PRESENT: normal external ear exam Mouth exam: PRESENT: moist, tongue midline Neck exam: ABSENT: carotid bruit, JVD, lymphadenopathy, thyromegaly Respiratory exam: PRESENT: clear to auscultation jake, symmetrical, unlabored. ABSENT: rales, rhonchi, wheezes Cardiovascular exam: PRESENT: RRR, +S1, +S2. ABSENT: diastolic murmur, rubs, systolic murmur Pulses: PRESENT: normal dorsalis pedis pul Vascular exam: PRESENT: normal capillary refill GI/Abdominal exam: PRESENT: normal bowel sounds, soft. ABSENT: distended, guarding, mass, organolmegaly, rebound, tenderness Rectal exam: PRESENT: deferred Extremities exam: PRESENT: full ROM. ABSENT: calf tenderness, clubbing, pedal edema Neurological exam: PRESENT: alert, awake, oriented to person, oriented to place, CN II-XII grossly intact. ABSENT: motor sensory deficit Psychiatric exam: PRESENT: flat affect, normal mood. ABSENT: homicidal ideation , suicidal ideation Skin exam: PRESENT: dry, intact, pallor, warm. ABSENT: cyanosis, rash Results Laboratory Results: 04/23/18 05:00 04/23/18 05:00 02/24/18 09:55 Troponin I < 0.012 Impressions: Abdomen Ultrasound 02/25/18 00:00 IMPRESSION: Limited study as noted above. Gallbladder was not visualized. FATTY INFILTRATION OF THE LIVER. Other findings as noted above Head MRI 03/01/18 00:00 IMPRESSION: No acute findings. Very limited study EVIDENCE OF ACUTE STROKE: NO. Guidance Fluoroscopy 03/07/18 00:00 IMPRESSION: Lumbar puncture under fluoroscopy. No immediate complication. Lumbar Puncture 03/07/18 09:00 IMPRESSION: Lumbar puncture under fluoroscopy. No immediate complication. Chest X-Ray 04/21/18 07:02 IMPRESSION: 1. New volume loss in the lung bases likely due to a combination of pleural fluid and atelectasis. 2. Mild prominence of the cardiac silhouette which may be accentuated by the portable technique. 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 Most recent Hgb 7.6 Iron and TIBC both low, B12 level 347, Folic acid 3.59, folate 9.78 TSH 1.87. Occult stools negative x3 Now status post transfusion of 8 units PRBCs earlier this admission Now on Comfort Care. Discharge planning is consulted to assist with placement/disposition. (3) Wernicke-Korsakoff syndrome (alcoholic) Is this a current diagnosis for this admission?: Yes Plan: 03/01/2018 MRI brain done but not optimal. Did not show any acute abnormalities. B12 level on admission 347, folic acid 3.59, TSH 1.87. The patient is calm and not requiring sedation. Now on comfort measures. (4) Hallucination Is this a current diagnosis for this admission?: Yes Plan: Appears to have resolved. Secondary to Korsakoff syndrome. She has had an extensive workup including a brain MRI which was suboptimal but did not show acute abnormalities Negative HIV, RPR, HSV Negative UDS and serum EtOH EEG was technically poor secondary to artifact; does demonstrate generalized background slowing consistent with diffuse cerebral dysfunction. LP completed 02/05/2018; Gram stain and cultures were negative. Now on comfort measures; provide for patient safety. (5) Metabolic encephalopathy Is this a current diagnosis for this admission?: Yes Plan: Acute encephalopathy is resolved. Unfortunately, patient is now at her baseline mentation. Likely due to alcoholic Korsakoff syndrome. (6) UTI (urinary tract infection) Qualifiers: Urinary tract infection type: site unspecified Hematuria presence: without hematuria Qualified Code(s): N39.0 - Urinary tract infection, site not speci fied Is this a current diagnosis for this admission?: Yes Plan: Resolved; received full course of antibiotics. Urinalysis (03/19/2018) slightly suggestive of UTI. Urine culture (03/19/2018) >100,000 colonies of enterococcus. (7) Alcoholic cirrhosis Qualifiers: Ascites presence: without ascites Qualified Code(s): K70.30 - Alcoholic cirrhosis of liver without ascites Is this a current diagnosis for this admission?: Yes Plan: Now on comfort measures. (8) Hypothermia Is this a current diagnosis for this admission?: Yes Plan: Resolved. The patient was was previously noted to be hypothermic (95.7 rectal). Likely secondary to a combination of adrenal insufficiency and acute illness (UTI). Sepsis workup was otherwise negative. WBCs are normal, lactic acid normal. Urinalysis and urine culture were suggestive of urinary tract infection. Re ceived appropriate antibiotic treatment. Now on comfort measures. (9) Adrenal insufficiency Is this a current diagnosis for this admission?: Yes Plan: Random cortisol (midnight) 9.86. Cosyntropin stimulating test is low at 16.3; indicates adrenal insufficiency. TSH is normal at 1.87 Prolactin was normal at 9.314 PTH is normal at 22.3. Trial of hydrocortisone IV 50 mg every 8 hours; no meaningful improvement in vital signs or mentation following 10 days of therapy. Now on comfort measures. (10) Tobacco abuse Is this a current diagnosis for this admission?: Yes Plan: Nicotine replacement therapies were previously provided; now on comfort measures. (11) Alcohol dependence, continuous Is this a current diagnosis for this admission?: Yes Plan: Now on comfort measures. - Time Time Spent with patient: Less than 15 minutes Medications reviewed and adjusted accordingly: Yes Anticipated discharge: Hospice Within: when bed available <GERMAN MADSEN K - Last Filed: 05/14/18 12:46> Subjective Reason For Visit: ENCEPHALOPATHY,UTI Physical Exam Vital Signs: Temp Pulse Resp BP Pulse Ox 97.6 F 35 L 8 L 38/15 L 94 05/05/18 20:00 05/12/18 20:30 05/12/18 20:30 05/12/18 13:06 05/12/18 20:30 Intake & Output 05/13/18 05/14/18 05/15/18 06:59 06:59 06:59 Intake Total 0 Output Total 350 Balance -350 Results Laboratory Results: 05/03/18 10:39 05/03/18 10:39 02/24/18 09:55 Troponin I < 0.012 Impressions: Abdomen Ultrasound 02/25/18 00:00 IMPRESSION: Limited study as noted above. Gallbladder was not visualized. FATTY INFILTRATION OF THE LIVER. Other findings as noted above Head MRI 03/01/18 00:00 IMPRESSION: No acute findings. Very limited study EVIDENCE OF ACUTE STROKE: NO. Guidance Fluoroscopy 03/07/18 00:00 IMPRESSION: Lumbar puncture under fluoroscopy. No immediate complication. Lumbar Puncture 03/07/18 09:00 IMPRESSION: Lumbar puncture under fluoroscopy. No immediate complication. Chest X-Ray 04/21/18 07:02 IMPRESSION: 1. New volume loss in the lung bases likely due to a combination of pleural fluid and atelectasis. 2. Mild prominence of the cardiac silhouette which may be accentuated by the portable technique. Shoulder X-Ray 05/05/18 00:00 IMPRESSION: Grade 3 AC separation. Tear of the CC ligament. Assessment & Plan - Diagnosis (1) Comfort measures only status Is this a current diagnosis for this admission?: Yes (2) Alcoholic Korsakoff syndrome Is this a current diagnosis for this admission?: Yes (3) Alcoholic cirrhosis Qualifiers: Ascites presence: without ascites Qualified Code(s): K70.30 - Alcoholic cirrhosis of liver without ascites Is this a current diagnosis for this admission?: Yes (4) Do not resuscitate Is this a current diagnosis for this admission?: Yes - Plan Summary Plan Summary: I did not see patient myself, i agree with the plan as it was presented to me
--- NOTE | 2018-05-02 11:51 | PDOC PROGRESS REPORT ---
<SUSSY COLLINS - Last Filed: 05/02/18 11:39> Subjective Progress Note for:: 05/02/18 Subjective:: The patient is a 52-year-old female with a past medical history of atrial fibrillation and alcohol dependence who was admitted 02/24/2018 for anemia, hypotension, UTI, and metabolic encephalopathy. The patient is seen on morning rounds. She is found resting in bed comfortably on room air. She is awake and oriented to self but otherwise does not answer questions appropriately. She does clearly say "no" when asked if she is hungry. She is speaking in clear sentences; though random/off topic statements. ROS is limited secondary to mental status. She appears to be comfortable and not in any acute distress. Patient is on comfort care measures only. No concerns per nursing. Reason For Visit: ENCEPHALOPATHY,UTI Physical Exam Vital Signs: Temp Pulse Resp BP Pulse Ox 97.2 F 48 L 15 122/62 95 04/26/18 15:28 04/26/18 15:28 04/26/18 15:28 04/26/18 15:28 04/26/18 15:28 Intake & Output 05/01/18 05/02/18 05/03/18 06:59 06:59 06:59 Intake Total 100 370 Output Total 400 700 Balance -300 -330 Weight 55.1 kg 55 kg General appearance: PRESENT: no acute distress, thin, well-developed Head exam: PRESENT: atraumatic, normocephalic Eye exam: PRESENT: conjunctiva pale, EOMI, PERRLA. ABSENT: scleral icterus Ear exam: PRESENT: normal external ear exam Mouth exam: PRESENT: moist, tongue midline Teeth exam: PRESENT: poor dentation Neck exam: ABSENT: carotid bruit, JVD, lymphadenopathy, thyromegaly Respiratory exam: PRESENT: clear to auscultation jake, symmetrical, unlabored. ABSENT: rales, rhonchi, wheezes Cardiovascular exam: PRESENT: RRR, +S1, +S2. ABSENT: diastolic murmur, rubs, systolic murmur Pulses: PRESENT: normal dorsalis pedis pul Vascular exam: PRESENT: normal capillary refill GI/Abdominal exam: PRESENT: normal bowel sounds, soft. ABSENT: distended, guarding, mass, organolmegaly, rebound, tenderness Rectal exam: PRESENT: deferred Extremities exam: PRESENT: full ROM. ABSENT: calf tenderness, clubbing, pedal edema Neurological exam: PRESENT: alert, awake, oriented to person, CN II-XII grossly intact. ABSENT: motor sensory deficit Psychiatric exam: PRESENT: flat affect, normal mood. ABSENT: homicidal ideation, suicidal ideation Skin exam: PRESENT: dry, intact, warm. ABSENT: cyanosis, rash Results Laboratory Results: 04/23/18 05:00 04/23/18 05:00 02/24/18 09:55 Troponin I < 0.012 Impressions: Abdomen Ultrasound 02/25/18 00:00 IMPRESSION: Limited study as noted above. Gallbladder was not visualized. FATTY INFILTRATION OF THE LIVER. Other findings as noted above Head MRI 03/01/18 00:00 IMPRESSION: No acute findings. Very limited study EVIDENCE OF ACUTE STROKE: NO. Guidance Fluoroscopy 03/07/18 00:00 IMPRESSION: Lumbar puncture under fluoroscopy. No immediate complication. Lumbar Puncture 03/07/18 09:00 IMPRESSION: Lumbar puncture under fluoroscopy. No immediate complication. Chest X-Ray 04/21/18 07:02 IMPRESSION: 1. New volume loss in the lung bases likely due to a combination of pleural fluid and atelectasis. 2. Mild prominence of the cardiac silhouette which may be accentuated by the portable technique. 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 Most recent Hgb 7.6 (04/23/18) Iron and TIBC both low, B12 level 347, Folic acid 3.59, folate 9.78 TSH 1.87. Occult stools negative x3 Now status post transfusion of 8 units PRBCs earlier this admission Now on Comfort Care. Discharge planning is consulted to assist with placement/disposition. (3) Wernicke-Korsakoff syndrome (alcoholic) Is this a current diagnosis for this admission?: Yes Plan: 03/01/2018 MRI brain done but not optimal. Did not show any acute abnormalities. B12 level on admission 347, folic acid 3.59, TSH 1.87. The patient is calm and not requiring sedation. Now on comfort measures. (4) Hallucination Is this a current diagnosis for this admission?: Yes Plan: Appears to have resolved. Secondary to Korsakoff syndrome. She has had an extensive workup including a brain MRI which was suboptimal but did not show acute abnormalities Negative HIV, RPR, HSV Negative UDS and serum EtOH EEG was technically poor secondary to artifact; does demonstrate generalized background slowing consistent with diffuse cerebral dysfunction. LP completed 02/05/2018; Gram stain and cultures were negative. Now on comfort measures; provide for patient safety. (5) Metabolic encephalopathy Is this a current diagnosis for this admission?: Yes Plan: Acute encephalopathy is resolved. Unfortunately, patient is now at her baseline mentation. Likely due to alcoholic Korsakoff syndrome. (6) UTI (urinary tract infection) Qualifiers: Urinary tract infection type: site unspecified Hematuria presence: without hematuria Qualified Code(s): N39.0 - Urinary tract infection, site not specified Is this a current diagnosis for this admission?: Yes Plan: Resolved; received full course of antibiotics. Urinalysis (03/19/2018) slightly suggestive of UTI. Urine culture (03/19/2018) >100,000 colonies of enterococcus. (7) Alcoholic cirrhosis Qualifiers: Ascites presence: without ascites Qualified Code(s): K70.30 - Alcoholic cirrhosis of liver without ascites Is this a current diagnosis for this admission?: Yes Plan: Now on comfort measures. (8) Hypothermia Is this a current diagnosis for this admission?: Yes Plan: Resolved. The patient was was previously noted to be hypothermic (95.7 rectal). Likely secondary to a combination of adrenal insufficiency and acute illness (UTI). Sepsis workup was otherwise negative. WBCs are normal, lactic acid normal. Urinalysis and urine culture were suggestive of urinary tract infection. Received appropriate antibiotic treatment. Now on comfort measures. (9) Adrenal insufficiency Is this a current diagnosis for this admission?: Yes Plan: Random cortisol (midnight) 9.86. Cosyntropin stimulating test is low at 16.3; indicates adrenal insufficiency. TSH is normal at 1.87 Prolactin was normal at 9.314 PTH is normal at 22.3. Trial of hydrocortisone IV 50 mg every 8 hours; no meaningful improvement in vital signs or mentation following 10 days of therapy. Now on comfort measures. (10) Tobacco abuse Is this a current diagnosis for this admission?: Yes Plan: Nicotine replacement therapies were previously provided; now on comfort measures. (11) Alcohol dependence, continuous Is this a current diagnosis for this admission?: Yes Plan: Now on comfort measures. - Time Time Spent with patient: Less than 15 minutes Medications reviewed and adjusted accordingly: Yes Anticipated discharge: Hospice Within: when bed available - Plan Summary Plan Summary: No changes in patient's status; continues to have waxing and waning alertness. She continues to have very poor p.o. intake; <25% consumed of all meals. Remains Hospice/Comfort Care appropriate. <GERMAN MADSEN - Last Filed: 05/14/18 12:43> Subjective Reason For Visit: ENCEPHALOPATHY,UTI Physical Exam Vital Signs: Temp Pulse Resp BP Pulse Ox 97.6 F 35 L 8 L 38/15 L 94 05/05/18 20:00 05/12/18 20:30 05/12/18 20:30 05/12/18 13:06 05/12/18 20:30 Intake & Output 05/13/18 05/14/18 05/15/18 06:59 06:59 06:59 Intake Total 0 Output Total 350 Balance -350 Results Laboratory Results: 05/03/18 10:39 05/03/18 10:39 02/24/18 09:55 Troponin I < 0.012 Impressions: Abdomen Ultrasound 02/25/18 00:00 IMPRESSION: Limited study as noted above. Gallbladder was not visualized. FATTY INFILTRATION OF THE LIVER. Other findings as noted above Head MRI 03/01/18 00:00 IMPRESSION: No acute findings. Very limited study EVIDENCE OF ACUTE STROKE: NO. Guidance Fluoroscopy 03/07/18 00:00 IMPRESSION: Lumbar puncture under fluoroscopy. No immediate complication. Lumbar Puncture 03/07/18 09:00 IMPRESSION: Lumbar puncture under fluoroscopy. No immediate complication. Chest X-Ray 04/21/18 07:02 IMPRESSION: 1. New volume loss in the lung bases likely due to a combination of pleural fluid and atelectasis. 2. Mild prominence of the cardiac silhouette which may be accentuated by the portable technique. Shoulder X-Ray 05/05/18 00:00 IMPRESSION: Grade 3 AC separation. Tear of the CC ligament. Assessment & Plan - Diagnosis (1) Comfort measures only status Is this a current diagnosis for this admission?: Yes (2) Alcoholic Korsakoff syndrome Is this a current diagnosis for this admission?: Yes (3) Alcoholic cirrhosis Qualifiers: Ascites presence: without ascites Qualified Code(s): K70.30 - Alcoholic cirrhosis of liver without ascites Is this a current diagnosis for this admission?: Yes (4) Do not resuscitate Is this a current diagnosis for this admission?: Yes - Plan Summary Plan Summary: I did not see patient myself, i agree with the plan as it was presented to me
[2018-05-03] MEDS ORDERED: LORAZEPAM INJ 2 MG/1 ML VIAL IV PRN (00:06)
[2018-05-03 11:02] LABS: HEMATOCRIT 19.6 % (36.0-47.0); MEAN CORPUSCULAR HGB CONC 33.7 g/dL (32.0-36.0); PLATELET COUNT 100 10^3/uL (150-450); RED BLOOD COUNT 2.13 10^6/uL (3.72-5.28); RED CELL DISTRIBUTION WIDTH 21.3 % (11.5-14.0); WHITE BLOOD COUNT 5.1 10^3/uL (4.0-10.5)
[2018-05-03 11:08] LABS: ANION GAP 6 (5-19); BLOOD UREA NITROGEN 24 mg/dL (7-20); CALCIUM 8.4 mg/dL (8.4-10.2); CARBON DIOXIDE 30 mmol/L (22-30); CHLORIDE 109 mmol/L (98-107); PHOSPHORUS 3.9 mg/dL (2.5-4.5); POTASSIUM 3.1 mmol/L (3.6-5.0); SODIUM 145.2 mmol/L (137-145)
[2018-05-03 11:10] LABS: GLUCOSE 54 mg/dL (75-110)
[2018-05-03 11:16] LABS: MEAN CORPUSCULAR VOLUME 92 fl (80-97)
[2018-05-03 11:17] LABS: HEMOGLOBIN 6.6 g/dL (12.0-15.5)
--- NOTE | 2018-05-03 21:20 | PDOC PROGRESS REPORT ---
Subjective Progress Note for:: 05/03/18 Subjective:: The patient is a 52-year-old female with a past medical history of atrial fibrillation and alcohol dependence who was admitted 02/24/2018 for anemia, hypotension, UTI, and metabolic encephalopathy. The patient was seen this morning on rounds. She is resting with her eyes closed but appears fidgety and agitated in the bed. Nursing reports the patient became to aditated last night that she required PRN ativan. Currently awaiting fpc placement vs. hospice. Case management very well versed in this patient's case Reason For Visit: ENCEPHALOPATHY,UTI Physical Exam Vital Signs: Temp Pulse Resp BP Pulse Ox 96.7 F L 56 L 14 98/68 L 84 L 05/03/18 20:00 05/03/18 20:00 05/03/18 20:00 05/03/18 20:00 05/03/18 20:00 Intake & Output 05/02/18 05/03/18 05/04/18 06:59 06:59 06:59 Intake Total 370 0 Output Total 700 200 Balance -330 -200 Weight 55 kg 52.5 kg General appearance: PRESENT: no acute distress, thin Head exam: PRESENT: atraumatic, normocephalic Eye exam: PRESENT: conjunctiva pink, EOMI, periorbital swelling, PERRLA. ABSENT: scleral icterus Ear exam: PRESENT: normal external ear exam Mouth exam: PRESENT: moist, tongue midline Teeth exam: PRESENT: poor dentation Neck exam: ABSENT: carotid bruit, JVD, lymphadenopathy, thyromegaly Respiratory exam: PRESENT: clear to auscultation jake, symmetrical. ABSENT: rales, rhonchi, wheezes Cardiovascular exam: PRESENT: RRR. ABSENT: diastolic murmur, rubs, systolic murmur Pulses: PRESENT: normal dorsalis pedis pul Vascular exam: PRESENT: pallor GI/Abdominal exam: PRESENT: normal bowel sounds, soft. ABSENT: distended, guarding, mass, organolmegaly, rebound, tenderness Rectal exam: PRESENT: deferred Extremities exam: PRESENT: full ROM. ABSENT: calf tenderness, clubbing, pedal edema Neurological exam: PRESENT: awake. ABSENT: alert, oriented to person, oriented to place, oriented to time, oriented to situation, motor sensory deficit Psychiatric exam: PRESENT: appropriate affect, normal mood. ABSENT: homicidal ideation, suicidal ideation Skin exam: PRESENT: dry, intact, warm. ABSENT: cyanosis, rash Results Laboratory Results: 05/03/18 10:39 05/03/18 10:39 05/03/18 05/03/18 10:39 10:39 WBC 5.1 RBC 2.13 L Hgb 6.6 L Hct 19.6 L MCV 92 D MCH 31.0 MCHC 33.7 RDW 21.3 H Plt Count 100 L Sodium 145.2 H Potassium 3.1 L Chloride 109 H Carbon Dioxide 30 Anion Gap 6 BUN 24 H Creatinine 0.60 Est GFR ( Amer) > 60 Est GFR (Non-Af Amer) > 60 Glucose 54 L Calcium 8.4 Phosphorus 3.9 Magnesium 1.4 L 02/24/18 09:55 Troponin I < 0.012 Impressions: Abdomen Ultrasound 02/25/18 00:00 IMPRESSION: Limited study as noted above. Gallbladder was not visualized. FATTY INFILTRATION OF THE LIVER. Other findings as noted above Head MRI 03/01/18 00:00 IMPRESSION: No acute findings. Very limited study EVIDENCE OF ACUTE STROKE: NO. Guidance Fluoroscopy 03/07/18 00:00 IMPRESSION: Lumbar puncture under fluoroscopy. No immediate complication. Lumbar Puncture 03/07/18 09:00 IMPRESSION: Lumbar puncture under fluoroscopy. No immediate complication. Chest X-Ray 04/21/18 07:02 IMPRESSION: 1. New volume loss in the lung bases likely due to a combination of pleural fluid and atelectasis. 2. Mild prominence of the cardiac silhouette which may be accentuated by the portable technique. Status: Imported from PACS Assessment & Plan - Diagnosis (1) Megaloblastic anemia due to alcoholism Is this a current diagnosis for this admission?: Yes Plan: Secondary to alcohol abuse and nutritional deficiency; hemoglobin has slowly trended down. Most recent Hgb 6.6 (05/03/18). No plans for transfusion since patient is comfort care. Iron and TIBC both low, B12 level 347, Folic acid 3.59, folate 9.78 TSH 1.87. Occult stools negative x3 Now status post transfusion of 8 units PRBCs earlier this admission Now on Comfort Care. Discharge planning is consulted to assist with placement/disposition. (2) Agitation Is this a current diagnosis for this admission?: Yes Plan: Per nursing staff, patient becomes agitated requiring ativan Decreased dose from 2mg-->0.5mg to avoid oversedation (3) Wernicke-Korsakoff syndrome (alcoholic) Is this a current diagnosis for this admission?: Yes Plan: 03/01/2018 MRI brain done but not optimal. Did not show any acute abnormalities. B12 level on admission 347, folic acid 3.59, TSH 1.87. The patient is calm and not requiring sedation. Now on comfort measures (4) Adrenal insufficiency Is this a current diagnosis for this admission?: Yes (5) Comfort measures only status Is this a current diagnosis for this admission?: Yes Plan: per family request (6) Hallucination Is this a current diagnosis for this admission?: Yes Plan: Appears to have resolved. Secondary to Korsakoff syndrome. She has had an extensive workup including a brain MRI which was suboptimal but did not show acute abnormalities Negative HIV, RPR, HSV Negative UDS and serum EtOH EEG was technically poor secondary to artifact; does demonstrate generalized background slowing consistent with diffuse cerebral dysfunction. LP completed 02/05/2018; Gram stain and cultures were negative. Now on comfort measures; provide for patient safety. (7) Alcoholic cirrhosis Qualifiers: Ascites presence: without ascites Qualified Code(s): K70.30 - Alcoholic cirrhosis of liver without ascites Is this a current diagnosis for this admission?: Yes Plan: Now on comfort measures. (8) Hypothermia Is this a current diagnosis for this admission?: Yes Plan: Resolved. The patient was was previously noted to be hypothermic (95.7 rectal). Likely se condary to a combination of adrenal insufficiency and acute illness (UTI). Urinalysis and urine culture were suggestive of urinary tract infection. Received appropriate antibiotic treatment. Now on comfort measures. (9) UTI (urinary tract infection) Qualifiers: Urinary tract infection type: site unspecified Is this a current diagnosis for this admission?: Yes Plan: Resolved; received full course of antibiotics. Urinalysis (03/19/2018) slightly suggestive of UTI. Urine culture (03/19/2018) >100,000 colonies of enterococcus. (10) Metabolic encephalopathy Is this a current diagnosis for this admission?: Yes Plan: Acute encephalopathy is resolved. Unfortunately, patient is now at her baseline mentation. Likely due to alcoholic Korsakoff syndrome. - Time Time Spent with patient: 15-24 minutes Medications reviewed and adjusted accordingly: Yes Anticipated discharge: SNF - Inpatient Certification Based on my medical assessment, after consideration of the patient's comorbidities, presenting symptoms, or acuity I expect that the services needed warrant INPATIENT care.: Yes I certify that my determination is in accordance with my understanding of Medicare's requirements for reasonable and necessary INPATIENT services [42 CFR 412.3e].: Yes Medical Necessity: Significant Comorbidiites Make Outpatient Treatment Too Risky - Plan Summary Plan Summary: CONTINUE COMFORT MEASURES. PRN ATIVAN FOR AGITATION.
[2018-05-04] MEDS: LORAZEPAM INJ 2 MG/1 ML VIAL IV PRN ×2 (01:08→09:58)
--- NOTE | 2018-05-04 21:43 | PDOC PROGRESS REPORT ---
Subjective Progress Note for:: 05/04/18 Subjective:: The patient is a 52-year-old female with a past medical history of atrial fibrillation and alcohol dependence who was admitted 02/24/2018 for anemia, hypotension, UTI, and metabolic encephalopathy. The patient was seen this morning on rounds. She is resting in bed. She greets me when I enter the room but when I ask her questions, they patient will not verbalize an answer. The patient is mildly fidgety in the bed. Nursing reports the patient became to agitated again last night and she required PRN ativan. Currently awaiting snf placement vs. hospice. Case management very well versed in this patient's case Reason For Visit: ENCEPHALOPATHY,UTI Physical Exam Vital Signs: Temp Pulse Resp BP Pulse Ox 97.6 F 83 16 85/62 L 90 L 05/04/18 19:43 05/04/18 19:43 05/04/18 19:43 05/04/18 19:43 05/04/18 19:43 Intake & Output 05/03/18 05/04/18 05/05/18 06:59 06:59 06:59 Intake Total 0 0 Output Total 200 0 525 Balance -200 0 -525 Weight 52.5 kg 52.5 kg General appearance: PRESENT: thin Eye exam: PRESENT: conjunctiva pink, PERRLA Mouth exam: PRESENT: dry mucosa, tongue midline Teeth exam: PRESENT: poor dentation Respiratory exam: PRESENT: symmetrical, unlabored Pulses: PRESENT: normal radial pulses, normal dorsalis pedis pul Vascular exam: PRESENT: pallor GI/Abdominal exam: PRESENT: soft Rectal exam: PRESENT: deferred Extremities exam: PRESENT: full ROM Musculoskeletal exam: PRESENT: full ROM Neurological exam: PRESENT: alert, awake. ABSENT: oriented to person, oriented to place, oriented to time, oriented to situation Psychiatric exam: PRESENT: anxious Skin exam: PRESENT: dry, intact Results Laboratory Results: 05/03/18 10:39 05/03/18 10:39 02/24/18 09:55 Troponin I < 0.012 Impressions: Abdomen Ultrasound 02/25/18 00:00 IMPRESSION: Limited study as noted above. Gallbladder was not visualized. FATTY INFILTRATION OF THE LIVER. Other findings as noted above Head MRI 03/01/18 00:00 IMPRESSION: No acute findings. Very limited study EVIDENCE OF ACUTE STROKE: NO. Guidance Fluoroscopy 03/07/18 00:00 IMPRESSION: Lumbar puncture under fluoroscopy. No immediate complication. Lumbar Puncture 03/07/18 09:00 IMPRESSION: Lumbar puncture under fluoroscopy. No immediate complication. Chest X-Ray 04/21/18 07:02 IMPRESSION: 1. New volume loss in the lung bases likely due to a combination of pleural fluid and atelectasis. 2. Mild prominence of the cardiac silhouette which may be accentuated by the portable technique. Status: Imported from PACS Assessment & Plan - Diagnosis (1) Megaloblastic anemia due to alcoholism Is this a current diagnosis for this admission?: Yes Plan: Secondary to alcohol abuse and nutritional deficiency; hemoglobin has slowly trended down. Most recent Hgb 6.6 (05/03/18). No plans for transfusion since patient is comfort care. Iron and TIBC both low, B12 level 347, Folic acid 3.59, folate 9.78 TSH 1.87. Occult stools negative x3 Now status post transfusion of 8 units PRBCs earlier this admission Now on Comfort Care. Discharge planning is consulted to assist with placement/disposition. (2) Agitation Is this a current diagnosis for this admission?: Yes Plan: Per nursing staff, patient becomes agitated requiring ativan Continue 0.5mg PRN (3) Wernicke-Korsakoff syndrome (alcoholic) Is this a current diagnosis for this admission?: Yes Plan: 03/01/2018 MRI brain done but not optimal. Did not show any acute abnormalities. B12 level on admission 347, folic acid 3.59, TSH 1.87. The patient is calm and not requiring sedation. Now on comfort measures (4) Adrenal insufficiency Is this a current diagnosis for this admission?: Yes (5) Comfort measures only status Is this a current diagnosis for this admission?: Yes Plan: per family request (6) Hallucination Is this a current diagnosis for this admission?: Yes Plan: Appears to have resolved. Secondary to Korsakoff syndrome. She has had an extensive workup including a brain MRI which was suboptimal but did not show acute abnormalities Negative HIV, RPR, HSV Negative UDS and serum EtOH EEG was technically poor secondary to artifact; does demonstrate generalized background slowing consistent with diffuse cerebral dysfunction. LP completed 02/05/2018; Gram stain and cultures were negative. Now on comfort measures; provide for patient safety. (7) Alcoholic cirrhosis Qualifiers: Ascites presence: without ascites Qualified Code(s): K70.30 - Alcoholic cirrhosis of liver without ascites Is this a current diagnosis for this admission?: Yes Plan: Now on comfort measures. (8) Hypothermia Is this a current diagnosis for this admission?: Yes Plan: Resolved. The patient was was previously noted to be hypothermic (95.7 rectal). Likely secondary to a combination of adrenal insufficiency and acute illness (UTI). Urinalysis and urine culture were suggestive of urinary tract infection. Received appropriate antibiotic treatment. Now on comfort measures. (9) UTI (urinary tract infection) Qualifiers: Urinary tract infection type: site unspecified Is this a current diagnosis for this admission?: Yes Plan: Resolved; received full course of antibiotics. Urinalysis (03/19/2018) slightly suggestive of UTI. Urine culture (03/19/2018) >100,000 colonies of enterococcus. (10) Metabolic encephalopathy Is this a current diagnosis for this admission?: Yes Plan: Acute encephalopathy is resolved. Unfortunately, patient is now at her baseline mentation. Likely due to alcoholic Korsakoff syndrome. - Time Time Spent with patient: 15-24 minutes Medications reviewed and adjusted accordingly: Yes Anticipated discharge: Home Within: within 24 hours - Inpatient Certification Based on my medical assessment, after consideration of the patient's comorbidities, presenting symptoms, or acuity I expect that the services needed warrant INPATIENT care.: Yes I certify that my determination is in accordance with my understanding of Medicare's requirements for reasonable and necessary INPATIENT services [42 CFR 412.3e].: Yes Medical Necessity: Risk of Complication if Not Cared For in Hospital
[2018-05-05] MEDS: LORAZEPAM INJ 2 MG/1 ML VIAL IV PRN ×2 (02:12→06:28)
--- NOTE | 2018-05-05 14:40 | RADIOLOGY REPORT (SQ) ---
EXAM DESCRIPTION: SHOULDER RIGHT 1 VIEW COMPLETED DATE/TIME: 05/05/2018 2:11 pm REASON FOR STUDY: EVALUATE FOR SHOULDER DISLOCATION COMPARISON: None. NUMBER OF VIEWS: Two views. TECHNIQUE: Internal and external rotation images acquired of the right shoulder. LIMITATIONS: None. FINDINGS: MINERALIZATION: Normal. BONES: Grade 3 AC separation. JOINTS: No dislocation. VISUALIZED LUNGS AND RIBS: No pneumothorax. No rib fracture. SOFT TISSUES: No radiopaque foreign body. OTHER: No other significant finding. IMPRESSION: Grade 3 AC separation. Tear of the CC ligament. TECHNICAL DOCUMENTATION: JOB ID: [id number] [employer]- All Rights Reserved Reading location - IP/workstation name: [email or web address]
--- NOTE | 2018-05-06 20:25 | PDOC PROGRESS REPORT ---
Subjective Progress Note for:: 05/06/18 Subjective:: The patient is a 52-year-old female with a past medical history of atrial fibrillation and alcohol dependence who was admitted 02/24/2018 for anemia, hypotension, UTI, and metabolic encephalopathy. The patient was seen this morning on rounds. She is resting in bed, eyes open, looking out the window She does not respond to me when I greet her, nor will she answer questions. The patient is mildly fidgety in the bed. Nursing reports the patient becomes intermittently agitated requiring PRN ativan. The patient appears very pale and her mental status seems worse today when compared to the previous week. She appears very thin and gaunt. Nursing reports the patient refuses to eat or drink. I am concerned that is imminent. [facility] was notified. Will attempt to get patient transferred to inpatient hospice. Case management very well versed in this patient's case Reason For Visit: ENCEPHALOPATHY,UTI Physical Exam Vital Signs: Temp Pulse Resp BP Pulse Ox 97.6 F 66 16 98/64 L 90 L 05/05/18 20:00 05/05/18 20:00 05/05/18 20:00 05/05/18 20:00 05/05/18 20:00 Intake & Output 05/05/18 05/06/18 05/07/18 06:59 06:59 06:59 Intake Total 50 0 0 Output Total 525 0 680 Balance -475 0 -680 Weight 52.5 kg 52.5 kg General appearance: PRESENT: thin Eye exam: PRESENT: conjunctiva pale, PERRLA Mouth exam: PRESENT: neck supple, tongue midline Neck exam: PRESENT: full ROM Respiratory exam: PRESENT: symmetrical, unlabored, other - shallow respirations Cardiovascular exam: PRESENT: RRR Pulses: PRESENT: normal radial pulses, normal dorsalis pedis pul Vascular exam: PRESENT: pallor GI/Abdominal exam: PRESENT: soft. ABSENT: distended, tenderness Rectal exam: PRESENT: deferred Gentrourinary exam: PRESENT: indwelling catheter - marshall placed today Extremities exam: ABSENT: full ROM Musculoskeletal exam: ABSENT: ambulatory, full ROM Neurological exam: PRESENT: awake, other - non-verbal. ABSENT: alert, oriented to person, oriented to place, oriented to time, oriented to situation Psychiatric exam: PRESENT: agitated, anxious Skin exam: PRESENT: pallor Results Laboratory Results: 05/03/18 10:39 05/03/18 10:39 02/24/18 09:55 Troponin I < 0.012 Impressions: Abdomen Ultrasound 02/25/18 00:00 IMPRESSION: Limited study as noted above. Gallbladder was not visualized. FATTY INFILTRATION OF THE LIVER. Other findings as noted above Head MRI 03/01/18 00:00 IMPRESSION: No acute findings. Very limited study EVIDENCE OF ACUTE STROKE: NO. Guidance Fluoroscopy 03/07/18 00:00 IMPRESSION: Lumbar puncture under fluoroscopy. No immediate complication. Lumbar Puncture 03/07/18 09:00 IMPRESSION: Lumbar puncture under fluoroscopy. No immediate complication. Chest X-Ray 04/21/18 07:02 IMPRESSION: 1. New volume loss in the lung bases likely due to a combination of pleural fluid and atelectasis. 2. Mild prominence of the cardiac silhouette which may be accentuated by the portable technique. Shoulder X-Ray 05/05/18 00:00 IMPRESSION: Grade 3 AC separation. Tear of the CC ligament. Status: Imported from PACS Assessment & Plan - Diagnosis (1) Megaloblastic anemia due to alcoholism Is this a current diagnosis for this admission?: Yes Plan: Secondary to alcohol abuse and nutritional deficiency; hemoglobin has slowly trended down. Most recent Hgb 6.6 (05/03/18). No plans for transfusion since patient is comfort care. Iron and TIBC both low, B12 level 347, Folic acid 3.59, folate 9.78 TSH 1.87. Occult stools negative x3 Now status post transfusion of 8 units PRBCs earlier this admission Now on Comfort Care. Discharge planning is consulted to assist with placement/disposition. (2) Agitation Is this a current diagnosis for this admission?: Yes Plan: Per nursing staff, patient becomes agitated requiring ativan Continue 0.5mg PRN (3) Wernicke-Korsakoff syndrome (alcoholic) Is this a current diagnosis for this admission?: Yes Plan: 03/01/2018 MRI brain done but not optimal. Did not show any acute abnormalities. B12 level on admission 347, folic acid 3.59, TSH 1.87. The patient is calm and not requiring sedation. Now on comfort measures (4) Adrenal insufficiency Is this a current diagnosis for this admission?: Yes (5) Comfort measures only status Is this a current diagnosis for this admission?: Yes Plan: per family request (6) Hallucination Is this a current diagnosis for this admission?: Yes Plan: Appears to have resolved. Secondary to Korsakoff syndrome. She has had an extensive workup including a brain MRI which was suboptimal but did not show acute abnormalities Negative HIV, RPR, HSV Negative UDS and serum EtOH EEG was technically poor secondary to artifact; does demonstrate generalized background slowing consistent with diffuse cerebral dysfunction. LP completed 02/05/2018; Gram stain and cultures were negative. Now on comfort measures; provide for patient safety. (7) Alcoholic cirrhosis Qualifiers: Ascites presence: without ascites Qualified Code(s): K70.30 - Alcoholic cirrhosis of liver without ascites Is this a current diagnosis for this admission?: Yes Plan: Now on comfort measures. (8) Hypothermia Is this a current diagnosis for this admission?: Yes Plan: Resolved. The patient was was previously noted to be hypothermic (95.7 rectal). Likely secondary to a combination of adrenal insufficiency and acute illness (UTI). Urinalysis and urine culture were suggestive of urinary tract infection. Received appropriate antibiotic treatment. Now on comfort measures. (9) UTI (urinary tract infection) Qualifiers: Urinary tract infection type: site unspecified Is this a current diagnosis for this admission?: Yes Plan: Resolved; received full course of antibiotics. Urinalysis (03/19/2018) slightly suggestive of UTI. Urine culture (03/19/2018) >100,000 colonies of enterococcus. (10) Metabolic encephalopathy Is this a current diagnosis for this admission?: Yes Plan: Acute encephalopathy is resolved. Unfortunately, patient is now at her baseline mentation. Likely due to alcoholic Korsakoff syndrome. - Time Time Spent with patient: 15-24 minutes Medications reviewed and adjusted accordingly: Yes Anticipated discharge: Hospice - Inpatient Certification Based on my medical assessment, after consideration of the patient's comorbidities, presenting symptoms, or acuity I expect that the services needed warrant INPATIENT care.: Yes I certify that my determination is in accordance with my understanding of Medicare's requirements for reasonable and necessary INPATIENT services [42 CFR 412.3e].: Yes Medical Necessity: Risk of Complication if Not Cared For in Hospital - Plan Summary Plan Summary: concerned about immanent . discuss with case management and [facility].
[2018-05-07] MEDS: LORAZEPAM INJ 2 MG/1 ML VIAL IV PRN ×2 (04:28→13:15)
--- NOTE | 2018-05-07 18:31 | PDOC PROGRESS REPORT ---
Subjective Progress Note for:: 05/07/18 Subjective:: The patient is a 52-year-old female with a past medical history of atrial fibrillation and alcohol dependence who was admitted 02/24/2018 for anemia, hypotension, UTI, and metabolic encephalopathy. The patient was seen this morning on rounds. She is resting in bed, eyes open, looking out the window The patient responds when I greet her, but will not answer questions. The patient is mildly fidgety in the bed. Nursing reports the patient becomes intermittently agitated requiring PRN ativan. The patient seems more alert today. She remains very thin, gaunt and pale. The patient still refuses to eat or drink. [facility] is aware of the patient's condition. Attempting to get patient transferred to inpatient hospice. Case management very well versed in this patient's case. Otherwise, no change to her medical plan. The patient remains on comfort measures. Reason For Visit: ENCEPHALOPATHY,UTI Physical Exam Vital Signs: Temp Pulse Resp BP Pulse Ox 97.6 F 66 16 98/64 L 90 L 05/05/18 20:00 05/05/18 20:00 05/05/18 20:00 05/05/18 20:00 05/05/18 20:00 Intake & Output 05/06/18 05/07/18 05/08/18 06:59 06:59 06:59 Intake Total 0 0 0 Output Total 0 880 110 Balance 0 -880 -110 Weight 52.5 kg Results Laboratory Results: 05/03/18 10:39 05/03/18 10:39 02/24/18 09:55 Troponin I < 0.012 Impressions: Abdomen Ultrasound 02/25/18 00:00 IMPRESSION: Limited study as noted above. Gallbladder was not visualized. FATTY INFILTRATION OF THE LIVER. Other findings as noted above Head MRI 03/01/18 00:00 IMPRESSION: No acute findings. Very limited study EVIDENCE OF ACUTE STROKE: NO. Guidance Fluoroscopy 03/07/18 00:00 IMPRESSION: Lumbar puncture under fluoroscopy. No immediate complication. Lumbar Puncture 03/07/18 09:00 IMPRESSION: Lumbar puncture under fluoroscopy. No immediate complication. Chest X-Ray 04/21/18 07:02 IMPRESSION: 1. New volume loss in the lung bases likely due to a combination of pleural fluid and atelectasis. 2. Mild prominence of the cardiac silhouette which may be accentuated by the portable technique. Shoulder X-Ray 05/05/18 00:00 IMPRESSION: Grade 3 AC separation. Tear of the CC ligament. 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 Most recent Hgb 6.6 (05/03/18). No plans for transfusion since patient is comfort care. Iron and TIBC both low, B12 level 347, Folic acid 3.59, folate 9.78 TSH 1.87. Occult stools negative x3 Now status post transfusion of 8 units PRBCs earlier this admission Now on Comfort Care. Discharge planning is consulted to assist with placement/disposition. (2) Agitation Is this a current diagnosis for this admission?: Yes Plan: Per nursing staff, patient becomes agitated requiring ativan Continue 0.5mg PRN (3) Wernicke-Korsakoff syndrome (alcoholic) Is this a current diagnosis for this admission?: Yes Plan: 03/01/2018 MRI brain done but not optimal. Did not show any acute abnormalities. B12 level on admission 347, folic acid 3.59, TSH 1.87. The patient is calm and not requiring sedation. Now on comfort measures (4) Adrenal insufficiency Is this a current diagnosis for this admission?: Yes (5) Comfort measures only status Is this a current diagnosis for this admission?: Yes Plan: per family request (6) Hallucination Is this a current diagnosis for this admission?: Yes Plan: Appears to have resolved. Secondary to Korsakoff syndrome. She has had an extensive workup including a brain MRI which was suboptimal but did not show acute abnormalities Negative HIV, RPR, HSV Negative UDS and serum EtOH EEG was technically poor secondary to artifact; does demonstrate generalized background slowing consistent with diffuse cerebral dysfunction. LP completed 02/05/2018; Gram stain and cultures were negative. Now on comfort measures; provide for patient safety. (7) Alcoholic cirrhosis Qualifiers: Ascites presence: without ascites Qualified Code(s): K70.30 - Alcoholic cirrhosis of liver without ascites Is this a current diagnosis for this admission?: Yes Plan: Now on comfort measures. (8) Hypothermia Is this a current diagnosis for this admission?: Yes Plan: Resolved. The patient was was previously noted to be hypothermic (95.7 rectal). Likely secondary to a combination of adrenal insufficiency and acute illness (UTI). Urinalysis and urine culture were suggestive of urinary tract infection. Received appropriate antibiotic treatment. Now on comfort measures. (9) UTI (urinary tract infection) Qualifiers: Urinary tract infection type: site unspecified Is this a current diagnosis for this admission?: Yes Plan: Resolved; received full course of antibiotics. Urinalysis (03/19/2018) slightly suggestive of UTI. Urine culture (03/19/2018) >100,000 colonies of enterococcus. (10) Metabolic encephalopathy Is this a current diagnosis for this admission?: Yes Plan: Acute encephalopathy is resolved. Unfortunately, patient is now at her baseline mentation. Likely due to alcoholic Korsakoff syndrome. - Time Time Spent with patient: 15-24 minutes Medications reviewed and adjusted accordingly: Yes Anticipated discharge: Hospice - Inpatient Certification Based on my medical assessment, after consideration of the patient's comorbidities, presenting symptoms, or acuity I expect that the services needed warrant INPATIENT care.: Yes I certify that my determination is in accordance with my understanding of Medicare's requirements for reasonable and necessary INPATIENT services [42 CFR 412.3e].: Yes Medical Necessity: Risk of Complication if Not Cared For in Hospital - Plan Summary Plan Summary: COMFORT CARE MEASURES.
--- NOTE | 2018-05-08 22:29 | PDOC PROGRESS REPORT ---
Subjective Progress Note for:: 05/08/18 Subjective:: The patient is a 52-year-old female with a past medical history of atrial fibrillation and alcohol dependence who was admitted 02/24/2018 for anemia, hypotension, UTI, and metabolic encephalopathy. The patient was seen this morning on rounds. She is resting in bed, eyes open, looking out the window The patient does not respond when I greet her, nor will she answer questions. The patient is mildly fidgety in the bed. Nursing reports the patient becomes intermittently agitated requiring PRN ativan. She remains very thin, gaunt and pale. The patient still refuses to eat or drink. [facility] is aware of the patient's condition. Attempting to get patient transferred to inpatient hospice. Case management very well versed in this patient's case. Otherwise, no change to her medical plan. The patient remains on comfort measures. Reason For Visit: ENCEPHALOPATHY,UTI Physical Exam Vital Signs: Temp Pulse Resp BP Pulse Ox 97.6 F 54 L 14 78/34 L 93 05/05/18 20:00 05/06/18 20:18 05/06/18 20:18 05/06/18 20:18 05/06/18 20:18 Intake & Output 05/07/18 05/08/18 05/09/18 06:59 06:59 06:59 Intake Total 0 60 0 Output Total 880 260 50 Balance -880 -200 -50 Weight 79.1 kg General appearance: PRESENT: thin Eye exam: PRESENT: conjunctiva pink, PERRLA Mouth exam: PRESENT: moist, tongue midline Teeth exam: PRESENT: poor dentation Neck exam: PRESENT: full ROM Respiratory exam: PRESENT: clear to auscultation jake, symmetrical, unlabored Cardiovascular exam: PRESENT: tachycardia Pulses: PRESENT: normal radial pulses, normal dorsalis pedis pul GI/Abdominal exam: PRESENT: normal bowel sounds, soft. ABSENT: tenderness Rectal exam: PRESENT: deferred Extremities exam: ABSENT: full ROM Musculoskeletal exam: ABSENT: ambulatory, full ROM Neurological exam: PRESENT: awake. ABSENT: alert, oriented to person, oriented to place, oriented to time, oriented to situation Psychiatric exam: PRESENT: flat affect Focused psych exam: PRESENT: restlessness Skin exam: PRESENT: dry, erythema Results Laboratory Results: 05/03/18 10:39 05/03/18 10:39 02/24/18 09:55 Troponin I < 0.012 Impressions: Abdomen Ultrasound 02/25/18 00:00 IMPRESSION: Limited study as noted above. Gallbladder was not visualized. FATTY INFILTRATION OF THE LIVER. Other findings as noted above Head MRI 03/01/18 00:00 IMPRESSION: No acute findings. Very limited study EVIDENCE OF ACUTE STROKE: NO. Guidance Fluoroscopy 03/07/18 00:00 IMPRESSION: Lumbar puncture under fluoroscopy. No immediate complication. Lumbar Puncture 03/07/18 09:00 IMPRESSION: Lumbar puncture under fluoroscopy. No immediate complication. Chest X-Ray 04/21/18 07:02 IMPRESSION: 1. New volume loss in the lung bases likely due to a combination of pleural fluid and atelectasis. 2. Mild prominence of the cardiac silhouette which may be accentuated by the portable technique. Shoulder X-Ray 05/05/18 00:00 IMPRESSION: Grade 3 AC separation. Tear of the CC ligament. 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 Most recent Hgb 6.6 (05/03/18). No plans for transfusion since patient is comfort care. Iron and TIBC both low, B12 level 347, Folic acid 3.59, folate 9.78 TSH 1.87. Occult stools negative x3 Now status post transfusion of 8 units PRBCs earlier this admission Now on Comfort Care. Discharge planning is consulted to assist with placement/disposition. (2) Agitation Is this a current diagnosis for this admission?: Yes Plan: Per nursing staff, patient becomes agitated requiring ativan Continue 0.5mg PRN (3) Wernicke-Korsakoff syndrome (alcoholic) Is this a current diagnosis for this admission?: Yes Plan: 03/01/2018 MRI brain done but not optimal. Did not show any acute abnormalities. B12 level on admission 347, folic acid 3.59, TSH 1.87. The patient is calm and not requiring sedation. Now on comfort measures (4) Adrenal insufficiency Is this a current diagnosis for this admission?: Yes (5) Comfort measures only status Is this a current diagnosis for this admission?: Yes (6) Hallucination Is this a current diagnosis for this admission?: Yes (7) Alcoholic cirrhosis Qualifiers: Ascites presence: without ascites Qualified Code(s): K70.30 - Alcoholic cirrhosis of liver without ascites Is this a current diagnosis for this admission?: Yes (8) Hypothermia Is this a current diagnosis for this admission?: Yes (9) UTI (urinary tract infection) Qualifiers: Urinary tract infection type: site unspecified Is this a current diagnosis for this admission?: Yes (10) Metabolic encephalopathy Is this a current diagnosis for this admission?: Yes
--- NOTE | 2018-05-09 20:58 | PDOC PROGRESS REPORT ---
Subjective Progress Note for:: 05/09/18 Subjective:: The patient is a 52-year-old female with a past medical history of atrial fibrillation and alcohol dependence who was admitted 02/24/2018 for anemia, hypotension, UTI, and metabolic encephalopathy. The patient was seen this morning on rounds. She is resting in bed, eyes closed. The patient does not respond when I greet her, nor will she answer questions. The patient is mildly fidgety in the bed. Nursing reports the patient becomes intermittently agitated requiring PRN ativan. They are also concerned that the patient is in pain, reporting that she intermittently groans/moans. Started PRN IV Morphine today. She remains very thin, gaunt and pale. The patient still refuses to eat or drink. [facility] will likely not be able to get the patient qualified for inpatient hospice. Case Management reaching out to other inpatient facilities. The patient remains on comfort measures. Reason For Visit: ENCEPHALOPATHY,UTI Physical Exam Vital Signs: Temp Pulse Resp BP Pulse Ox 97.6 F 54 L 14 78/34 L 93 05/05/18 20:00 05/06/18 20:18 05/06/18 20:18 05/06/18 20:18 05/06/18 20:18 Intake & Output 05/08/18 05/09/18 05/10/18 06:59 06:59 06:59 Intake Total 60 75 0 Output Total 260 200 Balance -200 -125 0 Weight 79.1 kg General appearance: PRESENT: thin Eye exam: PRESENT: conjunctiva pale, PERRLA Mouth exam: PRESENT: dry mucosa Teeth exam: PRESENT: poor dentation Respiratory exam: PRESENT: clear to auscultation jake, symmetrical, unlabored Pulses: PRESENT: normal radial pulses GI/Abdominal exam: PRESENT: soft. ABSENT: distended, tenderness Rectal exam: PRESENT: deferred Gentrourinary exam: PRESENT: indwelling catheter - A COMFORT MEASURE FOR URINARY RETENTION Extremities exam: ABSENT: pedal edema Musculoskeletal exam: ABSENT: ambulatory, normal inspection Neurological exam: PRESENT: awake. ABSENT: alert, oriented to person, oriented to place, oriented to time, oriented to situation Psychiatric exam: ABSENT: appropriate affect Skin exam: PRESENT: dry, pallor Results Laboratory Results: 05/03/18 10:39 05/03/18 10:39 02/24/18 09:55 Troponin I < 0.012 Impressions: Abdomen Ultrasound 02/25/18 00:00 IMPRESSION: Limited study as noted above. Gallbladder was not visualized. FATTY INFILTRATION OF THE LIVER. Other findings as noted above Head MRI 03/01/18 00:00 IMPRESSION: No acute findings. Very limited study EVIDENCE OF ACUTE STROKE: NO. Guidance Fluoroscopy 03/07/18 00:00 IMPRESSION: Lumbar puncture under fluoroscopy. No immediate complication. Lumbar Puncture 03/07/18 09:00 IMPRESSION: Lumbar puncture under fluoroscopy. No immediate complication. Chest X-Ray 04/21/18 07:02 IMPRESSION: 1. New volume loss in the lung bases likely due to a combination of pleural fluid and atelectasis. 2. Mild prominence of the cardiac silhouette which may be accentuated by the portable technique. Shoulder X-Ray 05/05/18 00:00 IMPRESSION: Grade 3 AC separation. Tear of the CC ligament. Status: Imported from PACS Assessment & Plan - Diagnosis (1) Megaloblastic anemia due to alcoholism Is this a current diagnosis for this admission?: Yes Plan: Secondary to alcohol abuse and nutritional deficiency; hemoglobin has slowly trended down. Most recent Hgb 6.6 (05/03/18). No plans for transfusion since patient is comfort care. Iron and TIBC both low, B12 level 347, Folic acid 3.59, folate 9.78 TSH 1.87. Occult stools negative x3 Now status post transfusion of 8 units PRBCs earlier this admission Now on Comfort Care. Discharge planning is consulted to assist with placement/disposition. (2) Agitation Is this a current diagnosis for this admission?: Yes Plan: Per nursing staff, patient becomes agitated requiring ativan Continue 0.5mg PRN (3) Wernicke-Korsakoff syndrome (alcoholic) Is this a current diagnosis for this admission?: Yes Plan: 03/01/2018 MRI brain done but not optimal. Did not show any acute abnormalities. B12 level on admission 347, folic acid 3.59, TSH 1.87. The patient is calm and not requiring sedation. Now on comfort measures (4) Adrenal insufficiency Is this a current diagnosis for this admission?: Yes (5) Comfort measures only status Is this a current diagnosis for this admission?: Yes Plan: per family request (6) Hallucination Is this a current diagnosis for this admission?: Yes Plan: Appears to have resolved. Secondary to Korsakoff syndrome. She has had an extensive workup including a brain MRI which was suboptimal but did not show acute abnormalities Negative HIV, RPR, HSV Negative UDS and serum EtOH EEG was technically poor secondary to artifact; does demonstrate generalized background slowing consistent with diffuse cerebral dysfunction. LP completed 02/05/2018; Gram stain and cultures were negative. Now on comfort measures; provide for patient safety. (7) Alcoholic cirrhosis Qualifiers: Ascites presence: without ascites Qualified Code(s): K70.30 - Alcoholic cirrhosis of liver without ascites Is this a current diagnosis for this admission?: Yes Plan: Now on comfort measures. (8) Hypothermia Is this a current diagnosis for this admission?: Yes Plan: Resolved. The patient was was previously noted to be hypothermic (95.7 rectal). Likely secondary to a combination of adrenal insufficiency and acute illness (UTI). Urinalysis and urine culture were suggestive of urinary tract infection. Received appropriate antibiotic treatment. Now on comfort measures. (9) UTI (urinary tract infection) Qualifiers: Urinary tract infection type: site unspecified Is this a current diagnosis for this admission?: Yes Plan: Resolved; received full course of antibiotics. Urinalysis (03/19/2018) slightly suggestive of UTI. Urine culture (03/19/2018) >100,000 colonies of enterococcus. (10) Metabolic encephalopathy Is this a current diagnosis for this admission?: Yes Plan: Acute encephalopathy is resolved. Unfortunately, patient is now at her baseline mentation. Likely due to alcoholic Korsakoff syndrome. - Time Time Spent with patient: 15-24 minutes Medications reviewed and adjusted accordingly: Yes Anticipated discharge: Hospice - Inpatient Certification Based on my medical assessment, after consideration of the patient's comorbidities, presenting symptoms, or acuity I expect that the services needed warrant INPATIENT care.: Yes I certify that my determination is in accordance with my understanding of Medicare's requirements for reasonable and necessary INPATIENT services [42 CFR 412.3e].: Yes Medical Necessity: Risk of Complication if Not Cared For in Hospital - Plan Summary Plan Summary: AWAITING INPATIENT HOSPICE
[2018-05-09] MEDS: LORAZEPAM INJ 2 MG/1 ML VIAL IV PRN (22:56)
[2018-05-10] MEDS: MORPHINE SULFATE 10 MG/ML INJ IV PRN ×3 (04:05→15:39)
[2018-05-10] MEDS: LORAZEPAM INJ 2 MG/1 ML VIAL IV PRN ×3 (04:05→15:39)
--- NOTE | 2018-05-10 17:26 | PDOC PROGRESS REPORT ---
Subjective Progress Note for:: 05/10/18 Subjective:: The patient is a 52-year-old female with a past medical history of atrial fibrillation and alcohol dependence who was admitted 02/24/2018 for anemia, hypotension, UTI, and metabolic encephalopathy. The patient is seen on morning rounds. She is found resting in bed comfortably on room air. She is resting in bed on oxygen, eyes closed, appears to be comfortable; has just been medicated with IV Ativan and morphine for agitation and evidence of pain. She does not open eyes, answer questions, or follow directions. She does withdraw from pain. ROS is limited secondary to mental status. Patient is on comfort care measures only. No concerns per nursing. Reason For Visit: ENCEPHALOPATHY,UTI Physical Exam Vital Signs: Temp Pulse Resp BP Pulse Ox 97.6 F 54 L 14 78/34 L 93 05/05/18 20:00 05/06/18 20:18 05/06/18 20:18 05/06/18 20:18 05/06/18 20:18 Intake & Output 05/09/18 05/10/18 05/11/18 06:59 06:59 06:59 Intake Total 75 0 Output Total 200 150 Balance -125 -150 Weight 48.9 kg General appearance: PRESENT: no acute distress, well-developed, other - Cachectic; BMI 15 Head exam: PRESENT: atraumatic, normocephalic Eye exam: PRESENT: conjunctiva pale, EOMI, PERRLA. ABSENT: scleral icterus Ear exam: PRESENT: normal external ear exam Mouth exam: PRESENT: dry mucosa Teeth exam: PRESENT: poor dentation Neck exam: ABSENT: carotid bruit, JVD, lymphadenopathy, thyromegaly Respiratory exam: PRESENT: clear to auscultation jake, symmetrical, unlabored. ABSENT: rales, rhonchi, wheezes Cardiovascular exam: PRESENT: RRR. ABSENT: diastolic murmur, rubs, systolic murmur Pulses: PRESENT: +1 pedal pulses bilateral Vascular exam: PRESENT: pallor GI/Abdominal exam: PRESENT: normal bowel sounds, soft. ABSENT: distended, guar ding, mass, organolmegaly, rebound, tenderness Rectal exam: PRESENT: deferred Extremities exam: PRESENT: full ROM - Spontaneously moves all limbs. ABSENT: calf tenderness, clubbing, pedal edema Neurological exam: PRESENT: other - Somnolent; withdraws from pain. ABSENT: motor sensory deficit Skin exam: PRESENT: dry, intact, pallor. ABSENT: cyanosis, rash Results Laboratory Results: 05/03/18 10:39 05/03/18 10:39 02/24/18 09:55 Troponin I < 0.012 Impressions: Abdomen Ultrasound 02/25/18 00:00 IMPRESSION: Limited study as noted above. Gallbladder was not visualized. FATTY INFILTRATION OF THE LIVER. Other findings as noted above Head MRI 03/01/18 00:00 IMPRESSION: No acute findings. Very limited study EVIDENCE OF ACUTE STROKE: NO. Guidance Fluoroscopy 03/07/18 00:00 IMPRESSION: Lumbar puncture under fluoroscopy. No immediate complication. Lumbar Puncture 03/07/18 09:00 IMPRESSION: Lumbar puncture under fluoroscopy. No immediate complication. Chest X-Ray 04/21/18 07:02 IMPRESSION: 1. New volume loss in the lung bases likely due to a combination of pleural fluid and atelectasis. 2. Mild prominence of the cardiac silhouette which may be accentuated by the portable technique. Shoulder X-Ray 05/05/18 00:00 IMPRESSION: Grade 3 AC separation. Tear of the CC ligament. 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 Most recent Hgb 6.6 (05/03/18) Iron and TIBC both low, B12 level 347, Folic acid 3.59, folate 9.78 TSH 1.87. Occult stools negative x3 Now status post transfusion of 8 units PRBCs earlier this admission Now on Comfort Care. Discharge planning is consulted to assist with placement/disposition. (2) Agitation Is this a current diagnosis for this admission?: Yes Plan: Per nursing, patient becomes intermittently agitated and requires Ativan for comfort. Last week, patient removed inflated Will catheter. Unable to reorient/redirect. Continue Ativan 0.5 mg IV as needed anxiety/agitation. (3) Wernicke-Korsakoff syndrome (alcoholic) Is this a current diagnosis for this admission?: Yes Plan: 03/01/2018 MRI brain done but not optimal. Did not show any acute abnormalities. B12 level on admission 347, folic acid 3.59, TSH 1.87. Has required intermittent IV Ativan for management of anxiety/agitation. Now on comfort measures. (4) Hallucination Is this a current diagnosis for this admission?: Yes Plan: Appears to have resolved. Secondary to Korsakoff syndrome. She has had an extensive workup including a brain MRI which was suboptimal but did not show acute abnormalities Negative HIV, RPR, HSV Negative UDS and serum EtOH EEG was technically poor secondary to artifact; does demonstrate generalized background slowing consistent with diffuse cerebral dysfunction. LP completed 02/05/2018; Gram stain and cultures were negative. Now on comfort measures; provide for patient safety. (5) Metabolic encephalopathy Is this a current diagnosis for this admission?: Yes Plan: Acute encephalopathy is resolved. Unfortunately, patient is now at her baseline mentation. Likely due to alcoholic Korsakoff syndrome. (6) UTI (urinary tract infection) Qualifiers: Urinary tract infection type: site unspecified Is this a current diagnosis for this admission?: Yes Plan: Resolved; received full course of antibiotics. Urinalysis (03/19/2018) slightly suggestive of UTI. Urine culture (03/19/2018) >100,000 colonies of enterococcus. (7) Alcoholic cirrhosis Qualifiers: Ascites presence: without ascites Qualified Code(s): K70.30 - Alcoholic cirrhosis of liver without ascites Is this a current diagnosis for this admission?: Yes Plan: Now on comfort measures. (8) Hypothermia Is this a current diagnosis for this admission?: Yes Plan: Resolved. The patient was was previously noted to be hypothermic (95.7 rectal). Likely secondary to a combination of adrenal insufficiency and acute illness (UTI). Sepsis workup was otherwise negative. WBCs are normal, lactic acid normal. Urinalysis and urine culture were suggestive of urinary tract infection. Rece ived appropriate antibiotic treatment. Now on comfort measures. (9) Adrenal insufficiency Is this a current diagnosis for this admission?: Yes Plan: Random cortisol (midnight) 9.86. Cosyntropin stimulating test is low at 16.3; indicates adrenal insufficiency. TSH is normal at 1.87 Prolactin was normal at 9.314 PTH is normal at 22.3. Trial of hydrocortisone IV 50 mg every 8 hours; no meaningful improvement in vital signs or mentation following 10 days of therapy. Now on comfort measures. (10) Tobacco abuse Is this a current diagnosis for this admission?: Yes Plan: Nicotine replacement therapies were previously provided; now on comfort measures. (11) Alcohol dependence, continuous Is this a current diagnosis for this admission?: Yes Plan: Now on comfort measures. (12) DNR (do not resuscitate) Is this a current diagnosis for this admission?: Yes Plan: Vital signs checked today; SPO2 82-89% on room air, respirations shallow at 16, heart rate in the 40s, BP 70s over 40s. Unchanged from last week. Comfort measures only. Spoke with the patient's father, Mr. Rodgers to discuss recommendations for transfer to hospice care facilities. All questions were answered. Patient's father conveyed understanding of the patient's diagnosis and prognosis; stating, "it is probably for the best that she move on from this life and all the pain it has given her." Discharge planning and [facility] are consulted. - Time Time Spent with patient: 25-34 minutes Medications reviewed and adjusted accordingly: Yes Anticipated discharge: [facility]: when bed available
[2018-05-11] MEDS: LORAZEPAM INJ 2 MG/1 ML VIAL IV PRN ×3 (00:07→20:47)
[2018-05-11] MEDS: MORPHINE SULFATE 10 MG/ML INJ IV PRN ×2 (09:57→18:18)
--- NOTE | 2018-05-11 11:42 | PDOC TRANSFER SUMMARY ---
General - Admit/Disc Date/PCP Admission Date/Primary Care Provider: 02/24/18 13:10 Discharge Date: 05/11/18 - Discharge Diagnosis (1) Megaloblastic anemia due to alcoholism Is this a current diagnosis for this admission?: Yes Summary: Secondary to alcohol abuse and nutritional deficiency; hemoglobin has slowly trended down. Most recent Hgb 6.6 (05/03/18) Iron and TIBC both low, B12 level 347, Folic acid 3.59, folate 9.78 TSH 1.87. Occult stools negative x3; no indications for active blood loss. Now status post transfusion of 8 units PRBCs earlier this admission. (2) Agitation Is this a current diagnosis for this admission?: Yes Summary: Per nursing, patient becomes intermittently agitated and requires Ativan for comfort. Last week, patient removed inflated Will catheter. Unable to reorient/redirect. We have been providing Ativan 0.5 mg IV as needed anxiety/agitation with good effect along with close monitoring for and treatment of pain. (3) Wernicke-Korsakoff syndrome (alcoholic) Is this a current diagnosis for this admission?: Yes Summary: Long standing history of alcohol abuse and dependance. 03/01/2018 MRI brain done but not optimal. Did not show any acute abnormalities. B12 level on admission 347, folic acid 3.59, TSH 1.87. (4) Hallucination Is this a current diagnosis for this admission?: Yes Summary: Appears to have resolved. Secondary to Korsakoff syndrome. She has had an extensive workup including a brain MRI which was suboptimal but did not show acute abnormalities Negative HIV, RPR, HSV Negative UDS and serum EtOH EEG was technically poor secondary to artifact; does demonstrate generalized background slowing consistent with diffuse cerebral dysfunction. LP completed 02/05/2018; Gram stain and cultures were negative. (5) Metabolic encephalopathy Is this a current diagnosis for this admission?: Yes Summary: Acute encephalopathy is resolved. Unfortunately, patient is now at her baseline mentation. Likely due to alcoholic Korsakoff syndrome. (6) UTI (urinary tract infection) Is this a current diagnosis for this admission?: Yes Summary: Resolved; received full course of antibiotics. Urinalysis (03/19/2018) slightly suggestive of UTI. Urine culture (03/19/2018) >100,000 colonies of enterococcus. (7) Alcoholic cirrhosis Is this a current diagnosis for this admission?: Yes Summary: No on comfort measures. (8) Hypothermia Is this a current diagnosis for this admission?: Yes Summary: Resolved. The patient was was previously noted to be hypothermic (95.7 rectal). Likely secondary to a combination of adrenal insufficiency and acute illness (UTI). Sepsis workup was otherwise negative. WBCs are normal, lactic acid normal. Urinalysis and urine culture were suggestive of urinary tract infection. Received appropriate antibiotic treatment. Now on comfort measures. (9) Adrenal insufficiency Is this a current diagnosis for this admission?: Yes Summary: Random cortisol (midnight) 9.86. Cosyntropin stimulating test is low at 16.3; indicates adrenal insufficiency. TSH is normal at 1.87 Prolactin was normal at 9.314 PTH is normal at 22.3. Trial of hydrocortisone IV 50 mg every 8 hours; no meaningful improvement in vital signs or mentation following 10 days of therapy. Now on comfort measures. (10) Tobacco abuse Is this a current diagnosis for this admission?: Yes Summary: Nicotine replacement therapies were previously provided; now on comfort measures . (11) Alcohol dependence, continuous Is this a current diagnosis for this admission?: Yes (12) DNR (do not resuscitate) Is this a current diagnosis for this admission?: Yes Summary: Vital signs checked yesterday; SPO2 82-89% on room air, respirations shallow at 16, HR in the 40s, BP 70s/40s. Unchanged from last week. Comfort measures only. Spoke with the patient's father, Mr. Rodgers to discuss recommendations for transfer to hospice care facilities. All questions were answered. Patient's father conveyed understanding of the patient's diagnosis and prognosis; stating, "it is probably for the best that she move on from this life and all the pain it has given her." [facility] has made a bed offer; greatly appreciate their assistance in caring for this unfortunate lady. - Additional Information Resuscitation Status: Do Not Resuscitate - The pateint stated, "I have a DNR already" Discharge Diet: As Tolerated Discharge Activity: Activity As Tolerated Prescriptions: Levalbuterol HCl [Xopenex Neb 1.25 mg/3 ml Ampul] 1.25 mg NEB RTQ6HP PRN #20 vi al.neb PRN Reason: Lorazepam [Ativan Inj 2 mg/1 ml Vial] 0.5 mg IV Q4HP PRN #10 vial PRN Reason: Morphine Sulfate [Morphine 10 mg/ml Inj] 1 mg IV Q4HP PRN #10 vial PRN Reason: Home Medications: Levalbuterol HCl [Xopenex Neb 1.25 mg/3 ml Ampul] 1.25 mg NEB RTQ6HP PRN #20 vial.neb 05/11/18 Lorazepam [Ativan Inj 2 mg/1 ml Vial] 0.5 mg IV Q4HP PRN #10 vial 05/11/18 Morphine Sulfate [Morphine 10 mg/ml Inj] 1 mg IV Q4HP PRN #10 vial 05/11/18 History of Present Illness Admission Date/PCP: 02/24/18 13:10 History of Present Illness: Per H&P by Mary Ann Salcido: Ms. Mora is a 52 year-old women who has a history of atrial fibrillation and alcohol dependency. The patient stated that she presented to the ED today because she had not left the house in over one year and she is bored. When asked specifically if the patient came to the ED for any medical reason the patient states that she did not come to the ED for any reason other than being bored. The patient denies having any chest pain, heart fluttering or heart palpitations. The patient denies any landry loss of blood, including not bloody or coffee ground colored vomit, no black, tarry or bright red stools. Post-menopausal without bleeding in 10 years. Admits to taking ibuprofen three times a day. The patient denies any abdominal pain, but did state that she has some abdominal cramping from time to time. The patient also admits to having feelings of heart burn. The patient denies any falls or recent traumas. The patient stated that she drinks about of a large bottle of wine each day, with her last drink being approximately one week ago. The patient also admits to smoking less than one pack of cigarettes per day. In the ED, labs were obtained and the patient was found to be anemic with a hemoglobin of 6.1. The patient was typed and crossed. Chest x-ray obtained, w hich was negative for any acute processes. The patient was also found to be profoundly hypotension with a BP reading of 62/48 and was given 2L NS bolus. 12 lead EKG revealed that the patient is in atrial fibrillation with a controlled rate. Blood cultures drawn and pending. Urine sample should positive leukocytes and nitrites, urine culture pending. The patient was given 1 gram IV rocephin. Toxicology was negative and serum alcohol less than 10. Occult stool was negative for blood. Patient was referred to the hospitalist service for further work up and continued care. Given patients clinical presentation and symptomology, will admit to the ICU with continuous monitoring. Physical Exam Vital Signs: Temp Pulse Resp BP Pulse Ox 97.6 F 54 L 14 78/34 L 93 05/05/18 20:00 05/06/18 20:18 05/06/18 20:18 05/06/18 20:18 05/06/18 20:18 Intake & Output 05/10/18 05/11/18 05/12/18 06:59 06:59 06:59 Intake Total 0 Output Total 150 50 Balance -150 -50 Weight 48.9 kg 46.9 kg General appearance: PRESENT: no acute distress, well-developed, other - C achectic; BMI 14.7 Head exam: PRESENT: atraumatic, normocephalic Eye exam: PRESENT: conjunctiva pink, EOMI, PERRLA. ABSENT: scleral icterus Ear exam: PRESENT: normal external ear exam Mouth exam: PRESENT: dry mucosa, tongue midline Teeth exam: PRESENT: dental caries, poor dentation Neck exam: ABSENT: carotid bruit, JVD, lymphadenopathy, thyromegaly Respiratory exam: PRESENT: clear to auscultation jake, symmetrical. ABSENT: rales, rhonchi, wheezes Cardiovascular exam: PRESENT: bradycardia, RRR. ABSENT: diastolic murmur, rubs, systolic murmur Pulses: PRESENT: +1 pedal pulses bilateral Vascular exam: PRESENT: pallor GI/Abdominal exam: PRESENT: normal bowel sounds, soft. ABSENT: distended, guarding, mass, organolmegaly, rebound, tenderness Rectal exam: PRESENT: deferred Extremities exam: PRESENT: full ROM - Spontaneously moves all limbs. ABSENT: calf tenderness, clubbing, pedal edema Neurological exam: PRESENT: altered, CN II-XII grossly intact. ABSENT: motor sensory deficit Psychiatric exam: PRESENT: agitated Skin exam: PRESENT: dry, intact, pallor. ABSENT: cyanosis, rash Results Laboratory Results: 05/03/18 10:39 05/03/18 10:39 02/24/18 09:55 Troponin I < 0.012 Impressions: Abdomen Ultrasound 02/25/18 00:00 IMPRESSION: Limited study as noted above. Gallbladder was not visualized. FATTY INFILTRATION OF THE LIVER. Other findings as noted above Head MRI 03/01/18 00:00 IMPRESSION: No acute findings. Very limited study EVIDENCE OF ACUTE STROKE: NO. Guidance Fluoroscopy 03/07/18 00:00 IMPRESSION: Lumbar puncture under fluoroscopy. No immediate complication. Lumbar Puncture 03/07/18 09:00 IMPRESSION: Lumbar puncture under fluoroscopy. No immediate complication. Chest X-Ray 04/21/18 07:02 IMPRESSION: 1. New volume loss in the lung bases likely due to a combination of pleural fluid and atelectasis. 2. Mild prominence of the cardiac silhouette which may be accentuated by the portable technique. Shoulder X-Ray 05/05/18 00:00 IMPRESSION: Grade 3 AC separation. Tear of the CC ligament. Transfer Plan - Time Spent with Patient Time spent with patient: Less than 30 Minutes Qualifiers - * PATIENT BEING DISCHARGED WITH ANY OF THE FOLLOWING DIAGNOSIS: No Plan Discharge Plan: Discharge to inpatient hospice care center. Time Spent: Less than 30 Minutes
[2018-05-12] MEDS: MORPHINE SULFATE 10 MG/ML INJ IV PRN ×2 (05:42→10:53)
[2018-05-12] MEDS: LORAZEPAM INJ 2 MG/1 ML VIAL IV PRN ×2 (05:43→10:53)
--- NOTE | 2018-05-12 12:10 | PDOC PROGRESS REPORT ---
Addendum entered and electronically signed by SUSSY COLLINS NP-C 05/12/18 14:37: Provider Note Provider Note: Received call from nurse regarding acute status change. Patient now demonstrating agonal breathing. At bedside, patient is noted to have a variable respiratory rate between 7 and 18 with minimal inspiratory effort and no audible breath sounds. She was found to have an SPO2 of 67% on room air with an irregular heart rate in the low 40s. The patient's mother, Sybil, and significant other, Guicho, were contacted and given updates on the patient's status and imminent . [facility] was contacted; planned transfer to their facility is cancelled as the patient is no longer stable for transport. Original Note: Subjective Progress Note for:: 05/12/18 Subjective:: The patient is a 52-year-old female with a past medical history of atrial fibrillation and alcohol dependence who was admitted 02/24/2018 for anemia, hypotension, UTI, and metabolic encephalopathy. The patient is seen on morning rounds. She is found resting in bed comfortably on room air. She does not open eyes, answer questions, or follow directions. She does withdraw from pain. ROS is limited secondary to mental status. Patient is on comfort care measures only. No concerns per nursing; nursing reports that she received morphine and ativan early this am. Reason For Visit: ENCEPHALOPATHY,UTI Physical Exam Vital Signs: Temp Pulse Resp BP Pulse Ox 97.6 F 54 L 14 78/34 L 93 05/05/18 20:00 05/06/18 20:18 05/06/18 20:18 05/06/18 20:18 05/06/18 20:18 Intake & Output 05/11/18 05/12/18 05/13/18 06:59 06:59 06:59 Intake Total 0 Output Total 50 300 Balance -50 -300 Weight 46.9 kg General appearance: PRESENT: well-developed, other Head exam: PRESENT: atraumatic, normocephalic Eye exam: PRESENT: conjunctiva pale, PERRLA. ABSENT: scleral icterus Mouth exam: PRESENT: dry mucosa, tongue midline Teeth exam: PRESENT: poor dentation Respiratory exam: PRESENT: symmetrical, tachypnea, wheezes, other - Shallow respirations; room air saturation 77%. ABSENT: rales, rhonchi Cardiovascular exam: PRESENT: bradycardia, irregular rhythm. ABSENT: diastolic murmur, rubs, systolic murmur Pulses: PRESENT: +1 pedal pulses bilateral Vascular exam: PRESENT: pallor Neurological exam: PRESENT: other - Withdraws to pain only Skin exam: PRESENT: dry, intact, pallor. ABSENT: cyanosis, rash Results Laboratory Results: 05/03/18 10:39 05/03/18 10:39 02/24/18 09:55 Troponin I < 0.012 Impressions: Abdomen Ultrasound 02/25/18 00:00 IMPRESSION: Limited study as noted above. Gallbladder was not visualized. FATTY INFILTRATION OF THE LIVER. Other findings as noted above Head MRI 03/01/18 00:00 IMPRESSION: No acute findings. Very limited study EVIDENCE OF ACUTE STROKE: NO. Guidance Fluoroscopy 03/07/18 00:00 IMPRESSION: Lumbar puncture under fluoroscopy. No immediate complication. Lumbar Puncture 03/07/18 09:00 IMPRESSION: Lumbar puncture under fluoroscopy. No immediate complication. Chest X-Ray 04/21/18 07:02 IMPRESSION: 1. New volume loss in the lung bases likely due to a combination of pleural fluid and atelectasis. 2. Mild prominence of the cardiac silhouette which may be accentuated by the portable technique. Shoulder X-Ray 05/05/18 00:00 IMPRESSION: Grade 3 AC separation. Tear of the CC ligament. 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 Most recent Hgb 6.6 (05/03/18) Iron and TIBC both low, B12 level 347, Folic acid 3.59, folate 9.78 TSH 1.87. Occult stools negative x3 Now status post transfusion of 8 units PRBCs earlier this admission Now on Comfort Care. Discharge planning is consulted to assist with placement/disposition. (2) Agitation Is this a current diagnosis for this admission?: Yes Plan: Per nursing, patient becomes intermittently agitated and requires Ativan for com fort. Last week, patient removed inflated Will catheter. Unable to reorient/redirect. Continue Ativan 0.5 mg IV as needed anxiety/agitation. Continue IV morphine as needed for pain (3) Wernicke-Korsakoff syndrome (alcoholic) Is this a current diagnosis for this admission?: Yes Plan: 03/01/2018 MRI brain done but not optimal. Did not show any acute abnormalities. B12 level on admission 347, folic acid 3.59, TSH 1.87. Has required intermittent IV Ativan for management of anxiety/agitation. Now on comfort measures. (4) Hallucination Is this a current diagnosis for this admission?: Yes Plan: Appears to have resolved. Secondary to Korsakoff syndrome. She has had an extensive workup including a brain MRI which was suboptimal but did not show acute abnormalities Negative HIV, RPR, HSV Negative UDS and serum EtOH EEG was technically poor secondary to artifact; does demonstrate generalized background slowing consistent with diffuse cerebral dysfunction. LP completed 02/05/2018; Gram stain and cultures were negative. Now on comfort measures; provide for patient safety. (5) Metabolic encephalopathy Is this a current diagnosis for this admission?: Yes Plan: Acute encephalopathy is resolved. Unfortunately, patient is now at her baseline mentation. Likely due to alcoholic Korsakoff syndrome. (6) UTI (urinary tract infection) Qualifiers: Urinary tract infection type: site unspecified Is this a current diagnosis for this admission?: Yes Plan: Resolved; received full course of antibiotics. Urinalysis (03/19/2018) slightly suggestive of UTI. Urine culture (03/19/2018) >100,000 colonies of enterococcus. (7) Alcoholic cirrhosis Qualifiers: Ascites presence: without ascites Qualified Code(s): K70.30 - Alcoholic cirrhosis of liver without ascites Is this a current diagnosis for this admission?: Yes Plan: Now on comfort measures. (8) Hypothermia Is this a current diagnosis for this admission?: Yes Plan: Resolved. The patient was was previously noted to be hypothermic (95.7 rectal). Likely secondary to a combination of adrenal insufficiency and acute illness (UTI). Sepsis workup was otherwise negative. WBCs are normal, lactic acid normal. Urinalysis and urine culture were suggestive of urinary tract infection. Received appropriate antibiotic treatment. Now on comfort measures. (9) Adrenal insufficiency Is this a current diagnosis for this admission?: Yes Plan: Random cortisol (midnight) 9.86. Cosyntropin stimulating test is low at 16.3; indicates adrenal insufficiency. TSH is normal at 1.87 Prolactin was normal at 9.314 PTH is normal at 22.3. Trial of hydrocortisone IV 50 mg every 8 hours; no meaningful improvement in vital signs or mentation following 10 days of therapy. Now on comfort measures. (10) Tobacco abuse Is this a current diagnosis for this admission?: Yes Plan: Nicotine replacement therapies were previously provided; now on comfort measures. (11) Alcohol dependence, continuous Is this a current diagnosis for this admission?: Yes Plan: Now on comfort measures. (12) DNR (do not resuscitate) Is this a current diagnosis for this admission?: Yes Plan: Vital signs checked today; SPO2 77% on room air, respirations shallow at 24, heart rate irregular in the 50s Comfort measures only. Spoke with the patient's father earlier this week, Mr. Rodgers, to discuss recommendations for transfer to hospice care facilities. All questions were answered. Patient's father conveyed understanding of the patient's diagnosis and prognosis; stating, "it is probably for the best that she move on from this life and all the pain it has given her." Discharge planning and [facility] are consulted. - Time Time Spent with patient: Less than 15 minutes Medications reviewed and adjusted accordingly: Yes Anticipated discharge: [facility]: when bed available - reference discharge planning's notes
[2018-05-12] MEDS ORDERED: LORAZEPAM INJ 2 MG/1 ML VIAL IV PRN (13:46)
[2018-05-12] MEDS ORDERED: MORPHINE SULFATE 10 MG/ML INJ IV PRN (13:46)
[2018-05-12 14:22] VITALS: BP 38/15
--- NOTE | 2018-05-13 17:37 | Death Summary ---
Summary Date : 05/13/18 Time of :: 13:07 Autopsy: No Resuscitation Status: Comfort Measures Only Consulting Provider: Dr. Aguilar (Heme/Onc) - Final Diagnosis (1) Megaloblastic anemia due to alcoholism Is this a current diagnosis for this admission?: Yes (2) Agitation Is this a current diagnosis for this admission?: Yes (3) Wernicke-Korsakoff syndrome (alcoholic) Is this a current diagnosis for this admission?: Yes (4) Hallucination Is this a current diagnosis for this admission?: Yes (5) Metabolic encephalopathy Is this a current diagnosis for this admission?: Yes (6) UTI (urinary tract infection) Is this a current diagnosis for this admission?: Yes (7) Alcoholic cirrhosis Is this a current diagnosis for this admission?: Yes (8) Hypothermia Is this a current diagnosis for this admission?: Yes (9) Adrenal insufficiency Is this a current diagnosis for this admission?: Yes (10) Tobacco abuse Is this a current diagnosis for this admission?: Yes (11) Alcohol dependence, continuous Is this a current diagnosis for this admission?: Yes (12) DNR (do not resuscitate) Is this a current diagnosis for this admission?: Yes Hospital Course:: The patient was initially admitted 02/24/2018 for metabolic encephalopathy; multifactorial secondary to chronic alcohol dependence, urinary tract infection, and profound anemia. The patient did demonstrate evidence of alcohol withdrawal; managed through scheduled and as needed benzodiazepines; magnesium, thiamine, folic acid supplementation; and IV fluids to prevent dehydration. Unfortunately, the patient's mental status did not improve once the acute alcohol withdrawal phase and urinary tract infection had resolved. She had an extensive workup including brain MRI which was suboptimal but did not show any acute abnormalities, negative HIV, RPR, and HSV testing, normal TSH, PTH, and prolactin levels, follow-up UDS and serum EtOH which were normal, LP with normal opening pressures and negative CSF fluids, an EEG which was a technically poor secondary to artifact but demonstrated generalized background slowing consistent with diffuse cerebral dysfunction. Cosyntropin stimulating testing did indicate adrenal insufficiency. She was placed on hydrocortisone IV every 8 hours with no meaningful improvement in vital signs or mentation following 10 days of therapy. 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 Over the course of the admission, the patient's anemia was thoroughly evaluated: Iron and TIBC both low with acceptable B12, folic acid, and folate. TSH was normal. Occult stools negative x3. She received a total of 8 units of packed red blood cells over the course of her admission with consistently downward trend in hemoglobin. The patients mental status continued to decline, despite all nutritional and supportive measures, with an associated decrease in all p.o. intake and mobility. Ultimately, the patient's family members (mother and father) determined that the best course of action was to place the patient in hospice with comfort care measures. The patient expectantly on 05/13/18 at 1307.
== END 2018-05-13 14:41 | disposition expired | DRG 811 ==
LOC: ER 09:19 → EH 13:10 → ICU 15:08 → 3W 02-25 22:00 → 4S 03-09 19:02 → 4W 04-03 18:23
PROVIDERS: ADMIT Emergency Medicine; ATTEND Emergency Medicine
PROC: 30233N1 Transfusion of Nonautologous Red Blood Cells into Peripheral Vein, Percutaneous Approach (ICD-10-PCS; 2018-02-24)
PROC: 30233N1 Transfusion of Nonautologous Red Blood Cells into Peripheral Vein, Percutaneous Approach (ICD-10-PCS; 2018-03-05)
PROC: 009U3ZX Drainage of Spinal Canal, Percutaneous Approach, Diagnostic (ICD-10-PCS; 2018-03-07)
PROC: B01BZZZ Fluoroscopy of Spinal Cord (ICD-10-PCS; 2018-03-07)
PROC: 30233N1 Transfusion of Nonautologous Red Blood Cells into Peripheral Vein, Percutaneous Approach (ICD-10-PCS; 2018-03-21)
PROC: 30233N1 Transfusion of Nonautologous Red Blood Cells into Peripheral Vein, Percutaneous Approach (ICD-10-PCS; 2018-04-20)
PROC: 30233N1 Transfusion of Nonautologous Red Blood Cells into Peripheral Vein, Percutaneous Approach (ICD-10-PCS; principal; 2018-04-23)
DX: D53.1 Other megaloblastic anemias, not elsewhere classified (principal); G93.41 Metabolic encephalopathy; J96.01 Acute respiratory failure with hypoxia; J94.8 Other specified pleural conditions; E87.0 Hyperosmolality and hypernatremia; E27.40 Unspecified adrenocortical insufficiency; N39.0 Urinary tract infection, site not specified; R44.0 Auditory hallucinations; Z51.5 Encounter for palliative care; J98.11 Atelectasis; I95.9 Hypotension, unspecified; E88.89 Other specified metabolic disorders; D69.59 Other secondary thrombocytopenia; E83.42 Hypomagnesemia; F10.26 Alcohol dependence with alcohol-induced persisting amnestic disorder; K70.30 Alcoholic cirrhosis of liver without ascites; K76.0 Fatty (change of) liver, not elsewhere classified; F10.20 Alcohol dependence, uncomplicated; D52.0 Dietary folate deficiency anemia; F17.210 Nicotine dependence, cigarettes, uncomplicated; M54.2 Cervicalgia; M54.9 Dorsalgia, unspecified; G89.29 Other chronic pain; Y90.0 Blood alcohol level of less than 20 mg/100 ml; R12 Heartburn; Z66 Do not resuscitate; I48.0 Paroxysmal atrial fibrillation; R94.5 Abnormal results of liver function studies; E87.6 Hypokalemia; B96.20 Unspecified Escherichia coli [E. coli] as the cause of diseases classified elsewhere; R44.1 Visual hallucinations; R25.1 Tremor, unspecified; D63.8 Anemia in other chronic diseases classified elsewhere; R33.9 Retention of urine, unspecified; R68.0 Hypothermia, not associated with low environmental temperature; R00.1 Bradycardia, unspecified; R00.0 Tachycardia, unspecified; R45.1 Restlessness and agitation; Z82.49 Family history of ischemic heart disease and other diseases of the circulatory system
CPT/HCPCS: 36415; 36430; 36600; 62270; 70551; 71045; 76705; 77003; 80048; 80053; 80076; 80307; 81001; 82140; 82175; 82272; 82533; 82607; 82728; 82746; 82803; 82945; 82962; 83540; 83550; 83605; 83655; 83735; 83825; 83970; 84100; 84146; 84157; 84443; 84484; 85025; 85027; 85045; 85610; 86403; 86592; 86701; 86787; 86850; 86900; 86901; 86920; 87040; 87070; 87086; 87088; 87186; 87205; 87497; 87529; 87798; 89050; 93005; 93010; 94660; 95819; 96360; 96361; 99291; J0696; J0834; J1630; J1720; J2060; J2270; J2543; J3411; J3420; J3475; J3480; J3490; J7030; J7050; J7060; J7510; J7512; P9016; P9047; S0164